=== PATIENT | male | born 1945 | race Caucasian/White ===

== ENCOUNTER 2017-02-08 15:37 | Inpatient (IN) | payer MEDICARE ==
[2017-02-08] VITALS (7 sets, daily range): BP systolic 118–168; BP diastolic 56–95
[~2017-02-08] VITALS: Ht 191.8 cm; Wt 89.9 kg
[~2017-02-08 15:37] MED LIST: ASP81CT; BPR75T PO; CHOL200025 PO; LEVO500T80 PO; MELO7.5T; MULT-963 PO; PRD20T PO; PRV20T; SULF1TAB38 PO; VIT D
[2017-02-08] MEDS ORDERED: NS IV 1000 ML 1,000 ML IV ONE ×2 (15:50→17:04)
[2017-02-08] MEDS ORDERED: ACETAMINOPHEN 500 MG TAB (TYLENOL) PO PRN (16:00)
[2017-02-08 16:02] LABS: BASOPHILS % (AUTO) 0 % (0-10); EOSINOPHILS % (AUTO) 0 % (0-10); LYMPHOCYTES # (AUTO) 0.8 X 10^3 (1.0-4.0); LYMPHOCYTES % (AUTO) 10 % (12-44); MEAN CORPUSCULAR HEMOGLOBIN 28 PG (25-34); MEAN CORPUSCULAR HGB CONC 34 G/DL (32-36); MEAN CORPUSCULAR VOLUME 84 FL (80-99); MEAN PLATELET VOLUME 9.5 FL (7.4-10.4); MONOCYTES # (AUTO) 0.6 X 10^3 (0.0-1.0); MONOCYTES % (AUTO) 8 % (0-12); NEUTROPHILS # (AUTO) 6.2 X 10^3 (1.8-7.8); NEUTROPHILS % (AUTO) 81 % (42-75); PLATELET COUNT 114 10^3/uL (130-400); RED BLOOD COUNT 5.35 10^6/uL (4.35-5.85); RED CELL DISTRIBUTION WIDTH 14.9 % (10.0-14.5); WHITE BLOOD COUNT 7.6 10^3/uL (4.3-11.0)
[2017-02-08 16:15] LABS: PROTHROMBIN TIME PATIENT 13.2 SEC (12.2-14.7)
[2017-02-08 16:22] LABS: BILIRUBIN,URINE NEGATIVE (NEGATIVE); KETONES,URINE 1+ (NEGATIVE); LEUKOCYTE ESTERASE ,URINE 2+ (NEGATIVE); NITRITE,URINE NEGATIVE (NEGATIVE); PH,URINE 7 (5-9); PROTEIN,URINE 2+ (NEGATIVE); UROBILINOGEN,URINE NORMAL (NORMAL)
[2017-02-08 16:26] LABS: ALBUMIN 4.1 GM/DL (3.2-4.5); BILIRUBIN,TOTAL 1.2 MG/DL (0.1-1.0); CALCIUM 9.7 MG/DL (8.5-10.1); CREATININE SERUM 1.28 MG/DL (0.60-1.30); POTASSIUM 4.3 MMOL/L (3.6-5.0); TOTAL PROTEIN 8.3 GM/DL (6.4-8.2)
--- NOTE | 2017-02-08 16:35 | Diagnostic Imaging Report ---
INDICATION: Shortness of breath. TECHNIQUE: A PA chest was obtained at 4:18 PM. COMPARISON: 01/24/2016. FINDINGS: The heart and mediastinal silhouette are normal in appearance. There is COPD change. There is some parenchymal scarring in the right base which is less extensive than on 01/24/2016. There is no pleural fluid. The previous right pleural effusion has resolved. There is no consolidation or pneumothorax. IMPRESSION: COPD changes. There is some scarring in the right lung base which is improved compared with 02/03/2016 but not resolved. There is resolution of the previous right pleural effusion. There is no acute consolidation. Dictated by: Dictated on workstation # [id number]
[2017-02-08 16:41] LABS: WBC,URINE TNTC /HPF
--- NOTE | 2017-02-08 16:41 | ED General ---
General Chief Complaint: -Male Stated Complaint: SOA Nursing Triage Note: TO ED PER EMS REPORTS HE HAS HAD URINARY BURNING SINCE THIS AM. Nursing Sepsis Screen: Possible Sepsis Risk Source of Information: Patient Exam Limitations: No Limitations History of Present Illness Time Seen by Provider: 15:42 Initial Comments Here with report of fever this morning. Noted that he woke up at about 2 a.m. and had difficulty with urination. This repeated at 4 a.m. and 6 a.m. At about 2 p.m. today. He was shaking in week and feverish. He vomited when he tried to drink water. Overall feeling terrible. He did try to get a hold of his doctor and has appointment tomorrow morning. Denies diarrhea or breathing problems. Denies cough. Timing/Duration: 12-24 Hours Severity: Moderate Associated Systoms: No Chest Pain, No Cough, Fever/Chills, Nausea/Vomiting, Shortness of Air, Weakness Allergies and Home Medications Allergies Coded Allergies: ibuprofen (Unverified Adverse Reaction, Mild, BECOMES UNPLEASANT, 01/17/11) Home Medications Bupropion Hcl 75 Mg Tablet, 1 TAB PO DAILY, (Reported) Cholecalciferol (Vitamin D3) 2,000 Unit Tablet, 2,000 UNIT PO DAILY, (Reported) Levofloxacin 500 Mg Tablet, 500 MG PO DAILY, #7 Prescribed by: ABIGAIL MATHIAS on 01/24/161839 Multivitamin 1 Each Tablet, 1 EACH PO DAILY, (Reported) Prednisone 20 Mg Tab, 40 MG PO DAILY, #8 Prescribed by: ABIGAIL MATHIAS on 01/24/161839 Constitutional: see HPI, chills, fever, weakness EENTM: no symptoms reported Respiratory: no symptoms reported Cardiovascular: no symptoms reported Gastrointestinal: see HPI, No abdominal pain, nausea, vomiting Genitourinary: decreased output, dysuria, frequency Musculoskeletal: no symptoms reported Skin: no symptoms reported Psychiatric/Neurological: See HPI All Other Systems Reviewed Negative Unless Noted: Yes Past Qmcwkki-Sphdxw-Wvqyos Hx Patient Social History Alcohol Use: Denies Use Recreational Drug Use: No Smoking Status: Former Smoker Type Used: Cigarettes Former Smoker, Quit: Jan 14, 2015 Recent Foreign Travel: No Contact w/Someone Who Travel: No Recent Infectious Disease Expo: No Recent Hopitalizations: No Immunizations Up To Date Date of Pneumonia Vaccine: Feb 27, 2010 Date of Influenza Vaccine: Apr 05, 2011 Surgeries History of Surgeries: Yes (LBKA) Surgeries: Appendectomy Respiratory History of Respiratory Disorde: No Cardiovascular History of Cardiac Disorders: No Neurological History of Neurological Disord: No Reproductive System Hx Reproductive Disorders: No Gastrointestinal History of Gastrointestinal Di: No Musculoskeletal History of Musculoskeletal Dis: Yes (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) Endocrine History of Endocrine Disorders: No HEENT HEENT Disorders: Cataract Cancer History of Cancer: No Psychosocial History of Psychiatric Problem: No Integumentary History of Skin or Integumenta: No Blood Transfusions History of Blood Disorders: No Reviewed Nursing Assessment Reviewed/Agree w Nursing PMH: Yes Family Medical History Significant Family History: Cancer, Stroke Physical Exam-Suspected Sepsis Physical Exam Vital Signs Vital Sign - Last 12Hours 02/08/17 15:37 Temp 102.4 Pulse 117 Resp 18 B/P (MAP) 150/90 Pulse Ox 96 O2 Delivery Room Air O2 Flow Rate 2.00 Capillary Refill : Less Than 3 Seconds Blood Pressure Mean: 110 General Appearance: No Apparent Distress, WD/WN HEENT: PERRL/EOMI, Pharynx Normal Neck: Non Tender, Supple Respiratory: Lungs Clear, Normal Breath Sounds Cardiovascular: No Murmur, Tachycardia Gastrointestinal: Non Tender, Soft Back: Normal Inspection, No CVA Tenderness, No Vertebral Tenderness Extremity: Normal Range of Motion, Non Tender Neurologic/Psychiatric: Alert, Oriented x3 Skin: normal color, warm/dry Focused Exam Evaluation Lactate Level Laboratory Tests 02/08/17 15:56: Lactic Acid Level 2.19*H Lactic Acid Level Laboratory Tests Test 02/08/17 15:56 Lactic Acid Level 2.19 MMOL/L (0.50-2.00) *H Progress/Results/Core Measures Suspected Sepsis Recent Fever Within 48 Hours: Yes Infection Criteria Present: Suspected New Infection New/Unexplained Altered Menta: No Sepsis Screen: Possible Sepsis Risk Sepsis Diagnosis: SIRS Temperature:102.4 Pulse: 117 Respiratory Rate: 18 Laboratory Tests 02/08/17 15:56: White Blood Count 7.6 Blood Pressure 150 /90 Mean: 110 Laboratory Tests 02/08/17 15:56: Lactic Acid Level 2.19*H Laboratory Tests 02/08/17 15:56: Creatinine 1.28, INR Comment 1.0, Platelet Count 114L, Total Bilirubin 1.2H Results/Orders Lab Results Laboratory Tests Test 02/08/17 15:56 02/08/17 16:15 Range/Units White Blood Count 7.6 4.3-11.0 10^3/uL Red Blood Count 5.35 4.35-5.85 10^6/uL Hemoglobin 15.2 13.3-17.7 G/DL Hematocrit 45 40-54 % Mean Corpuscular Volume 84 80-99 FL Mean Corpuscular Hemoglobin 28 25-34 PG Mean Corpuscular Hemoglobin Concent 34 32-36 G/DL Red Cell Distribution Width 14.9 H 10.0-14.5 % Platelet Count 114 L 130-400 10^3/uL Mean Platelet Volume 9.5 7.4-10.4 FL Neutrophils (%) (Auto) 81 H 42-75 % Lymphocytes (%) (Auto) 10 L 12-44 % Monocytes (%) (Auto) 8 0-12 % Eosinophils (%) (Auto) 0 0-10 % Basophils (%) (Auto) 0 0-10 % Neutrophils # (Auto) 6.2 1.8-7.8 X 10^3 Lymphocytes # (Auto) 0.8 L 1.0-4.0 X 10^3 Monocytes # (Auto) 0.6 0.0-1.0 X 10^3 Eosinophils # (Auto) 0.0 0.0-0.3 10^3/uL Basophils # (Auto) 0.0 0.0-0.1 10^3/uL Prothrombin Time 13.2 12.2-14.7 SEC INR Comment 1.0 0.8-1.4 Activated Partial Thromboplast Time 30 24-35 SEC Sodium Level 134 L 135-145 MMOL/L Potassium Level 4.3 3.6-5.0 MMOL/L Chloride Level 103 98-107 MMOL/L Carbon Dioxide Level 21 21-32 MMOL/L Anion Gap 10 5-14 MMOL/L Blood Urea Nitrogen 16 7-18 MG/DL Creatinine 1.28 0.60-1.30 MG/DL Estimat Glomerular Filtration Rate 55 BUN/Creatinine Ratio 13 Glucose Level 103 70-105 MG/DL Lactic Acid Level 2.19 *H 0.50-2.00 MMOL/L Calcium Level 9.7 8.5-10.1 MG/DL Total Bilirubin 1.2 H 0.1-1.0 MG/DL Aspartate Amino Transf (AST/SGOT) 21 5-34 U/L Alanine Aminotransferase (ALT/SGPT) 24 0-55 U/L Alkaline Phosphatase 176 H 40-136 U/L Total Protein 8.3 H 6.4-8.2 GM/DL Albumin 4.1 3.2-4.5 GM/DL Urine Color YELLOW Urine Clarity VERY CLOUDY H Urine pH 7 5-9 Urine Specific [place] 1.010 L 1.016-1.022 Urine Protein 2+ H NEGATIVE Urine Glucose (UA) NEGATIVE NEGATIVE Urine Ketones 1+ H NEGATIVE Urine Nitrite NEGATIVE NEGATIVE Urine Bilirubin NEGATIVE NEGATIVE Urine Urobilinogen NORMAL NORMAL MG/DL Urine Leukocyte Esterase 2+ H NEGATIVE Urine RBC (Auto) 3+ H NEGATIVE Urine RBC 2-5 H /HPF Urine WBC TNTC H /HPF Urine Crystals NONE /LPF Urine Bacteria LARGE H /HPF Urine Casts NONE /LPF Urine Mucus NEGATIVE /LPF Urine Culture Indicated YES My Orders Orders - ABIGAIL MATHIAS MD Cbc With Automated Diff (02/08/17 15:50) Comprehensive Metabolic Panel (02/08/17 15:50) Lactic Acid Analyzer (02/08/17 15:50) Blood Culture (02/08/17 15:50) Sputum Culture (02/08/17 15:50) Ua Culture If Indicated (02/08/17 15:50) Protime With Inr (02/08/17 15:50) Partial Thromboplastin Time (02/08/17 15:50) Chest 1 View, Ap/Pa Only (02/08/17 15:50) O2 (02/08/17 15:50) Acetaminophen Tablet (Tylenol Tablet) (02/08/17 16:00) Vital Signs Adult Sepsis Patie Q1HR (02/08/17 15:50) Remove Rings In Anticipation O (02/08/17 15:50) Ns Iv 1000 Ml (Sodium Chloride 0.9%) (02/08/17 15:50) Urine Culture (02/08/17 16:15) Ceftriaxone Injection (Rocephin Injectio (02/08/17 17:00) Ns Iv 1000 Ml (Sodium Chloride 0.9%) (02/08/17 17:04) Ns Iv 1000 Ml (Sodium Chloride 0.9%) (02/08/17 17:04) Medications Given in ED Current Medications Medications Dose Ordered Sig/Kanid Route Start Time Stop Time Status Last Admin Dose Admin Acetaminophen 1,000 mg ONCE PRN PO 02/08/17 16:00 02/08/17 16:06 DC 02/08/17 16:06 1,000 MG Sodium Chloride 1,000 ml @ 0 mls/hr Q0M ONCE IV 02/08/17 15:50 02/08/17 15:52 DC 02/08/17 16:06 1,000 MLS/HR Vital Signs/I&O Vital Sign - Last 12Hours 02/08/17 02/08/17 15:37 15:37 Temp 102.4 Pulse 117 Resp 18 B/P (MAP) 150/90 Pulse Ox 96 O2 Delivery Room Air Room Air O2 Flow Rate 2.00 Intake and Output 02/09/17 00:00 Intake Total 1000 ml Balance 1000 ml Capillary Refill : Less Than 3 Seconds Blood Pressure Mean: 110 Progress Note : Progress Note Seen and evaluated. IV by EMS. Labs, UA, chest x-ray and normal saline 1 L bolus ordered. Lactic acid and blood cultures ordered. Tylenol 1 g by mouth ordered. Monitor patient. 1655: Rocephin 1 g IV ordered. UTI noted. Findings of sepsis without septic shock noted. No indication of high volume fluid resuscitation at this time. 1703: Blood pressure now 89 systolic and appears to be floating around that level. Due to this, he now meets saline fluid resuscitation. 2 more liters of normal saline have been ordered IV to make a total of 3 L which would exceed the 30 mL/kg IV. 1707: I attest to focus exam. Admit to ICU. Dr. SILVA updated and agrees. Admit, inpatient status. Patient and family agree with plan. Departure Communication (Admissions) Time/Spoke to Admitting Phy: 16:55 Impression Impression: Primary Impression: Severe sepsis Additional Impression: Urinary tract infection Qualified Codes: N30.00 - Acute cystitis without hematuria Disposition: ADMITTED INPATIENT Condition: Stable Admissions Decision to Admit Reason: Admit from ER (General) Decision to Admit/Date: Feb 08, 2017 Time/Decision to Admit Time: 16:55 Departure-Patient Inst. Referrals: TISHA HO MD (PCP/Family) Primary Care Physician Copy Copies To 1: TISHA HO MD, TIMOTHY D MD Feb 08, 2017 16:41
[2017-02-08] MEDS ORDERED: cefTRIAXone INJECTION 1,000 MG in NS (IVPB) 50 ML IV ONE (17:00)
[2017-02-08] MEDS ORDERED: NS IV 1000 ML 1,000 ML IV STA (17:04)
--- OUTSIDE RECORDS SUMMARY | 2017-02-08 17:26 | XMS REPORT | Clinical Summary ---
Author Author [facility] Organization [facility] Address Unknown Phone Unavailable Care Team Providers Care Bus [employer] In[employer] Name Role Phone PCP Unavailable Source Comments Some departments are not documenting in the electronic medical record. If you do not see the information that you expected, contact Release of Information in the Health Information Management department at [phone] for further assistance in locating additional records.[facility] Allergies Not on File Current Medications Not on file Active Problems Not on file Social History Tobacco Use Types Packs/Day Years Used Date Never Assessed Sex Assigned at Date Recorded Not on file Last Filed Vital Signs Not on file Plan of Treatment Health Maintenance Due Date Last Done Comments PHYSICAL (COMPREHENSIVE) 1950 EXAM PERTUSSIS VACCINE 1954 TETANUS VACCINE 01/14/1960 COLORECTAL CANCER 1993 SCREENING SHINGLES VACCINE 2003 PREVNAR/PNEUMOVAX (#1) 01/14/2008 INFLUENZA VACCINE 02/13/2017 Results Not on filefrom Last 3 Months
[2017-02-08] MEDS ORDERED: ACETAMINOPHEN 325 MG TABLET/CAPLET (TYLENOL) PO PRN (19:00)
[2017-02-08] MEDS ORDERED: HYDROcodone/APAP 7.5 MG/325 MG (LORTAB, LORCET PLUS) TABLET PO PRN (19:00)
[2017-02-08] MEDS ORDERED: LIDOCAINE UROJET 2% GEL 10 ML PKG ONE (22:09)
[2017-02-09] VITALS (15 sets, daily range): BP systolic 77–121; BP diastolic 33–79
[2017-02-09] MEDS: NS IV 1000 ML 1,000 ML IV SCH ×4 (02:23→17:49)
[2017-02-09 05:03] LABS: BASOPHILS % (AUTO) 0 % (0-10); EOSINOPHILS % (AUTO) 0 % (0-10); LYMPHOCYTES # (AUTO) 0.9 X 10^3 (1.0-4.0); LYMPHOCYTES % (AUTO) 21 % (12-44); MEAN CORPUSCULAR HEMOGLOBIN 29 PG (25-34); MEAN CORPUSCULAR HGB CONC 34 G/DL (32-36); MEAN CORPUSCULAR VOLUME 85 FL (80-99); MEAN PLATELET VOLUME 9.5 FL (7.4-10.4); MONOCYTES # (AUTO) 0.7 X 10^3 (0.0-1.0); MONOCYTES % (AUTO) 15 % (0-12); NEUTROPHILS # (AUTO) 2.7 X 10^3 (1.8-7.8); NEUTROPHILS % (AUTO) 64 % (42-75); PLATELET COUNT 88 10^3/uL (130-400); RED BLOOD COUNT 4.43 10^6/uL (4.35-5.85); RED CELL DISTRIBUTION WIDTH 14.9 % (10.0-14.5); WHITE BLOOD COUNT 4.3 10^3/uL (4.3-11.0)
[2017-02-09 05:14] LABS: INR 1.2 (0.8-1.4); PROTHROMBIN TIME PATIENT 14.9 SEC (12.2-14.7)
[2017-02-09 05:26] LABS: ALBUMIN 3.2 GM/DL (3.2-4.5); BILIRUBIN,TOTAL 1.3 MG/DL (0.1-1.0); CALCIUM 8.5 MG/DL (8.5-10.1); CREATININE SERUM 1.24 MG/DL (0.60-1.30); MAGNESIUM 1.8 MG/DL (1.8-2.4); PHOSPHORUS 2.6 MG/DL (2.3-4.7); POTASSIUM 4.2 MMOL/L (3.6-5.0); TOTAL PROTEIN 6.2 GM/DL (6.4-8.2)
--- NOTE | 2017-02-09 06:16 | Pulmonary Consultation ---
History of Present Illness History of Present Illness Date of Consultation 02/09/17 06:10 Time Seen by Provider: 06:30 Date of Admission History of Present Illness 72yo pt with hx of chronic UTIS, and left BKA. Pt has been seeing Dr. Noel for elevated PSA. admitted to ICU last night after waking up with fever, chills, and dysuria. Pt was dx with severe urosepsis in the ED and admitted to ICU. Fever of 101.6. Pt has received 30cc/kg of IVF. Weiss was placed last night secondary to urinary retention. I am consulted for ICU management. Allergies and Home Medications Allergies Coded Allergies: ibuprofen (Unverified Adverse Reaction, Mild, BECOMES UNPLEASANT, 01/17/11) Home Medications Bupropion Hcl 75 Mg Tablet, 1 TAB PO DAILY, (Reported) Cholecalciferol (Vitamin D3) 2,000 Unit Tablet, 2,000 UNIT PO DAILY, (Reported) Levofloxacin 500 Mg Tablet, 500 MG PO DAILY, #7 Prescribed by: ABIGAIL MATHIAS on 01/24/161839 Multivitamin 1 Each Tablet, 1 EACH PO DAILY, (Reported) Prednisone 20 Mg Tab, 40 MG PO DAILY, #8 Prescribed by: ABIGAIL MATHIAS on 01/24/161839 Past Qqdjkjh-Qcwump-Extfrc Hx Patient Social History Alcohol Use: Denies Use Recreational Drug Use: No Smoking Status: Former Smoker Type Used: Cigarettes Former Smoker, Quit: Dec 28, 2011 Recent Foreign Travel: No Contact w/Someone Who Travel: No Recent Infectious Disease Expo: No Recent Hopitalizations: No Immunizations Up To Date Date of Pneumonia Vaccine: Feb 27, 2010 Date of Influenza Vaccine: Apr 05, 2011 Seasonal Allergies Seasonal Allergies: No Surgeries History of Surgeries: Yes (LBKA, appy) Surgeries: Appendectomy Respiratory History of Respiratory Disorde: Yes Respiratory Disorders: COPD Currently Using CPAP: No Currently Using BIPAP: No Cardiovascular History of Cardiac Disorders: No Neurological History of Neurological Disord: No Reproductive System Hx Reproductive Disorders: No Genitourinary Genitourinary Disorders: UTI-Chronic Gastrointestinal History of Gastrointestinal Di: No Musculoskeletal History of Musculoskeletal Dis: Yes (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) Musculoskeletal Disorders: Arthritis, Chronic Back Pain Endocrine History of Endocrine Disorders: No HEENT HEENT Disorders: Cataract Cancer History of Cancer: No Psychosocial History of Psychiatric Problem: No Integumentary History of Skin or Integumenta: No Blood Transfusions History of Blood Disorders: No Reviewed Nursing Assessment Reviewed/Agree w Nursing PMH: Yes Family Medical History Significant Family History: Cancer, Stroke Family Medial History: Cardiovascular disease 19 MOTHER (cva) Neoplasm 19 FATHER (lung ca) G8 SISTER (lung ca ) Review of Systems Time Seen by Provider: 06:29 Constitutional: Fever, Chills, Sweats, Weakness, Malaise Eyes: No: Pain, Vision change, Conjunctivae inflammation, Eyelid inflammation, Other, Redness ENT: No: Ear pain, Ear discharge, Nose pain, Nose discharge, Nose congestion, Mouth pain, Mouth swelling, Throat pain, Throat swelling, Other Respiratory: No: Cough, Dry, Shortness of breath, SOB with excertion, Wheezing , Hemoptysis, Pleuritic Pain, Sputum, Wheezing, Other Cardiovascular: No: Chest Pain, Palpitations, Orthopnea, Paroxysmal Noc. Dyspnea, Edema, Lt Headedness, Other Gastrointestinal: No: Nausea, Vomiting, Abdominal Pain, Diarrhea, Constipation , Melena, Hematochezia, Other Genitourinary: Dysuria, No Incontinence, No Hematuria, Retention Musculoskeletal: No: other, neck pain, shoulder pain, arm pain, back pain, hand pain, leg pain, foot pain Skin: No: Rash, Lesions, Jaundice, Bruising, Other Neurological: Weakness, Incoordination, Confusion Exam Exam Vital Signs Date Time Temp Pulse Resp B/P (MAP) Pulse Ox O2 Delivery O2 Flow Rate FiO2 02/09/17 05:00 90 99/74 95 Room Air 02/09/17 04:30 99.1 84 97/59 95 Room Air 02/09/17 04:00 82 85/33 95 Room Air 02/09/17 04:00 95 Room Air 02/09/17 03:00 89 89/56 93 Room Air 02/09/17 02:30 90 98/57 94 Room Air 02/09/17 02:00 92 77/39 95 Room Air 02/09/17 01:22 96 02/09/17 01:00 96 107/37 93 Room Air 02/09/17 00:00 100.3 102 106/59 93 Room Air 02/09/17 00:00 95 Room Air 02/08/17 23:20 100.3 02/08/17 23:09 110 118/56 95 Room Air 02/08/17 22:37 101.6 02/08/17 22:06 125 168/95 96 Room Air 02/08/17 21:16 109 27 150/73 94 Room Air 02/08/17 20:00 97.8 104 132/86 95 Room Air 02/08/17 20:00 95 Room Air 02/08/17 19:50 97 Room Air 02/08/17 19:30 93 21 132/69 96 Room Air 02/08/17 19:01 91 02/08/17 19:00 91 21 124/72 94 Room Air 02/08/17 18:35 99.7 90 18 94 Room Air 02/08/17 18:35 100.2 98 11 135/75 93 Room Air 02/08/17 15:37 Room Air 2.00 02/08/17 15:37 102.4 117 18 150/90 96 Room Air General Appearance: No Apparent Distress, WD/WN HEENT: PERRL/EOMI, Pharynx Normal Neck: Non Tender, Supple Respiratory: Lungs Clear, Normal Breath Sounds, No Accessory Muscle Use, No Respiratory Distress Cardiovascular: No Murmur, Tachycardia Capillary Refill: Less Than 3 Seconds Gastrointestinal: non tender, soft, no organomegaly Extremity: Normal Range of Motion, Non Tender Neurologic/Psychiatric: Alert, Oriented x3 Skin: Normal Color, Warm/Dry Results Lab Laboratory Tests 02/08/17 15:56 02/09/17 04:41 Assessment/Plan Assessment/Plan UTI with severe sepsis -IVF -repeat 1 liter bolus -Continue Rocephin Urinary retention probably secondary to BPH -Start flomax Metabolic lactic acidosis - improving -Continue IVF mild Hypotension - improving -repeat bolus -monitor DVT/GI ppx -Lovenox -diet PT is doing better and responding to IVF. Will transfer to ICU stepdown status but keep pt in ICU for another 24hrs. 255 Clinical Quality Measures DVT/VTE Risk/Contraindication: Risk Factor Score Per Nursin RFS Level Per Nursing on Admit: 2=Moderate ARMANDO HEALY DO Feb 09, 2017 06:16
[2017-02-09] MEDS ORDERED: NS IV 500 ML 500 ML IV SCH ×2 (06:20→06:34)
[2017-02-09] MEDS ORDERED: CATHETER FLUSH 10 ML SYR IV PRN (06:30)
[2017-02-09] MEDS ORDERED: ENOXAPARIN 40 MG/0.4 ML (LOVENOX) SYR ONE (06:38)
[2017-02-09] MEDS ORDERED: ENOXAPARIN 40 MG/0.4 ML (LOVENOX) SYR SC SCH (07:00)
--- NOTE | 2017-02-09 08:40 | Diagnostic Imaging Report ---
INDICATION: Dyspnea. Compared with 02/08/2017. FINDINGS: No focal consolidation, effusion or pneumothorax. Air trapping and COPD, chronic. The heart size within normal limits and stable. IMPRESSION: Clear hyperexpanded lungs. Dictated by: Dictated on workstation # [id number]
--- NOTE | 2017-02-09 08:47 | History & Physical-Hospitalist ---
HPI History of Present Illness: HPI/Chief Complaint Mr. Tyson is a 72-year-old white male who is feeling well until he woke up around 2 a.m. the day before his admission noting the onset of burning with dribbling. He got up about every 2 hours feeling weak. He then developed chills the afternoon around noon and presented to the emergency room around 2 p.m. feeling quite weak. He has a history of prostatism and had one other urinary tract infection treated as an outpatient as I recall little over a year ago. Weiss catheter was placed with about 500 mL of residual postvoid. Up until yesterday he reports he had been feeling well with no symptoms and stable nocturia 2 but he did not feel was significant enough to want to take medication for. Date Seen 02/09/17 Time Seen by Provider: 07:40 Attending Physician Tisha Ho MD PCP Tisha Ho MD Referring Physician Date of Admission Feb 08, 2017 at 17:22 Home Medications & Allergies Home Medications Reviewed patient Home Medication Reconciliation Form Allergies Allergies Coded Allergies ibuprofen (Unverified Adverse Reaction, Mild, BECOMES UNPLEASANT, 01/17/11) Past Fcewcvd-Zckwfy-Gptrgh Hx Patient Social History Alcohol Use: Denies Use Recreational Drug Use: No Smoking Status: Former Smoker Former Smoker, Quit: Dec 28, 2011 Type Used: Cigarettes Physical Abuse Screen: No Sexual Abuse: No Recent Foreign Travel: No Contact w/other who traveled: No Recent Hopitalizations: No Recent Infectious Disease Expo: No Immunizations Up To Date Date of Pneumonia Vaccine: Feb 27, 2010 Date of Influenza Vaccine: Apr 05, 2011 Seasonal Allergies Seasonal Allergies: No Surgeries Yes (LBKA, appy) Appendectomy Respiratory Yes Currently Using CPAP: No Currently Using BIPAP: No Cardiovascular No Neurological No Reproductive System Hx Reproductive Disorders: No Genitourinary UTI-Chronic Gastrointestinal No Musculoskeletal Yes (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) Arthritis, Chronic Back Pain Endocrine History of Endocrine Disorders: No HEENT HEENT Disorders: Cataract Cancer No Psychosocial History of Psychiatric Problem: No Integumentary History of Skin or Integumenta: No Blood Transfusions History of Blood Disorders: No Reviewed Nursing Assessment Reviewed/Agree w Nursing PMH: Yes Family Medical History Significant Family History: Cancer, Stroke Family Hx: Cardiovascular disease 19 MOTHER (cva) Neoplasm 19 FATHER (lung ca) G8 SISTER (lung ca ) Review of Systems Constitutional: see HPI, chills, No diaphoresis, No dizziness, fever, No malaise, weakness, No weight gain, No weight loss, No other Respiratory: No cough, No dyspnea on exertion, No hemoptysis, No orthopnea, No phlegm, No short of breath, No wheezing Genitourinary: discharge, dysuria, frequency, hesitancy Physical Exam Physical Exam Vital Signs Vital Sign - Last 12Hours 02/08/17 15:37 Temp 102.4 Pulse 117 Resp 18 B/P (MAP) 150/90 Pulse Ox 96 O2 Delivery Room Air O2 Flow Rate 2.00 Capillary Refill : Less Than 3 Seconds General Appearance: No Apparent Distress Respiratory: Chest Non Tender, Lungs Clear, Normal Breath Sounds, No Accessory Muscle Use, No Respiratory Distress Cardiovascular: Regular Rate, Rhythm, No Edema, No Gallop, No JVD, No Murmur, Normal Peripheral Pulses Gastrointestinal: Normal Bowel Sounds, No Organomegaly, No Pulsatile Mass, Non Tender, Soft Extremity: Normal Capillary Refill, Normal Inspection, Normal Range of Motion, Non Tender, No Calf Tenderness, No Pedal Edema, Other (Right BKA amputation) Neurologic/Psychiatric: Alert, Oriented x3 Skin: Warm/Dry, Other (I'll flushing) Results Results/Procedures Lab Laboratory Tests 02/08/17 15:56 02/09/17 04:41 Assessment/Plan Admission Diagnosis 1. Urinary tract infection with sepsis responding to IV antibiotics. The patient's blood pressure is up this morning and his heart rate is no longer tachycardic. Continue Rocephin and IV fluids. 2. Prostatism with likely incomplete evacuation contributing to number 1. Uroxatral has been initiated will leave his catheter in today and possibly tomorrow. 3. Thrombocytopenia secondary to sepsis this will preclude the use of Lovenox with SCDs sufficing for DVT prophylaxis. Clinical Quality Measures DVT/VTE Risk/Contraindication: Risk Factor Score Per Nursin RFS Level Per Nursing on Admit: 2=Moderate TISHA HO MD Feb 09, 2017 08:47
[2017-02-09] MEDS ORDERED: HYDR-3812 PO (09:01)
[2017-02-09] MEDS ORDERED: NAPR500T3 PO (09:01)
[2017-02-09] MEDS: cefTRIAXone 1 GM/NS 50 ML IVPB IV SCH ×2 (17:49)
[2017-02-09] MEDS: ALFUZOSIN HCL 10 MG TAB (UROXATRAL) PO SCH (17:49)
[2017-02-10] VITALS: BP 118/63
[2017-02-10] MEDS: NS IV 1000 ML 1,000 ML IV SCH ×2 (02:03→06:23)
[2017-02-10 04:00] VITALS: BP 106/56
--- NOTE | 2017-02-10 07:02 | Pulmonary Progress Note ---
Subjective Time Seen by Provider: 07:11 Subjective/Events-last exam pt doing well. No complications noted. Exam Exam Vital Signs Date Time Temp Pulse Resp B/P (MAP) Pulse Ox O2 Delivery O2 Flow Rate FiO2 02/10/17 04:00 99.1 78 16 106/56 92 Room Air 02/10/17 00:00 98.2 67 20 118/63 95 Room Air 02/09/17 19:45 99.3 67 18 121/63 95 Room Air 02/09/17 15:45 98.9 90 18 102/59 93 Room Air 02/09/17 12:00 98.9 60 20 101/57 95 Room Air 02/09/17 09:44 98.6 02/09/17 08:45 Room Air 02/09/17 08:00 89 121/79 93 Room Air 02/09/17 07:33 88 02/09/17 07:30 99.3 90 20 120/70 93 Room Air General Appearance: No Apparent Distress HEENT: PERRL/EOMI, Pharynx Normal Neck: Non Tender, Supple Respiratory: Chest Non Tender, Lungs Clear, Normal Breath Sounds, No Accessory Muscle Use, No Respiratory Distress Cardiovascular: Regular Rate, Rhythm, No Edema, No Gallop, No JVD, No Murmur, Normal Peripheral Pulses Capillary Refill: Less Than 3 Seconds Gastrointestinal: non tender, soft, no organomegaly Extremity: Normal Capillary Refill, Normal Inspection, Normal Range of Motion, Non Tender, No Calf Tenderness, No Pedal Edema, Other (Right BKA amputation) Neurologic/Psychiatric: Alert, Oriented x3 Skin: Warm/Dry, Other (I'll flushing) Results Lab Laboratory Tests 02/08/17 15:56 02/09/17 04:41 Assessment/Plan Assessment/Plan UTI with severe sepsis -IVF -Continue Rocephin -PT is eating and drinking water well. No complications noted. I am going to hep lock IVF currently still running at 150cc/hr Urinary retention probably secondary to BPH -flomax Metabolic lactic acidosis - improving mild Hypotension - improving -repeat bolus -monitor DVT/GI ppx -Lovenox -diet 232 Pt is doing well from pulmonary standpoint. I am going to sign off please call with any questions. Thank you. Clinical Quality Measures DVT/VTE Risk/Contraindication: Risk Factor Score Per Nursin RFS Level Per Nursing on Admit: 2=Moderate MONET,ARMANDO M DO Feb 10, 2017 07:01
[2017-02-10 08:00] VITALS: BP 138/65
--- NOTE | 2017-02-10 08:47 | Progress Note-Hospitalist ---
Subjective HPI/CC On Admission Date Seen by Provider: Feb 10, 2017 Time Seen by Provider: 07:40 Mr. Tyson is a 72-year-old white male who is feeling well until he woke up around 2 a.m. the day before his admission noting the onset of burning with dribbling. He got up about every 2 hours feeling weak. He then developed chills the afternoon around noon and presented to the emergency room around 2 p.m. feeling quite weak. He has a history of prostatism and had one other urinary tract infection treated as an outpatient as I recall little over a year ago. Weiss catheter was placed with about 500 mL of residual postvoid. Up until yesterday he reports he had been feeling well with no symptoms and stable nocturia 2 but he did not feel was significant enough to want to take medication for. Subjective/Events-last exam Romain reports feeling better this morning did report night sweats but no chills last night. He was sitting up and he just finished breakfast. He denied nausea abdominal pain or shortness of breath. He denies any problems with catheter irritation with Weiss to dependent drainage. Objective Exam Vital Signs Vital Sign - Last 12Hours 02/08/17 15:37 Temp 102.4 Pulse 117 Resp 18 B/P (MAP) 150/90 Pulse Ox 96 O2 Delivery Room Air O2 Flow Rate 2.00 Capillary Refill : Less Than 3 Seconds General Appearance: No Apparent Distress, WD/WN Respiratory: Chest Non Tender, Lungs Clear, Normal Breath Sounds, No Accessory Muscle Use, No Respiratory Distress Cardiovascular: Regular Rate, Rhythm, No Edema, No Gallop, No JVD, No Murmur, Normal Peripheral Pulses Gastrointestinal: Normal Bowel Sounds, No Organomegaly, No Pulsatile Mass, Non Tender, Soft Results/Procedures Lab Laboratory Tests 02/11/17 05:26 Assessment/Plan Assessment and Plan Assess & Plan/Chief Complaint 1. Urinary tract infection with sepsis growing Escherichia coli sensitive to all tested antibiotics. Patient responding well continue IV antibiotics. 2. Thrombocytopenia secondary to 1 and will repeat CBC in the morning. 3. Prostatism on alpha silviano therapy in the form of Uroxatral will DC Weiss today. Possible discharge tomorrow considering patient's rapid improvement. TISHA HO MD Feb 10, 2017 08:47
[2017-02-10 16:00] VITALS: BP 118/64
[2017-02-10] MEDS: ALFUZOSIN HCL 10 MG TAB (UROXATRAL) PO SCH (18:37)
[2017-02-10] MEDS: cefTRIAXone 1 GM/NS 50 ML IVPB IV SCH ×2 (18:37)
[2017-02-10 23:47] VITALS: BP 122/88
[2017-02-11 06:25] LABS: BASOPHILS % (AUTO) 0 % (0-10); EOSINOPHILS # (AUTO) 0.1 10^3/uL (0.0-0.3); EOSINOPHILS % (AUTO) 3 % (0-10); LYMPHOCYTES # (AUTO) 0.9 X 10^3 (1.0-4.0); LYMPHOCYTES % (AUTO) 39 % (12-44); MEAN CORPUSCULAR HEMOGLOBIN 28 PG (25-34); MEAN CORPUSCULAR HGB CONC 34 G/DL (32-36); MEAN CORPUSCULAR VOLUME 84 FL (80-99); MEAN PLATELET VOLUME 9.8 FL (7.4-10.4); MONOCYTES # (AUTO) 0.4 X 10^3 (0.0-1.0); MONOCYTES % (AUTO) 17 % (0-12); NEUTROPHILS % (AUTO) 42 % (42-75); PLATELET COUNT 91 10^3/uL (130-400); RED BLOOD COUNT 4.41 10^6/uL (4.35-5.85); RED CELL DISTRIBUTION WIDTH 15.1 % (10.0-14.5); WHITE BLOOD COUNT 2.3 10^3/uL (4.3-11.0)
[2017-02-11 08:00] VITALS: BP 133/71
[2017-02-11] MEDS ORDERED: CEPH500C PO (11:47)
[2017-02-11] MEDS ORDERED: ALFU10TA11 PO (11:47)
--- NOTE | 2017-02-11 16:17 | Discharge Summary-Hospitalist ---
Diagnosis/Chief Complaint Date of Admission Feb 08, 2017 at 17:22 Date of Discharge Feb 11, 2017 at 13:20 Discharge Date: Feb 11, 2017 Admission Diagnosis 1. Urinary tract infection with sepsis responding to IV antibiotics. The patient's blood pressure is up this morning and his heart rate is no longer tachycardic. Continue Rocephin and IV fluids. 2. Prostatism with likely incomplete evacuation contributing to number 1. Uroxatral has been initiated will leave his catheter in today and possibly tomorrow. 3. Thrombocytopenia secondary to sepsis this will preclude the use of Lovenox with SCDs sufficing for DVT prophylaxis. Discharge Diagnosis 1. Urinary tract infection with sepsis growing Escherichia coli sensitive to all tested antibiotics. Patient responding well continue IV antibiotics. 2. Thrombocytopenia secondary to 1 and will repeat CBC in the morning. 3. Prostatism on alpha silviano therapy in the form of Uroxatral will DC Weiss today. Possible discharge tomorrow considering patient's rapid improvement. Discharge Summary Discharge Physical Examination Allergies: Coded Allergies: ibuprofen (Unverified Adverse Reaction, Mild, BECOMES UNPLEASANT, 01/17/11) Vitals & I&Os Vital Signs Date Time Temp Pulse Resp B/P (MAP) Pulse Ox O2 Delivery O2 Flow Rate FiO2 02/11/17 13:20 02/11/17 08:00 98.9 86 24 94 Room Air 02/08/17 15:37 2.00 Hospital Course Mr. Tyson presented to the emergency room with chills fever or weakness and dysuria. His temperature was 102.5 his lactate level was slightly greater than 2 with sinus tachycardia maintaining normal blood pressure. He was noted to be thrombocytopenic with urine results revealing large bacteria and numerous white cells. He was admitted to the intensive care unit with presumed urinary tract infection with secondary sepsis. IV fluid resuscitation was given greater than 30 mL/kg and Rocephin was initiated. Urine culture grew Escherichia coli pansensitive to all tested antibiotics including amoxicillin. The patient responded more quickly than I expected with no further Reiger's. On the day of his discharge his white count had dropped to 2.3 thousand but platelet count had come up from 85 to 90,000 and hemoglobin was 12.4. The day of this discharge he was ambulating without difficulty with normal appetite. He does have symptoms compatible with prostatism with diminished stream and nocturia 2. This is a second urinary tract infection he has had this year last one treated as an outpatient. We discussed prostatism and incomplete emptying is being is likely a major risk factor and Uroxatral was started. His Weiss catheter was removed the day before discharge and he had no difficulty voiding. He was discharged on cephalexin 500 mg 4 times a day and Uroxatral 10 mg daily. Discussed the importance of hydration predominantly water and I will see him back for follow-up in 1-2 weeks. Labs (last 24 hrs) Laboratory Tests 02/11/17 05:26: White Blood Count 2.3L, Red Blood Count 4.41, Hemoglobin 12.4L, Hematocrit 37L, Mean Corpuscular Volume 84, Mean Corpuscular Hemoglobin 28, Mean Corpuscular Hemoglobin Concent 34, Red Cell Distribution Width 15.1H, Platelet Count 91L, Mean Platelet Volume 9.8, Neutrophils (%) (Auto) 42, Lymphocytes (%) (Auto) 39, Monocytes (%) (Auto) 17H, Eosinophils (%) (Auto) 3, Basophils (%) (Auto) 0, Neutrophils # (Auto) 1.0L, Lymphocytes # (Auto) 0.9L, Monocytes # (Auto) 0.4, Eosinophils # (Auto) 0.1, Basophils # (Auto) 0.0 Microbiology 02/08/17 Blood Culture - Preliminary, Resulted No growth 02/08/17 Urine Culture - Final, Complete Escherichia Coli Discharge Home Medications: Active Scripts Active Cephalexin 500 Mg Capsule 500 Mg PO QIDACHS 5 Days Alfuzosin HCl ER (Alfuzosin HCl) 10 Mg Tab.er.24h 10 Mg PO DAILY@1800 30 Days Reported Hydrocodon -Acetaminophen 5-325 (Hydrocodone/Acetaminophen) 1 Each Tablet 1 Tab PO DAILY PRN Naproxen 500 Mg Tablet 500 Mg PO DAILY PRN Instructions to patient/family Please see electronic discharge instructions given to patient. Clinical Quality Measures DVT/VTE Risk/Contraindication: Risk Factor Score Per Nursin RFS Level Per Nursing on Admit: 2=Moderate TISHA HO MD Feb 11, 2017 16:17
[2017-02-13] MEDS ORDERED: INFLUENZA TRIvalent 2017-2018 0.5 ML/45 MCG SYR IM ONE (07:45)
== END 2017-02-11 13:20 | disposition home or self-care (01) | DRG 872 ==
LOC: EDUNIT# 15:37 → ER 15:38 → ICU 17:22 → 4TH 02-09 08:25 → UNDODISIN 02-09 16:00
PROVIDERS: ADMIT Internal Medicine; ATTEND Internal Medicine
DX: A41.9 Sepsis, unspecified organism (principal); N39.0 Urinary tract infection, site not specified; N40.1 Benign prostatic hyperplasia with lower urinary tract symptoms; R33.8 Other retention of urine; D69.59 Other secondary thrombocytopenia; J44.9 Chronic obstructive pulmonary disease, unspecified; M19.91 Primary osteoarthritis, unspecified site; M54.9 Dorsalgia, unspecified; Z87.891 Personal history of nicotine dependence
CPT/HCPCS: 36415; 71010; 80053; 81000; 83605; 83735; 84100; 85025; 85610; 85730; 87040; 87077; 87088; 87186; 96361; 96365

== ENCOUNTER 2020-11-11 08:04 | Observation (INO) | payer MEDICARE ==
[~2020-11-11] VITALS: Ht 193 cm; Wt 94.2 kg
[2020-11-11] VITALS (7 sets, daily range): BP systolic 121–159; BP diastolic 55–81
[~2020-11-11 08:04] MED LIST changes: +ACHD5005 PO; +ALFU10TA12 PO; +CEPH500C PO; +NAPR-915 PO
[2020-11-11] MEDS ORDERED: ASPIRIN 81 MG CHEW (CHILDREN'S ASA) PO ONE (08:15)
--- NOTE | 2020-11-11 08:16 | ED Cardiac General ---
History of Present Illness General Stated Complaint: SYNCOPE Source: patient Exam Limitations: no limitations History of Present Illness Date Seen by Provider: Nov 11, 2020 Time Seen by Provider: 08:00 Initial Comments Patient to ER by EMS from home with chief complaint that he called his daughter because he did not feel well this morning was feeling hot/sweaty and by the time she got to his house she found him passed out for about 5 minutes. He has no history of coronary disease nor does he know a senior mechanical project engineer. He does follow with Dr. Noel and Dr. Evangelista. He is not having any nausea. He is not diabetic. He is not having any chest pain at any time. EMS reports he had an initial blood pressure around 90/60 so they started some fluids and he has received about 400 cc of them. Allergies and Home Medications Allergies Coded Allergies: ibuprofen (Unverified Adverse Reaction, Mild, BECOMES UNPLEASANT, 01/17/11) Home Medications Alfuzosin HCl 10 Mg Tab.er.24h, 10 MG PO DAILY@1800 Prescribed by: TISHA EVANGELISTA on 02/11/17 1147 Cephalexin 500 Mg Capsule, 500 MG PO QIDACHS Prescribed by: TISHA EVANGELISTA on 02/11/17 1147 Hydrocodone Bit/Acetaminophen 1 Each Tablet, 1 TAB PO DAILY PRN for PAIN- MODERATE, (Reported) Naproxen 500 Mg Tablet, 500 MG PO DAILY PRN for PAIN-MILD, (Reported) Patient Home Medication List Home Medication List Reviewed: Yes Review of Systems Review of Systems Constitutional: chills; No fever, No malaise EENTM: No Blurred Vision, No Eye Tearing Respiratory: Denies Cough, Denies Shortness of Air Cardiovascular: See HPI; Denies Chest Pain, Denies Edema, Denies Palpitations; Syncope Gastrointestinal: Denies Abdominal Pain, Denies Constipated, Denies Diarrhea, Denies Nausea Genitourinary: Denies Burning, Denies Discharge All Other Systems Reviewed Negative Unless Noted: Yes Past Irqayce-Hnxmva-Jgpfqb Hx Patient Social History Alcohol Use: Denies Use Drug of Choice: Denies Smoking Status: Former Smoker Type Used: Cigarettes Former Smoker, Quit: Dec 28, 2011 Recent Hopitalizations: No Immunizations Up To Date Date of Pneumonia Vaccine: Feb 27, 2010 Date of Influenza Vaccine: Apr 05, 2011 Seasonal Allergies Seasonal Allergies: No Past Medical History Surgeries: Yes (LBKA, appy) Appendectomy Respiratory: Yes COPD Currently Using CPAP: No Currently Using BIPAP: No Cardiac: No Neurological: No Reproductive Disorders: No UTI-Chronic Gastrointestinal: No Musculoskeletal: Yes (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 2.0oz. 89.817029mu; 25.3 BMI Method:Stated General Appearance: No Apparent Distress, WD/WN HEENT: PERRL/EOMI, Pharynx Normal, Moist Mucous Membranes Neck: Full Range of Motion, Normal Inspection Respiratory: Lungs Clear, Normal Breath Sounds, No Accessory Muscle Use, No Respiratory Distress Cardiovascular: Regular Rate, Rhythm, No Edema, Normal Peripheral Pulses, Other (Paroxysmal bradycardia in the low 60s with a blood pressure of 100/60) Gastrointestinal: Normal Bowel Sounds, Non Tender, Soft Extremity: Normal Capillary Refill, Normal Inspection, No Pedal Edema Neurologic/Psychiatric: Alert, Oriented x3 Skin: Normal Color, Warm/Dry Progress/Results/Core Measures Results/Orders Lab Results Laboratory Tests Test 11/11/20 08:07 Range/Units White Blood Count 4.0 L 4.3-11.0 10^3/uL Red Blood Count 4.20 L 4.30-5.52 10^6/uL Hemoglobin 13.4 13.3-17.7 g/dL Hematocrit 41 40-54 % Mean Corpuscular Volume 97 80-99 fL Mean Corpuscular Hemoglobin 32 25-34 pg Mean Corpuscular Hemoglobin Concent 33 32-36 g/dL Red Cell Distribution Width 16.6 H 10.0-14.5 % Platelet Count 123 L 130-400 10^3/uL Mean Platelet Volume 10.8 9.0-12.2 fL Immature Granulocyte % (Auto) 0 % Neutrophils (%) (Auto) 53 42-75 % Lymphocytes (%) (Auto) 38 12-44 % Monocytes (%) (Auto) 7 0-12 % Eosinophils (%) (Auto) 2 0-10 % Basophils (%) (Auto) 1 0-10 % Neutrophils # (Auto) 2.1 1.8-7.8 10^3/uL Lymphocytes # (Auto) 1.5 1.0-4.0 10^3/uL Monocytes # (Auto) 0.3 0.0-1.0 10^3/uL Eosinophils # (Auto) 0.1 0.0-0.3 10^3/uL Basophils # (Auto) 0.0 0.0-0.1 10^3/uL Immature Granulocyte # (Auto) 0.0 0.0-0.1 10^3/uL Percent Immature Platelet Fraction 2.4 0.0-7.6 % Prothrombin Time 15.1 H 12.2-14.7 SEC INR Comment 1.1 0.8-1.4 Activated Partial Thromboplast Time 29 24-35 SEC Sodium Level 140 135-145 MMOL/L Potassium Level 3.8 3.6-5.0 MMOL/L Chloride Level 108 H 98-107 MMOL/L Carbon Dioxide Level 22 21-32 MMOL/L Anion Gap 10 5-14 MMOL/L Blood Urea Nitrogen 22 H 7-18 MG/DL Creatinine 1.17 0.60-1.30 MG/DL Estimat Glomerular Filtration Rate 60 BUN/Creatinine Ratio 19 Glucose Level 114 H 70-105 MG/DL Calcium Level 8.9 8.5-10.1 MG/DL Corrected Calcium 9.3 8.5-10.1 MG/DL Magnesium Level 1.8 1.6-2.4 MG/DL Total Bilirubin 1.1 H 0.1-1.0 MG/DL Aspartate Amino Transf (AST/SGOT) 27 5-34 U/L Alanine Aminotransferase (ALT/SGPT) 39 0-55 U/L Alkaline Phosphatase 112 40-136 U/L Myoglobin 56.8 10.0-92.0 NG/ML Troponin I < 0.028 <0.028 NG/ML B-Type Natriuretic Peptide 42.4 <100.0 PG/ML Total Protein 6.1 L 6.4-8.2 GM/DL Albumin 3.5 3.2-4.5 GM/DL My Orders Orders - TIFFANIE,ANRA J Aspirin Chewable Tablet (Baby Aspirin Ch (11/11/20 08:15) Cbc With Automated Diff (11/11/20 08:10) Magnesium (11/11/20 08:10) Chest 1 View, Ap/Pa Only (11/11/20 08:10) Ekg Tracing (11/11/20 08:10) Comprehensive Metabolic Panel (11/11/20 08:10) Myoglobin Serum (11/11/20 08:10) Protime With Inr (11/11/20 08:10) Partial Thromboplastin Time (11/11/20 08:10) O2 (11/11/20 08:10) Monitor-Rhythm Ecg Trace Only (11/11/20 08:10) Lipid Panel (11/12/20 06:00) Ed Iv/Invasive Line Start (11/11/20 08:10) BNP (11/11/20 08:10) Troponin I (11/11/20 08:10) Lactated Ringers (Lr 1000 Ml Iv Solution (11/11/20 09:50) Medications Given in ED Current Medications Medications Dose Ordered Sig/Kandi Route Start Time Stop Time Status Last Admin Dose Admin Aspirin 324 mg ONCE ONCE PO 11/11/20 08:15 11/11/20 08:16 DC 11/11/20 08:46 324 MG Lactated Ringer's 1,000 ml @ ud STK-MED ONCE IV 11/11/20 09:50 11/11/20 09:54 DC 11/11/20 09:55 1,000 MLS/HR Vital Signs/I&O 11/11/20 08:05 Temp 34.9 Pulse 53 Resp 18 B/P (MAP) 100/63 (75) Pulse Ox 97 O2 Delivery Room Air Progress Progress Note : Time: 08:14 Progress Note Syncopal episode with bradycardia/hypotension. Concern for cardiogenic. Initial ECG Impression Date: Nov 11, 2020 Initial ECG Impression Time: 08:08 Initial ECG Rate: 53 Initial ECG Rhythm: S.David Initial ECG Intervals: OH (224) Initial ECG Impression: Normal, Nonspecific Changes Initial ECG Comparisson: Unchanged Comment Normal sinus bradycardia with prolonged OH interval and no clinically relevant ST changes. There is conserved changes from 2016 on the EKG. Diagnostic Imaging Diagonstic Imaging: Xray Plain Films/CT/US/NM/MRI: chest Comments [facility]. [place], [place] NAME: TAMIKO EVANS [facility] REC#: [id number] PT STATUS: REG ER : 1945 PHYSICIAN: NARA MORENO MD ADMIT DATE: 11/11/20/ER Signed Date of Exam:11/11/20 CHEST 1 VIEW, AP/PA ONLY CHEST 1 VIEW, AP/PA ONLY Indication: Chest pain. Comparison: 02/09/2017 Findings: No focal airspace disease in the visualized lungs. Please note that the posterior lower lobes are poorly evaluated by portable radiography. No pleural effusion or pneumothorax. Normal cardiomediastinal silhouette. Impression: 1. No acute cardiopulmonary process by portable radiography. Dictated by: Dictated on workstation # [id number] Dict: 11/11/20899 Trans: 11/11/20899 [facility] [id number] Interpreted by: DIANA RYAN MD Electronically signed by: DIANA RYAN MD 11/11/20899 Reviewed: Reviewed by Me Departure Communication (Admissions) Time/Spoke to Admitting Phy: 11:28 Discussed the case with Dr. Mcclelland and she agrees to observe the patient with cardiac consultation. Time/Spoke to Consulting Phy: 11:15 Discussed the case with Dr. Marcelino who would like to observe the patient on telemetry. Impression Primary Impression: Syncope Qualified Codes: R55 - Syncope and collapse Disposition: ADMITTED INPATIENT Condition: Stable Admissions Decision to Admit Reason: Admit from ER (General) Decision to Admit/Date: Nov 11, 2020 Time/Decision to Admit Time: 10:30 Departure-Patient Inst. Referrals: TISHA EVANGELISTA MD (PCP/Family) Primary Care Physician NARA MORENO Nov 11, 2020 08:16
[2020-11-11 08:26] LABS: ALBUMIN 3.5 GM/DL (3.2-4.5); POTASSIUM 3.8 MMOL/L (3.6-5.0)
[2020-11-11 08:28] LABS: CALCIUM 8.9 MG/DL (8.5-10.1)
[2020-11-11 08:29] LABS: TOTAL PROTEIN 6.1 GM/DL (6.4-8.2)
[2020-11-11 08:31] LABS: BILIRUBIN,TOTAL 1.1 MG/DL (0.1-1.0)
[2020-11-11 08:32] LABS: CREATININE SERUM 1.17 MG/DL (0.60-1.30)
[2020-11-11 08:36] LABS: BASOPHILS % (AUTO) 1 % (0-10); EOSINOPHILS # (AUTO) 0.1 10^3/uL (0.0-0.3); EOSINOPHILS % (AUTO) 2 % (0-10); HEMATOCRIT 41 % (40-54); HEMOGLOBIN 13.4 g/dL (13.3-17.7); LYMPHOCYTES # (AUTO) 1.5 10^3/uL (1.0-4.0); LYMPHOCYTES % (AUTO) 38 % (12-44); MAGNESIUM 1.8 MG/DL (1.6-2.4); MEAN CORPUSCULAR HEMOGLOBIN 32 pg (25-34); MEAN CORPUSCULAR HGB CONC 33 g/dL (32-36); MEAN CORPUSCULAR VOLUME 97 fL (80-99); MEAN PLATELET VOLUME 10.8 fL (9.0-12.2); MONOCYTES # (AUTO) 0.3 10^3/uL (0.0-1.0); MONOCYTES % (AUTO) 7 % (0-12); NEUTROPHILS # (AUTO) 2.1 10^3/uL (1.8-7.8); NEUTROPHILS % (AUTO) 53 % (42-75); PLATELET COUNT 123 10^3/uL (130-400)
[2020-11-11 08:40] LABS: INR 1.1 (0.8-1.4); PROTHROMBIN TIME PATIENT 15.1 SEC (12.2-14.7)
--- NOTE | 2020-11-11 09:02 | Diagnostic Imaging Report ---
CHEST 1 VIEW, AP/PA ONLY Indication: Chest pain. Comparison: 02/09/2017 Findings: No focal airspace disease in the visualized lungs. Please note that the posterior lower lobes are poorly evaluated by portable radiography. No pleural effusion or pneumothorax. Normal cardiomediastinal silhouette. Impression: 1. No acute cardiopulmonary process by portable radiography. Dictated by: Dictated on workstation # [id number]
[2020-11-11] MEDS ORDERED: LACTATED RINGERS 1,000 ML IV ONE (09:50)
[2020-11-11] MEDS ORDERED: ONDANSETRON 4 MG/2 ML (SDV) Z0FRAN IV PRN (12:15)
[2020-11-11] MEDS ORDERED: MELATONIN 3 MG TABLET PO PRN (12:15)
[2020-11-11] MEDS ORDERED: ACETAMINOPHEN 325 MG TABLET PO PRN (12:15)
[2020-11-11] MEDS ORDERED: polyethylene glycoL POWDER 17 GM (MIRALAX) PACK PO PRN (12:15)
--- NOTE | 2020-11-11 13:40 | History & Physical-Hospitalist ---
History of Present Illness HPI/Chief Complaint Pt is a 75yoCM with a PMH of BPH and RA who presented to the ER due to a syncopal episode. He reports he had a normal day for him yesterday and was out working in the yard as is usual and then went grocery shopping and ate dinner well. This morning he woke up and just didn't feel right. He did not develop any chest pain and then was not associated with any exertion. He thought maybe his blood sugar was low and went to make some toast but was nauseated and couldn't eat. He then started to feel light headed and was very diaphoretic and thought he was going to pass out. He called his daughter and laid himself on the floor. When his daughter arrived he was unresponsive and she called EMS. On EMS arrival his BP was quite soft (90/60s) and and IV was started in route. He was also bradycardiac as well. He was given another liter of fluid in the ER but remained soft on BP with bradycardia. He was admitted for observation and cardiology consultation. He now reports feeling much better though not yet normal. Source: patient Date Seen 11/11/20 Time Seen by a Provider: 13:35 Attending Physician Ada Vail MD PCP Gilles Evangelista MD Referring Physician Date of Admission Nov 11, 2020 at 11:57 Home Medications & Allergies Home Medications Reviewed patient Home Medication Reconciliation performed by pharmacy medication reconciliations alarm field technician and/or nursing. Patients Allergies have been reviewed. Allergies Allergies Coded Allergies ibuprofen (Unverified Adverse Reaction, Mild, BECOMES UNPLEASANT, 01/17/11) Past Keccffo-Qtaguw-Igrvhp Hx Patient Social History Employed/Student: retired Smoking Status: Former Smoker Immunizations Up To Date Date of Influenza Vaccine: Apr 05, 2011 First/Initial COVID19 Vaccinat: Had both in September 2020 Date of Pneumonia Vaccine: Feb 27, 2010 Seasonal Allergies Seasonal Allergies: No Current Status Primary Language: Portuguese Past Medical History Surgeries: Amputation COPD Currently Using CPAP: No Currently Using BIPAP: No Hypertension Kidney Stones, UTI-Chronic Amputee, Rheumatoid Arthritis (on chronic steroids) Cataract Blood Disorders: No Family Medical History Reviewed Nursing Family Hx Cardiovascular disease 19 MOTHER (cva) Neoplasm 19 FATHER (lung ca) G8 SISTER (lung ca ) Cancer, Stroke Review of Systems Constitutional: No chills; diaphoresis; No fever EENTM: no symptoms reported Respiratory: No cough, No dyspnea on exertion, No short of breath Cardiovascular: see HPI; No chest pain, No edema, No palpitations; syncope Gastrointestinal: No abdominal pain, No constipation, No diarrhea; loss of appetite, nausea; No vomiting Genitourinary: No decreased output, No dysuria, No hematuria Musculoskeletal: no symptoms reported Skin: no symptoms reported Psychiatric/Neurological: Denies Headache, Denies Numbness, Denies Paresthesia, Denies Seizure Physical Exam Physical Exam Vital Signs Vital Signs - First Documented 11/11/20 08:05 Temp 34.9 Pulse 53 Resp 18 B/P (MAP) 100/63 (75) Pulse Ox 97 O2 Delivery Room Air Capillary Refill : Less Than 3 Seconds Height, Weight, BMI Height: 6'3.50" Weight: 198lbs. 2.0oz. 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 Imaging: Reviewed Imaging Report [facility] [place] [place] NAME: TAMIKO EVANS [facility] REC#: [id number] PT STATUS: REG ER : 1945 PHYSICIAN: NARA MORENO MD ADMIT DATE: 11/11/20/ER Signed Date of Exam:11/11/20 CHEST 1 VIEW, AP/PA ONLY CHEST 1 VIEW, AP/PA ONLY Indication: Chest pain. Comparison: 02/09/2017 Findings: No focal airspace disease in the visualized lungs. Please note that the posterior lower lobes are poorly evaluated by portable radiography. No pleural effusion or pneumothorax. Normal cardiomediastinal silhouette. Impression: 1. No acute cardiopulmonary process by portable radiography. Dictated by: Dictated on workstation # [id number] Dict: 11/11/20899 Trans: 11/11/20899 [facility] [id number] Interpreted by: DIANA RYAN MD Electronically signed by: DIANA RYAN MD 11/11/20899 Assessment/Plan Admission Diagnosis Syncope Admission Status: Observation Assessment and Plan Syncope Bradycardia Concerning for cardiac in nature given history Cardiology consulted, appreciate recs Echo ordered Monitor on telemetry hold alfuzosin BPH Continue finasteride RA Continue home meds as able DVT ppx: low risk, SCDs Diagnosis/Problems Diagnosis/Problems (1) Syncope Status: Acute Qualifiers: Syncope type: unspecified Qualified Codes: R55 - Syncope and collapse (2) Bradycardia Status: Acute (3) Rheumatoid arthritis Qualifiers: Rheumatoid arthritis location: unspecified site Rheumatoid factor presence: unspecified presence Qualified Codes: M06.9 - Rheumatoid arthritis, unspecified (4) BPH (benign prostatic hyperplasia) Qualifiers: Lower urinary tract symptom presence: symptoms absent Qualified Codes: N40.0 - Benign prostatic hyperplasia without lower urinary tract symptoms ADA VAIL MD Nov 11, 2020 13:40
--- NOTE | 2020-11-11 14:30 | Consultation-Cardiology ---
HPI-Cardiology Cardiology Consultation: Date of Consultation 11/11/20 Time Seen by a Provider: 13:45 Date of Admission 11-11-20 Attending Physician Jenelle Cardenas MD Admitting Physician Gilles Evangelista MD Consulting Physician Mallory Marcelino MD HPI: Chief Complaint: Syncope Mr. Evans is a 75 yr old male admitted to [facility] from the ED with a syncopal episode. He reports he had gotten up this morning and completed his morning chores. He states he got a cup of coffee and was going to have some toast when he started to feel weak and nauseated. He reports he felt diaphoretic at the time. He reports he sat down in a chair and passed out. His daughters are at the beside. They report their mother found him sitting slumped in a chair and the then he fell over. They report he was unconscious for approx 5 minutes and then he gradually came to. No loss of bowel or bladder control. He denies any c/o LE swelling. He does not report any diarrhea. He states he is feeling better at this time. He reports he has chronically low blood pressure (110's systolic at home). He reports he has a chronically low HR, but is unsure of what it typically runs. He states he has RA and has been transitioning from prednisone to methotrexate. Review of Systems-Cardiology Review of Systems Constitutional: No chills, No fever, No weight loss, No weight gain Eyes: No vision change Ears/Nose/Throat: No epistaxis, No recent hearing loss Respiratory: As described under HPI Cardiovascular: As described under HPI Gastrointestinal: No constipation, No diarrhea; nausea; No vomiting Genitourinary: No dysuria, No hematuria Musculoskeletal: As describe under HPI, joint pain Skin: No rash on exposed areas, No ulcerations on exposed areas Psychiatric/Neurological: As described under HPI, syncope; No focal weakness Hematologic: No bleeding abnormalities All Other Systems Reviewed Negative Unless Noted: Yes ARU-Gidvmi-Ralfch Hx Patient Social History Employed/Student: retired Smoking Status: Former Smoker Immunizations Up To Date Date of Pneumonia Vaccine: Feb 27, 2010 Date of Influenza Vaccine: Apr 05, 2011 Past Medical History PMH As described under Assessment. Family Medical History Family Medical History: He reports his mother had several strokes. No reported family h/o CAD. Family History: Cardiovascular disease 19 MOTHER (cva) Neoplasm 19 FATHER (lung ca) G8 SISTER (lung ca ) Allergies and Home Medications Allergies Coded Allergies: ibuprofen (Unverified Adverse Reaction, Mild, BECOMES UNPLEASANT, 01/17/11) Home Medications Finasteride 5 Mg Tablet, 5 MG PO DAILY, (Reported) Last Action: Reviewed Hydrocodone/Acetaminophen 1 Each Tablet, 1 EA PO Q4H PRN for PAIN-MODERATE (5- 7), (Reported) Last Action: Reviewed Methotrexate Sodium 2.5 Mg Tablet, 10 MG PO 0800,1200 ON TUESDAY, (Reported) TAKES 4 (2.5MG) TABS TWICE DAILY ON TUESDAY Last Action: Reviewed Naproxen Sodium 220 Mg Tablet, 220 MG PO Q12H PRN for PAIN-MILD (1-4), (Reported) Last Action: Reviewed Omeprazole 20 Mg Capsule.dr, 20 MG PO DAILY PRN for HEARTBURN, (Reported) Last Action: Reviewed Prednisone 5 Mg Tablet, 5 MG PO Q48H, (Reported) ALTERNATES 2.5MG AND 5MG Last Action: Reviewed Prednisone 5 Mg Tablet, 2.5 MG PO Q48H, (Reported) TAKES OF A 5MG TAB- ALTERNATES 2.5MG AND 5MG Last Action: Reviewed Physical Exam-Cardiology Physical Exam Vital Signs/I&O 11/12/20 11/12/20 11/12/20 11/12/20 03:30 04:01 06:52 07:00 Temp 37.0 Pulse 75 66 Resp 17 B/P (MAP) 134/56 (82) Pulse Ox 92 92 91 O2 Delivery Room Air Room Air Room Air 11/12/20 11/12/20 11/12/20 08:00 10:40 11:06 Temp 35.6 Pulse 60 Resp 20 B/P (MAP) 135/56 (82) Pulse Ox 91 91 O2 Delivery Room Air Room Air 11/12/20 00:00 Intake Total 2040 ml Output Total 0 ml Balance 2040 ml Capillary Refill : Less Than 3 Seconds Constitutional: AAO x 3, well-developed, well-nourished HEENT: PERRL, hearing is well preserved, oral hygience is good Neck: No carotid bruit; carotid pulses are 2 + bilaterally Respiratory: No accessory muscle use, No respiratory distress; chest expansion is symmetric, chest is bilaterally symmetric, lungs clear to auscultation Cardiovascular: No JVD; bradycardia Gastrointestinal: No tender; soft, round, audible bowel sounds Extremities: other (no LE swelling RLE; L BKA) Neurologic/Psychiatric: grossly intact (moves all extremities) Skin: No rash on exposed areas, No ulcerations on exposed areas Data Review Labs Laboratory Tests 11/12/20 03:40: White Blood Count 3.3L, Red Blood Count 3.80L, Hemoglobin 12.0L, Hematocrit 36L, Mean Corpuscular Volume 96, Mean Corpuscular Hemoglobin 32, Mean Corpuscular Hemoglobin Concent 33, Red Cell Distribution Width 16.6H, Platelet Count 99L, Mean Platelet Volume 9.9, Percent Immature Platelet Fraction 2.3, Sodium Level 138, Potassium Level 4.0, Chloride Level 110H, Carbon Dioxide Level 20L, Anion Gap 8, Blood Urea Nitrogen 22H, Creatinine 1.27, Estimat Glomerular Filtration Rate 55, BUN/Creatinine Ratio 17, Glucose Level 85, Calcium Level 9.1, Triglycerides Level 95, Cholesterol Level 169, LDL Cholesterol Direct 130H, VLDL Cholesterol 19, HDL Cholesterol 33L Radiology NAME: TAMIKO EVANS [facility] REC#: [id number] PT STATUS: REG ER : 1945 PHYSICIAN: NARA MORENO MD ADMIT DATE: 11/11/20/ER Signed Date of Exam:11/11/20 CHEST 1 VIEW, AP/PA ONLY CHEST 1 VIEW, AP/PA ONLY Indication: Chest pain. Comparison: 02/09/2017 Findings: No focal airspace disease in the visualized lungs. Please note that the posterior lower lobes are poorly evaluated by portable radiography. No pleural effusion or pneumothorax. Normal cardiomediastinal silhouette. Impression: 1. No acute cardiopulmonary process by portable radiography. 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
--- NOTE | 2020-11-11 15:22 | Physical Therapy Evaluation ---
PT Evaluation-General Medical Diagnosis Admission Date Nov 11, 2020 at 11:57 Medical Diagnosis: syncope, bradycardia Onset Date: Nov 11, 2020 Therapy Diagnosis Therapy Diagnosis: independent mobility Height/Weight Height (Feet): 6 Height (Inches): 3.50 Weight (Pounds): 198 Weight (Ounces): 2.0 Referral Physician: Ronald Reason for Referral: Evaluation/Treatment Medical History Additional Medical History Past Medical History Surgeries: Amputation COPD Currently Using CPAP: No Currently Using BIPAP: No Hypertension Kidney Stones, UTI-Chronic Amputee, Rheumatoid Arthritis (on chronic steroids) Cataract Reviewed History: Yes Social History Home: Single Level Current Living Status: Alone Entry Into Home: Stairs With Railing PT Steps Into Home: 4 Prior Prior Level of Function SCALE: Activities may be completed with or without assistive devices. 7-Muerupufci-kfmugpc completes the activity by him/herself with no assistance from a helper. 5-Set-up or Clean-up Assistance-helper sets up or cleans up; patient completes activity. [place] assists only prior to or following the activity. 4-Supervision or Touching Assistance-helper provides verbal cues and/or touching/steadying and/or contact guard assistance as patient completes activity. Assistance may be provided throughout the activity or intermittently. 3-Partial/Moderate Assistance-helper does LESS THAN HALF the effort. [place] lifts, holds or supports trunk or limbs, but provides less than half the effort. 2-Substantial/Maximal Assistance-helper does MORE THAN HALF the effort. [place] lifts or holds trunk or limbs and provides more than half the effort. 8-Zxedstdgn-enjwav does ALL the effort. Patient does none of the effort to complete the activity. Or, the assistance of 2 or more helpers is required for the patient to complete the activity. If activity was not attempted, code reason: 7-Patient Refused. 9-Not Applicable-not attempted and the patient did not perform the activity before the current illness, exacerbation or injury. 10-Not Attempted due to Environmental Limitations-(lack of equipment, weather restraints, etc.). 88-Not Attempted due to Medical Conditions or Safety Concerns. Bed Mobility: 6 Transfers (B,C,W/C): 6 Gait: 6 Stairs: 6 Indoor Mobility (Ambulation): Independent Stairs: Independent Patient has had a BKA on the left side, has a prosthesis. PT Evaluation-Current Subjective Patient in bed pre tx, agrees to PT, has no complaints of pain. Pt/Family Goals to be independent at home Objective Patient Orientation: Person, Place, Situation ROM/Strength Strength Lower Extremities 5/5 gross BLE Sensory Hearing: Functional Sensation Right Lower Extremit: Intact Sensation Left Lower Extremity: Intact Transfers Roll Left to Right (QC): 6 Sit to Lying (QC): 6 Lying to Sitting/Side of Bed(Q: 6 Sit to Stand (QC): 6 Chair/Ukt-ic-Dmpdz Xfer(QC): 6 Patient puts on his own prosthesis independently. Gait Does the Patient Walk?: Yes Mode of Locomotion: Walk Anticipated Mode of Locomotion: Walk Walk 10 feet (QC): 6 Walk 50 ft with 2 Turns(QC): 6 Walk 150 ft (QC): 6 Distance: 200 Gait Assistive Device: None Comments/Gait Description Patient ambulated 200' without an assistive device, independently, no unsteadiness or LOB, no lightheadness or dizziness. Balance Sitting Static: Normal Sitting Dynamic: Normal Standing Static: Normal Standing Dynamic: Normal Assessment/Needs Patient in bed post tx with nurse call, phone, tray, all needs met. Patient is independent with mobility. Will not berry picker for therapy at this time. Rehab Potential: Good PT Plan Treatment/Plan Treatment Plan: Discontinue PT Treatment Duration: Nov 11, 2020 Frequency: Patient and/or Family Agrees t: Yes Safety Risks/Education Patient Education: Gait Training, Transfer Techniques, Correct Positioning, Safety Issues Teaching Recipient: Patient Teaching Methods: Demonstration, Discussion Response to Teaching: Verbalize Understanding, Return Demonstration Discharge Recommendations Plan discharge Therapy Discharge Recommendati: Home & Family Time/GCodes Time In: 1410 Time Out: 1420 Total Billed Treatment Time: 10 Total Billed Treatment 1 visit EVErnst 10' KATHLEEN SPEARS PT Nov 11, 2020 15:22
[2020-11-11] MEDS ORDERED: PRED5TAB PO (15:41)
[2020-11-11] MEDS ORDERED: OMEP20CA18 PO (15:41)
[2020-11-11] MEDS ORDERED: NAPR-1033 PO (15:41)
[2020-11-11] MEDS ORDERED: METH2.5T PO (15:41)
[2020-11-11] MEDS ORDERED: ACHD5005 PO (15:41)
[2020-11-11] MEDS ORDERED: FINA5TAB6 PO (15:41)
[2020-11-11] MEDS ORDERED: ALFU10TA12 PO (15:41)
--- NOTE | 2020-11-11 19:22 | Consultation-Cardiology ---
HPI-Cardiology Cardiology Consultation: Date of Consultation 11/11/20 Time Seen by a Provider: 18:45 Date of Admission Attending Physician Jenelle Cardenas MD Admitting Physician Gilles Evangelista MD Consulting Physician HITESH LANDA MD, MA, FACP, FACC, FSCAI, CCDS HPI: Chief Complaint: Syncope Mr. Tyson is a 75 yr old male admitted to [facility] from the ED with a syncopal episode. He reports he had gotten up this morning and completed his morning chores. He states he got a cup of coffee and was going to have some toast when he started to feel weak and nauseated. He reports he felt diaphoretic at the time. He reports he sat down in a chair and passed out. His daughters are at the beside. They report their mother found him sitting slumped in a chair and the then he fell over. They report he was unconscious for approx 5 minutes and then he gradually came to. No loss of bowel or bladder control. He denies any c/o LE swelling. He does not report any diarrhea. He states he is feeling better at this time. He reports he has chronically low blood pressure (110's systolic at home). He reports he has a chronically low HR, but is unsure of what it typically runs. He states he has RA and has been transitioning from prednisone to methotrexate. Review of Systems-Cardiology Review of Systems Constitutional: No chills, No fever, No weight loss, No weight gain Eyes: No vision change Ears/Nose/Throat: No epistaxis, No recent hearing loss Respiratory: As described under HPI Cardiovascular: As described under HPI Gastrointestinal: No constipation, No diarrhea; nausea; No vomiting Genitourinary: No dysuria, No hematuria Musculoskeletal: As describe under HPI, joint pain Skin: No rash on exposed areas, No ulcerations on exposed areas Psychiatric/Neurological: As described under HPI, syncope; No focal weakness Hematologic: No bleeding abnormalities All Other Systems Reviewed Negative Unless Noted: Yes XVT-Dgqilf-Zwhlgc Hx Patient Social History Employed/Student: retired Smoking Status: Former Smoker Have you traveled recently?: No Alcohol Use?: No Pt feels they are or have been: No Immunizations Up To Date Date of Pneumonia Vaccine: Feb 27, 2010 Date of Influenza Vaccine: Apr 05, 2011 Past Medical History PMH As described under Assessment. Family Medical History Family Medical History: He reports his mother had several strokes. No reported family h/o CAD. Family History: Cardiovascular disease 19 MOTHER (cva) Neoplasm 19 FATHER (lung ca) G8 SISTER (lung ca ) Allergies and Home Medications Allergies Coded Allergies: ibuprofen (Unverified Adverse Reaction, Mild, BECOMES UNPLEASANT, 01/17/11) Home Medications Alfuzosin HCl 10 Mg Tab.er.24h, 10 MG PO 1800, (Reported) Last Action: Reviewed Finasteride 5 Mg Tablet, 5 MG PO DAILY, (Reported) Last Action: Reviewed Hydrocodone/Acetaminophen 1 Each Tablet, 1 EA PO Q4H PRN for PAIN-MODERATE (5- 7), (Reported) Last Action: Reviewed Methotrexate Sodium 2.5 Mg Tablet, 10 MG PO 0800,1200 ON TUESDAY, (Reported) TAKES 4 (2.5MG) TABS TWICE DAILY ON TUESDAY Last Action: Reviewed Naproxen Sodium 220 Mg Tablet, 220 MG PO Q12H PRN for PAIN-MILD (1-4), (Reported) Last Action: Reviewed Omeprazole 20 Mg Capsule.dr, 20 MG PO DAILY PRN for HEARTBURN, (Reported) Last Action: Reviewed Prednisone 5 Mg Tablet, 5 MG PO Q48H, (Reported) ALTERNATES 2.5MG AND 5MG Last Action: Reviewed Prednisone 5 Mg Tablet, 2.5 MG PO Q48H, (Reported) TAKES OF A 5MG TAB- ALTERNATES 2.5MG AND 5MG Last Action: Reviewed Patient Home Medication List Home Medication List Reviewed: Yes Physical Exam-Cardiology Physical Exam Vital Signs/I&O 11/11/20 11/11/20 11/11/20 11/11/20 08:05 12:44 13:44 13:57 Temp 34.9 36.2 Pulse 53 50 215 50 Resp 18 18 20 B/P (MAP) 100/63 (75) 99/62 (75) 121/81 (94) Pulse Ox 97 97 91 O2 Delivery Room Air Room Air 11/11/20 11/11/20 11/11/20 16:00 16:21 17:40 Temp 36.6 36.6 Pulse 61 61 Resp 16 16 B/P (MAP) 135/62 (86) 135/62 (86) Pulse Ox 95 95 95 O2 Delivery Room Air Room Air Room Air Capillary Refill : Less Than 3 Seconds Constitutional: AAO x 3, well-developed, well-nourished HEENT: PERRL, hearing is well preserved, oral hygience is good Neck: No carotid bruit; carotid pulses are 2 + bilaterally Respiratory: No accessory muscle use, No respiratory distress; chest expansion is symmetric, chest is bilaterally symmetric, lungs clear to auscultation Cardiovascular: No JVD; bradycardia Gastrointestinal: No tender; soft, round, audible bowel sounds Extremities: other (no LE swelling RLE; L BKA) Neurologic/Psychiatric: grossly intact (moves all extremities) Skin: No rash on exposed areas, No ulcerations on exposed areas Data Review Labs Laboratory Tests 11/11/20 08:07: White Blood Count 4.0L, Red Blood Count 4.20L, Hemoglobin 13.4, Hematocrit 41, Mean Corpuscular Volume 97, Mean Corpuscular Hemoglobin 32, Mean Corpuscular Hemoglobin Concent 33, Red Cell Distribution Width 16.6H, Platelet Count 123L, Mean Platelet Volume 10.8, Immature Granulocyte % (Auto) 0, Neutrophils (%) (Auto) 53, Lymphocytes (%) (Auto) 38, Monocytes (%) (Auto) 7, Eosinophils (%) (Auto) 2, Basophils (%) (Auto) 1, Neutrophils # (Auto) 2.1, Lymphocytes # (Auto) 1.5, Monocytes # (Auto) 0.3, Eosinophils # (Auto) 0.1, Basophils # (Auto) 0.0, Immature Granulocyte # (Auto) 0.0, Percent Immature Platelet Fraction 2.4, Prothrombin Time 15.1H, INR Comment 1.1, Activated Partial Thromboplast Time 29, Sodium Level 140, Potassium Level 3.8, Chloride Level 108H, Carbon Dioxide Level 22, Anion Gap 10, Blood Urea Nitrogen 22H, Creatinine 1.17, Estimat Glomerular Filtration Rate 60, BUN/Creatinine Ratio 19, Glucose Level 114H, Calcium Level 8.9, Corrected Calcium 9.3, Magnesium Level 1.8, Total Bilirubin 1.1H, Aspartate Amino Transf (AST/SGOT) 27, Alanine Aminotransferase (ALT/SGPT) 39, Alkaline Phosphatase 112, Myoglobin 56.8, Troponin I < 0.028, B-Type Natriuretic Peptide 42.4, Total Protein 6.1L, Albumin 3.5 A/P-Cardiology Assessment/Admission Diagnosis Syncope of undetermined etiology Reports chronic sinus bradycardia Reports h/o chronic hypotension COPD Former smoker - quit approx 5 yrs ago 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 If no significant arrhythmia detected, then consider Event Monitor or ILR Check orthostatic bp Monitor lab Replace electrolytes as indicated I discussed all of the above in detail with him. He says he will discuss with his pcp Dr. Evangelista and then decide if wishes to have an Event Monitor / ILR in case no significant arrhythmia detected during the hospitalization HITESH LANDA MD FACP FAC CCDS Nov 11, 2020 19:22
[2020-11-11] MEDS ORDERED: PATIENT MAY USE OWN MEDS, ALL MC SCH (19:45)
[2020-11-11] MEDS ORDERED: ALFUZOSIN HCL 10 MG TAB (UROXATRAL) PO SCH (20:00)
[2020-11-12 03:56] LABS: MEAN PLATELET VOLUME 9.9 fL (9.0-12.2); WHITE BLOOD COUNT 3.3 10^3/uL (4.3-11.0)
[2020-11-12 04:01] VITALS: BP 134/56
[2020-11-12 04:25] LABS: CALCIUM 9.1 MG/DL (8.5-10.1)
[2020-11-12 04:29] LABS: CREATININE SERUM 1.27 MG/DL (0.60-1.30)
[2020-11-12 08:00] VITALS: BP 135/56
--- NOTE | 2020-11-12 08:36 | Discharge Summary ---
Diagnosis/Chief Complaint Date of Admission Nov 11, 2020 at 11:57 Date of Discharge Admission Diagnosis Syncope Primary Care Gilles Evangelista MD Discharge Diagnosis (1) Syncope Status: Acute (2) Bradycardia Status: Acute (3) Rheumatoid arthritis (4) BPH (benign prostatic hyperplasia) Discharge Summary Discharge Physical Exam Allergies: Coded Allergies: ibuprofen (Unverified Adverse Reaction, Mild, BECOMES UNPLEASANT, 01/17/11) Vitals & I&Os Vital Signs Date Time Temp Pulse Resp B/P (MAP) Pulse Ox O2 Delivery O2 Flow Rate FiO2 11/12/20 11:06 11/12/20 10:40 91 Room Air 11/12/20 08:00 35.6 60 20 General Appearance: No Apparent Distress, WD/WN Cardiovascular: Regular Rate, Rhythm, No Murmur Gastrointestinal: Normal Bowel Sounds, Soft Neurologic/Psychiatric: Alert, Oriented x3 Hospital Course Pt was admitted due to syncopal episode. He was monitored overnight and was only bradycardiac on arrival which resolved with holding his alfuzosin. He was seen by cardiology and they recommended outpatient event monitor which they will arrange. He was discharged home in stable and improved condition. Labs (last 24 hrs) Laboratory Tests 11/12/20 03:40: White Blood Count 3.3L, Red Blood Count 3.80L, Hemoglobin 12.0L, Hematocrit 36L, Mean Corpuscular Volume 96, Mean Corpuscular Hemoglobin 32, Mean Corpuscular Hemoglobin Concent 33, Red Cell Distribution Width 16.6H, Platelet Count 99L, Mean Platelet Volume 9.9, Percent Immature Platelet Fraction 2.3, Sodium Level 138, Potassium Level 4.0, Chloride Level 110H, Carbon Dioxide Level 20L, Anion Gap 8, Blood Urea Nitrogen 22H, Creatinine 1.27, Estimat Glomerular Filtration Rate 55, BUN/Creatinine Ratio 17, Glucose Level 85, Calcium Level 9.1, Triglyce rides Level 95, Cholesterol Level 169, LDL Cholesterol Direct 130H, VLDL Cholesterol 19, HDL Cholesterol 33L Patient resulted labs reviewed. Pending Labs Imaging: Reviewed Imaging Report Discussion & Recommendations Discharge Planning: >30 minutes discharge planning Discharge Home Medications: Active Scripts Active Reported Finasteride 5 Mg Tablet 5 Mg PO DAILY Omeprazole 20 Mg Capsule.dr 20 Mg PO DAILY PRN Prednisone 5 Mg Tablet 2.5 Mg PO Q48H TAKES OF A 5MG TAB- ALTERNATES 2.5MG AND 5MG Prednisone 5 Mg Tablet 5 Mg PO Q48H ALTERNATES 2.5MG AND 5MG Hydrocodone-Acetamin 5-325 mg (Hydrocodone/Acetaminophen) 1 Each Tablet 1 Ea PO Q4H PRN Methotrexate (Methotrexate Sodium) 2.5 Mg Tablet 10 Mg PO 0800,1200 ON TUESDAY TAKES 4 (2.5MG) TABS TWICE DAILY ON TUESDAY Naproxen Sodium 220 Mg Tablet 220 Mg PO Q12H PRN Instructions to patient/family Please see electronic discharge instructions given to patient. Problem Qualifiers (1) Syncope: Syncope type: unspecified Qualified Codes: R55 - Syncope and collapse (2) Rheumatoid arthritis: Rheumatoid arthritis location: unspecified site Rheumatoid factor presence: unspecified presence Qualified Codes: M06.9 - Rheumatoid arthritis, unspecified (3) BPH (benign prostatic hyperplasia): Lower urinary tract symptom presence: symptoms absent Qualified Codes: N40.0 - Benign prostatic hyperplasia without lower urinary tract symptoms ADA VAIL MD Nov 12, 2020 08:36
--- NOTE | 2020-11-12 08:45 | Discharge Inst-Simple/Standard ---
Discharge Inst-Standard Patient Instructions/Follow Up Plan of Care/Instructions/FU: Please continue to take your medications as written. Please follow up with your primary care doctor to follow up this hospital stay. Activity as Tolerated: Yes Discharge Diet: No Restrictions Return to The Hospital For: Chest pain, weakness, passing out, heart palpitations, confusion, if you feel you are getting worse. ADA VAIL MD Nov 12, 2020 08:45
--- NOTE | 2020-11-12 08:53 | Cardiology Progress Note ---
Progress Note-Cardiology Events since last exam Date Seen by Provider: Nov 12, 2020 Time Seen by Provider: 08:51 Events since last exam We are seeing him due to syncope. He denies any further syncope. He denies chest discomfort, dyspnea, palpitations, or ankle edema. He wants to go home today. Vitals Last set of Vitals Signs Vital Signs 11/12/20 11/12/20 08:00 10:40 Temp 35.6 Pulse 60 Resp 20 B/P (MAP) 135/56 (82) Pulse Ox 91 O2 Delivery Room Air Labs Labs Laboratory Tests 11/12/20 03:40 Exam Vital Signs Vital Signs Date Time Temp Pulse Resp B/P (MAP) Pulse Ox O2 Delivery O2 Flow Rate FiO2 11/12/20 11:06 11/12/20 10:40 91 Room Air 11/12/20 08:00 35.6 60 20 Physical Exam General: Alert. No acute distress. Eye: No xanthelasma. HENT: Normocephalic. Neck: Jugular venous pressure does not appear elevated. Respiratory: Lungs are clear to auscultation. Respirations are non-labored. Breath sounds are equal. Symmetrical chest wall expansion. Cardiovascular: Normal rate. Regular rhythm. No murmur. No gallop. No edema. Gastrointestinal: Soft. Normal bowel sounds. Skin: Warm. Dry. Neurologic: Alert and oriented to person, place, time. Cranial nerves 3-11 grossly intact. Psychiatric: Cooperative. Appropriate mood & affect. Diagnosis/Problems Diagnosis/Problems (1) Syncope Status: Acute Assessment & Plan: Etiology unclear. He has not had any significant arrhythmias in the hospital to explain syncope. He has not had any further syncope. From a cardiac standpoint, he can be discharged home. Our office will arrange for a 30-day outpatient event recorder. He will then follow-up with Dr. Marcelino in 6 weeks after the event recorder is completed. If the event recorder is unrevealing, we may need to consider an implantable loop recorder. (2) Bradycardia Status: Acute Assessment & Plan: He has had some intermittent sinus bradycardia on telemetry but nothing long enough to explain syncope. He will be scheduled for an outpatient event recorder. If this is unrevealing, he may need an implantable loop recorder as outlined above. I would recommend avoiding any medications that could cause worsening bradycardia. Problem Qualifiers (1) Syncope: Syncope type: unspecified Qualified Codes: R55 - Syncope and collapse KELLI GAITAN JR, MD Nov 12, 2020 08:53
[2020-11-12] MEDS ORDERED: predniSONE 5 MG TAB PO SCH (09:00)
[2020-11-12] MEDS ORDERED: FINASTERIDE (PROSCAR) 5 MG TAB PO SCH (09:00)
--- NOTE | 2020-11-12 10:05 | Occ Therapy Progress Note ---
Therapy Progress Note OT orders received and chart reviewed. OT visited with pt who indicates he is planning on discharging home today. He has no concerns with ADLs and feels like he is at his PLOF. Pt is independent with footwear, toileting and eating. No skilled OT services indicated at this time as pt is IND with ADLs and at his PLOF. D/C from OT. 1, visit [id number] AILYN CELAYA OT Nov 12, 2020 10:05
[2020-11-13] MEDS ORDERED: predniSONE 5 MG TAB PO SCH (09:00)
[2020-11-13] MEDS ORDERED: predniSONE 1 MG TAB PO SCH (09:00)
== END 2020-11-12 11:16 | disposition home or self-care (01) ==
LOC: EDUNIT# 08:04 → ER 08:05 → CSD 11:57
PROVIDERS: ADMIT Family Medicine; ATTEND Family Medicine
DX: R55 Syncope and collapse (principal); N40.1 Benign prostatic hyperplasia with lower urinary tract symptoms; I49.1 Atrial premature depolarization; J44.9 Chronic obstructive pulmonary disease, unspecified; M19.90 Unspecified osteoarthritis, unspecified site; N40.0 Benign prostatic hyperplasia without lower urinary tract symptoms; I10 Essential (primary) hypertension; M06.9 Rheumatoid arthritis, unspecified; I34.0 Nonrheumatic mitral (valve) insufficiency; Z87.39 Personal history of other diseases of the musculoskeletal system and connective tissue; Z79.899 Other long term (current) drug therapy; Z79.891 Long term (current) use of opiate analgesic; Z87.891 Personal history of nicotine dependence; Z87.442 Personal history of urinary calculi
CPT/HCPCS: 36415; 71045; 80048; 80053; 80061; 83735; 83874; 83880; 84484; 85025; 85027; 85610; 85730; 93005; 93041; 93306; 96360

== ENCOUNTER 2020-11-21 10:00 | Outpatient (RCR) | payer MEDICARE ==
[~2020-11-21 10:00] MED LIST changes: +FINA5TAB6 PO; +METH2.5T PO; +NAPR-1033 PO; +OMEP20CA18 PO; +PRED5TAB PO
== END 2021-02-19 | disposition home or self-care (01) ==
LOC: CARD 10:00
PROVIDERS: ATTEND Nurse Practitioner Family
DX: R55 Syncope and collapse (principal)

== ENCOUNTER → 2021-05-25 | Outpatient (CLI) | payer MEDICARE ==
[~2021-05-25] MED LIST changes: -LEVO500T80 PO; +LEVO500T81 PO
--- NOTE | 2021-05-25 11:46 | Diagnostic Imaging Report ---
INDICATION: Left hip pain. TIME OF EXAM: 11:32 AM 2 views of the left hip were obtained. There is a fracture of the left femoral neck. This is in a subcapital location. There is very slight lateral displacement of the distal fracture fragment. The femoral head maintains normal alignment with the acetabulum. Hip joint space is well maintained. No other fractures are seen. IMPRESSION: Acute subcapital left hip fracture. Results were discussed with Dr. Evangelista at the time of this dictation. Dictated by: Dictated on workstation # [id number]
== END ==
LOC: RAD 11:09
PROVIDERS: ATTEND Internal Medicine
DX: S72.002A Fracture of unspecified part of neck of left femur, initial encounter for closed fracture (principal); X58.XXXA Exposure to other specified factors, initial encounter
CPT/HCPCS: 73502

== ENCOUNTER → 2021-06-02 | Outpatient (CLI) | payer MEDICARE | LOC: ORTHO 13:31 | PROVIDERS: ATTEND Orthopaedic Surgery | DX: S72.001A Fracture of unspecified part of neck of right femur, initial encounter for closed fracture (principal); J44.9 Chronic obstructive pulmonary disease, unspecified; X58.XXXA Exposure to other specified factors, initial encounter | CPT/HCPCS: 99202 ==

== ENCOUNTER → 2021-06-15 | Outpatient (CLI) | payer MEDICARE ==
--- NOTE | 2021-06-15 15:14 | Diagnostic Imaging Report ---
EXAM: CT left hip without contrast. DATE: June 15, 2021. INDICATION: 76-year-old male, history of left hip fracture on May 25, 2021. Evaluation of healing. COMPARISON: Left hip radiographs May 25, 2021. TECHNIQUE: Axial CT images of the left hip were obtained without contrast. Coronal and sagittal reformats were obtained and provided. All CT scans use one or more of the following dose optimizing techniques: automated exposure control, MA and/or KvP adjustment based on patient size and exam type or iterative reconstruction. FINDINGS: There is a displaced fracture of the femoral neck. The distal fracture fragment is medially displaced by approximately 9 mm. There is no periosteal reaction or bony callus bridging. The femoral head is not dislocated. There is no pronounced arthritis of the left hip joint. There are atherosclerotic calcifications. IMPRESSION: Redemonstrated displaced fracture of the left femoral neck without interval healing response. Dictated by: Dictated on workstation # [id number]
== END ==
LOC: RAD 13:15
PROVIDERS: ATTEND Orthopaedic Surgery
DX: S72.002D Fracture of unspecified part of neck of left femur, subsequent encounter for closed fracture with routine healing (principal); X58.XXXD Exposure to other specified factors, subsequent encounter
CPT/HCPCS: 73700

== ENCOUNTER 2021-06-25 05:40 | Outpatient (CLI) | payer MEDICARE ==
[~2021-06-25] VITALS: Ht 190.5 cm; Wt 83.5 kg
[2021-06-29] MEDS ORDERED: MV-M1TAB20 PO (09:26)
[2021-06-29] MEDS ORDERED: TMSL.4C PO (09:27)
== END 2021-06-29 09:42 | disposition home or self-care (01) ==
LOC: PREOP 05:40
PROVIDERS: ATTEND Orthopaedic Surgery
DX: Z01.818 Encounter for other preprocedural examination (principal)

== ENCOUNTER 2021-07-01 05:53 | Day surgery (SDC) | payer MEDICARE ==
[~2021-07-01] VITALS: Ht 190 cm; Wt 83.5 kg
[2021-07-01] VITALS (10 sets, daily range): BP systolic 113–146; BP diastolic 58–90
[~2021-07-01 05:53] MED LIST changes: +MV-M1TAB20 PO; +TMSL.4C PO
[2021-07-01] MEDS ORDERED: LACTATED RINGERS 1,000 ML IV PRN (06:15)
[2021-07-01] MEDS ORDERED: ceFAZolin 2 GM IV Premixed 50 ML ONE (06:28)
[2021-07-01] MEDS ORDERED: ceFAZolin 2 GM IV Premixed 50 ML IV NR (06:45)
[2021-07-01] MEDS ORDERED: proPOfol 200 MG/20 ML (DIPRIVAN) VIAL IV ONE (07:03)
[2021-07-01] MEDS ORDERED: MIDAZOLAM 2 MG/2 ML (VERSED) VIAL ONE (07:03)
[2021-07-01] MEDS ORDERED: ONDANSETRON 4 MG/2 ML (SDV) Z0FRAN ONE (07:03)
[2021-07-01] MEDS ORDERED: fentaNYL INJ 100 MCG/2 ML AMP ONE (07:03)
[2021-07-01] MEDS ORDERED: LIDOCAINE PF 2% 5 ML (XYLOCAINE) VIAL ONE (07:03)
--- NOTE | 2021-07-01 07:12 | Progress Note-Pre Operative ---
Pre-Operative Progress Note H&P Reviewed The H&P was reviewed, patient examined and no changes noted. Date Seen by Provider: Jul 01, 2021 Time Seen by Provider: 07:00 Date H&P Reviewed: Jul 01, 2021 Time H&P Reviewed: 07:00 Pre-Operative Diagnosis: Left Femoral Neck Fracture EILEEN ALBERTO MD Jul 01, 2021 07:12
--- NOTE | 2021-07-01 08:12 | Operative Report - Ortho ---
Operative Report Surgeon (s)/Knowledge Analyst (s) Surgeon EILEEN ALBERTO MD Knowledge Analyst n/a Pre-Operative Diagnosis Left Femoral Neck Fracture Post-Operative Diagnosis same Operative Report Date of Procedure: Jul 01, 2021 Name of Procedure Performed: Closed Reduction and Percutaneous Pinning of Left Femoral Neck Fracture Description & Findings After obtaining informed consent and marking the patient in the preoperative holding area, IV antibiotics were administered. Patient was taken to the operating room and general anesthesia was induced. Left leg was placed in the traction spar. Right leg was placed in the well leg kumar. Surgical timeout was taken. Reduction was performed using traction and abduction. The left lower extremity was prepped and draped in the usual sterile fashion. Initially a guidewire was placed in the calcar position and slightly anteriorly in the femoral neck. C-arm was used to evaluate position of the wire. 2nd wire was pl aced more superiorly and more central in the femoral neck. A 3rd wire was placed between the first two wires but more posteriorly. Position of the wires were confirmed on C-arm. Measurements were taken. A 105 mm calcar screw was placed, first by power and then seated by hand, the more superior screw was placed and it measured 100 mm, the last screw which was the more posterior one measured 105 mm. Wires were removed. Final AP and lateral images were obtained using C-arm and transferred to PACS. Images demonstrated adequate reduction of the femoral neck fracture and appropriate position of the screws. Wound was lavaged with normal saline. Subcutaneous layer was closed with 2-0 vicryl and skin was closed with jodie. Wound was dressed with xeroform, 4x4s, and tape. Patient tolerated the procedure well and was stable to the recovery room. Anesthesia Type General Estimated Blood Loss minimal Specimen(s) collected/removed None EILEEN ALBERTO MD Jul 01, 2021 08:12
[2021-07-01] MEDS ORDERED: SEVOFLURANE (ULTANE) 15 ML INHAL SOLN ONE (08:13)
[2021-07-01] MEDS ORDERED: morphine INJ 4 MG/ML 1 ML (VIAL/SYRINGE) IVP PRN (08:15)
[2021-07-01] MEDS ORDERED: NS IV 1000 ML 1,000 ML IV SCH (08:15)
--- NOTE | 2021-07-01 09:34 | Diagnostic Imaging Report ---
INDICATION: Left hip fracture Intraoperative views are obtained with a portable intensifier in surgery during screw placement for left femoral neck fracture. 2 views are obtained. 45.0 seconds of fluoroscopy time was used. Intraoperative views demonstrate [address] across the femoral neck and head with anatomic alignment of the femoral neck fracture. IMPRESSION: Anatomic alignment of left femoral neck fracture with [address] Dictated by: Dictated on workstation # [id number]
--- NOTE | 2021-07-01 13:41 | Physical Therapy Evaluation ---
PT Evaluation-General Medical Diagnosis Admission Date 07-01-21 Medical Diagnosis: Left femur fracture Onset Date: Jun 30, 2021 Therapy Diagnosis Therapy Diagnosis: Gait deficit, strength deficit, Height/Weight Height (Feet): 6 Height (Inches): 3.50 Weight (Pounds): 198 Weight (Ounces): 2.0 Precautions Precautions/Isolations: Fall Prevention, Standard Precautions Weight Bear Status Right Lower Extremity: Right Full Weight Bearing Left Lower Extremity: Left Touch Toe Bearing Referral Reason for Referral: Evaluation/Treatment Social History Home: Single Level Current Living Status: Alone Entry Into Home: Stairs Without Railing PT Steps Into Home: 2 Prior Prior Level of Function SCALE: Activities may be completed with or without assistive devices. 0-Xlhmkxkzfi-hjtpnfj completes the activity by him/herself with no assistance from a helper. 5-Set-up or Clean-up Assistance-helper sets up or cleans up; patient completes activity. [place] assists only prior to or following the activity. 4-Supervision or Touching Assistance-helper provides verbal cues and/or touching/steadying and/or contact guard assistance as patient completes activity. Assistance may be provided throughout the activity or intermittently. 3-Partial/Moderate Assistance-helper does LESS THAN HALF the effort. [place] lifts, holds or supports trunk or limbs, but provides less than half the effort. 2-Substantial/Maximal Assistance-helper does MORE THAN HALF the effort. [place] lifts or holds trunk or limbs and provides more than half the effort. 6-Ymbnjfhai-gkxope does ALL the effort. Patient does none of the effort to complete the activity. Or, the assistance of 2 or more helpers is required for the patient to complete the activity. If activity was not attempted, code reason: 7-Patient Refused. 9-Not Applicable-not attempted and the patient did not perform the activity before the current illness, exacerbation or injury. 10-Not Attempted due to Environmental Limitations-(lack of equipment, weather restraints, etc.). 88-Not Attempted due to Medical Conditions or Safety Concerns. Bed Mobility: 6 Transfers (B,C,W/C): 6 Gait: 6 Stairs: 6 Indoor Mobility (Ambulation): Independent Stairs: Independent Prior Devices Use: Walker PT Evaluation-Current Subjective Patient lying supine in bed upon PT arrival, agreeable to treatment. Patient reports 0/10 pain currently. 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 Objective Patient Orientation: Person, Place, Time, Situation ROM/Strength ROM Lower Extremities Left LE N/A, Right LE WFLs Strength Lower Extremities Right 5/5 all planes; left knee flexion and extension 4-/5 Sensory Vision: Wears Glasses Hearing: Functional Sensation Right Lower Extremit: Intact Sensation Left Lower Extremity: Intact Transfers Roll Left to Right (QC): 4 Sit to Lying (QC): 4 Lying to Sitting/Side of Bed(Q: 4 Sit to Stand (QC): 4 Chair/Znp-qp-Noywa Xfer(QC): 4 Gait Does the Patient Walk?: Yes Mode of Locomotion: Walk Anticipated Mode of Locomotion: Walk Walk 10 feet (QC): 4 Distance: 12 Gait Assistive Device: FWW Comments/Gait Description Patient ambulates sans prosthetic this visit. Balance Sitting Static: Normal Sitting Dynamic: Normal Standing Static: Good Standing Dynamic: Fair Assessment/Needs Patient tolerated treatment well. Demonstrates good overall bed mobility with SBA and Good performance of transfers with SBA for all. Patient ambulates 12 feet with FWW, with SBA and verbal cues for safety, progression. Patient ambulates sans prosthetic and demonstrate hop to gait pattern on the right LE. Reports no pain in left hip with landing on right LE each step. Patient in chair post treatment with all needs met, nursing notified, call light in reach. Patient will need to practice stairs in the am to ensure safe return to home. Rehab Potential: Good PT Gore Inserter Goals Correction Goals PT Correction Goals Time Frame: Jul 13, 2021 Roll Left & Right (QC): 6 Sit to Lying (QC): 6 Lying-Sitting on Side/Bed(QC): 6 Sit to Stand (QC): 6 Chair/Teu-tc-Nryyy Xfer(QC): 6 Toilet Transfer (QC): 6 Does the Patient Walk: Yes Walk 10 feet (QC): 5 Walk 50ft with 2 Turns (QC): 5 Walk 150 ft (QC): 5 1 Step (curb) (QC): 4 4 Steps (QC): 4 12 Steps (QC): 4 PT Plan Problem List Problem List: Activity Tolerance, Functional Strength, Safety, Balance, Gait, Transfer, Bed Mobility, ROM Treatment/Plan Treatment Plan: Continue Plan of Care Treatment Plan: Bed Mobility, Education, Functional Activity Guillermo, Functional Strength, Group Therapy, Gait, Safety, Therapeutic Exercise, Transfers Treatment Duration: Jul 11, 2021 Frequency: 11 times per week Estimated Hrs Per Day: .25 hour per day Patient and/or Family Agrees t: Yes Safety Risks/Education Patient Education: Gait Training, Transfer Techniques Teaching Recipient: Patient Teaching Methods: Demonstration, Discussion Response to Teaching: Verbalize Understanding, Return Demonstration Time/GCodes Time In: 1315 Time Out: 1335 Total Billed Treatment Time: 20 Total Billed Treatment visit, CHARLIE CRUZ PT Jul 01, 2021 13:41
[2021-07-01] MEDS ORDERED: ASPIRIN E.C. 81 MG (ECOTRIN) TAB PO SCH (18:00)
--- NOTE | 2021-07-02 08:48 | Anesthesia-General Post-Op ---
General Post Op Complications Complications None Follow Up Care/Instructions Patient Instructions None needed. Anesthesia/Patient Condition Patient Condition Patient discharged. Chart reviewed. No complaints noted, stable vital signs, no apparent adverse anesthesia problems. ALICIA,EILEEN Rodrigues CRNA Jul 02, 2021 08:48
== END 2021-07-01 18:15 ==
LOC: SDC 05:53 → 4TH 09:10 → SDC 18:15
PROVIDERS: ATTEND Orthopaedic Surgery
DX: S72.002A Fracture of unspecified part of neck of left femur, initial encounter for closed fracture (principal); I10 Essential (primary) hypertension; J44.9 Chronic obstructive pulmonary disease, unspecified; K21.9 Gastro-esophageal reflux disease without esophagitis; R06.9 Unspecified abnormalities of breathing; Z79.891 Long term (current) use of opiate analgesic; Z79.899 Other long term (current) drug therapy; Z90.89 Acquired absence of other organs; Z87.891 Personal history of nicotine dependence; Z82.3 Family history of stroke; Z80.1 Family history of malignant neoplasm of trachea, bronchus and lung
CPT/HCPCS: 27236; 76000; 87081; 94664; 97162; C1713

== ENCOUNTER → 2021-07-16 | Outpatient (CLI) | payer MEDICARE | LOC: ORTHO 10:46 | PROVIDERS: ATTEND Orthopaedic Surgery | DX: S72.002D Fracture of unspecified part of neck of left femur, subsequent encounter for closed fracture with routine healing (principal); X58.XXXD Exposure to other specified factors, subsequent encounter ==

== ENCOUNTER → 2021-08-13 | Outpatient (CLI) | payer MEDICARE ==
--- NOTE | 2021-08-13 10:37 | Diagnostic Imaging Report ---
Indication: Followup left hip fracture. Time of Exam: 9:59 AM Correlation is made with prior radiograph from 05/25/2021. 3 partially-threaded screws extend through the left femoral neck. Femoral acetabular alignment is normal. There is a healing fracture of the left femoral neck. Rami are intact. IMPRESSION: Satisfactory postop appearance to left hip. Dictated by: Dictated on workstation # [id number]
== END ==
LOC: ORTHO 09:51
PROVIDERS: ATTEND Orthopaedic Surgery
DX: S72.002D Fracture of unspecified part of neck of left femur, subsequent encounter for closed fracture with routine healing (principal); X58.XXXD Exposure to other specified factors, subsequent encounter
CPT/HCPCS: 73502

== ENCOUNTER → 2021-09-24 | Outpatient (CLI) | payer MEDICARE ==
--- NOTE | 2021-09-24 10:53 | Diagnostic Imaging Report ---
INDICATION: History of hip fracture. Postop follow-up. COMPARISON: 08/13/2021 FINDINGS: Two radiographic views of the left hip were obtained. Multiple partially threaded screws are identified traversing the left femoral head and neck. Chronic deformity of the proximal left femur is noted and is stable. No unexpected radiopaque foreign bodies are seen. No new acute fracture or dislocation is identified. Femoral acetabular joint space appears appropriate. IMPRESSION: 1. Stable expected postoperative changes to the proximal left femur, as above. Dictated by: Dictated on workstation # [id number]
== END ==
LOC: ORTHO 10:02
PROVIDERS: ATTEND Orthopaedic Surgery
DX: S72.002D Fracture of unspecified part of neck of left femur, subsequent encounter for closed fracture with routine healing (principal); X58.XXXD Exposure to other specified factors, subsequent encounter
CPT/HCPCS: 73502

== ENCOUNTER → 2021-09-29 | Outpatient (CLI) | payer MEDICARE ==
--- NOTE | 2021-09-29 15:54 | Diagnostic Imaging Report ---
INDICATION: Nontraumatic left hip fracture. COMPARISON: None FINDINGS: AP Spine L1-L4: [BMD (g/cm2): 1.044] [T-Score: -1.6] [Z-Score: -1.3] [BMD Previous: n/a] [BMD % Change: n/a] LT Hip Neck: [BMD (g/cm2): n/a] [T-Score: n/a] [Z-Score: n/a] LT Hip Total: [BMD (g/cm2):n/a] [T-Score:n/a] [Z-Score: n/a] [BMD Previous: n/a] [BMD % Change: n/a] RT Hip Neck: [BMD (g/cm2):0.725] [T-Score:-2.7] [Z-Score:-1.4] RT Hip Total: [BMD (g/cm2):0.618] [T-score:-3.4] [Z-Score:-2.5] [BMD Previous:n/a] [BMD % Change:n/a] *Indicates significant change from prior examination based on 95% confidence level. World Health Organization criteria for BMD interpretation classify patients as Normal (T-score at or above -1.0), Osteopenic (T-score between -1.0 and -2.5) or Osteoporotic (T-score at or below -2.5). LIMITATIONS AND MODIFICATION: None. FRACTURE RISK (FRAX SCORE): The ten year probability of (%): Major Osteoporotic Fracture: [n/a] Hip Fracture: [n/a] IMPRESSION: 1. Osteoporosis. 2. Baseline examination. 3. See below National Osteoporosis Foundation guidelines on when to potentially initiate pharmacologic therapy. Based on the National Osteoporosis Foundation Guidelines, pharmacologic treatment should be initiated in any of the following, unless clinical conditions suggest otherwise: * Any patient with prior fragility fracture of the hip or vertebrae. A spine fracture indicates 5X risk for subsequent spine fracture and 2X risk for subsequent hip fracture. * Osteoporosis (T-score <-2.5). * Postmenopausal women and men age 50 and older with low bone mass/osteopenia (T-score between -1.0 and -2.5) by DXA and 10-year major osteoporotic fracture greater than 20% or a 10-year probability of hip fracture greater than 3%. These fracture risks are supplied above in the FRAX score, if applicable. * Clinician judgement and/or patient preferences may indicate treatment for people with 10-year fracture probabilities above or below these levels. Dictated by: Dictated on workstation # [id number]
== END ==
LOC: RAD 14:20
PROVIDERS: ATTEND Internal Medicine
DX: M80.052A Age-related osteoporosis with current pathological fracture, left femur, initial encounter for fracture (principal)
CPT/HCPCS: 77080

== ENCOUNTER 2021-12-09 05:48 | Outpatient (CLI) | payer MEDICARE ==
[~2021-12-09] VITALS: Ht 190.5 cm; Wt 88.5 kg
== END 2021-12-09 13:15 ==
LOC: PREOP 05:48
PROVIDERS: ATTEND Internal Medicine
DX: Z01.818 Encounter for other preprocedural examination (principal)

== ENCOUNTER 2021-12-22 06:46 | Day surgery (SDC) | payer MEDICARE ==
--- NOTE | 2021-12-09 08:22 | HISTORY AND PHYSICAL ---
DATE OF SERVICE: COLONOSCOPY HISTORY AND PHYSICAL DATE OF ADMISSION: ____. HISTORY OF PRESENT ILLNESS: The patient is a 76-year-old white male seen for followup of rheumatoid arthritis. It has been 10 years since his last colonoscopy and he is being set up for screening colonoscopy. He has noted some intermittent bright red blood per rectum, painless. Reporting no other GI symptoms. Denying bowel habit change, abdominal pain or change in weight. Rheumatoid arthritis has been under good control with baseline stiffness lasting in the morning, typically less than 10 minutes with no red, hot, tender or swollen joints and baseline energy level. He did note pain on the bottom of his foot with an area of erythema without known trauma. Reports normal sensation. He started putting triple antibiotic on it and it went away after several days. This was about three weeks ago. PHYSICAL EXAMINATION: GENERAL: Reveals a white male, appeared to be in no acute distress. VITAL SIGNS: Weight 195.4 pounds and stable blood pressure 120/74. CHEST: Clear. CARDIOVASCULAR: Reveals regular rate and rhythm without significant murmur, S3 or S4. EXTREMITIES: He has a left BKA amputation with prosthesis on right foot reveals moccasin type dermatitis compatible with tinea pedis. There was no erythema or pain at the previous site, where he had noticed more swelling. ASSESSMENT AND PLAN: 1. Rheumatoid arthritis, under good control. No evidence for active synovitis. Blood tests were reviewed with the patient. He has stable mild neutropenia and thrombocytopenia that predate methotrexate use. Alkaline phosphatase was slightly higher at 149. Remainder of liver function tests were normal and sed rate was normal at 4. 2. Screening colonoscopy as being set up, prep instructions were given and questions were answered. 3. Tinea pedis suspect he may have had small area of cellulitis secondary to this, that is now resolved. He was given Sporanox 200 mg daily to take for the next week as it is going to be too problematic for him to get a cream on twice a day. We will have him follow up in three months with a CBC, CMP, and sed rate. Job ID: [id number] DocumentID: [id number] Dictated Date: 11/18/2021 17:08:12 Commercial Instructor Supervisor Date: 11/18/2021 17:50:39 Dictated By: TISHA HO MD [facility]
[~2021-12-22] VITALS: Ht 190.5 cm; Wt 88.5 kg
[2021-12-22] MEDS ORDERED: PROPOFOL INJECTION 50 ML IV ONE (07:15)
[2021-12-22 07:24] VITALS: BP 123/76
[2021-12-22] MEDS ORDERED: LACTATED RINGERS 1,000 ML IV STA (07:34)
--- NOTE | 2021-12-22 07:39 | Pre-Op Note & Conscious Sedat ---
Pre-Operative Progress Note Date H&P Reviewed: Dec 22, 2021 Time H&P Reviewed: 07:25 History & Physical: H&P Reviewed, Patient Examed, No changes noted Pre-Op Diagnosis: screening Conscious Sedation Pre-Proced ASA Score 2 For ASA 3 and 4: Consider anesthesia and medical clearance. Also, for patients with a history of failed moderate sedation consider anesthesia. Airway Lungs Heart ASA score ASA 1: a normal healthy patient ASA 2: a patient with a mild systemic disease (mid diabetes, controlled hypertension, obesity ASA 3: a patient with a severe systemic disease that limits activity (angina, COPD, prior Myocardial infarction) ASA 4: a patient with an incapacitating disease that is a constant threat to life (CHF, renal failure) ASA 5: a moribund patient not expected to survive 24 hrs. (ruptured aneurysm) ASA 6: a declared brain- patient whose organs are being harvested. For emergent operations, add the letter E after the classification Mallampati Classification Grade 2 Sedation Plan Analgesia, Amnesia, Plan communicated to team members, Discussed options with patient/fam, Discussed risks with patient/fam The patient is an appropriate candidate to undergo the planned procedure, sedation, and anesthesia. The patient immediately re-assessed prior to indication. TISHA HO MD Dec 22, 2021 07:39
[2021-12-22 08:15] VITALS: BP 89/54
[2021-12-22 08:19] VITALS: BP 141/53
[2021-12-22 08:40] VITALS: BP 92/43
[2021-12-22 08:45] VITALS: BP 92/43
--- NOTE | 2021-12-22 13:12 | OPERATIVE REPORT ---
DATE OF SERVICE: COLONOSCOPY SUMMARY INDICATION FOR THE PROCEDURE: Screening. DESCRIPTION OF PROCEDURE: The patient was placed in the left lateral decubitus position. Prior to undergoing colonoscopy, digital rectal evaluation was performed. Anal sphincter tone was normal and the perianal reflexes intact. Prostate is moderately enlarged and anodular on digital inspection. No other abnormalities were noted on digital inspection of anal canal or distal rectal vault. There was one very small nonthrombosed external hemorrhoid noted. The colonoscope was then inserted into the rectum and under direct visualization advanced to cecum. The cecum was identified by identification of the ileocecal valve and cecal strap. Photographic documentation was obtained. Careful inspection was made as the colonoscope was withdrawn. The quality of the prep was good. One small nonthrombosed external hemorrhoid was noted. Several grade I internal hemorrhoids were noted nonthrombosed. The rectum, sigmoid and descending colon were unremarkable. A 3 mm sessile splenic flexure polyp was noted. It was biopsied and ablated with no subsequent blood loss. A 6 mm adenomatous appearing distal transverse colon polyp was present. It was also biopsied and ablated with no blood loss. The remainder of the transverse colon, hepatic flexure, ascending colon, and cecum were unremarkable. ASSESSMENT: Two small polyps as noted above were removed via hot forceps, one from the splenic flexure, the other from the distal transverse colon with several small grade I internal hemorrhoid complexes noted on digital evaluation compatible with moderate BPH and one small nonthrombosed external hemorrhoids were noted. Considering the patient's age and comorbidities as long as there are no surprises on histopathology report, we will not likely be recommending future surveillance colonoscopy. Job ID: [id number] DocumentID: [id number] Dictated Date: 12/22/2021 08:27:43 Weatherization Director Date: 12/22/2021 13:11:22 Dictated By: TISHA HO MD
--- NOTE | 2021-12-22 13:55 | Anesthesia-General Post-Op ---
MAC Patient Condition Mental Status/LOC: Same as Preop Cardiovascular: Satisfactory Nausea/Vomiting: Absent Respiratory: Satisfactory Pain: Controlled Complications: Absent Post Op Complications Complications None Follow Up Care/Instructions Patient Instructions None needed. Anesthesiology Discharge Order Discharge Order Patient is doing well, no complaints, stable vital signs, no apparent adverse anesthesia problems. No complications reported per nursing. MARIA ANTONIA JAEGER CRNA Dec 22, 2021 13:55
== END 2021-12-22 08:50 | disposition home or self-care (01) ==
LOC: ENDO 06:46
PROVIDERS: ATTEND Internal Medicine
DX: Z12.11 Encounter for screening for malignant neoplasm of colon (principal); D12.3 Benign neoplasm of transverse colon; K64.0 First degree hemorrhoids; M06.9 Rheumatoid arthritis, unspecified
CPT/HCPCS: 88305

== ENCOUNTER 2022-03-04 08:40 | Outpatient (RCR) | payer MEDICARE ==
[~2022-03-04 08:40] MED LIST changes: +LEVO-55 PO; -LEVO500T81 PO
== END 2022-03-15 | disposition home or self-care (01) ==
PROVIDERS: ATTEND Nurse Practitioner Family
DX: M25.571 Pain in right ankle and joints of right foot (principal); R26.89 Other abnormalities of gait and mobility; Z89.512 Acquired absence of left leg below knee

== ENCOUNTER → 2022-05-26 | Outpatient (CLI) | payer MEDICARE ==
--- NOTE | 2022-05-26 18:02 | Diagnostic Imaging Report ---
PROCEDURE: CT urinary tract, rule out kidney stone. TECHNIQUE: Multiple contiguous axial images were obtained through the abdomen and pelvis without the use of intravenous contrast. Auto Exposure Controls were utilized during the CT exam to meet ALARA standards for radiation dose reduction. INDICATION: Gross hematuria. No prior studies are available for comparison. The lung bases are clear. The liver and gallbladder are unremarkable. There is no biliary ductal dilatation. Pancreas and spleen are unremarkable. No adrenal mass is identified. There is a small approximately 3 mm nonobstructing calculus in the upper pole right kidney. 3 mm nonobstructing calculus in the left kidney is noted as well. No ureteral or bladder calculi are detected. There is no hydronephrosis. The infrarenal abdominal aorta is aneurysmal measuring 3.5 cm AP diameter. There is some mild aneurysmal dilatation of the common iliac arteries as well. Right common iliac measures approximately 2.2 cm in diameter and left common iliac measures 2.0 cm. Bowel loops are normal caliber. There is no obstruction. Prostate is enlarged. There is no ascites. No inflammatory changes are seen. Bony structures demonstrate postoperative changes to the left hip. IMPRESSION: 1. Bilateral nonobstructing nephrolithiasis. No ureteral calculi or hydronephrosis is detected. 2. Prostatomegaly. 3. Infrarenal abdominal aortic aneurysm with mild aneurysmal dilatation of the common iliac arteries bilaterally. Dictated by: Dictated on workstation # [id number]
== END ==
LOC: RAD 15:15
PROVIDERS: ATTEND Internal Medicine
DX: N20.0 Calculus of kidney (principal); N40.0 Benign prostatic hyperplasia without lower urinary tract symptoms; I71.43 Infrarenal abdominal aortic aneurysm, without rupture
CPT/HCPCS: 74176

== ENCOUNTER 2022-09-01 01:58 | Inpatient (IN) | payer MEDICARE ==
[~2022-09-01] VITALS: Ht 190.5 cm; Wt 90.4 kg
[2022-09-01] MEDS ORDERED: NS IV 1000 ML 1,000 ML IV SCH ×3 (02:15→06:15)
[2022-09-01] MEDS ORDERED: dilTIAZem DRIP PRE-MIX 125 ML IV SCH (02:15)
[2022-09-01] MEDS ORDERED: ASPIRIN 81 MG CHEW (CHILDREN'S ASA) PO ONE (02:15)
[2022-09-01] MEDS ORDERED: NITROGLYCERIN 0.4 MG SL TABS BTL 25'S SL PRN (02:15)
[2022-09-01] MEDS ORDERED: ENOXAPARIN 100 MG/1 ML (LOVENOX) SYR SC ONE (02:15)
[2022-09-01 02:27] LABS: BASOPHILS % (AUTO) 1 % (0-10); EOSINOPHILS # (AUTO) 0.1 10^3/uL (0.0-0.3); EOSINOPHILS % (AUTO) 2 % (0-10); HEMATOCRIT 42 % (40-54); HEMOGLOBIN 14.6 g/dL (13.3-17.7); LYMPHOCYTES # (AUTO) 1.4 10^3/uL (1.0-4.0); LYMPHOCYTES % (AUTO) 37 % (12-44); MEAN CORPUSCULAR HEMOGLOBIN 33 pg (25-34); MEAN CORPUSCULAR HGB CONC 35 g/dL (32-36); MEAN CORPUSCULAR VOLUME 95 fL (80-99); MEAN PLATELET VOLUME 11.7 fL (9.0-12.2); MONOCYTES # (AUTO) 0.3 10^3/uL (0.0-1.0); MONOCYTES % (AUTO) 8 % (0-12); NEUTROPHILS # (AUTO) 1.9 10^3/uL (1.8-7.8); NEUTROPHILS % (AUTO) 53 % (42-75); PLATELET COUNT 146 10^3/uL (130-400); WHITE BLOOD COUNT 3.7 10^3/uL (4.3-11.0)
[2022-09-01] MEDS ORDERED: NS IV 1000 ML 1,000 ML ONE (02:37)
[2022-09-01 02:38] LABS: ALBUMIN 3.8 GM/DL (3.2-4.5)
[2022-09-01 02:39] LABS: CHLORIDE 108 MMOL/L (98-107); POTASSIUM 3.6 MMOL/L (3.6-5.0); SODIUM 140 MMOL/L (135-145)
[2022-09-01 02:40] LABS: AMYLASE 69 U/L (25-125); CALCIUM 9.4 MG/DL (8.5-10.1)
[2022-09-01 02:41] LABS: GLUCOSE 111 MG/DL (70-105); TOTAL PROTEIN 6.9 GM/DL (6.4-8.2)
[2022-09-01 02:42] LABS: CARBON DIOXIDE 20 MMOL/L (21-32)
[2022-09-01 02:43] LABS: BILIRUBIN,TOTAL 1.1 MG/DL (0.1-1.0)
[2022-09-01 02:44] LABS: ALKALINE PHOSPHATASE 141 U/L (40-136)
[2022-09-01 02:45] LABS: CREATININE SERUM 1.07 MG/DL (0.60-1.30); FIBRIN DEGRADATION PRODUCTS 1.26 UG/ML (0.00-0.49); GFR ESTIMATED 71; PROTHROMBIN TIME PATIENT 13.9 SEC (12.2-14.7)
[2022-09-01 02:46] LABS: BUN/CREATININE RATIO 21
[2022-09-01 02:47] LABS: ALANINE AMINOTRANSFERASE 42 U/L (0-55); MAGNESIUM 2.1 MG/DL (1.6-2.4)
[2022-09-01 02:49] LABS: CREATINE KINASE 53 U/L (30-200); LIPASE 50 U/L (8-78)
[2022-09-01 02:57] LABS: CREATINE KINASE MB 1.4 NG/ML (<6.6)
[2022-09-01 03:09] LABS: TSH (THYROID ANALYZER) 2.24 UIU/ML (0.35-4.94)
--- NOTE | 2022-09-01 03:57 | ED Cardiac General ---
History of Present Illness General Chief Complaint: Cardiac/General Problems Stated Complaint: CHEST DISCOMFORT Nursing Triage Note: PT AMB TO RM 1 W C/O CHEST DISCOMFORT, REPORTS HE WOKE UP AT 0130 SWEATING, SOA, AND LIGHTHEADED W THIS DISCOMFORT. PT STATES "IT FEELS LIKE MY HEART IS BEATING TWICE FAST." A&OX4, DENIES PAIN. Source: patient History of Present Illness Date Seen by Provider: Sep 01, 2022 Time Seen by Provider: 02:05 Initial Comments PT ARRIVES VIA POV FROM HOME--DROVE HIMSELF HERE, WALKS IN WITH A CANE--PT LIVES ALONE, DAUGHTER LIVES NEXT DOOR. PT STATES THAT HE WOKE UP AT 0130 WITH PROFUSE SWEATING, SHORTNESS OF BREATH AND FEELING LIGHTHEADED, AND FEELING LIKE HIS HEART WAS BEATING TWICE HARD AND TWICE FAST IT SHOULD HE STATES HE DOES NOT REALLY HAVE PAIN IN HIS CHEST, BUT HAS AN UNCOMFORTABLE FEELING IN HIS CHEST HE HAD A BRIEF EPISODE THIS AFTERNOON, THAT WAS SIMILAR, THEN IT WENT AWAY. HE WAS INSIDE AT THE TIME AND NOT DOING ANYTHING STRENUOUS. HE HAS NOT WORKED IN THE YARD FOR A COUPLE OF DAYS NO SYNCOPE, BUT WAS CONCERNED THAT HE MIGHT PASS OUT. 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 ALONSO HE HAS HAD SOME HTN IN THE PAST, BUT IS NOT ON ANY MEDICATION FOR BLOOD PRESSURE HIS DAUGHTER HAS HAD ATRIAL FIBRILLATION AND REQUIRED CARDIOVERSION HAS R.A. AND IS ON METHOTREXATE AND PREDNISONE, HE IS ALSO ON TAMSULOSIN AND FINASTERIDE FOR BPH AND KIDNEY STONES. HE IS NOT ON ASPIRIN OR BLOOD THINNERS ASA po PHYSICIAN SCIENTIST: No PCP: DR. HO SCOUT PROFESSIONAL SPORTS: DR. ALONSO Allergies and Home Medications Allergies Coded Allergies: sulfamethoxazole (Unverified Allergy, Unknown, 12/09/21) trimethoprim (Unverified Allergy, Unknown, 12/09/21) ibuprofen (Unverified Adverse Reaction, Mild, BECOMES UNPLEASANT, 06/29/21) Patient Home Medication List Home Medication List Reviewed: Yes Finasteride (Finasteride) 5 Mg Tablet, 5 MG PO DAILY, (Reported) Entered as Reported by: RILEY MAGDALENO on 11/11/201540 Hydrocodone/Acetaminophen (Hydrocodone-Acetamin 5-325 mg) 1 Each Tablet, 1 EA PO Q4H PRN for PAIN-MODERATE (5-7), (Reported) Entered as Reported by: RILEY MGADALENO on 11/11/201540 Methotrexate Sodium (Methotrexate) 2.5 Mg Tablet, 10 MG PO 0800,1200 ON TUESDAY, (Reported) Entered as Reported by: RILEY MAGDALENO on 11/11/201540 Mv-Mn/Iron/FA/Herbal Cmplx#190 (Vitamin D3 Complete Caplet) 1 Each Tablet, 1 EACH PO UD, (Reported) Entered as Reported by: ANGELA PARKS on 06/29/21925 Naproxen Sodium (Naproxen Sodium) 220 Mg Tablet, 220 MG PO Q12H PRN for PAIN- MILD (1-4), (Reported) Entered as Reported by: RILEY MAGDALENO on 11/11/201540 Omeprazole (Omeprazole) 20 Mg Capsule.dr, 20 MG PO DAILY PRN for HEARTBURN, (Reported) Entered as Reported by: RILEY MAGDALENO on 11/11/201540 Prednisone (Prednisone) 5 Mg Tablet, 2.5 MG PO Q48H, (Reported) Entered as Reported by: RILEY MAGDALENO on 11/11/201540 Tamsulosin HCl (Flomax) 0.4 Mg Cap, 0.4 MG PO DAILY, (Reported) Entered as Reported by: ANGELA PARKS on 06/29/21926 Review of Systems Review of Systems Constitutional: see HPI, diaphoresis, dizziness Respiratory: See HPI, Shortness of Air Cardiovascular: See HPI; Denies Edema; Irregular Heart Rate, Lightheadedness, Palpitations Gastrointestinal: No Symptoms Reported Genitourinary: No Symptoms Reported Musculoskeletal: no symptoms reported Skin: no symptoms reported Psychiatric/Neurological: No Symptoms Reported Endocrine: No Symptoms Reported Hematologic/Lymphatic: No Symptoms Reported Past Sbepgoy-Khefyw-Grbrrm Hx Patient Social History Tobacco Use?: Yes Tobacco type used: Cigarettes Smoking Status: Former Smoker Use of E-Cig and/or Vaping dev: No Substance use?: No Alcohol Use?: Yes Immunizations Up To Date Influenza Vaccine Up-to-Date: Yes; Up-to-Date First/Initial COVID19 Vaccinat: August 2020 Second COVID19 Vaccination Ian: September 2020 Third COVID19 Vaccination Date: MAR 31, 2021 COVID19 Vaccine Dispatcher Bus And Trolley: MODERNA X4 Seasonal Allergies Seasonal Allergies: No Past Medical History Surgery/Hospitalization HX: LEFT BKA Surgeries: Yes (LEFT 6-8" BELOW KNEE) Amputation, Appendectomy, Orthopedic Respiratory: Yes COPD Currently Using CPAP: No Currently Using BIPAP: No Cardiac: Yes Hypertension Neurological: No Reproductive Disorders: No Genitourinary: Yes Benign Prostatic Hyperpl, Prostate Problems, Kidney Stones, UTI-Chronic Gastrointestinal: Yes Gastroesophageal Reflux Musculoskeletal: Yes (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; L HIP FX/PINNING) Amputee, Rheumatoid Arthritis, Fractures Endocrine: No HEENT: No Cataract Cancer: No Psychosocial: No Integumentary: No Blood Disorders: No Family Medical History Cardiovascular disease 19 MOTHER (cva) Neoplasm 19 FATHER (lung ca) G8 SISTER (lung ca ) Cancer, Stroke SOCIAL HISTORY: -SMOKED 2 PPD, QUIT 7 YEARS AGO -USED TO DRINK WHEN HE WAS YOUNG, NONE SINCE ABOUT AGE 26 -DENIES DRUG USE PAST SURGICAL HISTORY: -LEFT BKA 02/2013--ORIGINAL FRACTURE WITH ORIF TO LEFT LOWER LEG WAS IN 2002, WITH NON-UNION, CHRONIC OSTEOMYELITIS, RESULTING IN AMPUTATION -APPENDECTOMY -07/01/2021--LEFT HIP FRACTURE WITH PINNING -12/22/2021--COLONOSCOPY WITH POLYPECTOMY ADMITTED FOR SEPSIS AND UTI 01/2017 ADMITTED 10/2020 FOR SYNCOPE--HAD EPISODE OF BRADYCARDIA FELT TO BE MEDICATION RELATED. Physical Exam Vital Signs Vital Signs - First Documented 09/01/22 02:05 Temp 36.4 Pulse 160 Resp 20 B/P (MAP) 112/94 (100) Pulse Ox 96 O2 Delivery Room Air Capillary Refill : Less Than 3 Seconds Height, Weight, BMI Height: 6'3.50" Weight: 198lbs. 2.0oz. 89.036690os; 24.00 BMI Method:Stated General Appearance: No Apparent Distress, WD/WN, Thin HEENT: Other (MULTIPLE MISSING TEETH) Neck: Normal Inspection; No Carotid Bruit, No JVD Respiratory: Chest Non Tender, Normal Breath Sounds, No Accessory Muscle Use, No Respiratory Distress Cardiovascular: No JVD, No Murmur, Irregularly Irregular, Tachycardia Gastrointestinal: No Pulsatile Mass, Non Tender, Soft Extremity: Normal Capillary Refill, Normal Range of Motion, Other (LEFT BKA; RIGHT LEG DOES NOT HAVE EDEMA OR TENDERNESS) Neurologic/Psychiatric: Alert, Oriented x3, No Motor/Sensory Deficits, Normal Mood/Affect, fire coordinator II-XII Norm as Tested Skin: Normal Color, Warm/Dry Progress/Results/Core Measures Results/Orders Lab Results Laboratory Tests Test 09/01/22 02:13 Range/Units White Blood Count 3.7 L 4.3-11.0 10^3/uL Red Blood Count 4.43 4.30-5.52 10^6/uL Hemoglobin 14.6 13.3-17.7 g/dL Hematocrit 42 40-54 % Mean Corpuscular Volume 95 80-99 fL Mean Corpuscular Hemoglobin 33 25-34 pg Mean Corpuscular Hemoglobin Concent 35 32-36 g/dL Red Cell Distribution Width 17.4 H 10.0-14.5 % Platelet Count 146 130-400 10^3/uL Mean Platelet Volume 11.7 9.0-12.2 fL Immature Granulocyte % (Auto) 0 % Neutrophils (%) (Auto) 53 42-75 % Lymphocytes (%) (Auto) 37 12-44 % Monocytes (%) (Auto) 8 0-12 % Eosinophils (%) (Auto) 2 0-10 % Basophils (%) (Auto) 1 0-10 % Neutrophils # (Auto) 1.9 1.8-7.8 10^3/uL Lymphocytes # (Auto) 1.4 1.0-4.0 10^3/uL Monocytes # (Auto) 0.3 0.0-1.0 10^3/uL Eosinophils # (Auto) 0.1 0.0-0.3 10^3/uL Basophils # (Auto) 0.0 0.0-0.1 10^3/uL Immature Granulocyte # (Auto) 0.0 0.0-0.1 10^3/uL Prothrombin Time 13.9 12.2-14.7 SEC INR Comment 1.0 0.8-1.4 Activated Partial Thromboplast Time 34 24-35 SEC D-Dimer 1.26 H 0.00-0.49 UG/ML Sodium Level 140 135-145 MMOL/L Potassium Level 3.6 3.6-5.0 MMOL/L Chloride Level 108 H 98-107 MMOL/L Carbon Dioxide Level 20 L 21-32 MMOL/L Anion Gap 12 5-14 MMOL/L Blood Urea Nitrogen 22 H 7-18 MG/DL Creatinine 1.07 0.60-1.30 MG/DL Estimat Glomerular Filtration Rate 71 BUN/Creatinine Ratio 21 Glucose Level 111 H 70-105 MG/DL Calcium Level 9.4 8.5-10.1 MG/DL Corrected Calcium 9.6 8.5-10.1 MG/DL Magnesium Level 2.1 1.6-2.4 MG/DL Total Bilirubin 1.1 H 0.1-1.0 MG/DL Aspartate Amino Transf (AST/SGOT) 40 H 5-34 U/L Alanine Aminotransferase (ALT/SGPT) 42 0-55 U/L Alkaline Phosphatase 141 H 40-136 U/L Total Creatine Kinase 53 30-200 U/L Creatine Kinase MB 1.4 <6.6 NG/ML Myoglobin 47.8 10.0-92.0 NG/ML Troponin I < 0.028 <0.028 NG/ML B-Type Natriuretic Peptide 30.5 <100.0 PG/ML Total Protein 6.9 6.4-8.2 GM/DL Albumin 3.8 3.2-4.5 GM/DL Amylase Level 69 25-125 U/L Lipase 50 8-78 U/L TSH [place] Testing 2.24 0.35-4.94 UIU/ML My Orders Orders - PETER MC DO Cbc With Automated Diff (09/01/22 02:06) Magnesium (09/01/22 02:06) Chest 1 View, Ap/Pa Only (09/01/22 02:06) Ekg Tracing (09/01/22 02:06) Comprehensive Metabolic Panel (09/01/22 02:06) Myoglobin Serum (09/01/22 02:06) Protime With Inr (09/01/22 02:06) Partial Thromboplastin Time (09/01/22 02:06) O2 (09/01/22 02:06) Monitor-Rhythm Ecg Trace Only (09/01/22 02:06) Ed Iv/Invasive Line Start (09/01/22 02:06) Creatine Kinase (09/01/22 02:06) Creatine Kinase Mb (09/01/22 02:06) Lipase (09/01/22 02:06) Amylase (09/01/22 02:06) Bnp [place] (09/01/22 02:06) Nitroglycerin 0.4 Mg Btl 25's (Nitrostat (09/01/22 02:15) Aspirin Chewable Tablet (Baby Aspirin Ch (09/01/22 02:15) Enoxaparin Injection (Lovenox Injection) (09/01/22 02:15) Diltiazem Drip Pre-Mix (Cardizem Drip Pr (09/01/22 02:15) Diltiazem Injection (Cardizem Injection) (09/01/22 02:15) Ed Iv/Invasive Line Start (09/01/22 02:12) Ns Iv 1000 Ml (Sodium Chloride 0.9%) (09/01/22 02:15) Manual Differential (09/01/22 02:13) Fibrin Degradation Products (09/01/22 02:13) Thyroid Analyzer (09/01/22 02:13) Troponin I [place] (09/01/22 02:13) Ekg Tracing (09/01/22 02:36) Ed Iv/Invasive Line Start (09/01/22 02:36) Ns Iv 1000 Ml (Sodium Chloride 0.9%) (09/01/22 02:45) Ekg Tracing (09/01/22 02:36) Ns Iv 1000 Ml (Sodium Chloride 0.9%) (09/01/22 02:37) Medications Given in ED Current Medications Medications Dose Ordered Sig/Kandi Route Start Time Stop Time Status Last Admin Dose Admin Aspirin 324 mg ONCE ONCE PO 09/01/22 02:15 09/01/22 02:16 DC 09/01/22 02:25 324 MG Diltiazem HCl 20 mg ONCE ONCE IVP 09/01/22 02:15 09/01/22 02:16 DC 09/01/22 02:27 20 MG Enoxaparin Sodium 100 mg ONCE ONCE SC 09/01/22 02:15 09/01/22 02:16 DC 09/01/22 02:25 100 MG Vital Signs/I&O 09/01/22 09/01/22 09/01/22 09/01/22 02:05 02:27 02:36 04:53 Temp 36.4 Pulse 160 131 84 93 Resp 20 18 B/P (MAP) 112/94 (100) 104/71 94/61 102/69 Pulse Ox 96 94 O2 Delivery Room Air Room Air 09/01/22 09/01/22 05:00 05:00 Temp 36.4 Pulse 107 Resp 25 B/P (MAP) 112/68 (83) Pulse Ox 91 O2 Delivery Room Air Blood Pressure Mean: 72 Progress Progress Note : Progress Note PLACED ON MONITOR, AND PT NOTED TO BE IN ATRIAL FIBRILLATION WITH RVR, WITH RATE IN THE 150'S INITIAL BP 112/94, O2 SAT 96% ON ROOM AIR GIVEN: -ASPIRIN -LOVENOX -CARDIZEM BOLUS AND DRIP -IV FLUIDS NO DETERIORATION IN PT'S CONDITION DURING ER STAY PT STATES HE FEELS MUCH BETTER NOW. HR DOWN TO LESS THAN 100 ON CARDIZEM, BUT STILL IN ATRIAL FIBRILLATION SYSTOLIC BP > 100 AT TIME OF ADMIT REVIEWED TEST RESULTS, ANTICIPATED COURSE, NEED FOR ADMIT AND PT AGREES TO PLAN DISCUSSED CODE STATUS AND PT STATES HE WISHES TO BE DNR/DNI. REVIEWED PRIOR RECORDS, INCLUDING ER VISITS, ADMITS/H&P'S/CONSULTS/DISCHARGE SUMMARIES, TESTS/PROCEDURES Initial ECG Impression Date: Sep 01, 2022 Initial ECG Impression Time: 02:09 Initial ECG Rate: 142 Initial ECG Intervals AK--N/A QRS 100 QT/QTC 297/457 Initial ECG Impression: Atrial Fibrillation w/RVR Initial ECG Comparisson: Changed (CHANGED FROM NSR IN 10/2020) EKG : EKG Time: 02:28 Rate: 88 Rhythm: A Fib/Flutter Intervals AK--N/A QRS 106 QT/QTC 350/424 ECG Impression: Atrial Fibrillation Comment EKG #3 AT 0232 RATE 109, ATRIAL FIBRILLATION AK--N/A QRS 104 QT/QTC 352/475 Diagnostic Imaging Comments CXR--NO ACUTE PROCESS, PENDING RADIOLOGIST REVIEW Critical Care Note Critical Care Start Time: 02:05 Stop Time: 04:30 Total Time (minutes) 145 Departure Communication (Admissions) 8368--SPOKE WITH DR. HO, ACCEPTS PT FOR ADMIT. WILL CONSULT CARDIOLOGY IN AM. Impression Primary Impression: ATRIAL FIBRILLATION WITH RVR--NEW DIAGNOSIS Additional Impressions: Rheumatoid arthritis HTN (hypertension) Disposition: ADMITTED INPATIENT Condition: Improved Admissions Decision to Admit Reason: Admit from ER (General) Decision to Admit/Date: Sep 01, 2022 Time/Decision to Admit Time: 03:20 Departure-Patient Inst. Referrals: TISHA HO MD (PCP/Family) Primary Care Physician PETER MC DO Sep 01, 2022 03:57
[2022-09-01] MEDS ORDERED: NS IV 500 ML 500 ML IV PRN (05:30)
[2022-09-01 05:50] LABS: LYMPHOCYTES % (AUTO) 33 % (12-44); MONOCYTES # (AUTO) 0.2 10^3/uL (0.0-1.0); MONOCYTES % (AUTO) 8 % (0-12)
[2022-09-01 05:52] LABS: BASOPHILS % (AUTO) 1 % (0-10); EOSINOPHILS # (AUTO) 0.1 10^3/uL (0.0-0.3); EOSINOPHILS % (AUTO) 2 % (0-10); HEMATOCRIT 39 % (40-54); HEMOGLOBIN 13.4 g/dL (13.3-17.7); MEAN CORPUSCULAR HEMOGLOBIN 33 pg (25-34); MEAN CORPUSCULAR HGB CONC 35 g/dL (32-36); MEAN CORPUSCULAR VOLUME 95 fL (80-99); MEAN PLATELET VOLUME 11.4 fL (9.0-12.2); NEUTROPHILS # (AUTO) 1.7 10^3/uL (1.8-7.8); NEUTROPHILS % (AUTO) 57 % (42-75); PLATELET COUNT 106 10^3/uL (130-400)
[2022-09-01 06:00] LABS: ALBUMIN 3.3 GM/DL (3.2-4.5); CHLORIDE 116 MMOL/L (98-107); POTASSIUM 3.8 MMOL/L (3.6-5.0); SODIUM 142 MMOL/L (135-145)
[2022-09-01] MEDS ORDERED: KCL 20 MEQ TAB (K-DUR) PO SCH (06:00)
[2022-09-01] MEDS ORDERED: MAGNESIUM 1 GM/100 ML IVPB 100 ML IV SCH (06:00)
[2022-09-01] MEDS ORDERED: POTASSIUM CL 10MEQ/50ML IVPB 50 ML IV SCH (06:00)
[2022-09-01 06:02] LABS: CALCIUM 8.7 MG/DL (8.5-10.1)
[2022-09-01 06:03] LABS: GLUCOSE 139 MG/DL (70-105)
[2022-09-01 06:04] LABS: BILIRUBIN,TOTAL 0.7 MG/DL (0.1-1.0); CARBON DIOXIDE 17 MMOL/L (21-32)
[2022-09-01 06:06] LABS: ALKALINE PHOSPHATASE 130 U/L (40-136); CREATININE SERUM 0.92 MG/DL (0.60-1.30); GFR ESTIMATED 85
[2022-09-01 06:07] LABS: BUN/CREATININE RATIO 22
[2022-09-01 06:09] LABS: ALANINE AMINOTRANSFERASE 36 U/L (0-55)
[2022-09-01 06:11] VITALS: BP 102/69
[2022-09-01] MEDS ORDERED: dilTIAZem DRIP 125 MG/125 ML DRIP IV SCH (06:15)
[2022-09-01] MEDS ORDERED: fentaNYL INJ 100 MCG/2 ML AMP IV PRN (06:15)
[2022-09-01] MEDS ORDERED: ONDANSETRON 4 MG/2 ML (SDV) Z0FRAN IV PRN (06:15)
--- NOTE | 2022-09-01 06:52 | Diagnostic Imaging Report ---
EXAMINATION: Chest 1 view HISTORY: Chest pain. COMPARISON: 11/11/2020. FINDINGS: The lung volumes are normal. Prominent interstitial markings are seen throughout the lungs. No focal consolidation is seen. No large pleural effusion or pneumothorax is seen. The cardiomediastinal silhouette is normal in size and contour. There is calcified aortic atherosclerotic plaque. No acute osseous abnormality is seen. IMPRESSION: 1. Prominent interstitial markings throughout the lungs, increased since the prior exam. Findings can be seen with infection and/or edema. Chronic fibrotic changes can also have this appearance. Dictated by: Dictated on workstation # [id number]
--- NOTE | 2022-09-01 08:51 | History & Physical-Hospitalist ---
History of Present Illness HPI/Chief Complaint She is 77-year-old male with past medical history of hypertension, RA, left BKA, BPH who presented to the emergency department due to his heart racing. He reports he awoke in the middle of the night with shortness of breath and feeling like his heart was racing. He was diaphoretic. He states at some points it felt like it was pounding and at some point it felt like he hardly had a pulse. He decided to seek evaluation in the emergency department. He had an episode of syncope years ago and he wore a Holter monitor but nothing was found and so they thought that he was dehydrated at the time. He has had no further episodes since then. In the emergency room he was found to be in atrial fibrillation with rapid ventricular rate. His heart rate was 160. He was started on a Cardizem drip and admitted to the ICU. His heart rate is now in the 80s but he remains in A-fib. He reports feeling much better with his rate controlled. He denies any histories of GI bleeding or intracranial hemorrhage. Source: patient Date Seen 09/01/22 Time Seen by a Provider: 08:48 Attending Physician Tisha Evangelista MD PCP Admitting Physician: Tisha Evangelista MD Attending Physician: Tisha Evangelista MD Referring Physician Date of Admission Sep 01, 2022 at 05:07 Home Medications & Allergies Home Medications Reviewed patient Home Medication Reconciliation performed by pharmacy medication reconciliations landscape technician and/or nursing. Patients Allergies have been reviewed. Allergies Allergies Coded Allergies sulfamethoxazole (Unverified Allergy, Unknown, 12/09/21) trimethoprim (Unverified Allergy, Unknown, 12/09/21) ibuprofen (Unverified Adverse Reaction, Mild, BECOMES UNPLEASANT, 06/29/21) Past Drhlpyi-Dwfczn-Mbigrp Hx Patient Social History Tobacco Use?: No Tobacco type used: Cigarettes Smoking Status: Former Smoker Smokeless Tobacco Frequency: Never a User Use of E-Cig and/or Vaping dev: No Substance use?: No Alcohol Use?: No Pt feels they are or have been: No Immunizations Up To Date Date of Influenza Vaccine: Feb 28, 2021 First/Initial COVID19 Vaccinat: August 2020 Second COVID19 Vaccination Ian: September 2020 Tetanus Booster (TDap): Less Than 5 Years Date of Pneumonia Vaccine: Feb 27, 2010 Seasonal Allergies Seasonal Allergies: No Current Status Advance Directives: No Communicates: Verbally Primary Language: Slovak Preferred Spoken Language: Slovak Is interpretation needed?: No Sensory deficits: Vision impairment Additional sensory deficits: GLASSES, DENTURES Implanted or Applied Medical D: None Past Medical History Surgeries: Amputation, Appendectomy, Orthopedic COPD Currently Using CPAP: No Currently Using BIPAP: No Hypertension Benign Prostatic Hyperpl, Prostate Problems, Kidney Stones, UTI-Chronic Gastroesophageal Reflux Amputee, Rheumatoid Arthritis, Fractures Cataract Blood Disorders: No Family Medical History Reviewed Nursing Family Hx Cardiovascular disease 19 MOTHER (cva) Neoplasm 19 FATHER (lung ca) G8 SISTER (lung ca ) Cancer, Stroke SOCIAL HISTORY: -SMOKED 2 PPD, QUIT 7 YEARS AGO -USED TO DRINK WHEN HE WAS YOUNG, NONE SINCE ABOUT AGE 26 -DENIES DRUG USE PAST SURGICAL HISTORY: -LEFT BKA 02/2013--ORIGINAL FRACTURE WITH ORIF TO LEFT LOWER LEG WAS IN 2002, WITH NON-UNION, CHRONIC OSTEOMYELITIS, RESULTING IN AMPUTATION -APPENDECTOMY -07/01/2021--LEFT HIP FRACTURE WITH PINNING -12/22/2021--COLONOSCOPY WITH POLYPECTOMY ADMITTED FOR SEPSIS AND UTI 01/2017 ADMITTED 10/2020 FOR SYNCOPE--HAD EPISODE OF BRADYCARDIA FELT TO BE MEDICATION RELATED. Review of Systems Constitutional: see HPI Physical Exam Physical Exam Vital Signs Vital Signs - First Documented 09/01/22 02:05 Temp 36.4 Pulse 160 Resp 20 B/P (MAP) 112/94 (100) Pulse Ox 96 O2 Delivery Room Air Capillary Refill : Less Than 3 Seconds Height, Weight, BMI Height: 6'3.50" Weight: 198lbs. 2.0oz. 89.831280gs; 24.91 BMI Method:Stated General Appearance: No Apparent Distress Cardiovascular: No Murmur, Irregularly Irregular Gastrointestinal: Normal Bowel Sounds, Soft Neurologic/Psychiatric: Alert, Oriented x3 Results Results/Procedures Labs Patient resulted labs reviewed. Imaging: Reviewed Imaging Report Imaging [facility] [place] NAME: TAMIKO EVANS JR [facility] REC#: [id number] PT STATUS: ADM IN : 1945 PHYSICIAN: PETER MC DO ADMIT DATE: 09/01/22/ICU Signed Date of Exam:09/01/22 CHEST 1 VIEW, AP/PA ONLY EXAMINATION: Chest 1 view HISTORY: Chest pain. COMPARISON: 11/11/2020. FINDINGS: The lung volumes are normal. Prominent interstitial markings are seen throughout the lungs. No focal consolidation is seen. No large pleural effusion or pneumothorax is seen. The cardiomediastinal silhouette is normal in size and contour. There is calcified aortic atherosclerotic plaque. No acute osseous abnormality is seen. IMPRESSION: 1. Prominent interstitial markings throughout the lungs, increased since the prior exam. Findings can be seen with infection and/or edema. Chronic fibrotic changes can also have this appearance. Dictated by: Dictated on workstation # [id number] Dict: 09/01/2241 Trans: 09/01/2253 [facility] [phone] Interpreted by: JUAN M MORALES DO Electronically signed by: JUAN M MORALES DO 09/01/22 0653 Assessment/Plan Admission Diagnosis A fib with RVR Admission Status: Observation Assessment and Plan A fib with RVR new onset On cardizem gtt Cardiology consulted Echo pending Telemetry Lovenox for stroke ppx Update- underwent successful cardioversion and loop recorder placed- was able to DC home RA Continue prednisone and methotrexate when able to take PO BPH Continue Flomax and Proscar when able to take PO HTN Not on any meds per med rec BP well controlled DVT ppx: Lovenox Diagnosis/Problems Diagnosis/Problems (1) HTN (hypertension) Status: Acute Qualifiers: Hypertension type: unspecified Qualified Codes: I10 - Essential (primary) hypertension (2) Rheumatoid arthritis Qualifiers: Rheumatoid arthritis location: unspecified site Rheumatoid factor presence: unspecified presence Qualified Codes: M06.9 - Rheumatoid arthritis, unspecified (3) Afib Qualifiers: Atrial fibrillation type: unspecified Qualified Codes: I48.91 - Unspecified atrial fibrillation (4) BPH (benign prostatic hyperplasia) Qualifiers: Lower urinary tract symptom presence: symptoms present Lower urinary tract symptom detail: unspecified Qualified Codes: N40.1 - Benign prostatic hyperplasia with lower urinary tract symptoms Clinical Quality Measures AMI/AHF: ASA po Prior to arrival: No Copy Copies To 1: TISHA EVANGELISTA MD, KATELYN M MD Sep 01, 2022 08:51
--- NOTE | 2022-09-01 08:56 | Tele-ICU Progress Note ---
Subjective Date Seen by a Provider: Sep 01, 2022 Subjective/Events-last exam This virtual visit was conducted using real time audio/video. Thank you for asking us to see this patient for critical care services due to afib/RVR. PE: VSS. Irreg 60-70. O2 sat 96% on RA HEENT: No obvious masses, adenopathy or JVD. Chest: clear to auscultation. CVIrreg. S1 S2 No murmur or added sounds. Abd: Non-tender. Bowel sounds Y. : Unremarkable. Weiss N. FREEZER UNLOADER/psychiatric: Grossly intact. No obvious focal findings. Extremities: No edema. L BKA. Capillary refill < 3 seconds. Skin: unremarkable. Results: Elevated .BUN 20, BG 139 Decreased .WCC 3.0 CXR: hyperinflated. Available chart/ vitals / labs / images reviewed. Video assessment done using teleICU camera, rest of exam as per RN. A/P: Critical Care: critically ill patient. Cont. Dilt., ASA, ulises. Discussed with HILLARY Burden. Asked RN to reach out to eICU if any questions or concerns later. Time spent with patient/coordination of care with other health professionals (mins): 20 Sepsis Event Evaluation Height, Weight, BMI Height: 6'3.50" Weight: 198lbs. 2.0oz. 89.510994xw; 24.91 BMI Method:Stated Exam Exam Patient acknowledged, consented, and participated in this virtual visit which was conducted using real time audio/video Vital Signs Date Time Temp Pulse Resp B/P (MAP) Pulse Ox O2 Delivery O2 Flow Rate FiO2 09/01/22 08:00 36.2 09/01/22 06:11 78 102/69 09/01/22 06:00 120 25 105/69 (81) 93 09/01/22 05:32 78 09/01/22 05:15 97 Room Air 09/01/22 05:00 36.4 Room Air 09/01/22 05:00 107 25 112/68 (83) 91 09/01/22 04:53 93 18 102/69 94 Room Air 09/01/22 02:36 84 94/61 09/01/22 02:27 131 104/71 09/01/22 02:05 36.4 160 20 112/94 (100) 96 Room Air I & O 09/01/22 07:00 Intake Total 2000 ml Balance 2000 ml Height & Weight Height: 6'3.50" Weight: 198lbs. 2.0oz. 89.871002rv; 24.91 BMI Method:Stated General Appearance: No Apparent Distress, WD/WN, Thin HEENT: Other (MULTIPLE MISSING TEETH) Neck: Normal Inspection; No Carotid Bruit, No JVD Respiratory: Chest Non Tender, Normal Breath Sounds, No Accessory Muscle Use, No Respiratory Distress Cardiovascular: No JVD, No Murmur, Irregularly Irregular, Tachycardia Capillary Refill: Less Than 3 Seconds Extremity: Normal Capillary Refill, Normal Range of Motion, Other (LEFT BKA; RIGHT LEG DOES NOT HAVE EDEMA OR TENDERNESS) Neurologic/Psychiatric: Alert, Oriented x3, No Motor/Sensory Deficits, Normal Mood/Affect, customer service advocate II-XII Norm as Tested Skin: Normal Color, Warm/Dry Results Lab Laboratory Tests 09/01/22 02:13 09/01/22 05:39 Assessment/Plan Assessment/Plan See free text. Critical Care: Critically Ill Patient MIKE ROBERTSON MD Sep 01, 2022 08:56
[2022-09-01] MEDS ORDERED: ASPIRIN E.C. 81 MG (ECOTRIN) TAB PO SCH (09:00)
--- NOTE | 2022-09-01 09:44 | Consultation-Cardiology ---
HPI-Cardiology Cardiology Consultation Date of Consultation 09/01/22 Date of Admission Time Seen by Provider: 09:40 Indication: Atrial fibrillation HPI 77-year-old gentleman with no previous cardiac history, woke up feeling not right, felt lightheaded, had some chest discomfort, came into the emergency room and noted to be in atrial fibrillation with rapid ventricular response. He was started on Cardizem drip and Lovenox. Patient was seen at bedside, laying down comfortably. Did not report any similar episode in the past. Denied any chest pain. Had 1 syncopal episode in the past. Home Medications & Allergies Allergies: Coded Allergies: sulfamethoxazole (Unverified Allergy, Unknown, 12/09/21) trimethoprim (Unverified Allergy, Unknown, 12/09/21) ibuprofen (Unverified Adverse Reaction, Mild, BECOMES UNPLEASANT, 06/29/21) Home Medication List Reviewed: Yes [id number] Hx Patient Social History Marital Status: Employed/Student: employed Drug of Choice: Denies Smoking Status: Former Smoker Type Used: Cigarettes Recent Hopitalizations: No Have you traveled recently?: No Alcohol Use?: No Immunizations Up To Date Date of Pneumonia Vaccine: Feb 27, 2010 Date of Influenza Vaccine: Feb 28, 2021 Past Medical History Discussed below Family Medical History Significant Family History: Cancer, Stroke Family History: Cardiovascular disease 19 MOTHER (cva) Neoplasm 19 FATHER (lung ca) G8 SISTER (lung ca ) Review of Systems-General Review of Systems Constitutional: see HPI, malaise EENTM: see HPI, no symptoms reported Respiratory: no symptoms reported, see HPI, short of breath Cardiovascular: see HPI; No chest pain, No edema, No Hx of Intervention; palpitations; No syncope, No vascular heart diseas, No other Gastrointestinal: no symptoms reported, see HPI Genitourinary: no symptoms reported, see HPI Musculoskeletal: no symptoms reported, other (BKA) Skin: no symptoms reported Psychiatric/Neurological: No Symptoms Reported Reviewed Test Results Reviewed Test Results Lab Laboratory Tests Test 09/01/22 02:13 09/01/22 05:39 09/01/22 09:20 Range/Units White Blood Count 3.7 L 3.0 L 4.3-11.0 10^3/uL Red Blood Count 4.43 4.08 L 4.30-5.52 10^6/uL Hemoglobin 14.6 13.4 13.3-17.7 g/dL Hematocrit 42 39 L 40-54 % Mean Corpuscular Volume 95 95 80-99 fL Mean Corpuscular Hemoglobin 33 33 25-34 pg Mean Corpuscular Hemoglobin Concent 35 35 32-36 g/dL Red Cell Distribution Width 17.4 H 17.3 H 10.0-14.5 % Platelet Count 146 106 L 130-400 10^3/uL Mean Platelet Volume 11.7 11.4 9.0-12.2 fL Immature Granulocyte % (Auto) 0 0 % Neutrophils (%) (Auto) 53 57 42-75 % Lymphocytes (%) (Auto) 37 33 12-44 % Monocytes (%) (Auto) 8 8 0-12 % Eosinophils (%) (Auto) 2 2 0-10 % Basophils (%) (Auto) 1 1 0-10 % Neutrophils # (Auto) 1.9 1.7 L 1.8-7.8 10^3/uL Lymphocytes # (Auto) 1.4 1.0 1.0-4.0 10^3/uL Monocytes # (Auto) 0.3 0.2 0.0-1.0 10^3/uL Eosinophils # (Auto) 0.1 0.1 0.0-0.3 10^3/uL Basophils # (Auto) 0.0 0.0 0.0-0.1 10^3/uL Immature Granulocyte # (Auto) 0.0 0.0 0.0-0.1 10^3/uL Prothrombin Time 13.9 12.2-14.7 SEC INR Comment 1.0 0.8-1.4 Activated Partial Thromboplast Time 34 24-35 SEC D-Dimer 1.26 H 0.00-0.49 UG/ML Sodium Level 140 142 135-145 MMOL/L Potassium Level 3.6 3.8 3.6-5.0 MMOL/L Chloride Level 108 H 116 H 98-107 MMOL/L Carbon Dioxide Level 20 L 17 L 21-32 MMOL/L Anion Gap 12 9 5-14 MMOL/L Blood Urea Nitrogen 22 H 20 H 7-18 MG/DL Creatinine 1.07 0.92 0.60-1.30 MG/DL Estimat Glomerular Filtration Rate 71 85 BUN/Creatinine Ratio 21 22 Glucose Level 111 H 139 H 70-105 MG/DL Calcium Level 9.4 8.7 8.5-10.1 MG/DL Corrected Calcium 9.6 9.3 8.5-10.1 MG/DL Magnesium Level 2.1 1.6-2.4 MG/DL Total Bilirubin 1.1 H 0.7 0.1-1.0 MG/DL Aspartate Amino Transf (AST/SGOT) 40 H 32 5-34 U/L Alanine Aminotransferase (ALT/SGPT) 42 36 0-55 U/L Alkaline Phosphatase 141 H 130 40-136 U/L Total Creatine Kinase 53 30-200 U/L Creatine Kinase MB 1.4 <6.6 NG/ML Myoglobin 47.8 10.0-92.0 NG/ML Troponin I < 0.028 < 0.028 <0.028 NG/ML B-Type Natriuretic Peptide 30.5 <100.0 PG/ML Total Protein 6.9 6.0 L 6.4-8.2 GM/DL Albumin 3.8 3.3 3.2-4.5 GM/DL Amylase Level 69 25-125 U/L Lipase 50 8-78 U/L TSH [place] Testing 2.24 0.35-4.94 UIU/ML Percent Immature Platelet Fraction 2.9 0.0-7.6 % Physical Exam Physical Exam Vital Signs Vital Signs - First Documented 09/01/22 02:05 Temp 36.4 Pulse 160 Resp 20 B/P (MAP) 112/94 (100) Pulse Ox 96 O2 Delivery Room Air Capillary Refill : Less Than 3 Seconds Height, Weight, BMI Height: 6'3.50" Weight: 198lbs. 2.0oz. 89.643298bf; 24.91 BMI Method:Stated General Appearance: No Apparent Distress HEENT: Other (MULTIPLE MISSING TEETH) Neck: Normal Inspection; No Carotid Bruit, No JVD Respiratory: Chest Non Tender, Normal Breath Sounds, No Accessory Muscle Use, No Respiratory Distress Cardiovascular: No Murmur, Irregularly Irregular Gastrointestinal: Normal Bowel Sounds, Soft Extremity: Normal Capillary Refill, Normal Range of Motion, Other (LEFT BKA; RIGHT LEG DOES NOT HAVE EDEMA OR TENDERNESS) Neurologic/Psychiatric: Alert, Oriented x3 Skin: Normal Color, Warm/Dry A/P-Cardiology Admission Diagnosis Paroxysmal atrial fibrillation Palpitation Syncope Bradycardia Assessment/Plan Atrial fibrillation with rapid ventricular response Started on Cardizem drip and Lovenox Unknown duration, most probably started last night Discussed with the patient the risk of stroke and the rate control and rhythm controlled Planning for EDGAR with electrical cardioversion today Lightheadedness and palpitations secondary to atrial fibrillation History of syncope, had 1 syncopal episode in the past. 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
--- NOTE | 2022-09-01 09:45 | Cardiac Procedure Note-CS/ASA ---
Pre-Procedure Note Pre-Op Procedure Note Date of Available H&P: Sep 01, 2022 Date H&P Reviewed: Sep 01, 2022 Time H&P Reviewed: 09:44 History & Physical: H&P Reviewed, Patient Examed, No changes noted Pre-Operative Diagnosis: Atrial fibrillation Moderate Sedation PreProcedure Time 09:45 ASA Score 3 Airway Lungs Heart ASA score ASA 1: a normal healthy patient ASA 2: a patient with a mild systemic disease (mid diabetes, controlled hypertension, obesity ASA 3: a patient with a severe systemic disease that limits activity (angina, COPD, prior Myocardial infarction) ASA 4: a patient with an incapacitating disease that is a constant threat to life (CHF, renal failure) ASA 5: a moribund patient not expected to survive 24 hrs. (ruptured aneurysm) ASA 6: a declared brain- patient whose organs are being harvested. For emergent operations, add the letter E after the classification Mallampati Classification Grade 3 Sedation Plan Analgesia, Amnesia, Plan communicated to team members, Discussed options with patient/fam, Discussed risks with patient/fam The patient is an appropriate candidate to undergo the planned procedure, sedation, and anesthesia. The patient immediately re-assessed prior to indication. TATIANA ALONSO MD Sep 01, 2022 09:45
[2022-09-01] MEDS ORDERED: LIDOCAINE 2% VISCOUS 15 ML UDC ONE (09:54)
--- NOTE | 2022-09-01 10:10 | Cardioversion ---
Cardioversion PROCEDURE PHYSICIAN: Tatiana Garcia DATE OF PROCEDURE: 09/01/22 DIRECT EXTERNAL ELECTRICAL CARDIOVERSION: Indications: Atrial Fibrillation with rapid ventricular rate Preoperative diagnoses: Atrial Fibrillation with rapid ventricular rate Postoperative diagnosis: Sinus rhythm, Successful Electrical Cardioversion History: 77-year-old gentleman admitted with atrial fibrillation with rapid ventricular response, has been n.p.o., had a EDGAR and planning for cardioversion Anesthesia: By Anesthesia services Complications: None Specimen: None Contrast: 0 Flouroscopy: none Procedure Details: The patient was brought the culture media laboratory assistant after informed consent was taken, all the risks and complications were explained including the risk of stroke. Electrical cardioversion was carried out with anesthesia support with propofol. 200 joules of synchronized shock was delivered through external patches which promptly restored sinus rhythm. The patient tolerated the procedure well. Conclusions: Successful electrical cardioversion terminating atrial fibrillation TATIANA GARCIA MD Sep 01, 2022 10:10
[2022-09-01] MEDS ORDERED: proPOfol 200 MG/20 ML (DIPRIVAN) VIAL IV ONE (10:12)
--- NOTE | 2022-09-01 10:39 | Anesthesia-General Post-Op ---
MAC Patient Condition Mental Status/LOC: Same as Preop Cardiovascular: Satisfactory Nausea/Vomiting: Absent Respiratory: Satisfactory Pain: Controlled Complications: Absent Post Op Complications Complications None Follow Up Care/Instructions Patient Instructions None needed. Anesthesiology Discharge Order Discharge Order Patient is doing well, no complaints, stable vital signs, no apparent adverse anesthesia problems. No complications reported per nursing. EILEEN VARGAS CRNA Sep 01, 2022 10:39
[2022-09-01] MEDS ORDERED: VIT1CAPS5 PO (10:54)
[2022-09-01] MEDS ORDERED: CHOL200059 PO (10:54)
[2022-09-01] MEDS ORDERED: APIXABAN 5 MG (ELIQUIS) TABLET PO SCH (11:00)
[2022-09-01] MEDS ORDERED: LIDOCAINE 1% INJ 20 ML VIAL ONE (11:49)
--- NOTE | 2022-09-01 13:02 | Discharge Inst-Simple/Standard ---
Discharge Inst-Standard Discharge Medications New, Converted or Re-Newed RX: Transmitted to Pharmacy Patient Instructions/Follow Up Plan of Care/Instructions/FU: Please continue to take your medications as written. Please follow up with your primary care doctor to follow up this hospital stay. Activity as Tolerated: Yes Discharge Diet: Cardiac Diet Return to The Hospital For: Chest pain, palpitations, shortness of breath, fever, weakness, if you feel you are getting worse. ADA VAIL MD Sep 01, 2022 13:02
[2022-09-01] MEDS ORDERED: APIX5TAB PO (13:22)
--- NOTE | 2022-09-01 13:57 | Implantation of Loop Monitor ---
Implant of Loop Monitior IMPLANTATION OF LOOP MONITOR REPORT DATE OF PROCEDURE: 09/01/22 PREOP DIAGNOSIS: Paroxysmal atrial fibrillation POSTOP DIAGNOSIS: Paroxysmal atrial fibrillation PROCEDURE DETAILS: The patient is a 77 male with history of paroxysmal atrial fibrillation, history of bradycardia, history of syncope requiring long-term surveillance. Therefore implantable loop recorder was discussed and agreed with the patient. Informed consent was taken. All risks and complications were discussed at length. The patient was draped and prepped in the usual sterile fashion. Local anesthesia was lidocaine, which was given in the substernal area close to the 4th intercostal space. Loop monitor [employer] with serial number [id number] was implanted according to the protocol. Steri-Strips were placed at the end of the procedure. There were no complications and the patient tolerated the procedure well. The device was interrogated with a voltage of. ANESTHESIA: Local anesthesia with lidocaine. COMPLICATIONS: None CONTRAST/FLUOROSCOPY: None CONCLUSION: Successful implantation of loop monitor with no complication TATIANA ALONSO MD Sep 01, 2022 13:57
[2022-09-01] MEDS ORDERED: ENOXAPARIN 100 MG/1 ML (LOVENOX) SYR SC SCH (18:00)
== END 2022-09-01 15:12 | disposition home or self-care (01) | DRG 262 ==
LOC: EDUNIT# 01:58 → ER 02:00 → ICU 05:07
PROVIDERS: ADMIT Internal Medicine; ATTEND Internal Medicine
PROC: 5A2204Z Restoration of Cardiac Rhythm, Single (ICD-10-PCS; principal; 2022-09-01)
PROC: 0JH632Z Insertion of Monitoring Device into Chest Subcutaneous Tissue and Fascia, Percutaneous Approach (ICD-10-PCS; 2022-09-01)
DX: I48.0 Paroxysmal atrial fibrillation (principal); J44.9 Chronic obstructive pulmonary disease, unspecified; N40.1 Benign prostatic hyperplasia with lower urinary tract symptoms; M19.90 Unspecified osteoarthritis, unspecified site; I10 Essential (primary) hypertension; R00.1 Bradycardia, unspecified; K21.9 Gastro-esophageal reflux disease without esophagitis; Z79.899 Other long term (current) drug therapy; Z87.891 Personal history of nicotine dependence; Z89.512 Acquired absence of left leg below knee; Z87.442 Personal history of urinary calculi; Z90.49 Acquired absence of other specified parts of digestive tract; Z98.890 Other specified postprocedural states
CPT/HCPCS: 33285; 36415; 71045; 80053; 82150; 82550; 82553; 83690; 83735; 83874; 83880; 84443; 84484; 85025; 85027; 85379; 85610; 85730; 87081; 93005; 93041; 93306; G0378

== ENCOUNTER 2022-09-28 23:30 | Emergency (ER) | payer MEDICARE ==
[~2022-09-28] VITALS: Ht 190.5 cm; Wt 86.2 kg
[~2022-09-28 23:30] MED LIST changes: +APIX5TAB PO; +CHOL200059 PO; +VIT1CAPS5 PO
[2022-09-29 00:09] VITALS: BP 125/80
[2022-09-29 00:43] LABS: BASOPHILS % (AUTO) 0 % (0-10); EOSINOPHILS % (AUTO) 0 % (0-10); HEMATOCRIT 42 % (40-54); HEMOGLOBIN 14.4 g/dL (13.3-17.7); LYMPHOCYTES # (AUTO) 0.8 10^3/uL (1.0-4.0); LYMPHOCYTES % (AUTO) 11 % (12-44); MEAN CORPUSCULAR HEMOGLOBIN 33 pg (25-34); MEAN CORPUSCULAR HGB CONC 34 g/dL (32-36); MEAN CORPUSCULAR VOLUME 97 fL (80-99); MEAN PLATELET VOLUME 11.4 fL (9.0-12.2); MONOCYTES # (AUTO) 0.4 10^3/uL (0.0-1.0); MONOCYTES % (AUTO) 5 % (0-12); NEUTROPHILS % (AUTO) 83 % (42-75); PLATELET COUNT 155 10^3/uL (130-400); WHITE BLOOD COUNT 7.3 10^3/uL (4.3-11.0)
[2022-09-29 00:46] LABS: ALBUMIN 3.9 GM/DL (3.2-4.5); POTASSIUM 3.9 MMOL/L (3.6-5.0)
[2022-09-29 00:48] LABS: CALCIUM 9.9 MG/DL (8.5-10.1)
[2022-09-29 00:51] LABS: BILIRUBIN,TOTAL 1.1 MG/DL (0.1-1.0)
[2022-09-29 00:53] LABS: CREATININE SERUM 1.31 MG/DL (0.60-1.30)
[2022-09-29 01:09] LABS: CLARITY,URINE CLOUDY; COLOR,URINE DARK YELLOW; GLUCOSE, URINE (UA) NEGATIVE (NEGATIVE); KETONES,URINE NEGATIVE (NEGATIVE); LEUKOCYTE ESTERASE ,URINE TRACE (NEGATIVE); NITRITE,URINE NEGATIVE (NEGATIVE); PROTEIN,URINE 1+ (NEGATIVE)
--- NOTE | 2022-09-29 01:09 | ED General ---
General Chief Complaint: - Reproductive Stated Complaint: BACK/ABD/RIGHT HIP/LEG PAIN Nursing Triage Note: PT AMB TO RM 6 W PERSONAL WALKER W C/O GENERALIZED PAIN R/T KIDNEY STONES. PT DAUGHTER REPORTS HE SEES DR. العراقي AND WAS TOLD HE HAS 3 KIDNEY STONES THAT IS UNSURE IF HE CAN PASS. PT REPORTS DARK URINE AND RETENTION. PT FURTHER REPORTS THAT HE'S BEEN EXPERIENCING GROIN PAIN THAT RADIATES TO HIS BACK AND DOWN RIGHT LEG SX HE WAS DISCHARGED FROM THIS HOSPITAL ON PREVIOUS INPT VISIT. PT A&OX4. Source of Information: Patient Exam Limitations: No Limitations History of Present Illness Date Seen by Provider: September 29, 2022 Time Seen by Provider: 00:35 Initial Comments This 77-year-old gentleman presents to the emergency room with complaints of bilateral lower back pain that has been intermittent for months and pain radiating down into his right leg. He has history of kidney and bladder stones as well as significant BPH. His urologist is Dr. العراقي in [place]. He reports difficulty urinating and urinating only small amounts. He reports an episode of significant hematuria with obstruction earlier this year. He had cystoscopy with Dr. العراقي and a bladder stone was noted at that time. He takes Eliquis for stroke prophylaxis and A-fib. He also has rheumatoid arthritis and takes prednisone and methotrexate. Allergies and Home Medications Allergies Coded Allergies: sulfamethoxazole (Unverified Allergy, Unknown, 12/09/21) trimethoprim (Unverified Allergy, Unknown, 12/09/21) ibuprofen (Unverified Adverse Reaction, Mild, BECOMES UNPLEASANT, 06/29/21) Patient Home Medication List Home Medication List Reviewed: Yes Apixaban (Eliquis) 5 Mg Tablet, 5 MG PO BID Prescribed by: TATIANA ALONSO on 09/01/22 1322 Cephalexin (Cephalexin) 500 Mg Tablet, 500 MG PO TID Prescribed by: LILIANA ROBERTS on 09/29/22 0621 Cholecalciferol (Vitamin D3) (Vitamin D3) 50 Mcg (2000 Unit) Tablet, 50 MCG PO DAILY, (Reported) Entered as Reported by: RILEY MAGDALENO on 09/01/22 1054 Finasteride (Finasteride) 5 Mg Tablet, 5 MG PO DAILY, (Reported) Entered as Reported by: RILEY MAGDALENO on 11/11/20 1541 Hydrocodone/Acetaminophen (Hydrocodone-Acetamin 5-325 mg) 1 Each Tablet, 1 EA PO Q4H PRN for PAIN-MODERATE (5-7), (Reported) Entered as Reported by: RILEY MAGDALENO on 11/11/20 154 Methotrexate Sodium (Methotrexate) 2.5 Mg Tablet, 20 MG PO SAT, (Reported) Entered as Reported by: RILEY MAGDALENO on 11/11/20 154 Omeprazole (Omeprazole) 20 Mg Capsule.dr, 20 MG PO DAILY PRN for HEARTBURN, (Reported) Entered as Reported by: RILEY MAGDALENO on 11/11/20 154 Ondansetron (Ondansetron Odt) 4 Mg Tab.rapdis, 4 MG SL Q4H PRN for NAUS EA/VOMITING Prescribed by: LILIANA ROBERTS on 09/29/22 0621 Prednisone (Prednisone) 5 Mg Tablet, 2.5 MG PO DAILY, (Reported) Entered as Reported by: RILEY MAGDALENO on 11/11/20 154 Tamsulosin HCl (Flomax) 0.4 Mg Cap, 0.4 MG PO BID, (Reported) Entered as Reported by: ANGELA PARKS on 06/29/21 0927 Vit A/C/E/Zinc/Co (Preservision Areds Softgel) 4,296-226 Capsule, 1 EACH PO Q48H, (Reported) Entered as Reported by: RILEY MAGDALENO on 09/01/22 1054 Review of Systems Review of Systems Constitutional: no symptoms reported EENTM: no symptoms reported Respiratory: no symptoms reported Cardiovascular: no symptoms reported Gastrointestinal: see HPI Genitourinary: see HPI Musculoskeletal: see HPI Skin: no symptoms reported Psychiatric/Neurological: See HPI Hematologic/Lymphatic: See HPI Immunological/Allergic: no symptoms reported Past Sfqnfhj-Hsawmf-Wajmjo Hx Patient Social History Tobacco Use?: No Use of E-Cig and/or Vaping dev: No Substance use?: No Alcohol Use?: No Immunizations Up To Date First/Initial COVID19 Vaccinat: August 2020 Second COVID19 Vaccination Ian: September 2020 Third COVID19 Vaccination Date: MAR 31, 2021 COVID19 Vaccine Traveling Secretary: MODERNA X4 Seasonal Allergies Seasonal Allergies: No Past Medical History Surgery/Hospitalization HX: LEFT BKA, AFIB Surgeries: Yes (LEFT 6-8" BELOW KNEE) Amputation (Left BKA), Appendectomy, Bladder Surgery (Cystoscopy), Orthopedic (Left hip, 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) Respiratory: Yes COPD Currently Using CPAP: No Currently Using BIPAP: No Cardiac: Yes Atrial Fibrillation, Hypertension Neurological: No Reproductive Disorders: No Genitourinary: Yes (Bladder stone) Benign Prostatic Hyperpl, Prostate Problems, Kidney Stones, UTI-Chronic Gastrointestinal: Yes Gastroesophageal Reflux Musculoskeletal: Yes (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; L HIP FX/PINNING) Amputee, Rheumatoid Arthritis, Fractures Endocrine: No HEENT: No Cataract Cancer: No Psychosocial: No Integumentary: No Blood Disorders: No Family Medical History Cardiovascular disease 19 MOTHER (cva) Neoplasm 19 FATHER (lung ca) G8 SISTER (lung ca ) Cancer, Stroke SOCIAL HISTORY: -SMOKED 2 PPD, QUIT 7 YEARS AGO -USED TO DRINK WHEN HE WAS YOUNG, NONE SINCE ABOUT AGE 26 -DENIES DRUG USE PAST SURGICAL HISTORY: -LEFT BKA 02/2013--ORIGINAL FRACTURE WITH ORIF TO LEFT LOWER LEG WAS IN 2002, WITH NON-UNION, CHRONIC OSTEOMYELITIS, RESULTING IN AMPUTATION -APPENDECTOMY -07/01/2021--LEFT HIP FRACTURE WITH PINNING -12/22/2021--COLONOSCOPY WITH POLYPECTOMY ADMITTED FOR SEPSIS AND UTI 01/2017 ADMITTED 10/2020 FOR SYNCOPE--HAD EPISODE OF BRADYCARDIA FELT TO BE MEDICATION RELATED. Physical Exam Vital Signs Vital Signs - First Documented 09/29/22 00:09 Temp 36.9 Pulse 77 Resp 20 B/P (MAP) 125/80 (95) Pulse Ox 95 O2 Delivery Room Air Capillary Refill : Less Than 3 Seconds Height, Weight, BMI Height: 6'3.50" Weight: 198lbs. 2.0oz. [id number]; 23.00 BMI Method:Stated General Appearance: No Apparent Distress, WD/WN HEENT: PERRL/EOMI, Normal ENT Inspection Neck: Normal Inspection Respiratory: Lungs Clear, Normal Breath Sounds, No Accessory Muscle Use Cardiovascular: Regular Rate, Rhythm, No Edema, No Murmur Gastrointestinal: Normal Bowel Sounds, Soft, Tenderness (Mild in the left mid abdomen) Back: Normal Inspection, Other (Mild tenderness across the lower back bilaterally) Extremity: Normal Inspection, Other (Left lower extremity prosthetic. Right leg is nontender. There is no pain with palpation of the right hip laterally or over the joint. No pain with rotation of the right hip there is mild tenderness in the right buttock region near the piriformis.) Neurologic/Psychiatric: Alert, Oriented x3, No Motor/Sensory Deficits, Normal Mood/Affect Skin: Normal Color, Warm/Dry Progress/Results/Core Measures Suspected Sepsis SIRS Temperature: Pulse: 77 Respiratory Rate: 20 Laboratory Tests 09/29/22 00:15: White Blood Count 7.3 Blood Pressure 125 /80 Mean: 95 Laboratory Tests 09/29/22 00:15: Creatinine 1.31H, Platelet Count 155, Total Bilirubin 1.1H Results/Orders Lab Results Laboratory Tests Test 09/29/22 00:15 09/29/22 01:02 Range/Units White Blood Count 7.3 4.3-11.0 10^3/uL Red Blood Count 4.34 4.30-5.52 10^6/uL Hemoglobin 14.4 13.3-17.7 g/dL Hematocrit 42 40-54 % Mean Corpuscular Volume 97 80-99 fL Mean Corpuscular Hemoglobin 33 25-34 pg Mean Corpuscular Hemoglobin Concent 34 32-36 g/dL Red Cell Distribution Width 16.5 H 10.0-14.5 % Platelet Count 155 130-400 10^3/uL Mean Platelet Volume 11.4 9.0-12.2 fL Immature Granulocyte % (Auto) 0 % Neutrophils (%) (Auto) 83 H 42-75 % Lymphocytes (%) (Auto) 11 L 12-44 % Monocytes (%) (Auto) 5 0-12 % Eosinophils (%) (Auto) 0 0-10 % Basophils (%) (Auto) 0 0-10 % Neutrophils # (Auto) 6.0 1.8-7.8 10^3/uL Lymphocytes # (Auto) 0.8 L 1.0-4.0 10^3/uL Monocytes # (Auto) 0.4 0.0-1.0 10^3/uL Eosinophils # (Auto) 0.0 0.0-0.3 10^3/uL Basophils # (Auto) 0.0 0.0-0.1 10^3/uL Immature Granulocyte # (Auto) 0.0 0.0-0.1 10^3/uL Sodium Level 139 135-145 MMOL/L Potassium Level 3.9 3.6-5.0 MMOL/L Chloride Level 106 98-107 MMOL/L Carbon Dioxide Level 22 21-32 MMOL/L Anion Gap 11 5-14 MMOL/L Blood Urea Nitrogen 23 H 7-18 MG/DL Creatinine 1.31 H 0.60-1.30 MG/DL Estimat Glomerular Filtration Rate 55 BUN/Creatinine Ratio 18 Glucose Level 111 H 70-105 MG/DL Calcium Level 9.9 8.5-10.1 MG/DL Corrected Calcium 10.0 8.5-10.1 MG/DL Total Bilirubin 1.1 H 0.1-1.0 MG/DL Aspartate Amino Transf (AST/SGOT) 29 5-34 U/L Alanine Aminotransferase (ALT/SGPT) 30 0-55 U/L Alkaline Phosphatase 117 40-136 U/L C-Reactive Protein High Sensitivity 0.21 0.00-0.50 MG/DL Total Protein 7.0 6.4-8.2 GM/DL Albumin 3.9 3.2-4.5 GM/DL Urine Color DARK YELLOW Urine Clarity CLOUDY Urine pH 6.0 5-9 Urine Specific [place] >=1.030 1.016-1.022 Urine Protein 1+ H NEGATIVE Urine Glucose (UA) NEGATIVE NEGATIVE Urine Ketones NEGATIVE NEGATIVE Urine Nitrite NEGATIVE NEGATIVE Urine Bilirubin 1+ H NEGATIVE Urine Urobilinogen 1.0 < = 1.0 MG/DL Urine Leukocyte Esterase TRACE H NEGATIVE Urine RBC (Auto) 3+ H NEGATIVE Urine RBC TNTC H /HPF Urine WBC 2-5 /HPF Urine Crystals NONE /LPF Urine Bacteria MODERATE H /HPF Urine Casts NONE /LPF Urine Mucus SMALL H /LPF Urine Yeast FEW H /HPF Urine Culture Indicated YES My Orders Orders - LILIANA FELDER MD Cbc With Automated Diff (09/29/22 00:35) Comprehensive Metabolic Panel (09/29/22 00:35) Hs C Reactive Protein (09/29/22 00:35) Ua Culture If Indicated (09/29/22 00:35) Ed Iv/Invasive Line Start (09/29/22 00:35) Lactated Ringers (Lr 1000 Ml Iv Solution (09/29/22 01:15) Bladder Scan (09/29/22 01:21) Urine Culture (09/29/22 01:02) Ct Abd/Pelvis Wo(Kidney Stone) (09/29/22 03:25) Ct Lumbar Spine Wo (09/29/22 03:25) Ceftriaxone Iv/Im (Rocephin Iv/Im) (09/29/22 06:00) Fluconazole Tablet (Ed Only) (Diflucan T (09/29/22 06:15) Medications Given in ED Current Medications Medications Dose Ordered Sig/Kandi Route Start Time Stop Time Status Last Admin Dose Admin Fluconazole 150 mg ONCE ONCE PO 09/29/22 06:15 09/29/22 06:16 DC 09/29/22 06:22 150 MG Lactated Ringer's 1,000 ml @ 0 mls/hr Q0M ONCE IV 09/29/22 01:15 09/29/22 01:16 DC 09/29/22 01:24 0 MLS/HR Vital Signs/I&O 09/29/22 00:09 Temp 36.9 Pulse 77 Resp 20 B/P (MAP) 125/80 (95) Pulse Ox 95 O2 Delivery Room Air Capillary Refill : Less Than 3 Seconds Blood Pressure Mean: 95 Progress Note : Progress Note Patient declined any pain medication. Labs were reviewed including CBC, CMP, a nd urinalysis. There was a bump in his creatinine which prompted hydration with IV fluids. Urinalysis demonstrated hematuria with moderate bacteria and few yeast. I discussed options for further work-up with the patient. He wished to pursue CT scan for definitive answers. CT was obtained and reviewed by me. There is obstructing distal left ureteral stone in the left UVJ by my interpretation. This was confirmed with CT report from [facility]. Patient was then treated with Rocephin by IV route and an oral dose of Diflucan. Bladder scan revealed only about 170 mL of urine which was not enough to justify Weiss catheter. Patient had incidental findings on the CT scan including gallstones and infrarenal abdominal aortic aneurysm. These findings were discussed with the patient. CT of the lumbar spine was also included. There was no significant stenosis to explain his pain in the leg which was suspected to be radicular in nature. See discharge instructions for further discussion. Diagnostic Imaging Diagonstic Imaging: CT Plain Films/CT/US/NM/MRI: abdomen, c-spine Comments NAME: TAMIKO EVANS [facility] REC#: [id number] PT STATUS: REG ER : 1945 PHYSICIAN: LILIANA FELDER MD ADMIT DATE: 09/28/22/ER Signed Date of Exam:09/29/22 CT ABD/PELVIS WO(KIDNEY STONE) PROCEDURE: CT urinary tract, rule out kidney stone. TECHNIQUE: Multiple contiguous axial images were obtained through the abdomen and pelvis without the use of intravenous contrast. Auto Exposure Controls were utilized during the CT exam to meet ALARA standards for radiation dose reduction. INDICATION: Left flank pain Lung bases are clear. Liver appears normal. There is a stone in the gallbladder. Common duct is not dilated. There is a 3 mm calculus in lower pole calyx of the right kidney. There is hydronephrosis of left kidney secondary to a 6 mm obstructing calculus at the left ureterovesical junction. Spleen is upper limits of normal measuring 12.6 cm length. Pancreas appears normal. There is an abdominal aortic aneurysm measuring up to 3.7 cm in diameter. Small bowel is not dilated. There is no appendicitis. Colon is unremarkable. Urinary bladder is distended. The prostate is enlarged. Patient's had prior internal fixation of left hip. IMPRESSION: Cholecystolithiasis. Right nephrolithiasis. Hydronephrosis of left kidney due to a 6 mm stone at the left ureterovesical junction. Splenomegaly. Enlarged prostate. Aortic atherosclerosis with small infrarenal abdominal aortic aneurysm. Dictated by: Dictated on workstation # [id number] Dict: 09/29/22511 Trans: 09/29/22516 RUST [id number] Interpreted by: ABIGAIL BOWMAN MD Electronically signed by: ABIGAIL BOWMAN MD 09/29/22516 Diagonstic Imaging: CT Plain Films/CT/US/NM/MRI: other (Lumbar spine) Comments NAME: TAMIKO EVANS [facility] REC#: [id number] PT STATUS: REG ER : 1945 PHYSICIAN: LILIANA FELDER MD ADMIT DATE: 09/28/22/ER Signed Date of Exam:09/29/22 CT LUMBAR SPINE WO PROCEDURE: CT lumbar spine without contrast. TECHNIQUE: Multiple contiguous axial images were obtained through the lumbar spine without the use of intravenous contrast. Sagittal and coronal reformations were then performed. Auto Exposure Controls were utilized during the CT exam to meet ALARA standards for radiation dose reduction. INDICATION: Back pain Vertebral body height and alignment appear normal. There is disc space narrowing at L2-L3 with vacuum disc phenomena. There is disc space narrowing at L3-L4 with disc vacuum disc phenomena and there is disc space narrowing at L4-L5 with vacuum disc phenomena. There are no compression fractures. There are no pars defects. There is minimal degenerative changes of the facet joints in the lower lumbar spine. IMPRESSION: Advanced degenerative disc changes L2-L3, L3-L4 and L4-L5. There are no acute abnormality seen. Dictated by: Dictated on workstation # [id number] Dict: 09/29/22519 Trans: 09/29/22521 TCB [id number] Interpreted by: ABIGAIL BOWMAN MD Electronically signed by: ABIGAIL BOWMAN MD 09/29/22521 Departure Impression Primary Impression: Calculus of distal left ureter Additional Impressions: Hydronephrosis Qualified Codes: N13.2 - Hydronephrosis with renal and ureteral calculous obstruction Abdominal aortic aneurysm Qualified Codes: I71.43 - Infrarenal abdominal aortic aneurysm, without rupture Cholelithiasis Qualified Codes: K80.20 - Calculus of gallbladder without cholecystitis without obstruction Right leg pain Disposition: 01 HOME, SELF-CARE Condition: Improved Departure-Patient Inst. Decision time for Depature: 06:15 Referrals: TISHA HO MD (PCP/Family) Primary Care Physician Patient Instructions: Hydronephrosis, Adult (DC), Kidney Stone Diet, Kidney Stone, Adult ED Add. Discharge Instructions: Contact Dr. العراقي today to discuss your kidney stone. You have a 6 mm kidney stone stuck in the distal left ureter at the UVJ. This is causing obstruction and hydronephrosis (backup of urine to the kidney). Drink plenty of clear liquids to stay well-hydrated. Use your hydrocodone as previously prescribed for pain. If you are having extreme pain, you may take as much as 2 hydrocodone every 4 hours as needed as long as you are not becoming too drowsy or confused. Use Zofran (ondansetron) as prescribed for nausea or vomiting. Complete your antibiotics as prescribed to prevent bladder infection associated with this stone. Please follow-up with your primary care provider. Discuss what should be done for monitoring of your abdominal aortic aneurysm and gallstones. Anytime you have abdominal pain and are seen by a medical provider, please inform that provider you have both gallstones and an abdominal aortic aneurysm. Return to the emergency room if you have worsening symptoms despite following these instructions. Strain urine and bring any stones collected to your follow-up appointment. All discharge instructions reviewed with patient and/or family. Voiced understanding. Scripts Cephalexin (Cephalexin) 500 Mg Tablet 500 MG PO TID, #20 TAB Prov: LILIANA FELDER MD 09/29/22 Ondansetron (Ondansetron Odt) 4 Mg Tab.rapdis 4 MG SL Q4H PRN for NAUSEA/VOMITING, #10 TAB Prov: LILIANA FELDER MD 09/29/22 Copy Copies To 1: TISHA HO MD, JOSHUA T MD September 29, 2022 01:09
[2022-09-29] MEDS ORDERED: LACTATED RINGERS 1,000 ML IV ONE (01:15)
[2022-09-29 01:31] LABS: BACTERIA,URINE MODERATE /HPF; BILIRUBIN,URINE 1+ (NEGATIVE); RBC,URINE TNTC /HPF; YEAST,URINE FEW /HPF
--- NOTE | 2022-09-29 05:19 | Diagnostic Imaging Report ---
PROCEDURE: CT urinary tract, rule out kidney stone. TECHNIQUE: Multiple contiguous axial images were obtained through the abdomen and pelvis without the use of intravenous contrast. Auto Exposure Controls were utilized during the CT exam to meet ALARA standards for radiation dose reduction. INDICATION: Left flank pain Lung bases are clear. Liver appears normal. There is a stone in the gallbladder. Common duct is not dilated. There is a 3 mm calculus in lower pole calyx of the right kidney. There is hydronephrosis of left kidney secondary to a 6 mm obstructing calculus at the left ureterovesical junction. Spleen is upper limits of normal measuring 12.6 cm length. Pancreas appears normal. There is an abdominal aortic aneurysm measuring up to 3.7 cm in diameter. Small bowel is not dilated. There is no appendicitis. Colon is unremarkable. Urinary bladder is distended. The prostate is enlarged. Patient's had prior internal fixation of left hip. IMPRESSION: Cholecystolithiasis. Right nephrolithiasis. Hydronephrosis of left kidney due to a 6 mm stone at the left ureterovesical junction. Splenomegaly. Enlarged prostate. Aortic atherosclerosis with small infrarenal abdominal aortic aneurysm. Dictated by: Dictated on workstation # [id number]
--- NOTE | 2022-09-29 05:23 | Diagnostic Imaging Report ---
PROCEDURE: CT lumbar spine without contrast. TECHNIQUE: Multiple contiguous axial images were obtained through the lumbar spine without the use of intravenous contrast. Sagittal and coronal reformations were then performed. Auto Exposure Controls were utilized during the CT exam to meet ALARA standards for radiation dose reduction. INDICATION: Back pain Vertebral body height and alignment appear normal. There is disc space narrowing at L2-L3 with vacuum disc phenomena. There is disc space narrowing at L3-L4 with disc vacuum disc phenomena and there is disc space narrowing at L4-L5 with vacuum disc phenomena. There are no compression fractures. There are no pars defects. There is minimal degenerative changes of the facet joints in the lower lumbar spine. IMPRESSION: Advanced degenerative disc changes L2-L3, L3-L4 and L4-L5. There are no acute abnormality seen. Dictated by: Dictated on workstation # [id number]
[2022-09-29] MEDS ORDERED: cefTRIAXone IV/IM 1,000 MG in NS (IVPB) 50 ML IV STA (06:00)
[2022-09-29] MEDS ORDERED: FLUCONAZOLE 150 MG TABLET (ED ONLY) PO ONE (06:15)
[2022-09-29] MEDS ORDERED: ONDA4TAB11 SL (06:21)
[2022-09-29] MEDS ORDERED: CEPH500T PO (06:21)
== END 2022-09-29 06:43 | disposition home or self-care (01) ==
LOC: EDUNIT# 23:30 → ER 23:33
DX: N13.2 Hydronephrosis with renal and ureteral calculous obstruction (principal); I71.43 Infrarenal abdominal aortic aneurysm, without rupture; K80.20 Calculus of gallbladder without cholecystitis without obstruction; M79.604 Pain in right leg; I48.91 Unspecified atrial fibrillation; M06.9 Rheumatoid arthritis, unspecified; R79.89 Other specified abnormal findings of blood chemistry; Z79.02 Long term (current) use of antithrombotics/antiplatelets; Z79.52 Long term (current) use of systemic steroids; Z79.620 Long term (current) use of immunosuppressive biologic; Z87.448 Personal history of other diseases of urinary system; Z87.891 Personal history of nicotine dependence; Z88.2 Allergy status to sulfonamides
CPT/HCPCS: 36415; 72131; 74176; 80053; 81000; 85025; 86141; 87088

== ENCOUNTER → 2022-10-12 | Outpatient (CLI) | payer MEDICARE ==
[~2022-10-12] VITALS: Ht 190 cm; Wt 86.0 kg
[~2022-10-12] MED LIST changes: +CATHETER FLUSH 10 ML SYR IVP PRN; +CEPH500T PO; +ONDA4TAB11 SL; +REGADENOSON 0.4 MG/5 ML SYR (LEXISCAN) IV ONE
[2022-10-12 13:14] VITALS: BP 129/63
--- NOTE | 2022-10-12 21:50 | STRESS TEST ---
DATE OF SERVICE: 10/12/2022 RESTING AND POST REGADENOSON TECHNETIUM-99M TETROFOSMIN SPECT CT IMAGING ORDERING PHYSICIAN: Dr. Marcelino. PRIMARY PHYSICIAN: Dr. Evangelista. CLINICAL DIAGNOSIS: Paroxysmal atrial fibrillation. Baseline images were carried out after injection of 11 mCi of technetium-99m tetrofosmin. This was followed by 0.4 mg regadenoson and 31.1 mCi technetium-99m tetrofosmin for stress imaging. The electrocardiogram showed sinus rhythm at baseline. It did not change significantly with regadenoson infusion. The patient tolerated the procedure well. Review of images at rest and following stress does not indicate any distinct perfusion defects consistent with significant myocardial ischemia or infarction. Some degree of diaphragmatic attenuation seen both at rest and following regadenoson infusion. Gated images show normal regional wall motion and normal global left ventricular systolic function with a calculated ejection fraction of 57%. CONCLUSIONS: 1. No evidence of any significant myocardial ischemia or infarction on this study. 2. Normal regional wall motion. 3. Normal global left ventricular systolic function with a calculated ejection fraction of 57%. Job ID: [id number] DocumentID: [id number] Dictated Date: 10/12/2022 20:04:18 Cellar Supervisor Date: 10/12/2022 21:48:00 Dictated By: HITESH MARCELINO MD; WINTER; FACP; FACC;
== END ==
LOC: CARD 11:33
PROVIDERS: ATTEND Internal Medicine Cardiovascular Disease
DX: I48.0 Paroxysmal atrial fibrillation (principal)
CPT/HCPCS: 78452; 93017; A9502

== ENCOUNTER 2023-01-25 09:28 | Outpatient (CLI) | payer MEDICARE ==
[~2023-01-25 09:28] MED LIST changes: -CATHETER FLUSH 10 ML SYR IVP PRN; -REGADENOSON 0.4 MG/5 ML SYR (LEXISCAN) IV ONE
== END 2023-01-25 10:00 ==
LOC: SLEEP 09:28
PROVIDERS: ATTEND Otolaryngology Otolaryngology/Facial Plastic Surgery
DX: G47.33 Obstructive sleep apnea (adult) (pediatric) (principal); I10 Essential (primary) hypertension
CPT/HCPCS: G0399

== ENCOUNTER 2023-02-12 12:25 | Inpatient (IN) | payer MEDICARE ==
[~2023-02-12] VITALS: Ht 190.5 cm; Wt 82.1 kg
--- NOTE | 2023-02-12 11:28 | History & Physical ---
History of Present Illness HPI/Chief Complaint CC: Recovery from right periprostatic fracture complicated with hemorrhagic shock HPI: This is an 78-year-old male clinic patient of Dr. Evangelista and Dr. Garcia who I originally saw in consultation at [facility] following right chronic fracture of hip repair on 01/31/2023 of which the femur was fractured for an undetermined amount of time and he had been walking on it until the pain was so severe it required intervention. He had an uneventful repair but began having more more pain x-ray was obtained showing periprostatic fracture of the right femur requiring repair on 02/02/2023 but began having signs of hemorrhagic shock and electrolyte abnormalities so the decision was made to move to [facility] on 02/02/2023 where he had remained until insurance approved swing bed to [place] in [place]. His pain is controlled at this current time. 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 He is a previous smoker quit 4 years ago. HPI-[facility] 5Bd Romain Ortez 5b is a Holdrege 5b 78 y.o.Holdrege 5b Holdrege 5b maleArial 5b history of A-fib, on anticoagulation with Eliquis, rheumatoid arthritis, hip fracture, s/prevision right hip for periprostatic fracture.Patient is transfer from [facility] to ICU for higher care. Patient with closed displaced fracture of right femoral neck,s/pright total hip arthroplasty for right femoral neck fracture on02/02 postoperatively patient became hypotensive, electrolyte imbalance, hyperkalemia. Due to hemodynamic instability and elec trolyte abnormality, patient transferred to our ICU for higher care With fluids, hypotension is resolved. Hyperkalemia improved. Per ICU team, patient is stable for transfer to medicine. 02/09: I assumed care of the patient from Dr. Rice. No acute events overnight. Patient afebrile and hemodynamically stable, T max past 24 h is 99.5. BC no growth at 24H. CXR shows no acute cardiopulmonary process. Patient seen and examined, he is on 4L oxygen. He denies use of oxygen at home. Will Wien off as tolerated. Treatment plan discussed with patient, he is in agreement. 02/10: No acute events overnight. Hb stable at 8.2. CXR obtained this morning reports no acute cardiopulmonary disease. Influenza A/B and RSV are negative. Covid-19 test pending. Patient seen and examined at bedside, his daughter present. He reports feeling tired totay and says "maybe I over did it yesterday". He reports poor appetite and that he cannot eat hospital food. I encouraged him to eat more and that he can eat food from outside. He is on 2L oxygen via nasal cannula SPO2 90-92%. He had no other acute complains. 02/11: No acute events overnight. Patient's oxygen requirement decreased to 1 L nasal cannula today. Hemoglobin stable. Patient seen and examined, laying in bed in no acute distress. Reports that he is feeling well and had no acute complaints. Patient is medically ready for discharge, he is being [facility] tomorrow morning. Case management on board. Source: patient Exam Limitations: no limitations Date Seen 02/12/23 Time Seen by a Provider: 12:30 Attending Physician Gilles Evangelista MD PCP Admitting Physician: Karlee Driver DO Attending Physician: Karlee Driver DO Referring Physician Date of Admission Home Medications & Allergies Home Medications Reviewed patient Home Medication Reconciliation performed by pharmacy medication reconciliations carpet cleaning technician and/or nursing. Patients Allergies have been reviewed. Allergies Allergies Coded Allergies sulfamethoxazole (Unverified Allergy, Unknown, 12/09/21) trimethoprim (Unverified Allergy, Unknown, 12/09/21) ibuprofen (Unverified Adverse Reaction, Mild, BECOMES UNPLEASANT, 06/29/21) Past Jciaihs-Meivtk-Gkmxfk Hx Past Med/Social Hx: Reviewed Nursing Past Med/Soc Hx, Reviewed and Corrections made Patient Social History Marrital Status: Employed/Student: retired Alcohol Use: Denies Use Drug of Choice: Denies Smoking Status: Former Smoker Former Smoker, Quit: Dec 28, 2011 Type Used: Cigarettes Recent Hopitalizations: No Immunizations Up To Date Date of Pneumonia Vaccine: Feb 27, 2010 Date of Influenza Vaccine: Feb 28, 2021 Seasonal Allergies Seasonal Allergies: No Past Medical History Surgeries: Amputation, Appendectomy, Bladder Surgery, Orthopedic Currently Using CPAP: No Currently Using BIPAP: No Cardiac: Atrial Fibrillation, Hypertension Reproductive: No Genitourinary: Benign Prostatic Hyperpl, Prostate Problems, Kidney Stones, UTI- Chronic Gastrointestinal: Gastroesophageal Reflux Musculoskeletal: Amputee, Rheumatoid Arthritis, Fractures HEENT: Cataract History of Blood Disorders: No Family History Cardiovascular disease 19 MOTHER (cva) Neoplasm 19 FATHER (lung ca) G8 SISTER (lung ca ) Cancer, Stroke SOCIAL HISTORY: -SMOKED 2 PPD, QUIT 7 YEARS AGO -USED TO DRINK WHEN HE WAS YOUNG, NONE SINCE ABOUT AGE 26 -DENIES DRUG USE PAST SURGICAL HISTORY: -LEFT BKA 02/2013--ORIGINAL FRACTURE WITH ORIF TO LEFT LOWER LEG WAS IN 2002, WITH NON-UNION, CHRONIC OSTEOMYELITIS, RESULTING IN AMPUTATION -APPENDECTOMY -07/01/2021--LEFT HIP FRACTURE WITH PINNING -12/22/2021--COLONOSCOPY WITH POLYPECTOMY ADMITTED FOR SEPSIS AND UTI 01/2017 ADMITTED 10/2020 FOR SYNCOPE--HAD EPISODE OF BRADYCARDIA FELT TO BE MEDICATION RELATED. Review of Systems Constitutional: see HPI Musculoskeletal: back pain, joint pain, muscle pain, muscle stiffness, muscle cramps, muscle weakness Physical Exam Physical Exam Vital Signs Vital Signs - First Documented 02/12/23 12:40 Temp 36.3 Pulse 94 Resp 18 B/P (MAP) 131/66 (87) Pulse Ox 96 O2 Delivery Nasal Cannula O2 Flow Rate 1.50 Capillary Refill : Height, Weight, BMI Height: 6'3.50" Weight: 198lbs. 2.0oz. 89.191106gi; 23.82 BMI Method:Stated General Appearance: No Apparent Distress, WD/WN, Chronically ill Eyes: Bilateral Eye Normal Inspection, Bilateral Eye PERRL HEENT: PERRL/EOMI, Normal ENT Inspection, Pharynx Normal Neck: Full Range of Motion, Normal Inspection, Non Tender, Supple, Carotid Bruit Respiratory: Chest Non Tender, Lungs Clear, Normal Breath Sounds, No Accessory Muscle Use, No Respiratory Distress Cardiovascular: Regular Rate, Rhythm, No Edema, No Gallop, No JVD, No Murmur, Normal Peripheral Pulses Gastrointestinal: Normal Bowel Sounds, No Organomegaly, No Pulsatile Mass, Non Tender, Soft Back: Normal Inspection, No CVA Tenderness, No Vertebral Tenderness Extremity: Normal Capillary Refill, Normal Inspection, Normal Range of Motion (Except right leg due to pain and left leg is BKA), Non Tender, No Calf Tenderness, No Pedal Edema Neurologic/Psychiatric: Alert, Oriented x3, No Motor/Sensory Deficits, Normal Mood/Affect Skin: Normal Color, Warm/Dry Lymphatic: No Adenopathy Results Results/Procedures Labs Patient resulted labs reviewed. Assessment/Plan Admission Diagnosis Assessment: Debility following right chronic hip fracture status post repair on 01/31/2023 then periprosthetic fracture requiring repair on 02/02/2023 with complication of hemorrhagic shock and electrolyte abnormality requiring higher level of care to [facility] Gordillo Prior history of left BKA Atrial fibrillation Former smoker Chronic UTI Plan: Check labs in morning Home meds Pain control Oral anticoagulation Admission Status: Inpatient Order (span 2 midnights) Reason for Inpatient Admission: KARLEE DURHAM DO Feb 12, 2023 11:28
[~2023-02-12 12:25] MED LIST changes: +ACET-93 PO; +ACETAMINOPHEN 325 MG TABLET PO PRN; +ANTACID SUSPENSION 30 ML UDC PO PRN; +ASPI-999 PO; +BISACODYL 10 MG SUPPOSITORY PR PRN; +CA C1TAB66 PO; +CALCIUM CARBONATE 500 MG CHEW TABLET PO PRN; +DOXY-227 PO; +FERR324T4 PO; +LACTULOSE SYRUP 10GM/15ML 30ML UDC PO PRN; +MELATONIN 3 MG TABLET PO PRN; +MILK OF MAGNESIA 400 MG/5 ML 30 ML UDC PO PRN; +MULT-1157 PO; +NALO4SPR3 NS; +ONDANSETRON 4 MG ORAL DISSOLVE TABLET PO PRN; +ONDANSETRON INJECTION 4 MG/2 ML (SDV) IV PRN; +OXYC10TA7 PO; +PANT40SU PO; +POTA10CA84 PO; +SENN-145 PO; +diphenhydrAMINE 25 MG TABLET PO PRN; +diphenhydrAMINE INJ 50 MG/ML VIAL IVP PRN; +oxyCODONE IMMEDIATE RELEASE 5 MG TABLET PO PRN
[2023-02-12] MEDS ORDERED: PRESERVISION AREDS SOFTGEL (BAUSH & LOMB) PO SCH (12:30)
[2023-02-12] MEDS ORDERED: ACETAMINOPHEN 500 MG TABLET PO PRN (12:30)
[2023-02-12] MEDS ORDERED: NON-FORMULARY MEDICATION 1 EA EA (Oxycodone HCl 10 MG) PO PRN (12:30)
[2023-02-12] MEDS ORDERED: NALOXONE HCL 4 MG NS SCH (12:30)
[2023-02-12 12:40] VITALS: BP 131/66
--- OUTSIDE RECORDS SUMMARY | 2023-02-12 12:40 | XMS REPORT ---
Author Author Romain العراقي Organization [facility] Address [address] [place], [place] [id number] Care Team Providers Care Nail Sticker Name Role Phone Ray العراقي PCP Allergies and Adverse Reactions Name Reaction Notes Motrin Plan of Treatment Planned Activity Comments Planned Date Planned Time Plan /Goal URINALYSIS W/MICRO C&S IF IND 07/05/2022 12:00 AM ABDOMEN ONE VIEW 12/23/2022 12:00 AM Medications Active Name Start Date Estimated Comple tion Date SIG Comments prednisone 2.5 mg tablet letty e 1 tablet (2.5 mg) by oral route once daily finasteride 5 mg tablet take 1 tablet (5 mg) by oral route once daily omeprazole 20 mg tablet,delayed release take 1 tablet by oral route daily hydrocodone 5 mg-acetaminophen 325 mg tablet take 1 tablet by oral route every 6 hours as needed for pain naproxen 250 mg tablet take 1 tablet (250 mg) by oral route 2 times per day with food methotrexate sodium 2.5 mg tablet take 1 tablet (2.5 mg) by oral route once weekly Vitamin D3 50 mcg (2,000 unit) capsule take 1 capsule by oral route daily tamsulosin 0.4 mg capsule 07/22/2022 take 2 capsules by oral route per day, one in the morning and one in the evening. Eliquis 5 mg tablet take 1 t ablet (5 mg) by oral route 2 times per day Problem List Not available. Vital Signs Date Time BP-Sys(mm[Hg] BP-Rosemarie(mm[Hg]) HR(bpm) RR(rpm) Temp WT HT HC BMI BSA BMI Percentile O2 Sat(%) 023 9:05: 00 AM 144 mm[Hg] 78 mm[Hg] 60 {beats}/ min 18 rpm 98.4 F 192 lbs 75 in 23.9 981 kg/m 2 2.14 67 m2 95 % 2/20/ 2023 9:28: 00 AM 62 {beats}/ min 18 rpm 99 F 201 lbs 75 in 25.1 2 kg/m 2 2.20 m2 98 % History of Procedures Date Ordered Description Order Status 07/22/2022 12:00 AM CYSTOSCOPY Reviewed 07/22/2022 12:00 AM US TRANSRECTAL Reviewed 07/22/2022 12:00 AM X-RAY EXAM OF ABDOMEN Returned 09/21/2022 9:32 AM US URINE CAPACITY MEASURE Revie wed History of Past Illness Name Date of Onset Comments Hip fracture left- screws lorelei buck Amputation of leg; left; below the knee Kidney Stones Jul 05 2022 9:28AM Gross hematuria Jul 05 2022 9:28AM Benign prostatic hyperplasia with lower urinary tract symptoms Jul 05 2022 9:28AM Other obstructive and reflux uropathy Jul 05 9:28AM Benign prostatic hyperplasia with lower urinary tract symptoms Jul 22 2022 9:07AM Other obstructive and reflux uropathy Jul 22 9:07AM Bladder stone Jul 22 2022 9:07AM Kidney stone Jul 22 2022 10:09AM Benign prostatic hyperplasia with lower urinary tract symptoms Jul 22 2022 10:09AM Other obstructive and reflux uropathy Jul 22 10:09AM Kidney stone Sep 22 2022 10:47AM Payers Insurance Name Company Name Plan Name Plan Number Policy Num flor Policy Group Number Start Date Aetna Aetna [id number] N/A History of Encounters Visit Date Visit Type Provider 09/21/2022 Office visit Ray Strickland 07/22/2022 Procedures Ray Strickland 07/05/2022 Voided Ray Strickland 07/05/2022 Office visit DARYL PARKS APR N
--- OUTSIDE RECORDS SUMMARY | 2023-02-12 12:40 | XMS REPORT ---
Author Author Romain PARKS Organization [facility] Address [address] [place], [place] [id number] Care Team Providers Care Acid Tank Cleaner Name Role Phone DARYL PARKS PCP Allergies and Adverse Reactions Name Reaction Notes Motrin Plan of Treatment Planned Activity Comments Planned Date Planned Time Plan /Goal URINALYSIS W/MICRO C&S IF IND 07/05/2022 12:[address] ABD AND PELVIS W/O CONTRAST 02/01/2023 12:00 AM Medications Active Name Start Date [...] by oral route 2 times per day potassium citrate ER 10 mEq (1,080 mg) tablet,extended release 10/05/2022 take 1 tablet by oral route 2 times a day Problem List Not available. Vital Signs Date Time BP-Sys(mm[Hg] BP-Rosemarie(mm[Hg]) HR(bpm) RR(rpm) Temp WT HT HC BMI BSA BMI Percentile O2 Sat(%) 2022 8:47: 00 AM 130 mm[Hg] 68 mm[Hg] 66 {beats}/ min 18 rpm 97.6 F 192 lbs 75 in 23.9 981 kg/m 2 2.14 67 m2 95 % 023 9:05: 00 AM 144 mm[Hg] 78 mm[Hg] 60 {beats}/ min 18 rpm 98.4 F 192 lbs 75 in 24.0 0 kg/m 2 2.15 m2 95 % 2022 9:28: 00 AM 62 {beats}/ min 18 rpm 99 F 201 lbs 75 in 25.1 23 kg/m 2 2.19 65 m2 98 % History of Procedures Date Ordered Description Order Status 07/22/2022 12:00 AM CYSTOSCOPY Reviewed 07/22/2022 12:00 AM US TRANSRECTAL Reviewed 07/22/2022 12:00 AM X-RAY EXAM OF ABDOMEN Reviewed 09/21/2022 9:32 AM US URINE CAPACITY MEASURE Revie tue10/05/2022 12:00 AM X-RAY EXAM OF ABDOMEN Reviewe d 09/22/2022 12:00 AM Abdomen 1 View - Clinic Revie tue Results Summary Date and Description Results 09/21/2022 9:32 AM Residual Urine 90.0 mL History of Past Illness Name Date of [...] 10:09AM Kidney stone Sep 22 2022 10:47AM Kidney Stones Sep 21 2022 9:07AM BPH (benign prostatic hyperplasia) Sep 21 2022 9:07AM Bladder stone Sep 21 2022 9:07AM Kidney Stones Oct 05 2022 1:55PM Benign prostatic hyperplasia with lower urinary tract symptoms Oct 05 2022 1:55PM Other obstructive and reflux uropathy October 05 1:55PM Kidney Stones Nov 01 2022 8:51AM Benign prostatic hyperplasia with lower urinary tract symptoms Nov 01 2022 8:51AM Other obstructive and reflux uropathy Nov 01 8:51AM Payers Insurance Name Company Name Plan Name Plan Number Policy Num flor Policy Group Number Start Date Aetna Aetna [id number] N/A History of Encounters Visit Date Visit Type Provider 11/01/2022 Office visit DARYL PARKS APR N 11/01/2022 Radiology Vidya rodriguez KNIFE CUTTER 10/05/2022 Office visit DARYL PARKS APR N 09/21/2022 Office visit Ray Mcdonnell D 07/22/2022 Procedures Ray Mcdonnell D 07/05/2022 Voided Ray Mcdonnell D 07/05/2022 Office visit DARYL PARKS APR N
--- OUTSIDE RECORDS SUMMARY | 2023-02-12 12:40 | XMS REPORT ---
Author Author Romain العراقي Organization [facility] Address [address] [place], [place] [address] Care Team Providers Care Balancer Name Role Phone Ray العراقي PCP Allergies [...] Policy Group Number Start Date Aetna Aetna [id number] N/A History of Encounters Visit Date Visit Type Provider 09/21/2022 Office visit Ray Strickland 07/22/2022 Procedures Ray Strickland 07/05/2022 Voided Ray Strickland 07/05/2022 Office visit DARYL PARKS APR N
--- OUTSIDE RECORDS SUMMARY | 2023-02-12 12:40 | XMS REPORT ---
Author Author Romain العراقي Organization [facility] Address [address] [place], [place] [address] Care Team Providers Care Communications Marketing Intern Name Role Phone Ray العراقي PCP Allergies and Adverse Reactions Name Reaction Notes Motrin Plan of Treatment Planned Activity Comments Planned Date Planned Time Plan /Goal URINALYSIS W/MICRO C&S IF IND 07/05/2022 12:00 AM Abdomen 1 View - Clinic 09/22/2022 12:00 AM Medications Active Name Start Date [...] kg/m 2 2.14 67 m2 95 % 2022 9:28: 00 AM 62 {beats}/ min 18 rpm 99 F 201 lbs 75 in 25.1 2 kg/m 2 2.20 m2 98 % History of Procedures Date Ordered Description Order Status 07/22/2022 12:00 AM CYSTOSCOPY Reviewed 07/22/2022 12:00 AM US TRANSRECTAL Reviewed 07/22/2022 12:00 AM X-RAY EXAM OF ABDOMEN Reviewed 09/21/2022 9:32 AM US URINE CAPACITY MEASURE Revie wed 10/05/2022 12:00 AM X-RAY EXAM OF ABDOMEN Reviewe d Results Summary Date and Description Results 09/21/2022 [...] obstructive and reflux uropathy October 05 1:55PM Payers Insurance Name Company Name Plan Name Plan Number Policy Num flor Policy Group Number Start Date Aetna Aetna [id number] N/A History of Encounters Visit Date Visit Type Provider 11/01/2022 Office visit Ray Strickland 11/01/2022 Radiology Vidya rodriguez FRUIT OR NUT GROWER 10/05/2022 Office visit DARYL PARKS APR N 09/21/2022 Office visit Ray Mcdonnell D 07/22/2022 Procedures Ray Mcdonnell D 07/05/2022 Voided Ray Mcdonnell D 07/05/2022 Office visit DARYL PARKS APR N
--- OUTSIDE RECORDS SUMMARY | 2023-02-12 12:40 | XMS REPORT | Summary of Care ---
Author Author [employer] Address Unknown Phone Unavailable Care Team Providers Care Entry Operator Name Role Phone Gilles Evangelista MD PCP [phone] Reason for Visit * Auth/Cert (Routine) Specialty Diagnoses / Procedures Referred By Contac t Referred To Contact Perioperative Diagnoses Closed fracture of right hip requiring operative repair, initial encounter Pain in right hip Procedures NV ARTHRP ACETBLR/PROX FEM PROSTC AGRFT/ALGRFT HIP ARTHROPLASTY TOTAL ANTERIOR APPROACH Bryan Galindo III, MD [address] [place] [address] [facility] Main Operating Room [address] [phone] Referral ID Status Reason Start Date Expiration Date Visits Re quested Visits Authorized [id number] 1 1 Encounter Details Date Type Department Care Team Description 01/31/2023 6:45 AM CDT - 01/31/2023 11:59 PM CDT Hospital Encounter [facility] Radiology [address] [phone] Bryan Galindo III, MD [address] [place] [address] Arrived Discharge Disposition: Home or Self Care Allergies No known active allergiesdocumented as of this encounter (statuses as of 02/01/2023) Medications Medication Sig Dispensed Refills Start Date End Date Status methotrexate (RHEUMATREX) 2.5 mg Tablet Take 2.5 mg by mouth every 7 days. 0 Suspended predniSONE (DELTASONE) 2.5 mg tablet Take 2.5 mg by mouth daily. 0 Suspended finasteride (PROSCAR) 5 mg tablet Take 5 mg by mouth daily. 0 Suspended omeprazole (PriLOSEC) 20 mg Capsule, Delayed Release(E.C.) Take 20 mg by mouth daily. 0 Suspended HYDROcodone-acetamino phen (NORCO) 5-325 mg tablet Take 1 Tablet by mouth every 4 hours as needed for Pain, Moderate. 0 Suspended calcium carb/vitamin D3/vit K1 (CALCIUM-VITAMIN D3-VITAMIN K ORAL) Take by mouth. 0 Hickman spended tamsulosin HCl (TAMSULOSIN ORAL) Take by mouth. 0 Samia pended apixaban (Eliquis) 5 mg tablet Take by mouth 2 times daily. 0 Suspended potassium citrate (UROCIT-K) 10 mEq (1,080 mg) Extended Release tablet Take 10 mEq by mouth 3 times daily. 0 Suspended vit A/vit C/vit E/zinc/copper (PRESERVISION AREDS ORAL) Take by mouth. 0 Suspended documented as of this encounter (statuses as of 02/01/2023) Active Problems No known active problems documented as of this encounter (statuses as of 02/01/2023) Social History Tobacco Use Types Packs/Day Years Used Date Smoking Tobacco: Former Cigarettes Smokeless Tobacco: Never Alcohol Use Standard Drinks/Week Comments Never 0 (1 standard drink = 0.6 oz pur e alcohol) Sex and Gender Information Value Date Recorded Sex Assigned at Not on file Gender Identity Not on file Sexual Orientation Not on file documented as of this encounter Plan of Treatment Upcoming Encounters Date Type Department Care Team Description 02/23/2023 2:15 PM CDT Office Visit [facility] Orthopedics Juan [address] [place] [phone] Lloyd Perez PA [address] [place] [phone] Health Maintenance Due Date Last Done Comments PNEUMOCOCCAL VACCINE 65+ YEARS (1 - PCV) 1949 DTAP/TDAP/TD VACCINES (1 - Tdap) 1962 COLORECTAL SCREENING 01/14/1988 Colorectal Cancer Screening 01/14/1988 FIT-DNA Q 3 years 01/14/1988 FIT/FOBT Q 1 year 01/14/1988 Flex Sig/CT Colonography Q 5 years 01/14/1988 ZOSTER VACCINE (1 of 2) 1993 Medicare Advantage (CT) Prev entative Visit/Annual Wellness Visit 05/16/2022 INFLUENZA VACCINE (#1) 2022 documented as of this encounter Medical Devices Implanted Type Area Molder Punch Device Identifier Shelf Expiration Date Model / Serial / Lot Cable Sleeve Set Keiry 2.0mm 6704-0-520 - [id number] Implanted:Qty : 1 on 01/31/2023 by Bryan Galindo III, MD at [facility] Cable Right: Hip [employer] [id number] 05/04/2027 6704-0-520 / / [id number] Insignia Hip Stem - High Offset Implanted:Qty : 1 on 01/31/2023 by Bryan Galindo III, MD at [facility] Hip Right: Hip [employer] [id number] 02/25/2027 [id number] / / [id number] Screw Trident 2 6.5x25mm Lprfl Hex 1600-1836 - [id number] Implanted:Qty : 1 on 01/31/2023 by Bryan Galindo III, MD at [facility] Screw Right: Hip [employer] [id number] 09/21/2027 [id number] / / [id number] documented as of this encounter Procedures Procedure Name Priority Date/Time Associated Diagnosis Comments XR HIP 2 OR 3 VIEWS RT Routine 01/31/2023 2:04 PM CDT Generalized pain documented in this encounter Results * XR HIP 2 OR 3 VIEWS RT (01/31/2023 2:04 PM CDT) Anatomical Region Laterality Modality Lower Extremity Computed Radiogr aphy 01/31/2023 2:1 2 PM CDT Impressions 01/31/2023 2:13 PM CDT IMPRESSION: 1. Postsurgical changes of right total hip arthroplasty which is in near-anatomic alignment. No acute complications are seen. Electronically Signed By: Grace Forman MD, Signed On: 01/31/2023 2:13 PM, MARIAN Narrative 01/31/2023 2:13 PM CDT EXAMINATION: Right hip 2 or 3 views. HISTORY: Post op right total hip arthroplasty. COMPARISON: None. FINDINGS: There are no prior studies currently available for comparison. Single frontal view of the pelvis and a crosstable lateral view of the right hip show changes of right total hip arthroplasty which is in near anatomic alignment. No acute fracture or dislocation is seen. 3 obliquely oriented screws traverse the left femoral neck and there is an old healed fracture deformity of the left femoral neck. There is gas in the soft tissues of the right hip which is iatrogenic. There is diffuse osteopenia. Procedure Note Grace Forman MD - 01/31/2023 EXAMINATION: Right hip 2 or 3 views. HISTORY: Post op right total hip arthroplasty. COMPARISON: None. FINDINGS: There are no prior studies currently available forcomparison. Single frontal view of the pelvis and a crosstable lateral view of theright hip show changes of right total hip arthroplasty which is in near anatomic alignment. No acute fracture or dislocation is seen. 3 obliquely orientedscrews traverse the left femoral neck and there is an old healed fracturedeformity of the left femoral neck. There is gas in the soft tissues of the right hipwhich is iatrogenic. There is diffuse osteopenia. IMPRESSION: 1. Postsurgical changes of right total hip arthroplasty which is in near-anatomic alignment. No acute complications are seen. Electronically Signed By: Grace Forman MD, Signed On: 01/31/2023 2:13PM, MARIAN Bryan Galindo III, MD DIAGNOSTIC IM AGING ORDERABLES documented in this encounter Visit Diagnoses Diagnosis Generalized pain documented in this encounter Advance Directives For more information, please contact: [phone] Latest Code Status on File Code Status Date Activated Date Inactivated Comments Full Code 01/31/2023 12:00 PM Code Status History Code Status Date Activated Date Inactivated Comments Full Code 01/31/2023 7:07 AM 01/31/2023 12:00 PM Care Teams Entry Operator Relationship Specialty Start Date End Date Gilles Evangelista MD [address] [id number] PCP - General Internal Medicine 01/03/23 documented as of this encounter
--- OUTSIDE RECORDS SUMMARY | 2023-02-12 12:40 | XMS REPORT | Summary of Care ---
Author Author inDegree Address Unknown Phone Unavailable Care Team Providers Care Air Traffic Controller Name Role Phone Gilles Evangelista MD PCP [phone] Encounter Details Date Type Department Care Team Description 01/31/2023 6:40 AM CDT - 01/31/2023 11:59 PM CDT Hospital Encounter [facility] [address] [place] [phone] Bryan Galindo III, MD [address] [place] [phone] Arrived Discharge Disposition: Home or Self Care [...] Description 02/23/2023 2:15 PM CDT Office Visit [facility] [place] [address] [place] [phone] Lloyd Perez PA [address] [place] [phone] Health Maintenance Due Date Last Done Comments PNEUMOCOCCAL VACCINE 65+ YEARS (1 - PCV) 1949 DTAP/TDAP/TD VACCINES (1 - Tdap) 1962 COLORECTAL SCREENING 01/14/1988 Colorectal Cancer Screening 01/14/1988 FIT-DNA Q 3 years 01/14/1988 FIT/FOBT Q 1 year 01/14/1988 Flex Sig/CT Colonography Q 5 years 01/14/1988 ZOSTER VACCINE (1 of 2) 1993 [place] Prev entative Visit/Annual Wellness Visit 05/16/2022 INFLUENZA VACCINE (#1) 2022 documented as of this encounter Medical Devices Implanted Type Area Coal Gasification Technician Device Identifier Shelf Expiration Date Model / Serial / Lot Cable Sleeve Set D[employer]iles 2.0mm 6704-0-520 - [id number] Implanted:Qty : 1 on 01/31/2023 by Bryan Galindo III, MD at [facility] Cable Right: Hip [employer] [id number] 05/04/2027 6704-0-520 / / [id number] Insignia Hip Stem - High Offset Implanted:Qty : 1 on 01/31/2023 by Bryan Galindo III, MD at [facility] Hip Right: Hip [employer] [id number] 02/25/2027 [id number] / / [id number] Screw Trident 2 6.5x25mm Lprfl Hex [id number] - [id number] Implanted:Qty : 1 on 01/31/2023 by Bryan Galindo III, MD at [facility] Screw Right: Hip [employer] [id number] 09/21/2027 [id number] / / [id number] documented as of this encounter Procedures Procedure Name Priority Date/Time Associated Diagnosis Comments XR PELVIS 1 OR 2 VW Routine 01/31/2023 2:07 PM CDT Generalized pain documented in this encounter Results * XR PELVIS 1 OR 2 VW (01/31/2023 2:07 PM CDT) Anatomical Region Laterality Modality Pelvis Computed Radiogr aphy 01/31/2023 2:1 2 PM CDT Impressions 01/31/2023 2:13 PM CDT IMPRESSION: 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 Electronically Signed By: Kamaljit Beltrán MD, Signed On: 01/31/2023 2:13 PM, [email or web address] Narrative 01/31/2023 2:13 PM CDT EXAM: Single view pelvis INDICATIONS: Intraoperative imaging during total hip arthroplasty COMPARISON: No priors. Findings: Sequential AP views of the pelvis during right total hip arthroplasty with 5 images submitted. Hardware is appropriately positioned. No fracture or dislocation. Postsurgical soft tissue gas within the soft tissues. Chronic postoperative changes from percutaneous pin fixation of previous left femoral neck fracture. The fracture has healed with sclerosis in the area. Procedure Note Darrick Beltrán MD - 01/31/2023 EXAM: Single view pelvis INDICATIONS: Intraoperative imaging during total hip arthroplasty COMPARISON: No priors. Findings: Sequential AP views of the pelvis during right total hip arthroplasty with5 images submitted. Hardware is appropriately positioned. No fracture or dislocation. Postsurgical soft tissue gas within the soft tissues.Chronic postoperative changes from percutaneous pin fixation of previous leftfemoral neck fracture. The fracture has healed with sclerosis in the area. IMPRESSION: Postoperative changes from right total hip arthroplasty without fractureor complication. Electronically Signed By: Kamaljit Beltrán MD, Signed On: 01/31/2023 2:13PM, [email or web address] Bryan Galindo III, MD DIAGNOSTIC IM AGING ORDERABLES documented in this encounter Visit Diagnoses Diagnosis Generalized pain documented in this encounter Advance Directives For more information, please contact: [phone] Latest Code Status on File Code Status Date Activated Date Inactivated Comments Full Code 01/31/2023 12:00 PM Code Status History Code Status Date Activated Date Inactivated Comments Full Code 01/31/2023 7:07 AM 01/31/2023 12:00 PM Care Teams Air Traffic Controller Relationship Specialty Start Date End Date Gilles Evangelista MD [address] [address] PCP - General Internal Medicine 01/03/23 documented as of this encounter
--- OUTSIDE RECORDS SUMMARY | 2023-02-12 12:40 | XMS REPORT ---
Author Author Romain PARKS Organization [facility] Address [address] [place], [place] [phone] Care Team Providers Care Manager Sports Name Role Phone DARYL PARKS PCP Allergies [...] Policy Group Number Start Date Aetna Aetna [id number] N/A History of Encounters Visit Date Visit Type Provider 11/01/2022 Office visit DARYL PARKS APR N 11/01/2022 Radiology Vidya rodriguez CABLE TENDER 10/05/2022 Office visit DARYL PARKS APR N 09/21/2022 Office visit Ray Mcdonnell D 07/22/2022 Procedures Ray Mcdonnell D 07/05/2022 Voided Ray Mcdonnell D 07/05/2022 Office visit DARYL PARKS APR N
--- OUTSIDE RECORDS SUMMARY | 2023-02-12 12:40 | XMS REPORT ---
Author Romain Ross Organization [facility] Address [address] [place], [place] [phone] Care Team Providers Care Car Oiler Name Role Phone DARYL PARKS PCP Allergies and Adverse Reactions Name Reaction Notes Motrin Plan of Treatment Planned Activity Comments Planned Date Planned Time Plan /Goal URINALYSIS W/MICRO C&S IF IND 07/05/2022 12:00 AM ABDOMEN ONE VIEW 12/23/2022 12:00 AM ABDOMEN ONE VIEW 10/05/2022 12:00 AM Medications Active Name Start Date [...] HC BMI BSA BMI Percentile O2 Sat(%) 5/9/2 023 9:05: 00 AM 144 mm[Hg] 78 [...] AM US URINE CAPACITY MEASURE Revie wed Results Summary Date and Description Results 09/21/2022 [...] Policy Group Number Start Date Aetna Aetna [id number] N/A History of Encounters Visit Date Visit Type Provider 10/05/2022 Office visit DARYL PARKS APR N 09/21/2022 Office visit Ray Strickland 07/22/2022 Procedures Ray Strickland 07/05/2022 Voided Ray Strickland 07/05/2022 Office visit DARYL PARKS APR N
--- OUTSIDE RECORDS SUMMARY | 2023-02-12 12:40 | XMS REPORT | Clinical Summary ---
Author Author [facility] Organization [facility] Address Unknown Phone Unavailable Care Team Providers Care Patch Sander Name Role Phone Unverified, Unverified PCP Berry ruelas Source Comments Some departments are not documenting in the electronic medical record. If you do not see the information that you expected, contact Release of Information in the Health Information Management department at [phone] for further assistance in locating additional records.[facility] Social History Tobacco Use Types Packs/Day Years Used Date Smoking Tobacco: Never Assessed Sex and Gender Information Value Date Recorded Sex Assigned at Not on file Gender Identity Not on file Sexual Orientation Not on file Plan of Treatment Health Maintenance Due Date Last Done Comments COVID-19 VACCINE (#1) 1943 DTAP/TDAP VACCINES (1 - Tdap) 1961 PHYSICAL (COMPREHENSIVE) EXAM 1961 SHINGLES RECOMBINANT VACCINE (1 of 2) 1993 PNEUMOCOCCAL VACCINE 65+ YRS (1 - PCV) 01/14/2008 DEPRESSION SCREENING 05/16/2022 INFLUENZA VACCINE (#1) 2022 Care Teams Patch Sander Relationship Specialty Start Date End Date Unverified, Unverified, PCP - General 08/05/11
--- OUTSIDE RECORDS SUMMARY | 2023-02-12 12:40 | XMS REPORT ---
Author Romain Ross Organization [facility] Address [address] [place], [place] [phone] Care Team Providers Care Concrete Saw Operator Name Role Phone DARYL PARKS PCP Allergies [...] Policy Group Number Start Date Aetna Aetna [id number] N/A History of Encounters Visit Date Visit Type Provider 10/05/2022 Office visit DARYL PARKS APR N 09/21/2022 Office visit Ray Strickland 07/22/2022 Procedures Ray Strickland 07/05/2022 Voided Ray Strickland 07/05/2022 Office visit DARYL PARKS APR N
--- OUTSIDE RECORDS SUMMARY | 2023-02-12 12:40 | XMS REPORT ---
Author Author Romain PARKS Organization [facility] Address [address] [place], [place] [phone] Care Team Providers Care Animal Technician Name Role Phone DARYL PARKS PCP Allergies [...] 12:00 AM Abdomen 1 View - Clinic Retur denise Results Summary Date and Description Results 09/21/2022 [...] Policy Group Number Start Date Aetna Aetna [id number] N/A History of Encounters Visit Date Visit Type Provider 11/01/2022 Office visit DARYL PARKS APR N 11/01/2022 Radiology Vidya rodriguez PUBLIC RELATIONS ACCOUNT EXECUTIVE 10/05/2022 Office visit DARYL PARKS APR N 09/21/2022 Office visit Ray Mcdonnell D 07/22/2022 Procedures Ray Mcdonnell D 07/05/2022 Voided Ray Mcdonnell D 07/05/2022 Office visit DARYL PARKS APR N
--- OUTSIDE RECORDS SUMMARY | 2023-02-12 12:40 | XMS REPORT ---
Author Author Romain العراقي Organization [facility] Address [address] [place], [place] [phone] Care Team Providers Care Fuel System Maintenance Worker Name Role Phone Ray العراقي PCP Allergies [...] 9:07AM Bladder stone Sep 21 2022 9:07AM Payers Insurance Name Company Name Plan Name Plan Number Policy Num flor Policy Group Number Start Date Aetna Aetna [id number] N/A History of Encounters Visit Date Visit Type Provider 10/05/2022 Office visit Ray Strickland 09/21/2022 Office visit Ray Strickland 07/22/2022 Procedures Ray Mcdonnell D 07/05/2022 Voided Ray Mcdonnell D 07/05/2022 Office visit DARYL PARKS APR N
--- OUTSIDE RECORDS SUMMARY | 2023-02-12 12:40 | XMS REPORT | Summary of Care ---
Author Author [employer] Address Unknown Phone Unavailable Care Team Providers Care Office Services Representative Name Role Phone Gilles Evangelista MD PCP [phone] Reason for Visit * Auth/Cert (Routine) Specialty Diagnoses / Procedures Referred By Contac t Referred To Contact Perioperative Diagnoses Closed fracture of right hip requiring operative repair, initial encounter Pain in right hip Procedures DE ARTHRP ACETBLR/PROX FEM PROSTC AGRFT/ALGRFT HIP ARTHROPLASTY TOTAL ANTERIOR APPROACH Bryan Galindo III, MD [address] [place] [address] [facility] Main Operating Room [address] [address] Referral ID Status Reason Start Date Expiration Date Visits Re quested Visits Authorized [id number] 1 1 Encounter Details Date Type Department Care Team Description 01/31/2023 6:39 AM CDT - 02/02/2023 1:40 PM T Hospital Encounter [facility] Pre/Post [address] [address] Bryan Galindo III, MD [address] [place] [address] Closed fracture of right hip requiring operative repair, initial encounter Discharge Disposition: Acute Care Hospital Allergies No known active allergiesdocumented as of this encounter (statuses as of 02/02/2023) Medications Medication Sig Dispensed Refills Start Date End Date Status methotrexate (RHEUMATREX) 2.5 mg Tablet Take 2.5 mg by mouth every 7 days. 0 Active predniSONE (DELTASONE) 2.5 mg tablet Take 2.5 mg by mouth daily. 0 Active finasteride (PROSCAR) 5 mg tablet Take 5 mg by mouth daily. 0 Active omeprazole (PriLOSEC) 20 mg Capsule, Delayed Release(E.C.) Take 20 mg by mouth daily. 0 Active calcium carb/vitamin D3/vit K1 (CALCIUM-VITAMIN D3-VITAMIN K ORAL) Take by mouth. 0 Active tamsulosin HCl (TAMSULOSIN ORAL) Take by mouth. 0 Active potassium citrate (UROCIT-K) 10 mEq (1,080 mg) Extended Release tablet Take 10 mEq by mouth 3 times daily. 0 Active vit A/vit C/vit E/zinc/copper (PRESERVISION AREDS ORAL) Take by mouth. 0 Active acetaminophen (TYLENOL) 500 mg tablet Take 2 Tablets (1,000 mg) by mouth every 8 hours as needed for Pain. 60 Tablet 0 02/01/2023 Active doxycycline hyclate (VIBRAMYCIN) 100 mg capsule Take 1 Capsule (100 mg) by mouth 2 times daily. 42 Capsule 0 02/01/2023 Active sennosides-docusa te sodium (SENNA-S) 8.6-50 mg tablet Take 1 Tablet by mouth daily. 30 Tablet 0 02/01/2023 Active oxyCODONE (ROXICODONE) 5 mg tabletIndications :Closed fracture of right hip requiring operative repair, initial encounter,Postope rative pain Take 1 Tablet (5 mg) by mouth every 4 hours as needed for Pain. Max Daily Amount: 30 mg 30 Tablet 0 02/01/2023 Active HYDROcodone-aceta minophen (NORCO) 5-325 mg tablet Take 1 Tablet by mouth every 4 hours as needed for Pain, Moderate. 0 02/02/2023 Discontinued apixaban (Eliquis) 5 mg tablet Take by mouth 2 times daily. 0 02/02/2023 Discontinued documented as of this encounter (statuses as of 02/02/2023) Active Problems No known active problems documented as of this encounter (statuses as of 02/02/2023) Social History Tobacco Use Types Packs/Day Years Used Date Smoking Tobacco: Former Cigarettes Smokeless Tobacco: Never Tobacco Cessation:Counseling Given: Not Answered Alcohol Use Standard Drinks/Week Comments Never 0 (1 standard drink = 0.6 oz pur e alcohol) Sex and Gender Information Value Date Recorded Sex Assigned at Not on file Gender Identity Not on file Sexual Orientation Not on file documented as of this encounter Last Filed Vital Signs Vital Sign Reading Time Taken Comments Blood Pressure 109/49 02/02/2023 1:00 PM CDT Pulse 88 02/02/2023 1:00 PM CDT Temperature 36.7 C (98.1 F) 02/02/2023 1:00 PM C DT Respiratory Rate 17 02/02/2023 12:15 PM CDT Oxygen Saturation 95% 02/02/2023 12:15 PM CDT Inhaled Oxygen Concentration - - Weight 83.9 kg (185 lb) 01/31/2023 7:37 AM CDT Height 190.5 cm (6' 3") 01/31/2023 7:37 AM CDT Body Mass Index 23.12 01/31/2023 7:37 AM CDT documented in this encounter Discharge Instructions * Discharge Instructions* Lloyd Perez PA - 02/01/2023 5:47 AM CDT documented in this encounter Progress Notes * Bryan Galindo III, MD - 02/02/2023 7:00 AM CDT ORTHOPAEDIC SURGERY PROGRESS NOTE Patient Name: Romain Tyson Surgery Date: 01/31/2023 - 02/02/2023 Surgeon: Bryan Galindo III, MD Procedure(s): Procedure(s) (LRB): ORIF TROCHANTER (Right) Subjective: Patient sustained periprosthetic fracture at some point during his stay. He was made nonweightbearing from surgical intervention, however he was gotten up with physical therapy. He does not have significant protective sensation as noted in previous notes. Currently he has protrusio of his acetabular cup, he also has a trochanteric femur fracture. Our plan for today is reduction of his trochant deniz femur fracture with revision total hip arthroplasty. We long discussion regarding risks and benefits yesterday as well as this morning. Patient did take his Eliquis yesterday so there is high potential for bleeding. With revision there is always a chance of infection, continued pain, fractures, transfusion, etc. We reviewed these risks in detail. He is feeling well this morning said he did get some sleep last night. We will have to extend his incision to perform all the tasks necessary. He has significantly poor bone quality as noted previously. I discussed the case with the patient extensively including the clinical and radiographic findings,which were reviewed in detail. We discussed the natural history of the problem, and surgical versus nonsurgical treatments. We discussed the treatment algorithm and decision-making process. Informed consent was completed discussing the risks, benefits, alternatives and complications to the proposed surgical procedure but not limited to bleeding, infection, blood clots in the legs or in her lungs, neurovascular injury, amputation, stiffness, mechanical failure with need for revision including breakage with the ceramics (when used), dislocation, leg length discrepancy, fracture, malunion, non-union, continued pain, need for further surgery, failure of hardware or loosening of hardware, as well as medical and anesthesia risks including but not limited to heart attack, stroke, and . No guarantees were offered or implied. No SOB/CP/N/V Vitals: Vitals: 02/01/23 1624 02/01/23 1837 02/02/23 0403 02/02/23 0638 BP: 123/57 115/61 105/57 114/54 BP Location: Right arm Right arm Right arm Right arm Patient Position (BP): Sitting Supine Supine Sitting Pulse: 88 94 100 (!) 105 Resp: 16 16 15 17 Temp: 97.3 F (36.3 C) 97.6 F (36.4 C) 99 F (37.2 C) 98.8 F (37.1 C) TempSrc: Temporal Temporal Temporal Temporal SpO2: 93% 95% 90% 90% Weight: Height: I/O: Intake/Output Summary (Last 24 hours) at 02/02/2023 0701 Last data filed at 02/02/2023 0611 Gross per 24 hour Intake 2252.67 ml Output 1450 ml Net 802.67 ml Problem List: Physical Exam: R Lower extremity: BCR EHL/FHL/TA/GSC motor intact SILT space L4-S1 Dressing clean, dry and intact Thigh with mild swelling Labs: CBC, Coags, BMP, Mg, Phos Recent Labs 01/31/23 0742 01/31/23 0745 02/01/23 0533 02/02/23 0524 INR -- 1.1 -- -- CREAT 1.20 -- 1.00 0.90 Impression/Plan: Periprosthetic femur and acetabular fractures. 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 Planning for hardware removal with a jumbo cup placement, cemented stem. Trochanteric ORIF. Guerline block Ancef/Vanco Nonweightbearing at all times IV TXA Continue prolonged doxycycline. Antibiotic cement. Electronically signed by: Bryan Galindo III, MD Orthopaedic Surgery * Divine Reyna RN - 02/02/2023 6:14 AM CDT Npo at midnight. Don RN from pre-op here and took patient by bed for surgery with prosthesis. Voided per urinal proir to leaving. 2 family members taken to waiting room. * Karlee Driver DO - 02/01/2023 9:08 PM CDT Hospitalist Progress Note Note date: 02/01/2023 ADMIT DATE 01/31/2023 Hospital LOS: 0 days Primary Diagnosis- <principal problem not specified> CONSULTANTS: Post-Op pain seen in follow-up Subjective: HOSPITAL COURSE SUMMARY: Pt had a lot of pain and low bp issues We will monitor closely Vitals are being closely monitored Voiding well Physical exam stable, lungs CTAB Pt confirms IS use Ambulating around okay Pt has no acute concerns for me today ROS: All systems reviewed and negative except mentioned above. Objective: Physical Exam: Temp (24hrs), Av.3 F (36.3 C), Min:97 F (36.1 C), Max:97.6 F (36.4 C) BP 115/61 (BP Location: Right arm, Patient Position (BP): Supine) | Pulse 94 | Temp 97.6 F (36.4 C) (Temporal) | Resp 16 | Ht 6' 3" (1.905 m) | Wt 83.9 kg (185 lb) | SpO2 95% | BMI 23.12 kg/m The range of BP in the last 24 hours is: BP: (99-123)/(52-61) Intake/Output Summary (Last 24 hours) at 02/01/20238 Last data filed at 02/01/2023 1901 Gross per 24 hour Intake 1940.67 ml Output 1335 ml Net 605.67 ml Last documented weight: Weight: 83.9 kg (185 lb) (01/31/23 0737) General: alert, in no distress Neurologic: Grossly normal HEENT: atraumatic, Normocephalic, without obvious abnormality Lungs: clear to auscultation bilaterally, normal respiratory effort Heart: normal rate, regular rhythm, normal S1, S2, no murmurs, rubs, clicks or gallops Abdomen: Soft, non-tender. Bowel sounds normal. No masses, no organomegaly. Ancillary Testing Hospital Encounter on 01/31/23 (from the past 24 hour(s)) POC ELECTROLYTES/BMP Collection Time: 02/01/23 5:33 AM Result Value Ref Range SODIUM POC 137 136 - 145 mmol/L POTASSIUM POC 4.0 3.5 - 5.1 mmol/L CHLORIDE POC 104 98 - 109 mmol/L TOTAL CO2 POC 20 (L) 22 - 31 mmol/L BLOOD UREA NITROGEN POC 22 8 - 26 mg/dL CREATININE POC 1.00 0.60 - 1.20 mg/dL GLUCOSE POC 159 (H) 74 - 99 mg/dL HEMOGLOBIN POC 11.2 No Ref Range Estab g/dL HEMATOCRIT POC 33 (L) 37 - 47 % CALCIUM IONIZED POC 5.0 4.5 - 5.2 mg/dL COMMENT, BMP POC Christopher's Test not applicable GFR POC >60 mL/min/1.73 sq meter XR HIP 2 OR 3 VIEWS RT Collection Time: 02/01/23 1:44 PM Narrative EXAM: 2 views of the right hip. INDICATIONS: Traumatic right hip pain. FINDINGS: Comparison is with prior study dated 01/31/2023 Since the prior study there has been medial and possibly anterior dislocation of the acetabular component. The acetabular component is overlapping the medial wall and protrudes into the pelvis. There is an associated displaced avulsion fracture of the greater trochanter. The fracture is displaced approximately 2.8 cm. Impression IMPRESSION: 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 Acute avulsion fracture of the greater trochanter with 2.8 cm of distal displacement. CT follow-up may be necessary for preoperative planning. Electronically Signed By: Jacob Bob MD, Signed On: 02/01/2023 2:14 PM, [id number] PREPARE RED BLOOD CELLS Collection Time: 02/01/23 2:43 PM Result Value Ref Range COMPONENT TYPE W9576V84 COMPONENT IDENTIFICATION [id number] UNIT ABO O UNIT RH POS CROSSMATCH Compatible COMPONENT STATUS Selected COMPONENT EXPIRATION DATE/TIME 762227205403 COMPONENT CODING SYSTEM 5[address]OLUME, BLOOD PRODUCT 350 PREPARE RED BLOOD CELLS Collection Time: 02/01/23 2:43 PM Result Value Ref Range COMPONENT TYPE X1638K15 COMPONENT IDENTIFICATION [id number] UNIT ABO O UNIT RH POS CROSSMATCH Compatible COMPONENT STATUS Selected COMPONENT EXPIRATION DATE/TIME [id number] COMPONENT CODING SYSTEM 5[address]UME, BLOOD PRODUCT 350 Assessment: There are no hospital problems to display for this patient. Plan: See orders. Aggressive IS use Conferred with RN Monitor vitals closely Maintain bowel regimen Participate in PT Pain management Reviewed meds and labs Signed: Karlee Driver DO 02/01/2023, 9:08 PM * Lashanda Toure RN - 02/01/2023 4:36 PM CDT Oxycodone 5mg one tab given orally for right hip pain, rated 4/10. No other needs voiced. Call light and water in reach.HILLARY Nicholas * Lashanda Toure RN - 02/01/2023 2:[address] Galindo and Christiano Perez PA-C, has been at bedside, et talked with patient and family. Updates weregiven on x-rays, et future plans.HILLARY Nicholas * Lashanda Toure RN - 02/01/2023 11:19 AM CDT Sent Epic message to Dr Alberto Perez PA-C, notifying of patient's tolerance to physical therapy, and that patient's surgical extremity is rotated outward. Received new orders for hip x-rays.HILLARY Nicholas * Lashanda Toure RN - 02/01/2023 11:12 AM CDT Inpatient RN and Inpatient telephone instrument supervisor assisted patient with being repositioned and pulled up in bed. Inpatient RN reported to this nurse, she was assigned this patient yesterday. Inpatient RN observed patient's surgical extremity is rotated more outward than yesterday. This nurse reassessed extremity is rotated outward, and patient is unable to move surgical extremity inward, and is rating pain in right hip 10/10.HILLARY Nicholas * Lashanda Toure RN - 02/01/2023 10:55 AM CDT Physical therapy reported to this nurse, patient became dizzy, when sitting up to the edge of bed, et BP dropped. Physical therapy assisted patient back to supine position, then reassessed BP, which raised, but pt was reporting pain at 10/10.HILLARY Nicholas documented in this encounter H&P Notes * Bryan Galindo III, MD - 01/31/2023 8:23 AM CDT Orthopedic History and Physical exam Patient has an H&P last 30 days. Patient seen and examined this morning, diagnosis and physical exam are essentially the same. Changes are noted below. Heart: Reg Rhythm Lungs: No increased work of breathing Preop Ancef/Vanc IV TXA ASA post op for DVT ppx Hgb - Awaiting POC CBC Cr - Awaiting POC BMP We will proceed with surgical intervention pending labs. Patient has son and daughter with him. Please see H&P noted below. Original H&P noted below: Clinic Note Patient Name: Romain Tyson : 1945 Age/Sex: 78 y.o., male CSN: [id number] Visit Date: 01/28/2023 Attending Physician: Bryan Galindo III, MD Chief Complaint: Chief Complaint Patient presents with Follow Up NWPT R HIP FX-BANWART PT PT PRESENTS TO GO OVER TEST RESULTS FOR RIGHT HIP IMAGING. PT ARRIVES IN PAIN RATED 6/10 DESCRIBED A BAD ACHE. Subjective Subjective: History of Present Illness: Mr. Romain Tyson is a 78 y.o. male presenting to the clinic today for evaluation of their hip pain. Patient tried [id number] medications and activity modification for greater than 3 months. Now present to clinic for further evaluation and further options. Their hip pain is currently moderate and located at the right groin, aching with intermittent sharppains, It is better at rest and worse with activity, has been present for greater than 6 months andgetting worse over the past several months, does not radiate, and is not associated with numbness and tingling around the hip. He denies having any trauma or falls previously. He had something similar happen to his left hip for which she had a CRPP. He was unaware that he broke his left hip at that time either. He denies a history of malignancy. He did have a " compound fracture" of his lefttib-fib years back which ended up infection with amputation, BKA. Afib started 4 mos ago. He has been seeing Dr. Gonzalez and has been put on Eliquis. He does have a cardiac clearance for surgical intervention. He quit nicotine approximate 4 years ago. Past Medical History Past Medical History: Diagnosis Date Arthritis Past Surgical History Past Surgical History: Procedure Laterality Date HX APPENDECTOMY HX BELOW KNEE AMPUTATION Left foot HX HIP SURGERY Left Hip repair Family History No family history on file. Social History Socioeconomic History Marital status: Tobacco Use Smoking status: Former Types: Cigarettes Smokeless tobacco: Never Vaping Use Vaping Use: Never used Current Outpatient Medications on File Prior to Visit Medication Sig Dispense Refill methotrexate (RHEUMATREX) 2.5 mg Tablet Take 2.5 mg by mouth every 7 days. predniSONE (DELTASONE) 2.5 mg tablet Take 2.5 mg by mouth daily. finasteride (PROSCAR) 5 mg tablet Take 5 mg by mouth daily. omeprazole (PriLOSEC) 20 mg Capsule, Delayed Release(E.C.) Take 20 mg by mouth daily. HYDROcodone-acetaminophen (NORCO) 5-325 mg tablet Take 1 Tablet by mouth every 4 hours as needed for Pain, Moderate. calcium carb/vitamin D3/vit K1 (CALCIUM-VITAMIN D3-VITAMIN K ORAL) Take by mouth. tamsulosin HCl (TAMSULOSIN ORAL) Take by mouth. apixaban (Eliquis) 5 mg tablet Take by mouth 2 times daily. potassium citrate (UROCIT-K) 10 mEq (1,080 mg) Extended Release tablet Take 10 mEq by mouth 3 timesdaily. vit A/vit C/vit E/zinc/copper (PRESERVISION AREDS ORAL) Take by mouth. No current facility-administered medications on file prior to visit. No Known Allergies Review of Systems Pertinent positives and negatives in HPI.Ten point ROS otherwise negative. Objective Objective: BP 122/70 (BP Location: Right arm, Patient Position (BP): Sitting, BP Cuff Size: Adult) | Pulse 90 | Resp 16 | Ht 6' 3" (1.905 m) | Wt 86.2 kg (190 lb) | BMI 23.75 kg/m Physical Exam Ortho Exam RLE No acute distress No scars or bruises No gross deformity Hip: Range of motion not tested secondary to fracture Severe pain with flexion, adduction and internal rotation Positive Stiunc [facility] Severe groin pain with logroll Moderate TTP over greater trochanter Knee: Stable to varus/valgus stress Stable anterior/posterior plane Range of motion smooth and painless Mild crepitus noted BKA, left Motor intact to EHL/FHL/TA/GSC SILT to sural/saphenous/tib/SP/DP distribution without deficit BCR Procedures X-Rays: No new films today, previous films show completely displaced right femoral neck fracture with impaction into femoral head. Assessment Assessment and Plan: Encounter Diagnoses Name Primary? Closed displaced fracture of right femoral neck Yes History of below knee amputation, left No orders of the defined types were placed in this encounter. Plan: The pt would like to continue with surgical management this time. He has had a displaced right femoral neck fracture for an undisclosed amount of time. He has been ambulating on this but his pain is increased severely over the last couple months. He did see Dr. Gutierrez previously who referred him to me for timing of surgical intervention. He does have a clearance from Dr. Gonzalez with moderate cardiac risk. He will hold his Eliquis prior to surgery. Treatment Plan: Patient advised to call immediately if any questions or problems arise. Right total hip arthroplasty for right femoral neck fracture- We will use Direct anterior hip approach; insignia We will need the Cameron table & C-arm. The morning of surgery, the patient is to have the following: Ancef 2 grams IV, Vancomyacin (15 mg/kg) IV. IV TXA ASA postop for DVT ppx Doxycycline postoperatively for increases infection risk secondary to history of infection Pre-admission testing with teaching and labs. Spinal anesthesia is anticipated. GUERLINE Block for intraoperative and postoperative pain control. I discussed the case with the patient extensively including the clinical and radiographic findings,which were reviewed in detail. We discussed the natural history of the problem, and surgical versus nonsurgical treatments. We discussed the treatment algorithm and decision-making process. Informed consent was completed discussing the risks, benefits, alternatives and complications to the proposed surgical procedure but not limited to bleeding, infection, blood clots in the legs or in her lungs, neurovascular injury, amputation, stiffness, mechanical failure with need for revision including breakage with the ceramics (when used), dislocation, leg length discrepancy, fracture, malunion, non-union, continued pain, need for further surgery, failure of hardware or loosening of hardware, as well as medical and anesthesia risks including but not limited to heart attack, stroke, and . No guarantees were offered or implied. All of the patient's questions were answered prior to leaving the clinic today. Bryan Galindo III, MD 01/28/2023 This note is created with the assistance of a speech-recognition program. It may contain inaccuracies such as misspellings, inaccurate syntax or word sense that escaped review. documented in this encounter Consult Notes * Karlee Driver DO - 01/31/2023 4:34 PM CDT Images from the original note were not included. Hospitalist Consult PATIENT: Romain Tyson AGE: 78 y.o. CSN: [id number] : 1945 Date of Consult: 01/31/2023 Requesting Physician: Bryan Galindo III,* PCP: Gilles Evangelista MD Reason for Consult: Medical Management Post-Op HPI: Romain Tyson is a 78 y.o. male admitted for <principal problem not specified>. I was asked to consult for A-Fib and OA. Dr. Evangelista is PCP Dr. Marcelino is Cardiology Pt doesn't smoke or drink Pt doesn't use O2 or CPAP Vitals are stable Physical exam stable, lungs CTAB Pt was counseled on IS use Allergies: No Known Allergies PMHx: Past Medical History: Diagnosis Date A-fib 08/2022 Arthritis PSHx: Past Surgical History: Procedure Laterality Date HX APPENDECTOMY HX BELOW KNEE AMPUTATION Left foot HX HIP SURGERY Left Hip repair Home Medications: Medications Prior to Admission Medication Sig Dispense Refill Last Dose predniSONE (DELTASONE) 2.5 mg tablet Take 2.5 mg by mouth daily. 01/30/2023 finasteride (PROSCAR) 5 mg tablet Take 5 mg by mouth daily. 01/30/2023 omeprazole (PriLOSEC) 20 mg Capsule, Delayed Release(E.C.) Take 20 mg by mouth daily. 01/30/2023 HYDROcodone-acetaminophen (NORCO) 5-325 mg tablet Take 1 Tablet by mouth every 4 hours as needed for Pain, Moderate. 01/30/2023 calcium carb/vitamin D3/vit K1 (CALCIUM-VITAMIN D3-VITAMIN K ORAL) Take by mouth. 01/30/2023 tamsulosin HCl (TAMSULOSIN ORAL) Take by mouth. 01/30/2023 potassium citrate (UROCIT-K) 10 mEq (1,080 mg) Extended Release tablet Take 10 mEq by mouth 3 timesdaily. 01/30/2023 vit A/vit C/vit E/zinc/copper (PRESERVISION AREDS ORAL) Take by mouth. 01/30/2023 methotrexate (RHEUMATREX) 2.5 mg Tablet Take 2.5 mg by mouth every 7 days. 01/29/2023 apixaban (Eliquis) 5 mg tablet Take by mouth 2 times daily. 01/27/2023 Social Hx: Social History Tobacco Use Smoking status: Former Types: Cigarettes Smokeless tobacco: Never Substance Use Topics Alcohol use: Never Family Hx: No family history on file. Review of Systems Constitutional- no fever, sweats, night sweats, change in fatigue level EYE- no blurred vision, double vision ENT-, no difficulty swallowing, no symptoms of oral candidiasis Lungs- no complaint of respiratory distress, no wheezing CV- no chest pain, palpitation GI- no nausea, vomiting, diarrhea, no abdominal pain - no difficulty voiding, no flank pain MS- no significant edema 10 system review is otherwise negative except as discussed above. Physical: Patient Vitals for the past 8 hrs: BP Temp Temp src Pulse Resp SpO2 01/31/23 1326 105/68 97.4 F (36.3 C) Temporal 90 15 94 % 01/31/23 1230 125/68 (!) 96.6 F (35.9 C) Temporal 87 15 92 % 01/31/23 1200 (!) 94/44 96.8 F (36 C) Temporal 94 14 91 % 01/31/23 1130 (!) 90/54 97.2 F (36.2 C) Temporal 95 15 94 % 01/31/23 1115 129/69 -- -- 84 14 96 % 01/31/23 1100 112/60 -- -- 91 14 95 % 01/31/23 1045 103/60 -- -- 93 11 95 % 01/31/23 1040 95/59 -- -- 96 12 97 % 01/31/23 1035 (!) 88/55 -- -- (!) 102 10 97 % 01/31/23 1028 (!) 80/45 97 F (36.1 C) -- (!) 112 14 96 % General appearance: Alert, appropriate, no apparent distress Eyes: conjuctiva pink, sclera white, EOMI without nystagmus Head: normocephalic Throat: mucus membranes moist, no lesions or exudates. Neck: no carotid bruit, no palpable adenopathy or thyromegaly. Lungs: Good air movement, clear without wheezing or rhonchi Heart:- regular rate and rhythm, no murmur Abdomen: bowel sounds active, soft, nontender, nondistended. No appreciable masses or organomegaly. Extremities: No cyanosis or clubbing. No pitting edema. Pulses intact. Skin: Warm, dry. No rash or icterus on exposed areas. Neurologic: Mental status intact. Cranial nerves intact. No focal motor or sensory deficit. Data Review: CBC: Lab Results Component Value Date HGBPOC 17.7 01/31/2023 HCTPOC 52 (H) 01/31/2023 BMP: Lab Results Component Value Date CREAT 1.20 01/31/2023 Assessment: Active Problems: * No active hospital problems. * A-Fib OA Plan: Aggressive IS use Conferred with RN Monitor vitals closely Maintain bowel regimen Participate in PT Pain management Reviewed meds and labs Karlee Driver DO 01/31/2023, 4:34 PM documented in this encounter OR Notes * Operative Report - Divine Reyna RN - 02/01/2023 5:50 AM CDT Tolerating po well. On room air. Instructed on use of I.S. with return demo. Instructed on plan of care and pain management patient verbalized understanding. Voiding as normal for him stated the patient. Dressing D/I bruising to groin this a.m. reported from day shift that patient was up with assist with gait belt, prosthesis and walker tolerated fair c/o some dizziness. Did not get patient OOB on on sales and merchandising associate at all. Progressing well. Anticipate discharge today. VSS. NAD * Operative Report - Bryan Galindo III, MD - 01/31/2023 1:11 PM CDT NAME:Romain Tyson : 1945 CSN: [id number] ADMISSION DATE: 01/31/2023 OPERATIVE REPORT DATE: 01/31/2023 SURGEON: Surgeon(s) and Role: * Bryan Galinod III, MD - Primary Health And Social Care Teacher: [employer] David PRE-OP DIAGNOSIS: Pre-Op Diagnosis Codes: * Closed fracture of right hip requiring operative repair, initial encounter [S72.001A] - right POST-OP DIAGNOSIS: SAME Procedure(s) and Anesthesia Type: * HIP ARTHROPLASTY TOTAL ANTERIOR APPROACH - Spinal - right COMPLICATIONS: None. Anesthesia Type: Spinal FINDINGS: Femoral neck fracture was encountered as described. Procedure Start: 923 Procedure End: 1022 ESTIMATED BLOOD LOSS: 800 mL SPECIMENS: ID Type Source Tests Collected by Time A : RIGHT FEMORAL HEAD - FOR GROSS ONLY. Tissue Femoral head, right PATHOLOGY Mateo IIIBryan MD 01/31/2023 0956 IMPLANTS: Implant Name Type Inv. Item Serial No. Summer Internship Lot No. LRB No. Used Action CABLE SLEEVE SET DALL-MILES 2.0MM 6704-0-520 - [id number] Cable CABLE SLEEVE SET DALL-MILES 2.0MM 6704-0-520 [facility] [id number] Right 1 Implanted BAPTIST INSERT FOR ADM/MDM Hip [employer] [id number] Right 1 Implanted SHELL TRIDENT II TRITANIUM CLUSTER 5HL 702-04-60G - [id number] Hip SHELL TRIDENT II TRITANIUM CLUSTER 5HL 702-04-60G [employer] [id number] Right 1 Implanted SCREW TRIDENT 2 6.5X25MM LPRFL HEX [id number] - [id number] Screw SCREW TRIDENT 2 6.5X25MM LPRFL HEX 8240-6873 [employer] [id number] Right 2 Implanted SCREW TRIDENT 2 6.5X25MM LPRFL HEX [id number] - [id number] Screw SCREW TRIDENT 2 6.5X25MM LPRFL HEX 0761-1591 [employer] [id number] Right 1 Implanted LINER MDM CMNTLS 48MM 626-00-48G - [id number] Hip LINER MDM CMNTLS 48MM 626-00-48G [employer] [id number] Right 1 Implanted HEAD FEM V40 BIOLOX DELTA 6570-0-128 - [id number] Hip HEAD FEM V40 BIOLOX DELTA 6570-0-128 [employer] [id number] Right 1 Implanted INSIGNIA HIP STEM - HIGH OFFSET Hip [employer] [id number] Right 1 Implanted Cup: 60 mm Trident II, Tritanium, Clusterhole Acetabular Shell Screws: Nikia Low Profile 6.5 mm x 25 mm (3) Stem: Insignia Hip Stem - High Offset; Size 10 Liner: MDM; 48 mm, G Head: Biolox Delta, +0, 28mm Ceramic with Taoist MDM X3 Insert; 28/54 mm ProfitPoint-Miles 2.0 mm cable set x1 FLUIDS: See anesthesia record DRAINS: None INDICATIONS FOR OPERATION: Romain Tyson is a 78 y.o. male who presented to Dr. eMeks in clinic after increasing right hip pain. He was found to have a displaced right femoral neck fracture that is likely subacute. Patient previously had a fracture of the left tibia, open, this eventually became infected and required BKA. He was ambulating on this hip for some time before he realizedthat he was having significant pain. This was a similar situation in his left hip which was treated with CRPP and healed in a malunion. He does have significant cardiac history as noted in his clinical notes. He did receive cardiac clearance prior to surgical intervention. He is at moderate risk for cardiac complication. Given his bone stock which is exceptionally poor, he is also at significant risk of periprosthetic fracture and or failure of components. I discussed the case with the patient extensively including the clinical and radiographic findings,which were reviewed in detail. We discussed the natural history of the problem, and surgical versus nonsurgical treatments. We discussed the treatment algorithm and decision-making process. Informed consent was completed discussing the risks, benefits, alternatives and complications to the proposed surgical procedure but not limited to bleeding, infection, blood clots in the legs or in her lungs, neurovascular injury, amputation, stiffness, mechanical failure with need for revision including breakage with the ceramics (when used), dislocation, leg length discrepancy, fracture, malunion, non-union, continued pain, need for further surgery, failure of hardware or loosening of hardware, as well as medical and anesthesia risks including but not limited to heart attack, stroke, and . No guarantees were offered or implied. PROCEDURE IN DETAIL: The patient was seen in the preoperative holding area. The patient was identified using 2 unique patient identifiers and side, site, and procedure were confirmed. The patient was marked with indelible marker. The patient was brought to the operating room. Anesthesia was administered by the anesthe siology team. The patient was then transferred to a the operative table. The patient was then positioned supine and all pressure points were checked and well padded. The operative extremity was then examined. The patient was positioned on the Cameron table and the hip was sterilely prepped and draped in the normal fashion. Preoperative antibiotics were confirmed as well as preoperative TXA. A timeout was performed per hospital protocol, side site and procedure were again confirmed; x-rays were reviewed and availability of the appropriate surgical equipment was established. The entire teamwas in agreement. The hip was approached through a longitudinal skin incision starting 3 cm lateral to the anterior superior iliac spine and just distal to the hip flexion crease and extending distally about 4-5 inches. This was carried down to the tensor fascia which was opened in line with the skin incision. Thetensor muscle was retracted laterally developing the interval between the tensor and the rectus. Retractors were placed extracapsularly above and beneath the femoral neck. The pericapsular adipose tissue was resected and the ascending branches of the lateral femoral circumflex artery and veins were coagulated. A third retractor was placed beneath the rectus, anterior to the acetabulum. The ant erior capsule was opened in line with the femoral neck and an anterior capsulectomy was performed.The retractors were placed intracapsularly and the femoral neck osteotomy was performed at the pre-templated level. The femoral head was removed. Intra-articular findings: There were moderate to severe degenerative changes with cartilage thinning and large osteophyte formation. In addition therewas a fracture at the femoral neck that was completely displaced with early signs of healing.. The acetabular labrum and residual ligamentum teres were excised. Acetabular reaming was then performed ending with a 59 millimeter reamer which took us down to good cancellus bleeding bone and the definitive 60 mm acetabular component was press-fit into position at approximately 10 degrees anteversion 40 degrees of inclination. It had an excellent press-fit. Bone screws were then placed x3 secondary to poor bone stock. The definitive acetabular insert was then snapped into the locking mechanism, was checked and was stable within the locking mechanism. Attention was turned to the femur. The femur was extended, adducted, and externally rotated and then mobilized anteriorly utilizing the lift mechanism of the Cameron table releasing the capsule from the saddle of the trochanter from anterior to posterior until adequate anterior mobilization could be achieved. A cable passer was used from anterior to posterior to pass a cable just above the lesser trochanter at the level of the calcar. This was tensioned but not crimped or cut at this time. The femur was opened with a rongier followed by a rat tail rasp followed by a starter broach and then broached to a Size 10 broach which had excellent metaphyseal fill and rotational stability. Head and neck trials were utilized until we were satisfied that leg length, offset, soft tissue balance and stability were optimized. An x-ray was taken evaluating the leg length and offset, which were excellent. The foot was taken out of traction, stability was checked and was excellent. The cable was again tensioned. The definitive femoral femoral component was press-fit into the femur seating with excellent metaphyseal fill and rotational stability. Cable was again tensioned; crimped and cut. The definitive +0 femoral head was chosen to optimize leg lengths - it was placed on the clean dried trunion, tapped 3 times to engage, and was checked for stability on the trunnion and was very stable. The acetabulum was then thoroughlylavaged, dried, checked for debris and the hip reduced into the acetabulum and final x-ray taken onthe table confirming optimization of leg length and offset. The wound was irrigated with a balance of 3 L normal saline using pulsatile lavage. The tensor fascia was closed with interrupted 1-0 Vicryl and oversewn with a a running number 1 V-lock suture. The deep subcu was closed with #1 interrupted undyed Vicryl, 2-0 interrupted undyed Vicryl superficially; and a running 3-0 Monocryl subcuticular stitch in the skin. Skin glue was then applied and the incision was dressed with a watertight dressing. The patient was carefully transferred from the Cameron table to the hospital bed and returned to the recovery room in stable condition no complications. Notes: Patient has a history of significant fractures, left tibial fracture, open which led to infection and BKA. He also had a left hip fracture which was treated with CRPP and healed with malunion. He was walking on his current fracture without knowledge that he had fractured it. I will protect his weightbearing postoperatively to allow time for the stem to heal and prior to allowing him to ambulate secondary to inability to self regulate with pain. Bryan Galindo III, MD 01/31/2023, 1:11 PM documented in this encounter Miscellaneous Notes * Care Plan - Divine Reyna RN - 02/02/2023 5:00 AM CDT Problem: Mobility Goal: Absence of/Reduce Fall Risk r/t Mobility Deficits Description: Patient is a fall risk because of mobility deficits. A patient with mobility deficits is automatically at high risk for falls. Potential Interventions: 1. Schedule patient toileting to avoid emergency trips to the bathroom 2. If available, use floor mats next to bed or in front of chair when up 3. If applicable, remove floor mats when getting patient up and replace when leaving patient 4. Assistive devices as required, educate patient on correct use of device (walkers, shower chairs,lift equipment, etc.) 5. Exit bed on patient's strongest side 6. Gait belt easily accessible 7. Activate bed or chair alarm while in bed or up in chair 8. Get order for PT consult if appropriate 9. Patient requires 2 assist - bedpan and bed bath if 2 staff not available, bedside commode if 2 staff are available entire time 10. Slow progressive position changes if patient experiencing dizziness Outcome: Variance * Care Plan - Ramo Paredes, Lehr Stripper - 02/01/2023 1:02 PM CDT PT hold per nursing for bed rest. Ramo Paredes Lehr Stripper * Therapy Treatment - Ramo Paredes Lehr Stripper - 02/01/2023 10:54 AM CDT Images from the original note were not included. [facility] Acute Therapy Services Main: Acute: For questions regarding this patient's status or care, please call [phone]. PHYSICAL THERAPY Daily Note: Patient Class: Surgical OP/Extended Care DATE: 02/01/2023 Name:Romain Tyson Age: 78 y.o. : 1945 CSN: [id number] PT Treatment Start Time: 1030. PT Treatment Stop Time: 1047. Total Time: 17 minutes. PT Procedures: Therapeutic Activity 72702: 17 minutes. Patient's location: 109/109 Onset of illness/injury or date of surgery: 01/31/2023 DIAGNOSIS: Procedure: HIP ARTHROPLASTY TOTAL ANTERIOR APPROACH CPT(R) Code: 56714 - DE ARTHRP ACETBLR/PROX FEM PROSTC AGRFT/ALGRFT CLINICAL DIAGNOSIS: pain, weakness, decreased range of motion, impaired functional mobility, impaired ambulation, impaired balance/proprioception CHART REVIEW: Onset of illness/injury or date of surgery: 01/31/2023 Past medical history: has a past medical history of A-fib (08/2022) and Arthritis. ORDERS: Physical Therapy Evaluation and Treatment Patient was identified by name and date of . Consent to treatment given by patient and Nursing SUBJECTIVE: Pain: Patient reports pain in hip as a 2/10 on a 0-10 pain scale at rest, 10/10 after movement. Prior Level of Function: Independent. Living Environment: Lives with spouse/family Patient's Goal for therapy: return to a maximal level of independence with the least restrictive AD. OBJECTIVE: Note: Gait belt donned during all patient transfers and ambulation activity. Orientation: A&O x4 Patient Precautions: RAGINI (Anterior) Other Pertinent Findings: IV Patient Weightbearing: no restriction [facility] PT Acute Care Functional Outcomes Tool 7 = Ind, 6 = Mod Ind, 5 = Sup, 4 = Min assist, 3 = Mod assist, 2 = Max assist, 1 = Total assist, 0 = N/A 7 = 201+ ft, 6 = 151-200 ft, 5 = 101-150 ft, 4 = 51-100 ft, 3 = 31-50 ft, 2 = 11-30 ft, 1= 1-10 ft 1. Bed Mobility: Lying down to sitting on EOB Deficits affecting function: weakness, balance, pain 4 2. Transfers: Bed to Chair (Including sit to/from stand) Deficits affecting function: weakness, balance, pain 4 3. Gait: Walking on Level Surfaces; FWW 0 4. Walking Distance: 0 feet 0 KU Functional Tool Comment: TREATMENT: Gait training and transfer training provided as indicated above. ASSESSMENT: Pt transferred EOB with Min A for LE advancement. Upon sitting EOB, pt reports dizziness. BP taken and is 83/48. Did not have pt stand due to being symptomatic and LBP. Transferred back to supine with mod A. Upon laying supine, pt states "I don't feel good, I may pass out". Lowered HOB,pt alert throughout session. Pt reports relief with laying flat. BP back to 119/57. Nursing notified Patient was seen for physical therapy services. Deficits include: pain, weakness, decreased range of motion, impaired functional mobility, impaired ambulation, impaired balance/proprioception . Patient will benefit from skilled physical therapy intervention to address the above listed deficits and improve overall functional status. Patient/family education: Transfer training, Stair Training, Gait training, Home safety, Proper use of brace/assistive device, Fall prevention, and Appropriate RAGINI precautions Patient/family response: Verbalizes and demonstrates understanding and Needs continued education to maximize level of safety/function Rehab Potential: Fair PLAN/DISCHARGE PLANNING: PT Discharge Recommendation: DC to Rehab/Skilled Care Unit pending progress in PT PT Recommended DME: FWW Patient will be seen for physical therapy BID Tuesday-Tuesday, Daily Tuesday & Tuesday. Treatment will consist of: functional transfer training, gait training, patient/family education, and stair navigation. OR [] Discontinue with plan of care as patient no longer requires skilled physical therapy intervention, nursing informed. Upon completion of this evaluation/treatment session the patient was within reach of telephone and call light. All appropriate lines reattached: Back to bed with call light Ramo Paredes Lehr Stripper * Care Plan - Divine Reyna RN - 02/01/2023 5:40 AM CDT Problem: Pain, Potential/Actual Goal: Verbalizes/displays acceptable comfort level or baseline comfort level Description: Outcome: Progressing Problem: Discharge Planning Goal: Identify discharge needs upon admission and through discharge Description: Outcome: Progressing Problem: Mobility Goal: Absence of/Reduce Fall Risk r/t Mobility Deficits Description: Patient is a fall risk because of mobility deficits. A patient with mobility deficits is automatically at high risk for falls. Potential Interventions: 1. Schedule patient toileting to avoid emergency trips to the bathroom 2. If available, use floor mats next to bed or in front of chair when up 3. If applicable, remove floor mats when getting patient up and replace when leaving patient 4. Assistive devices as required, educate patient on correct use of device (walkers, shower chairs,lift equipment, etc.) 5. Exit bed on patient's strongest side 6. Gait belt easily accessible 7. Activate bed or chair alarm while in bed or up in chair 8. Get order for PT consult if appropriate 9. Patient requires 2 assist - bedpan and bed bath if 2 staff not available, bedside commode if 2 staff are available entire time 10. Slow progressive position changes if patient experiencing dizziness Outcome: Progressing Problem: Toileting Needs Goal: Absence of/Reduce Fall Risk r/t Toileting Needs Description: Patient is a fall risk because of toileting needs (i.e. - IV fluids, UTI, diuretics, frequency, diarrhea). Potential Interventions: 1. Schedule toileting at frequent intervals based on patient's needs (i.e. - hourly, every 2 hours) 2. Frequent rounding between toileting 3. Bedside Commode 4. Activate bed or chair alarm while in bed or up in chair 5. Encourage male patients to use urinal 6. Educate patient on fall risk, use of grab bars, and to call for assistance 7. Assess length of IV and/or O2 tubing if applicable 8. Use bedpan or lift equipment if patient also has other fall risk factors (i.e. - mobility) Outcome: Progressing Problem: Volume/Electrolyte Status Goal: Absence of/Reduce Fall Risk r/t Volume/Electrolyte Status Description: Patient is a fall risk due to volume/electrolyte status (i.e. - electrolyte imbalances, nausea/vomiting, NPO, IV fluids). Potential Interventions: 1. Ensure blood sugar is checked at appropriate intervals and insulin dosing is given as ordered 2. Provide patient with an emesis basin or vomit bag (may need more than one at bedside) 3. Assess length of IV and/or O2 tubing if applicable 4. Ensure IV fluids are given as ordered for NPO patients to maintain hydration 5. Administer medications for nausea and vomiting as needed Outcome: Progressing Problem: Musculoskeletal Goal: Achieve optimal musculoskeletal function by discharge or maintain baseline function Outcome: Progressing Problem: Respiratory Goal: Achieve optimal respiratory function by discharge and/or maintain baseline function Outcome: Progressing * Therapy Evaluation - Maria Ines Monterroso Physical Therapist - 01/31/2023 3:23 PM CDT Images from the original note were not included. [facility] Acute Therapy Services Main: Acute: For questions regarding this patient's status or care, please call [phone]. PHYSICAL THERAPY INITIAL EVALUATION / PLAN OF CARE: Patient Class: Surgical OP/Extended Care DATE: 01/31/2023 Name:Romain Tyson Age: 78 y.o. : 1945 CSN: [id number] PT Evaluation Start Time: 1500. PT Evaluation Stop Time: 1518. Total time: 18 minutes. PT Procedures: PT Evaluation Low Complexity 38137: 18 minutes Patient's location: [address] [place] [address] Onset of illness/injury or date of surgery: 01/31/2023 DIAGNOSIS: Procedure: HIP ARTHROPLASTY TOTAL ANTERIOR APPROACH CPT(R) Code: 43139 - DE ARTHRP ACETBLR/PROX FEM PROSTC AGRFT/ALGRFT CLINICAL DIAGNOSIS: pain, weakness, decreased range of motion, impaired functional mobility, impaired ambulation, impaired balance/proprioception CHART REVIEW: Onset of illness/injury or date of surgery: 01/31/2023 Past medical history: has a past medical history of A-fib (08/2022) and Arthritis. ORDERS: Physical Therapy Evaluation and Treatment Patient was identified by name and date of . Consent to treatment given by patient and Nursing SUBJECTIVE: Pain: Patient reports pain in right hip as a 4/10 on a 0-10 pain scale. Prior Level of Function: Independent. Living Environment: Lives alone in a 2 story house with 4 steps to enter, has daughter who will stay with him at first Patient's Goal for therapy: return to a maximal level of independence with the least restrictive AD. OBJECTIVE: Note: Gait belt donned during all patient transfers and ambulation activity. Orientation: A&O x4 Patient Precautions: RAGINI (Anterior) Other Pertinent Findings: IV Patient Weightbearing: WBAT R LE Range of Motion: ROM WFL except R LE Strength: Strength is WFL except R LE Balance: Sitting (static): Good Sitting (dynamic): Good Standing (static): Fair Standing (dynamic): Fair [facility] PT Acute Care Functional Outcomes Tool 7 = Ind, 6 = Mod Ind, 5 = Sup, 4 = Min assist, 3 = Mod assist, 2 = Max assist, 1 = Total assist, 0 = N/A 7 = 201+ ft, 6 = 151-200 ft, 5 = 101-150 ft, 4 = 51-100 ft, 3 = 31-50 ft, 2 = 11-30 ft, 1= 1-10 ft 1. Bed Mobility: Lying down to sitting on EOB Deficits affecting function: weakness, balance, pain 4 2. Transfers: Bed to Chair (Including sit to/from stand) Deficits affecting function: weakness, balance, pain 3 3. Gait: Walking on Level Surfaces; FWW 3 4. Walking Distance: 3 feet Comments: MOD assist 3 KU Functional Tool Comment: TREATMENT: Gait training and transfer training provided as indicated above: ASSESSMENT: Pt sitting at EOB had BP of 110/69 mmHg with light headedness and then in standing had dropped to 82/55 mm Hg. Pt ambulated 3 feet with FWW has prosthesis on left LE but does well despitehaving low blood pressure. Pt sat in chair but continued to have low blood pressure and was placed back in bed. Nurse notified of pressures. Patient was evaluated for physical therapy services. Deficits include: pain, weakness, decreased range of motion, impaired functional mobility, impaired ambulation, impaired balance/proprioception . Patient will benefit from skilled physical therapy intervention to address the above listed deficits and improve overall functional status. Patient/family education: Transfer training, Stair Training, Gait training, Home safety, Proper use of brace/assistive device, Fall prevention, and Appropriate RAGINI precautions Patient/family response: Verbalizes and demonstrates understanding Rehab Potential: Good PLAN/DISCHARGE PLANNING: PT Discharge Recommendation: DC Home with Assistance PT Recommended DME: None Patient will be seen for physical therapy BID Tuesday-Tuesday, Daily Tuesday & Tuesday. Treatment will consist of: balance training, functional transfer training, gait training, neuromuscular re-education, patient/family education, stair navigation, strengthening exercises, and ROM. OR [] Discontinue with plan of care as patient no longer requires skilled physical therapy intervention, nursing informed. Upon completion of this evaluation/treatment session the patient was within reach of telephone and call light. All appropriate lines reattached: Back to bed with call light GOALS to be achieved by discharge: 1. Patient will ascend/descend stairs step over step with 1 rail for safety, modified independent. 2. Patient will ambulate 130 feet with the least restrictive AD x level surfaces x SBA. 3. Patient will be SBA with all functional bed, toilet and chair transfers. Maria Ines Monterroso, Physical Therapist * Discharge Planning Communication - Memo Rg RN - 01/31/2023 12:25 PM CDT Patient plans on discharge to ...DischargeDisp: home with family or friend to assist:daughterMoraima who lives next door. DME needs...DME: NONE, patient has own walker, patient has been using walker since having pins placed. Pt also has left BTK amputation Ensured FU appt scheduled with provider office Additional FU scheduled ...FU Scheduled: No additional appointments required at this time No additional discharge needs at this time. * Care Plan - Emilia Newman RN - 01/31/2023 11:46 AM CDT Plan of cares discussed, pt is alert and able to make needs known, leg amputee and prosthesis in place of Left side, call light within reach documented in this encounter Plan of Treatment Upcoming Encounters Date Type Department Care Team Description 02/23/2023 2:15 PM CDT Office Visit [facility] [address] [place] [phone] Lloyd Perez PA [address] [place] [phone] Pending Results Name Type Priority Associated Diagnoses Date /Time PATHOLOGY Pathology Pathology Closed fracture of right hip requiring operative repair, initial encounter 01/31/2023 9:56 AM CDT XR HIP 2 OR 3 VIEWS RT Imaging Pending Discharge 02/02/2023 11: 08 AM CDT XR PELVIS 1 OR 2 VW Imaging Pending Discharge 02/02/2023 10:24 AM CDT Scheduled Orders Name Type Priority Associated Diagnoses Order Schedule POC ELECTROLYTES/BMP Point of Care Testing Routine EVERY DAY until discontinued starting 01/31/2023 POC PROTIME/INR Point of Care Testing Routine ONE TIME for 1 Occurrences starting 01/31/2023 until 01/31/2023 PATHOLOGY Pathology Pathology Closed fracture of right hip requiring operative repair, initial encounter Release Upon Ordering for 1 Occurrences starting 01/31/2023, 1 completed PT EVAL AND TREAT PT Routine ONE SHIRA E for 1 Occurrences starting 01/31/2023 until 01/31/2023 POC ELECTROLYTES/BMP Point of Care Testing Routine EVERY DAY until discontinued starting 02/01/2023 XR HIP 2 OR 3 VIEWS RT Imaging Pending Discharge Rad Once for 1 Occurrences starting 02/02/2023 until 02/02/2023 XR PELVIS 1 OR 2 VW Imaging Pending Discharge Rad Once for 1 Occurrences starting 02/02/2023 until 02/02/2023 Scheduled Procedures Name Priority Associated Diagnoses Date/Ti me HIP ARTHROPLASTY TOTAL JOINT REVISION Closed fracture of right hip requiring operative repair, initial encounter 02/02/2023 7:30 AM CDT Health Maintenance Due Date Last Done Comments PNEUMOCOCCAL VACCINE 65+ YEARS (1 - PCV) 1949 DTAP/TDAP/TD VACCINES (1 - Tdap) 1962 COLORECTAL SCREENING 01/14/1988 Colorectal Cancer Screening 01/14/1988 FIT-DNA Q 3 years 01/14/1988 FIT/FOBT Q 1 year 01/14/1988 Flex Sig/CT Colonography Q 5 years 01/14/1988 ZOSTER VACCINE (1 of 2) 1993 Medicare Advantage (DC) Prev entative Visit/Annual Wellness Visit 05/16/2022 INFLUENZA VACCINE (#1) 2022 documented as of this encounter Medical Devices Implanted Type Area Summer Internship Device Identifier Shelf Expiration Date Model / Serial / Lot Cable Sleeve Set Dall-Miles 2.0mm 6704-0-520 - [id number] Implanted:Qty: 1 on 01/31/2023 by Bryan Galindo III, MD at [facility] Right: Hip [employer] [id number] 05/04/2027 6704-0-52 0 / / [id number] Cable Sleeve Set Keiry 2.0mm 6704-0-520 - [id number] Implanted:Qty: 1 on 02/02/2023 by Bryan Galindo III, MD at [facility] Cable Right: Hip [employer] 05/04/2027 6704-0-52 0 / / [id number] Description:WAS IMPLANTED ON 01/31/2023 ON INITIAL SURGERY. Simplex W/Tobra 6197-9-010 - [id number] Implanted:Qty: 1 on 02/02/2023 by Bryan Galindo III, MD at [facility] Cement Right: Hip [employer] [id number] 07/14/2023 6197-9-01 0 / / [id number] Taoist Insert For Adm/Mdm Implanted:Qty: 1 on 02/02/2023 by Bryan Galindo III, MD at [facility] Hip Right: Hip [employer] [id number] 03/17/2026 7236-2-85 8 / / [id number] Screw Trident 2 6.5x35mm Lprfl Hex 6681-1997 - [id number] Implanted:Qty: 1 on 02/02/2023 by Bryan Galindo III, MD at [facility] Screw Right: Hip [employer] [id number] 10/14/2026 6657-8845 / / WYLE Explanted Type Area Summer Internship Device Identifier Shelf Expiration Date Model / Serial / Lot Insignia Hip Stem - High Offset Implanted:Qty : 1 on 01/31/2023 by Bryan Galindo III, MD at [facility] Explanted:Qty : 1 on 02/02/2023 by Bryan Galindo III, MD at [facility] Hip Right: Hip [employer] [id number] 02/25/2027 6198-3061 / / [id number] Screw Trident 2 6.5x25mm Lprfl Hex 4603-9384 - [id number] Implanted:Qty : 1 on 01/31/2023 by Bryan Galindo III, MD at [facility] Explanted:Qty : 1 on 02/02/2023 by Bryan Galindo III, MD at [facility] Screw Right: Hip [employer] [id number] 09/21/2027 4035-0191 / / [id number] documented as of this encounter Procedures Procedure Name Priority Date/Time Associated Diagnosis Comments POC ELECTROLYTES/BMP Routine 02/02/2023 11:56 AM CDT POC ELECTROLYTES/BMP Routine 02/02/2023 11:16 AM CDT BASIC METABOLIC PANEL Stat 02/02/2023 11:04 AM CDT POC ELECTROLYTES/BMP Routine 02/02/2023 11:00 AM CDT CBC WITHOUT DIFFERENTIAL Routine 02/02/2023 10:34 AM CDT XR FLUORO LESS THAN 1 HOUR Pending Discharge 02/02/2023 10:24 AM CDT POC ELECTROLYTES/BMP Routine 02/02/2023 10:08 AM CDT TRANSFUSE PACKED RED BLOOD CELLS Routine 02/02/2023 9:19 AM CDT PREPARE RED BLOOD CELLS Routine 02/02/2023 9:01 AM CDT PREPARE RED BLOOD CELLS Routine 02/02/2023 9:01 AM CDT TRANSFUSE PACKED RED BLOOD CELLS Routine 02/02/2023 8:52 AM CDT POC ELECTROLYTES/BMP Routine 02/02/2023 5:24 AM CDT VERIFICATION BLOOD GROUP Stat 02/02/2023 5:24 AM CDT PREPARE RED BLOOD CELLS Routine 02/01/2023 2:43 PM CDT PREPARE RED BLOOD CELLS Routine 02/01/2023 2:43 PM CDT XR HIP 2 OR 3 VIEWS RT Stat 02/01/2023 1:44 PM CDT POC ELECTROLYTES/BMP Routine 02/01/2023 5:33 AM CDT XR FLUORO LESS THAN 1 HOUR Routine 01/31/2023 2:11 PM CDT HIP ARTHROPLASTY TOTAL ANTERIOR APPROACH 01/31/2023 9:05 AM CDT Closed fracture of right hip requiring operative repair, initial encounter POC PROTIME/INR Routine 01/31/2023 7:45 AM CDT POC ELECTROLYTES/BMP Routine 01/31/2023 7:42 AM CDT VERIFICATION BLOOD GROUP Stat 01/31/2023 7:30 AM CDT BLOOD BANK DRAW ONLY Routine 01/31/2023 7:24 AM CDT TYPE AND SCREEN Routine 01/31/2023 7:24 AM CDT documented in this encounter Results * TRANSFUSE RED BLOOD CELLS (02/02/2023 12:07 PM CDT) Bryan Galindo III, MD BLOOD TRANSFU PARISH ORDERABLES * TRANSFUSE RED BLOOD CELLS (02/02/2023 12:07 PM CDT) Bryan Galindo III, MD BLOOD TRANSFU PARISH ORDERABLES * (ABNORMAL) POC ELECTROLYTES/BMP (02/02/2023 11:56 AM CDT) SODIUM POC 136 136 - 145 mmol/L 02/02/2023 11:56 AM CDT [facility] POTASSIUM POC 4.9 3.5 - 5.1 mmol/L 02/02/2023 11:56 AM CDT [facility] CHLORIDE POC 108 98 - 109 mmol/L 02/02/2023 11:56 AM [facility] TOTAL CO2 POC 20(L) 22 - 31 mmol/L 02/02/2023 11:56 AM [facility] BLOOD UREA NITROGEN POC 18 8 - 26 mg/dL 02/02/2023 11:56 AM [facility] CREATININE POC 1.10 0.60 - 1.20 mg/dL 02/02/2023 11:56 AM [facility] Comment:The GFR result is no t clinically significant on patients <18 or >70 years of age. GLUCOSE POC 177(H) 74 - 99 mg/dL 02/02/2023 11:56 AM [facility] HEMOGLOBIN POC 10.5 No Ref Range Estab g/dL 02/02/2023 11:56 AM [facility] HEMATOCRIT POC 31(L) 37 - 47 % 02/02/2023 11:56 AM [facility] CALCIUM IONIZED POC 5.7(H) 4.5 - 5.2 mg/dL 02/02/2023 11:56 AM [facility] COMMENT, BMP POC Christopher's Test not applicable 02/02/2023 11:56 AM [facility] GFR POC >60 mL/min/1. 73 sq meter 02/02/2023 11:56 AM [facility] Comment:eGFR calculated with 2020 CKD-EPI equation. Vegetarian diet, extremely high or low muscle mass, and may affect results. Cystatin C with Glomerular Filtration Rate is a suitable alternative for these patients. Blood 02/02/2023 11:5 6 AM CDT 02/02/2023 12:35 PM CDT Bryan Galindo III, MD POINT OF CARE TESTING [facility] CLIA # [id number] [address] [address] * (ABNORMAL) POC ELECTROLYTES/BMP (02/02/2023 11:16 AM CDT) SODIUM POC 134(L) 136 - 145 mmol/L 02/02/2023 11:16 AM [facility] POTASSIUM POC 6.0(H) 3.5 - 5.1 mmol/L 02/02/2023 11:16 AM [facility] CHLORIDE POC 109 98 - 109 mmol/L 02/02/2023 11:16 AM [facility] TOTAL CO2 POC 19(L) 22 - 31 mmol/L 02/02/2023 11:16 AM [facility] BLOOD UREA NITROGEN POC 18 8 - 26 mg/dL 02/02/2023 11:16 AM [facility] CREATININE POC 1.10 0.60 - 1.20 mg/dL 02/02/2023 11:16 AM [facility] Comment:The GFR result is no t clinically significant on patients <18 or >70 years of age. GLUCOSE POC 143(H) 74 - 99 mg/dL 02/02/2023 11:16 AM [facility] HEMOGLOBIN POC 9.9 No Ref Range Estab g/dL 02/02/2023 11:16 AM [facility] HEMATOCRIT POC 29(L) 37 - 47 % 02/02/2023 11:16 AM [facility] CALCIUM IONIZED POC 6.1(H) 4.5 - 5.2 mg/dL 02/02/2023 11:16 AM [facility] COMMENT, BMP POC Christopher's Test not applicable 02/02/2023 11:16 AM [facility] GFR POC >60 mL/min/1. 73 sq meter 02/02/2023 11:16 AM [facility] Comment:eGFR calculated with 2020 CKD-EPI equation. Vegetarian diet, extremely high or low muscle mass, and may affect results. Cystatin C with Glomerular Filtration Rate is a suitable alternative for these patients. Blood 02/02/2023 11:1 6 AM CDT 02/02/2023 12:35 PM CDT Bryan Galindo III, MD [id number] [address] [address] * (ABNORMAL) BASIC METABOLIC PANEL (02/02/2023 11:04 AM CDT) SODIUM 133(L) 136 - 145 mmol/L 02/02/2023 12:25 PM CDT [facility] [place] POTASSIUM 6.4(HH) 3.5 - 5.1 mmol/L 02/02/2023 12:25 PM CDT [facility] [place] CHLORIDE 109(H) 98 - 107 mmol/L 02/02/2023 12:25 PM CDT [facility] [place] CO2 18(L) 22 - 29 mmol/L 02/02/2023 12:25 PM CDT [facility] [place] CALCIUM 7.9(L) 8.8 - 10.2 mg/dL 02/02/2023 12:25 PM CDT [facility] [place] BUN 21 8 - 23 mg/dL 02/02/2023 12:25 PM CDT [facility] [place] CREATININE 1.16 0.67 - 1.17 mg/dL 02/02/2023 12:25 PM CDT [facility] [place] Comment:The GFR result is no t clinically significant on patients <18 or >70 years of age. GLUCOSE 164(H) 74 - 99 mg/dL 02/02/2023 12:25 PM CDT [facility] [place] GFR >60 mL/min/1.7 3 sq meter 02/02/2023 12:25 PM T [facility] [place] Comment:eGFR calculated with 2020 CKD-EPI equation. Vegetarian diet, extremely high or low muscle mass, and may affect results. Cystatin C with Glomerular Filtration Rate is a suitable alternative for these patients. ANION GAP 6 4 - 13 mmol/L 02/02/2023 12:25 PM CDT [facility] [place] Blood Venipuncture / Unknown 02/02/2023 11:04 AM CDT 02/02/2023 11:04 AM CDT Bryan Galindo III, MD CHEMISTRY ORD ERABLES [facility] [place] YOST # [id number] [address] [address] * (ABNORMAL) POC ELECTROLYTES/BMP (02/02/2023 11:00 AM CDT) SODIUM POC 134(L) 136 - 145 mmol/L 02/02/2023 11:00 AM [facility] POTASSIUM POC 6.3(HH) 3.5 - 5.1 mmol/L 02/02/2023 11:00 AM [facility] CHLORIDE POC 109 98 - 109 mmol/L 02/02/2023 11:00 AM [facility] TOTAL CO2 POC 18(L) 22 - 31 mmol/L 02/02/2023 11:00 AM [facility] BLOOD UREA NITROGEN POC 19 8 - 26 mg/dL 02/02/2023 11:00 AM [facility] CREATININE POC 1.10 0.60 - 1.20 mg/dL 02/02/2023 11:00 AM [facility] Comment:The GFR result is no t clinically significant on patients <18 or >70 years of age. GLUCOSE POC 152(H) 74 - 99 mg/dL 02/02/2023 11:00 AM [facility] HEMOGLOBIN POC 9.9 No Ref Range Estab g/dL 02/02/2023 11:00 AM [facility] HEMATOCRIT POC 29(L) 37 - 47 % 02/02/2023 11:00 AM [facility] CALCIUM IONIZED POC 5.1 4.5 - 5.2 mg/dL 02/02/2023 11:00 AM [facility] COMMENT, BMP POC Christopher's Test not applicable 02/02/2023 11:00 AM [facility] GFR POC >60 mL/min/1. 73 sq meter 02/02/2023 11:00 AM CDT [facility] Comment:eGFR calculated with 2020 CKD-EPI equation. Vegetarian diet, extremely high or low muscle mass, and may affect results. Cystatin C with Glomerular Filtration Rate is a suitable alternative for these patients. Blood 02/02/2023 11:0 0 AM CDT 02/02/2023 12:35 PM CDT Bryan Galindo III, MD POINT OF CARE TESTING [facility] CLIA # [id number] [address] [address] * (ABNORMAL) CBC WITHOUT DIFFERENTIAL (02/02/2023 10:34 AM CDT) WBC 15.6(H) 4.0 - 11.0 K/uL 02/02/2023 12:04 PM CDT [facility] [place] RBC 3.28(L) 4.70 - 6.00 M/uL 02/02/2023 12:04 PM CDT [facility] [place] HEMOGLOBIN 10.5(L) 13.5 - 18.0 g/dL 02/02/2023 12:04 PM T [facility] [place] HEMATOCRIT 32.0(L) 42.0 - 52.0 % 02/02/2023 12:04 PM T [facility] [place] MCV 97.6 78.0 - 100.0 fL 02/02/2023 12:04 PM CDT [facility] [place] MCH 32.0 27.0 - 34.0 pg 02/02/2023 12:04 PM CDT [facility] [place] MCHC 32.8 31.0 - 37.0 g/dL 02/02/2023 12:04 PM CDT [facility] [place] PLATELETS 190 150 - 450 K/uL 02/02/2023 12:04 PM T [facility] [place] MPV 11.2 9.3 - 12.4 fL 02/02/2023 12:04 PM CDT [facility] [place] RDW 15.8(H) 12.0 - 15.0 % 02/02/2023 12:04 PM CDT [facility] [place] RDW-STDEV 56.0(H) 37.1 - 48.7 fL 02/02/2023 12:04 PM CDT [facility] [place] Blood Venipuncture / Unknown 02/02/2023 10:34 AM CDT 02/02/2023 10:34 AM CDT Brayn Galindo III, MD HEMATOLOGY OR DERABLES [facility] [place] CLIA # [id number] [address] [place] [address] * XR FLUORO LESS THAN 1 HOUR (02/02/2023 10:24 AM CDT) Narrative 02/02/2023 10:24 AM CDT Order information only. Exam was auto-finalized. Bryan Galindo III, MD DIAGNOSTIC IM AGING ORDERABLES * (ABNORMAL) POC ELECTROLYTES/BMP (02/02/2023 10:08 AM CDT) SODIUM POC 134(L) 136 - 145 mmol/L 02/02/2023 10:08 AM CDT [facility] POTASSIUM POC 6.0(H) 3.5 - 5.1 mmol/L 02/02/2023 10:08 AM CDT [facility] CHLORIDE POC 106 98 - 109 mmol/L 02/02/2023 10:08 AM CDT [facility] TOTAL CO2 POC 21(L) 22 - 31 mmol/L 02/02/2023 10:08 AM T [facility] BLOOD UREA NITROGEN POC 20 8 - 26 mg/dL 02/02/2023 10:08 AM T [facility] CREATININE POC 1.00 0.60 - 1.20 mg/dL 02/02/2023 10:08 AM T [facility] Comment:The GFR result is no t clinically significant on patients <18 or >70 years of age. GLUCOSE POC 144(H) 74 - 99 mg/dL 02/02/2023 10:08 AM CDT [facility] HEMOGLOBIN POC 10.5 No Ref Range Estab g/dL 02/02/2023 10:08 AM CDT [facility] HEMATOCRIT POC 31(L) 37 - 47 % 02/02/2023 10:08 AM CDT [facility] CALCIUM IONIZED POC 5.0 4.5 - 5.2 mg/dL 02/02/2023 10:08 AM CDT [facility] COMMENT, BMP POC Right Christopher's Test Passed 02/02/2023 10:08 AM CDT [facility] GFR POC >60 mL/min/1. 73 sq meter 02/02/2023 10:08 AM T [facility] Comment:eGFR calculated with 2020 CKD-EPI equation. Vegetarian diet, extremely high or low muscle mass, and may affect results. Cystatin C with Glomerular Filtration Rate is a suitable alternative for these patients. Blood 02/02/2023 10:0 8 AM CDT 02/02/2023 12:35 PM CDT Bryan Galindo III, MD POINT [facility] CARE [facility]ING [facility] [id number] [facility] [place] [address] * TRANSFUSE RED BLOOD CELLS (02/02/2023 9:53 AM CDT) Bryan Galindo III, MD BLOOD TRANSFU PARISH ORDERABLES * TRANSFUSE RED BLOOD CELLS (02/02/2023 9:53 AM CDT) Bryan Galindo III, MD BLOOD TRANSFU PARISH ORDERABLES * TRANSFUSE RED BLOOD CELLS (02/02/2023 9:19 AM CDT) Bryan Galindo III, MD BLOOD TRANSFU PARISH ORDERABLES * TRANSFUSE RED BLOOD CELLS (02/02/2023 9:19 AM CDT) Bryan Galindo III, MD BLOOD TRANSFU PARISH ORDERABLES * PREPARE RED BLOOD CELLS (02/02/2023 9:01 AM CDT) COMPONENT TYPE [id number] [facility] [place] COMPONENT IDENTIFICATION [id number] [facility] [place] UNIT ABO O [employer] [facility] [place] UNIT RH POS [facility] [place] CROSSMATCH Compatible [facility] [place] COMPONENT STATUS Selected [facility] [place] COMPONENT EXPIRATION DATE/TIME [facility] [place] COMPONENT CODING SYSTEM 5100 [facility] [place] VOLUME, BLOOD PRODUCT 350 [facility] [place] 02/02/2023 9:0 1 AM CDT Bryan Galindo III, MD LAB TRANSFUSI ON ORDERABLES [facility] [place] CLIA # [id number] [address] [place] [address] * PREPARE RED BLOOD CELLS (02/02/2023 9:01 AM CDT) COMPONENT TYPE [id number] [facility] [place] COMPONENT IDENTIFICATION [id number] [facility] [place] UNIT ABO O [employer] [facility] [place] UNIT RH POS [facility] [place] CROSSMATCH Compatible [facility] [place] COMPONENT STATUS Issued [facility] [place] COMPONENT EXPIRATION DATE/TIME [facility] [place] COMPONENT CODING SYSTEM 5100 [facility] [place] VOLUME, BLOOD PRODUCT 350 [facility] [place] Other, specify 02/02/2023 9 :01 AM CDT Bryan Galindo III, MD LAB TRANSFUSI ON ORDERABLES [facility] [place] CLIA # [id number] [address] [facility] [address] [address] * (ABNORMAL) POC ELECTROLYTES/BMP (02/02/2023 5:24 AM CDT) SODIUM POC 137 136 - 145 mmol/L 02/02/2023 5:24 AM T [facility] POTASSIUM POC 4.4 3.5 - 5.1 mmol/L 02/02/2023 5:24 AM [facility] CHLORIDE POC 106 98 - 109 mmol/L 02/02/2023 5:24 AM [facility] TOTAL CO2 POC 19(L) 22 - 31 mmol/L 02/02/2023 5:24 AM [facility] BLOOD UREA NITROGEN POC 16 8 - 26 mg/dL 02/02/2023 5:24 AM [facility] CREATININE POC 0.90 0.60 - 1.20 mg/dL 02/02/2023 5:24 AM [facility] Comment:The GFR result is no t clinically significant on patients <18 or >70 years of age. GLUCOSE POC 97 74 - 99 mg/dL 02/02/2023 5:24 AM [facility] HEMOGLOBIN POC 10.9 No Ref Range Estab g/dL 02/02/2023 5:24 AM [facility] HEMATOCRIT POC 32(L) 37 - 47 % 02/02/2023 5:24 AM [facility] CALCIUM IONIZED POC 5.1 4.5 - 5.2 mg/dL 02/02/2023 5:24 AM [facility] COMMENT, BMP POC Christopher's Test not applicable 02/02/2023 5:24 AM [facility] GFR POC >60 mL/min/1. 73 sq meter 02/02/2023 5:24 AM [facility] Comment:eGFR calculated with 2020 CKD-EPI equation. Vegetarian diet, extremely high or low muscle mass, and may affect results. Cystatin C with Glomerular Filtration Rate is a suitable alternative for these patients. Blood 02/02/2023 5:2 4 AM CDT 02/02/2023 6:12 AM CDT Bryan Galindo III, MD POINT OF CARE TESTING [facility] CLIA # [id number] [address] [address] * VERIFICATION BLOOD GROUP (02/02/2023 5:24 AM CDT) ABO GROUP O 02/02/2023 12:00 PM CDT [facility] [place] RH (D) TYPE Positive 02/02/2023 12:00 PM CDT [facility] [place] Blood Venipuncture / Unknown 02/02/2023 5:24 AM CDT 02/02/2023 6:12 AM CDT Bryan Galindo III, MD BLOOD BANK OR DERABLES [facility] [place] CLIA # [id number] [address] [place] [address] * PREPARE RED BLOOD CELLS (02/01/2023 2:43 PM CDT) COMPONENT TYPE [id number] [facility] [place] COMPONENT IDENTIFICATION [id number] [facility] [place] UNIT ABO O [facility] [place] UNIT RH POS [facility] [place] CROSSMATCH Compatible [facility] [place] COMPONENT STATUS Issued [facility] [place] COMPONENT EXPIRATION DATE/TIME [id number] [facility] [place] COMPONENT CODING SYSTEM 5100 [facility] [place] VOLUME, BLOOD PRODUCT 350 [facility] [place] 02/01/2023 2:4 3 PM CDT Bryan Galindo III, MD LAB TRANSFUSI ON ORDERABLES Performing Organization Address City/[facility]/ZIP Co de Phone Number [employer] [facility] [place] CLIA # [id number] [address] [facility] [place] [address] * PREPARE RED BLOOD CELLS (02/01/2023 2:43 PM CDT) COMPONENT TYPE [id number] [facility] [place] COMPONENT IDENTIFICATION [id number] [facility] [place] UNIT ABO O [facility] [place] UNIT RH POS [facility] [place] CROSSMATCH Compatible [facility] [place] COMPONENT STATUS Issued [facility] [place] COMPONENT EXPIRATION DATE/TIME [id number] [facility] [place] COMPONENT CODING SYSTEM 5100 [facility] [place] VOLUME, BLOOD PRODUCT 350 [facility] [place] Other, specify 02/01/2023 2 :43 PM CDT Bryan Galindo III, MD LAB TRANSFUSI ON ORDERABLES Performing Organization Address [facility] Co de Phone Number [employer] [facility] [place] CLIA # [id number] [address] [place] [place] [address] * XR HIP 2 OR 3 VIEWS RT (02/01/2023 1:44 PM CDT) Anatomical Region Laterality Modality Lower Extremity Computed Radiogr aphy 02/01/2023 2:1 2 PM CDT Impressions 02/01/2023 2:14 PM CDT IMPRESSION: 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 Acute avulsion fracture of the greater trochanter with 2.8 cm of distal displacement. CT follow-up may be necessary for preoperative planning. Electronically Signed By: Jacob Bob MD, Signed On: 02/01/2023 2:14 PM, [email or web address] Narrative 02/01/2023 2:14 PM CDT EXAM: 2 views of the right hip. INDICATIONS: Traumatic right hip pain. FINDINGS: Comparison is with prior study dated 01/31/2023 Since the prior study there has been medial and possibly anterior dislocation of the acetabular component. The acetabular component is overlapping the medial wall and protrudes into the pelvis. There is an associated displaced avulsion fracture of the greater trochanter. The fracture is displaced approximately 2.8 cm. Procedure Note Jacob Bob MD - 02/01/2023 EXAM: 2 views of the right hip. INDICATIONS: Traumatic right hip pain. FINDINGS: Comparison is with prior study dated 01/31/2023 Since the prior study there has been medial and possibly anteriordislocation of the acetabular component. The acetabular component is overlapping themedial wall and protrudes into the pelvis. There is an associated displacedavulsion fracture of the greater trochanter. The fracture is displacedapproximately 2.8 cm. IMPRESSION: 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 Acute avulsion fracture of the greater trochanter with 2.8 cm of distal displacement. CT follow-up may be necessary for preoperative planning. Electronically Signed By: Jacob Bob MD, Signed On: 02/01/2023 2:14 PM,[email or web address] [facility] * (ABNORMAL) POC ELECTROLYTES/BMP (02/01/2023 5:33 AM CDT) SODIUM POC 137 136 - 145 mmol/L 02/01/2023 5:33 AM CDT [facility] POTASSIUM POC 4.0 3.5 - 5.1 mmol/L 02/01/2023 5:33 AM CDT [facility] CHLORIDE POC 104 98 - 109 mmol/L 02/01/2023 5:33 AM CDT [facility] TOTAL CO2 POC 20(L) 22 - 31 mmol/L 02/01/2023 5:33 AM T [facility] BLOOD UREA NITROGEN POC 22 8 - 26 mg/dL 02/01/2023 5:33 AM CDT [facility] CREATININE POC 1.00 0.60 - 1.20 mg/dL 02/01/2023 5:33 AM T [facility] Comment:The GFR result is no t clinically significant on patients <18 or >70 years of age. GLUCOSE POC 159(H) 74 - 99 mg/dL 02/01/2023 5:33 AM CDT [facility] HEMOGLOBIN POC 11.2 No Ref Range Estab g/dL 02/01/2023 5:33 AM CDT [facility] HEMATOCRIT POC 33(L) 37 - 47 % 02/01/2023 5:33 AM CDT [facility] CALCIUM IONIZED POC 5.0 4.5 - 5.2 mg/dL 02/01/2023 5:33 AM CDT [facility] [facility] COMMENT, BMP POC Christopher's Test not applicable 02/01/2023 5:33 AM CDT [facility] GFR POC >60 mL/min/1. 73 sq meter 02/01/2023 5:33 AM T [facility] Comment:eGFR calculated with 2020 CKD-EPI equation. Vegetarian diet, extremely high or low muscle mass, and may affect results. Cystatin C with Glomerular Filtration Rate is a suitable alternative for these patients. Blood 02/01/2023 5:3 3 AM CDT 02/01/2023 5:46 AM CDT Bryan Galindo III, MD [id number] [address] [place] [address] * XR FLUORO LESS THAN 1 HOUR (01/31/2023 2:11 PM CDT) Narrative 01/31/2023 2:11 PM CDT Order information only. Exam was auto-finalized. Bryan Galindo III, MD DIAGNOSTIC IM AGING ORDERABLES * POC PROTIME/INR (01/31/2023 7:45 AM CDT) PROTIME POC 12.9 10.9 - 13.0 seconds 01/31/2023 7:45 AM CDT [facility] INR POC 1.1 0.9 - 1.1 01/31/2023 7:45 AM T [facility] COMMENT, PT/INR POC Christopher's Test not applicable 01/31/2023 7:45 AM [facility] Blood, whole 01/31/2023 7:4 5 AM CDT 01/31/2023 12:02 PM CDT Bryan Galindo III, MD POINT OF CARE TESTING [facility] CLIA # [id number] [facility] [address] * (ABNORMAL) POC ELECTROLYTES/BMP (01/31/2023 7:42 AM CDT) SODIUM POC 142 136 - 145 mmol/L 01/31/2023 7:42 AM [facility] POTASSIUM POC 4.0 3.5 - 5.1 mmol/L 01/31/2023 7:42 AM [facility] CHLORIDE POC 104 98 - 109 mmol/L 01/31/2023 7:42 AM [facility] TOTAL CO2 POC 24 22 - 31 mmol/L 01/31/2023 7:42 AM [facility] BLOOD UREA NITROGEN POC 25 8 - 26 mg/dL 01/31/2023 7:42 AM [facility] CREATININE POC 1.20 0.60 - 1.20 mg/dL 01/31/2023 7:42 AM [facility] Comment:The GFR result is no t clinically significant on patients <18 or >70 years of age. GLUCOSE POC 86 74 - 99 mg/dL 01/31/2023 7:42 AM [facility] HEMOGLOBIN POC 17.7 No Ref Range Estab g/dL 01/31/2023 7:42 AM [facility] HEMATOCRIT POC 52(H) 37 - 47 % 01/31/2023 7:42 AM T [facility] CALCIUM IONIZED POC 5.5(H) 4.5 - 5.2 mg/dL 01/31/2023 7:42 AM CDT [facility] COMMENT, BMP POC Right Christopher's Test Passed 01/31/2023 7:42 AM CDT [facility] GFR POC >60 mL/min/1. 73 sq meter 01/31/2023 7:42 AM CDT [facility] Comment:eGFR calculated with 2020 CKD-EPI equation. Vegetarian diet, extremely high or low muscle mass, and may affect results. Cystatin C with Glomerular Filtration Rate is a suitable alternative for these patients. Blood 01/31/2023 7:4 2 AM CDT 01/31/2023 12:02 PM CDT Bryan Galindo III, MD POINT OF CARE TESTING [facility] CLIA # [id number] [facility] [place] [address] * VERIFICATION BLOOD GROUP (01/31/2023 7:30 AM CDT) ABO GROUP O 01/31/2023 10:32 AM CDT [email or web address] [place] RH (D) TYPE Positive 01/31/2023 10:32 AM [facility]T [facility] [place] Blood Venipuncture / Unknown 01/31/2023 7:30 AM CDT 01/31/2023 9:21 AM CDT Bryan Galindo III, MD BLOOD BANK OR DERABLES [facility] [place] CLIA # [id number] [address] [place] [address] [place] [phone] * TYPE AND SCREEN (01/31/2023 7:24 AM CDT) ABO GROUP O 02/01/2023 3:18 PM CDT [facility] [place] RH (D) TYPE Positive 02/01/2023 3:18 PM CDT [facility] [place] ANTIBODY SCREEN Negative 02/01/2023 3:18 PM CDT [facility] [place] Blood Venipuncture / Unknown 01/31/2023 7:24 AM CDT 02/01/2023 2:47 PM CDT Bryan Galindo III, MD BLOOD BANK OR DERABLES Performing Organization Address [facility]/ZIP Co de Phone Number [facility] [place] CLIA # [id number] [address] [facility] [place] [phone] * BLOOD BANK DRAW ONLY (01/31/2023 7:24 AM CDT) SPECIMEN HOLD, BLOOD Order Complete 01/31/2023 10:35 AM CDT [facility] [place] Blood Venipuncture / Unknown 01/31/2023 7:24 AM CDT 01/31/2023 9:21 AM CDT Bryan Galindo III, MD BLOOD BANK OR DERABLES Performing Organization Address [facility] Co de Phone Number [facility] [place] CLIA # [id number] [address] [facility] [place] [phone] documented in this encounter Visit Diagnoses Diagnosis Postoperative pain- Primary Other acute postoperative pain Closed fracture of right hip requiring operative repair, initial encounter documented in this encounter Administered Medications Active Administered Medications - up to 3 most recent administrations Medication Order MAR Action Action Date Dose Rate Site acetaminophen (TYLENOL) tablet 1,000 mg 1,000 mg, Oral, EVERY 8 HOURS, First dose on Tue01/31/23 at 1300, Until Discontinued, Routine, Post-op - Floor Given 02/01/2023 9:13 PM CDT 1,000 mg Inactive Administered Medications - up to 3 most recent administrations Medication Order MAR Action Action Date Dose Rate Site acetaminophen (TYLENOL) tablet 1,000 mg 1,000 mg, Oral, PRE-PROCEDURE ONCE, 1 dose, Starting on Tue01/31/23 at 0707, Until Tue01/31/23 at 0741, Routine, Pre-op Given 01/31/2023 7:41 AM CDT 1,000 mg acetaminophen (TYLENOL) tablet 1,000 mg 1,000 mg, Oral, PRE-PROCEDURE ONCE, 1 dose, Starting on Tue02/02/23 at 0626, Until Tue02/02/23 at 0645, Routine, Pre-op Given 02/02/2023 6:45 AM CDT 1,000 mg ceFAZolin (ANCEF,KEFZOL) 2,000 mg in sodium chloride 0.9% 50 mL IVPB 2,000 mg, IV, POST-PROCEDURE Q 8 HOURS, 2 doses, First dose on Tue01/31/23 at 1700, Last dose on Tue02/01/23 at 0100, Routine, Post-op - Floor, Antibiotic Indication: Surgical prophylaxis New Bag 02/01/2023 1:20 AM CDT 2,000 mg 100 mL/hr documented in this encounter Active and Recently Administered Medications Times are shown in CDT. Scheduled Medication Order 01/31/2023 02/01/2023 02/02/2023 acetaminophen (TYLENOL) tablet 1,000 mg (COMPLETED) 1,000 mg, Oral, PRE-PROCEDURE ONCE, 1 dose, Starting on Tue01/31/23 at 0707, Until Discontinued, Routine, Pre-op 0741 (Given - Provider: Vivi Ortiz RN) acetaminophen (TYLENOL) tablet 1,000 mg 1,000 mg, Oral, EVERY 8 HOURS, First dose on Tue01/31/23 at 1300, Until Discontinued, Routine, Post-op - Floor 1231 (Given - Provider: Emilia Newman RN)2027 (Given - Provider: Divine Reyna RN) 0513 (Given - Provider: Divine Reyna RN)1310 (Given - Provider: Lashanda Toure RN)2113 (Given - Provider: Divine Reyna, HILLARY) 0500 (Not Given - Provider: Divine Reyna RN - Reason: Patient NPO)1300 (Due)2100 (Due) acetaminophen (TYLENOL) tablet 1,000 mg (COMPLETED) 1,000 mg, Oral, PRE-PROCEDURE ONCE, 1 dose, Starting on Tue02/02/23 at 0626, Until Tue02/02/23 at 0645, Routine, Pre-op 0645 (Given - Provider: Gennaro Vides RN) albuterol (PROVENTIL,VENTOLIN) 2.5 mg /3 mL (0.083 %) inhalation solution 2.5 mg 2.5 mg, Inhalation, EVERY 6 HOURS RESPIRATORY, First dose on Tue02/02/23 at 1300, Until Discontinued, Routine, PACU 1115 (Given - Provider: Deniz Hector RN)1300 (Due)1900 (Due) apixaban (ELIQUIS) tablet 5 mg 5 mg, Oral, TWO TIMES DAILY, First dose on Tue02/01/23 at 0900, Until Discontinued, Routine, Previous Med: apixaban (Eliquis) 5 mg tablet - Orig Sig - Take by mouth 2 times daily. , Indication: Non-valvular A Fib 0907 (Given - Provider: Lashanda Toure RN)162 (Held by Provider - Provider: Bryan Galindo III, MD - Reason: Procedure - Comment: Surgery in a.m.)2100 (Automatically Held - Provider: Bryan Galindo III, MD) 0900 (Automatically Held - Provider: Brayn Galindo III, MD)2100 (Automatically Held - Provider: Bryan Galindo III, MD) aspirin (ECOTRIN EC) tablet 81 mg 81 mg, Oral, TWO TIMES DAILY, First dose on Tue01/31/23 at 2100, Until Discontinued, Routine, Post-op - Floor 2027 (Given - Provider: Divine Reyna RN) 0908 (Given - Provider: Lashanda Toure RN)162 (Held by Provider - Provider: Bryan Galindo III, MD - Reason: Procedure - Comment: Surgery in a.m.)2100 (Automatically Held - Provider: Bryan Galindo III, MD) 0900 (Automatically Held - Provider: Bryan Galindo III, MD)2100 (Automatically Held - Provider: Bryan Galindo III, MD) ceFAZolin (ANCEF,KEFZOL) 2,000 mg in sodium chloride 0.9% 50 mL IVPB (COMPLETED) 2,000 mg, IV, POST-PROCEDURE Q 8 HOURS, 2 doses, First dose on Tue01/31/23 at 1700, Last dose on Tue02/01/23 at 0100, Routine, Post-op - Floor, Antibiotic Indication: Surgical prophylaxis 1712 (New Bag - Provider: Emilia Newman RN)1742 (Stopped - Provider: Emilia Newman RN) 0120 (New Bag - Provider: Divine Reyna, HILLARY)0150 (Stopped - Provider: Divine Reyna RN) ceFAZolin (ANCEF,KEFZOL) vial 2,000 mg (COMPLETED) 2,000 mg, IV, PRE-PROCEDURE ONCE, 1 dose, Starting on Tue01/31/23 at 0707, Until Discontinued, Routine, Pre-op, Antibiotic Indication: Surgical prophylaxis 0855 (Given - Provider: Kris Mcghee CRNA) ceFAZolin (ANCEF,KEFZOL) vial 2,000 mg (COMPLETED) 2,000 mg, IV, PRE-PROCEDURE ONCE, 1 dose, Starting on Tue02/02/23 at 0626, Until Discontinued, Routine, Pre-op, Antibiotic Indication: Surgical prophylaxis 0720 (Given - Provider: Nhung Wilson CRNA) celecoxib (CeleBREX) capsule 400 mg (COMPLETED) 400 mg, Oral, PRE-PROCEDURE ONCE, 1 dose, Starting on Tue01/31/23 at 0707, Until Discontinued, Routine, Pre-op 0741 (Given - Provider: Vivi Ortiz RN) celecoxib (CeleBREX) capsule 400 mg (COMPLETED) 400 mg, Oral, PRE-PROCEDURE ONCE, 1 dose, Starting on Tue02/02/23 at 0626, Until Tue02/02/23 at 0646, Routine, Pre-op 0646 (Given - Provider: Gennaro Vides RN) doxycycline hyclate (VIBRAMYCIN) tablet 100 mg 100 mg, Oral, EVERY 12 HOURS (BlD), First dose on Tue02/01/23 at 0900, Until Discontinued, Routine, Antibiotic Indication: Surgical prophylaxis 0908 (Given - Provider: Lashanda Toure RN)2113 (Given - Provider: Divine Reyna, HILLARY) 0900 (Due)2100 (Due) finasteride (PROSCAR) tablet 5 mg 5 mg, Oral, DAILY, First dose on Tue01/31/23 at 1215, Until Discontinued, Routine, Previous Med: finasteride (PROSCAR) 5 mg tablet - Orig Sig - Take 5 mg by mouth daily. 1232 (Given - Provider: Emilia Newman RN) 0907 (Given - Provider: Lashanda Toure RN) 0900 (Due) gabapentin (NEURONTIN) capsule 600 mg (COMPLETED) 600 mg, Oral, PRE-PROCEDURE ONCE, 1 dose, Starting on Tue01/31/23 at 0707, Until Discontinued, Routine, Pre-op 0741 (Given - Provider: Vivi Ortiz RN) gabapentin (NEURONTIN) capsule 600 mg (COMPLETED) 600 mg, Oral, PRE-PROCEDURE ONCE, 1 dose, Starting on Tue02/02/23 at 0626, Until Tue02/02/23 at 0645, Routine, Pre-op 0645 (Given - Provider: Gennaro Vides RN) naloxone (NARCAN) 0.4 mg/mL injection 0.1 mg 0.1 mg, IV, SEE ADMIN INSTRUCTIONS, Starting on Tue01/31/23 at 0752, Until Discontinued, Routine, PACU predniSONE (DELTASONE) tablet 2.5 mg 2.5 mg, Oral, DAILY, First dose on Tue01/31/23 at 1215, Until Discontinued, Routine, Previous Med: predniSONE (DELTASONE) 2.5 mg tablet - Orig Sig - Take 2.5 mg by mouth daily. 1231 (Given - Provider: Emilia Newman RN) 0908 (Given - Provider: Lashanda Toure RN) 0900 (Due) sennosides-docusate sodium (SENNA-S) 8.6-50 mg per tablet 1 Tablet 1 Tablet, Oral, TWO TIMES DAILY, First dose on Tue01/31/23 at 1215, Until Discontinued, Routine, Post-op - Floor 1231 (Given - Provider: Emilia Newman RN)2027 (Given - Provider: Divine Reyna RN) 0908 (Given - Provider: Lashanda Toure RN)2112 (Given - Provider: Divine Reyna RN) 0900 (Due)2100 (Due) tamsulosin (FLOMAX) SR 24 hour capsule 0.4 mg 0.4 mg, Oral, DAILY AFTER BREAKFAST, First dose on Tue01/31/23 at 1215, Until Discontinued, Previous Med: tamsulosin HCl (TAMSULOSIN ORAL) - Orig Sig - Take by mouth. 1231 (Given - Provider: Emilia Newman RN) 0907 (Given - Provider: Lashanda Toure RN) 0900 (Due) tranexamic acid (CYKLOKAPRON) 100 mg/mL injection 1,000 mg (COMPLETED) 1,000 mg, IV, PRE-PROCEDURE ONCE, 1 dose, Starting on Tue01/31/23 at 0707, Until Discontinued, Routine, Pre-op 0743 (Given - Provider: Vivi Ortiz RN) tranexamic acid (CYKLOKAPRON) 100 mg/mL injection 1,000 mg (COMPLETED) 1,000 mg, IV, PRE-PROCEDURE ONCE, 1 dose, Starting on Tue02/02/23 at 0650, Until Tue02/02/23 at 0651, Routine, Pre-op 0651 (Given - Provider: Gennaro Vides RN) vancomycin (VANCOCIN) 1,500 mg in water (PEG,NADA) 300 mL IVPB (COMPLETED) 1,500 mg, IV, PRE-PROCEDURE ONCE, 1 dose, Starting on Tue01/31/23 at 0707, Until Discontinued, Routine, Pre-op, Antibiotic Indication: Surgical prophylaxis 0739 (New Bag - Provider: Vivi Ortiz RN)0909 (Stopped - Provider: Emilia Newman RN) vancomycin (VANCOCIN) 1,500 mg in water (PEG,NADA) 300 mL IVPB (COMPLETED) 1,500 mg, IV, PRE-PROCEDURE ONCE, 1 dose, Starting on Tue02/02/23 at 0626, Until Discontinued, Routine, Pre-op, Antibiotic Indication: Surgical prophylaxis 0641 (New Bag - Provider: Gennaro Vides RN)0811 (Due: Stopped - Provider: Gennaro Vides RN) Continuous Medication Order 01/31/2023 02/01/2023 02/02/2023 lactated ringers infusion () IV, at 75 mL/hr, CONTINUOUS, Starting on Tue01/31/23 at 0715, Until Tue01/31/23 at 1914, Routine, Pre-op 0739 (New Bag - Provider: Vivi Ortiz RN)0849 (Paused - Provider: Kris Mcghee CRNA - Comment: Switch to gravity)0850 (Restarted - Provider: Kris Mcghee CRNA)0859 (Continue from Pre-Op - Provider: Kris Mcghee CRNA)0940 (Fluid Volume - Provider: Kris Mcghee CRNA)1023 (Fluid Volume - Provider: Kris Mcghee CRNA) lactated ringers infusion IV, at 75 mL/hr, CONTINUOUS, Starting on Tue02/02/23 at 0630, Until Tue02/02/23 at 1829, Routine, Pre-op 0700 (New Bag - Provider: Nhung Wilson CRNA)1024 (Fluid Volume - Provider: Nhung Wilson CRNA)1238 (Fluid Volume - Provider: Nhung Wilson CRNA) sodium chloride 0.9% infusion IV, at 80 mL/hr, CONTINUOUS, Starting on Tue01/31/23 at 1215, Until Discontinued, Routine, Post-op - Floor 1215 (Restarted - Provider: Emilia Newman, RN)2027 (New Bag - Provider: Divine Reyna, RN) 0150 (Stopped - Provider: Divine Reyna, RN)1624 (New Bag - Provider: Lashanda Toure RN) PRN Medication Order 01/31/2023 02/01/2023 02/02/2023 bisacodyL (DULCOLAX) rectal suppository 10 mg(Linked Group 1) 10 mg, Rectal, DAILY PRN, Starting on Tue01/31/23 at 1200, Until Discontinued, Constipation, Routine, Post-op - Floor diphenhydrAMINE (BENADRYL) tablet 25 mg 25 mg, Oral, EVERY 6 HOURS PRN, Starting on Tue01/31/23 at 1200, Until Discontinued, Itching, Routine, Post-op - Floor fentaNYL PF (SUBLIMAZE) 50 mcg/mL injection 25 mcg (COMPLETED) 25 mcg, IV, POST-PROCEDURE ONCE PRN, 1 dose, Starting on Tue02/02/23 at 1220, Until Tue02/02/23 at 1221, Pain (See admin instructions), Routine, PACU 1221 (Given - Provider: Deniz Hector RN) gentamicin (GARAMYCIN) 240 mg in sodium chloride 0.9% irrigation 3,000 mL IRRIGATION (CANCELED) INTRA-PROCEDURE PRN, Starting on Tue01/31/23 at 0953, Until Tue01/31/23 at 1031, Routine, Intra-op 0953 (Given - Provider: Bryan Galindo III, MD) gentamicin (GARAMYCIN) injection (CANCELED) INTRA-PROCEDURE PRN, Starting on Tue02/02/23 at 0820, Until Tue02/02/23 at 1045, Routine, Intra-op 0820 (Given - Provider: Bryan Galindo III, MD) HYDROmorphone (DILAUDID) 2 mg/mL injection 0.6 mg 0.6 mg, IV, EVERY 30 MINUTES PRN, Starting on Tue01/31/23 at 1200, Until Discontinued, Pain (See admin instructions), Routine, Post-op - Floor 2131 (Given - Provider: Divine Reyna RN) 0330 (Given - Provider: Divine Reyna RN) ondansetron (ZOFRAN ODT) tablet 4 mg 4 mg, Oral, EVERY 6 HOURS PRN, Starting on Tue01/31/23 at 1200, Until Discontinued, Nausea/Emesis, Routine, Post-op - Floor ondansetron (ZOFRAN) 4 mg/2 mL injection 4 mg 4 mg, IV, EVERY 6 HOURS PRN, Starting on Tue01/31/23 at 1200, Until Discontinued, Nausea/Emesis, Routine, Post-op - Floor oxyCODONE (ROXICODONE) tablet 10 mg 10 mg, Oral, EVERY 4 HOURS PRN, Starting on Tue01/31/23 at 1200, Until Discontinued, Pain (See admin instructions), Routine, Post-op - Floor 2043 (Given - Provider: Divine Reyna RN) oxyCODONE (ROXICODONE) tablet 5 mg 5 mg, Oral, EVERY 4 HOURS PRN, Starting on Tue01/31/23 at 1200, Until Discontinued, Pain (See admin instructions), Routine, Post-op - Floor 1720 (Given - Provider: Emilia Newman RN) 0515 (Given - Provider: Divine Reyna RN)0915 (Given - Provider: Lashanda Toure RN)1307 (Given - Provider: Lashanda Toure, RN)1636 (Given - Provider: Lashanda Toure, RN)2113 (Given - Provider: Divine Reyna, HILLARY) polyethylene glycol (MIRALAX) packet 17 Gram(Linked Group 1) 17 Gram, Oral, DAILY PRN, Starting on Tue01/31/23 at 1200, Until Discontinued, Constipation, Routine, Post-op - Floor Linked Groups Order Group 1: polyethylene glycol (MIRALAX) packet 17 GramJump to med 17 Gram, Oral, DAILY PRN, Starting on Tue01/31/23 at 1200, Until Discontinued, Constipation, Routine, Post-op - Floor Or bisacodyL (DULCOLAX) rectal suppository 10 mgJump to med 10 mg, Rectal, DAILY PRN, Starting on 01/31/23 at 1200, Until Discontinued, Constipation, Routine, Post-op - Floor documented in this encounter Advance Directives For more information, please contact: [phone] Latest Code Status on File Code Status Date Activated Date Inactivated Comments Full Code 02/02/2023 6:26 AM Code Status History Code Status Date Activated Date Inactivated Comments Full Code 01/31/2023 12:00 PM 02/02/2023 6:26 AM Full Code 01/31/2023 7:07 AM 01/31/2023 12:00 PM Care Teams Office Services Representative Relationship Specialty Start Date End Date Gilles Evangelista MD [address] [address] PCP - General Internal Medicine 01/03/23 documented as of this encounter
[2023-02-12] MEDS ORDERED: oxyCODONE IMMEDIATE RELEASE 5 MG TABLET PO PRN (12:45)
--- NOTE | 2023-02-12 13:00 | Physical Therapy Evaluation ---
PT Evaluation-General Medical Diagnosis Admission Date Feb 12, 2023 at 12:25 Medical Diagnosis: Right RAGINI/Right hip ORIF Onset Date: Jan 31, 2023 Therapy Diagnosis Therapy Diagnosis: Gait Deficit, Strength deficit Height/Weight Height (Feet): 6 Height (Inches): 3.50 Weight (Pounds): 198 Weight (Ounces): 2.0 Precautions Precautions/Isolations: Fall Prevention, Standard Precautions Right RAGINI posterior precautions Weight Bear Status Right Lower Extremity: Right Non Weight Bearing Left Lower Extremity: Left Weight Bearing/Tolerated Referral Physician: Dr. Driver Reason for Referral: Evaluation/Treatment Medical History Reviewed History: Yes Social History Home: [facility] Current Living Status: Alone Entry Into Home: Stairs Without Railing PT Steps Into Home: 4 Prior Prior Level of Function SCALE: Activities may be completed with or without assistive devices. 7-Seddpurstg-pblwyzr completes the activity by him/herself with no assistance from a helper. 5-Set-up or Clean-up Assistance-helper sets up or cleans up; patient completes activity. [place] assists only prior to or following the activity. 4-Supervision or Touching Assistance-helper provides verbal cues and/or touching/steadying and/or contact guard assistance as patient completes activity. Assistance may be provided throughout the activity or intermittently. 3-Partial/Moderate Assistance-helper does LESS THAN HALF the effort. [place] lifts, holds or supports trunk or limbs, but provides less than half the effort. 2-Substantial/Maximal Assistance-helper does MORE THAN HALF the effort. [place] lifts or holds trunk or limbs and provides more than half the effort. 2-Lqzhrlwqb-rzaxrr does ALL the effort. Patient does none of the effort to complete the activity. Or, the assistance of 2 or more helpers is required for the patient to complete the activity. If activity was not attempted, code reason: 7-Patient Refused. 9-Not Applicable-not attempted and the patient did not perform the activity before the current illness, exacerbation or injury. 10-Not Attempted due to Environmental Limitations-(lack of equipment, weather restraints, etc.). 88-Not Attempted due to Medical Conditions or Safety Concerns. Bed Mobility: 6 Transfers (B,C,W/C): 6 Gait: 6 Stairs: 6 Indoor Mobility (Ambulation): Independent Stairs: Independent Prior Devices Use: None PT Evaluation-Current Subjective Patient presents to this hospital via EMS wheelchair. Patient sitting in w/c upon PT arrival, agreeable to treatment. Patient rates pain in right hip at 4/10. Pain Section J - Health Conditions 1. Rarely or not at all 2. Occasionally 3. Frequently 4. Almost constantly 8. Unable to answer Pain Effect on Sleep: 2 Pain Interference with Therapy: 3 Pain Interference w/Day-to-Day: 3 Objective Patient Orientation: Person, Place, Time, Situation Attachments: Oxygen ROM/Strength ROM Lower Extremities Right Hip limited all planes due to pain. All other right knee and ankle ROMs WFLs. Left hip and knee WFLs Strength Lower Extremities Right LE 3-/5 all planes. Left LE 4/5 all planes. Sensory Vision: Wears Glasses Hearing: Functional Sensation Right Lower Extremit: Intact Sensation Left Lower Extremity: Intact Transfers Roll Left & Right (QC): 4 Sit to Lying (QC): 2 Lying to Sitting/Side of Bed(Q: 2 Sit to Stand (QC): 2 Chair/Fnd-ak-Bewol Xfer(QC): 2 Toilet Transfer (QC): 2 Car Transfer (QC): 88 Gait Does the Patient Walk?: No and Walking Goal NOT indicated Mode of Locomotion: Wheelchair Anticipated Mode of Locomotion: Wheelchair Walk 10 feet (QC): 88 Walk 50 ft with 2 Turns(QC): 88 Walk 150 ft (QC): 88 Walking 10ft/uneven surface-QC: 88 Wheelchair Training Does the Pt Use a Wheelchair?: Yes Wheel 50 ft with 2 turns (QC): 88 Wheel 150 ft (QC): 88 Stairs #of Steps: 0 1 Step (curb) (QC): 88 4 Steps (QC): 88 12 Steps (QC): 88 Balance Sitting Static: Good Sitting Dynamic: Good Standing Static: Poor Standing Dynamic: Poor Picking up an Object (QC): 88 Assessment/Needs Patient reports he is very sore from the drive over and is experiencing increased right hip pain due to the ride over in the w/c and van. Patient performs all bed mobility and transfers with max A. Patient presents with left prosthetic donned. Patient is able to perform sit to stand and SPT to the bed on the left LE with max A. Patient in bed post treatment with all needs met, nursing notified, and call light in hand. Slideboard in the room and due to limitations of right LE transfers with slideboard and standing with prosthetics will both benefit the patient. Rehab Potential: Guarded Equipment Needs FWW PT Memorial Designer Goals Memorial Designer Goals PT Memorial Designer Goals Time Frame: Mar 12, 2023 Roll Left to Right (QC): 6 Sit to Lying (QC): 6 Lying-Sitting on Side/Bed(QC): 6 Sit to Stand (QC): 6 Chair/Bun-zt-Krbrr Xfer(QC): 4 Toilet/Commode Transfer (QC): 4 Car Transfer (QC): 4 Does the Patient Walk: No and Walking Goal NOT indicated Walk 10 feet (QC): 88 Walk 10ft-Uneven Surface(QC): 88 Walk 50ft with 2 Turns (QC): 88 Walk 150 ft (QC): 88 Does the Pt use WC or Scooter?: Yes Wheel 50 feet with 2 turns (QC: 6 Type: Manual Wheel 150 feet: 6 Type: Manual 1 Step (curb) (QC): 3 4 Steps (QC): 3 12 Steps (QC): 88 Picking up an Object (QC): 88 Stairs goal established as patient has 4 steps to enter his and his daughters house (next door to his). If a ramp cannot be built by the time of his d/c he will have to train steps using his left LE or if weight bearing is allowed by ph ysician the using right LE based upon physicians restrictions. PT Plan Problem List Problem List: Activity Tolerance, Functional Strength, Safety, Balance, Gait, Transfer, Bed Mobility, ROM Treatment/Plan Treatment Plan: Continue Plan of Care Treatment Plan: Bed Mobility, Education, Functional Activity Guillermo, Functional Strength, Group Therapy, Gait, Safety, Therapeutic Exercise, Transfers Treatment Duration: Mar 15, 2023 Frequency: 11 times per week Estimated Hrs Per Day: .25 hour per day Patient and/or Family Agrees t: Yes Safety Risks/Education Patient Education: Gait Training, Transfer Techniques Teaching Recipient: Patient Teaching Methods: Demonstration, Discussion Response to Teaching: Verbalize Understanding, Return Demonstration Time Time In: 1223 Time Out: 1250 DATE: Feb 12, 2023 Total Billed Treatment Time: 27 Total Billed Treatment Visit, EVM (10'), BLAIRE (17') CHARLIE FLORENTINO PT Feb 12, 2023 13:00
[2023-02-12 15:26] VITALS: BP 131/66
[2023-02-12 15:40] VITALS: BP 109/59
[2023-02-12] MEDS ORDERED: RT-Ipratropium/Albuterol NEB 3 ML VIAL INH PRN (15:45)
[2023-02-12] MEDS: HYDROcodone/ACETAMINOPHEN 5 MG/325 MG TABLET PO PRN (17:52)
[2023-02-12 19:22] VITALS: BP 98/60
[2023-02-12] MEDS: POTASSIUM CHLORIDE 10 MEQ TABLET PO SCH (21:19)
[2023-02-12] MEDS: TAMSULOSIN 0.4 MG (FLOMAX) CAP PO SCH (21:19)
[2023-02-12] MEDS: DOCUSATE SODIUM 100 MG CAPSULE PO SCH (21:19)
[2023-02-12] MEDS: ASPIRIN 81 MG CHEWABLE TABLET PO SCH (21:19)
[2023-02-12] MEDS: PANTOPRAZOLE 40 MG TABLET PO SCH (21:19)
[2023-02-12] MEDS: FERROUS SULFATE 325 MG (IRON) TABLET PO SCH (21:19)
[2023-02-12] MEDS: SENNOSIDES 8.6 MG TABLET PO SCH (21:19)
[2023-02-12] MEDS ORDERED: METHOTREXATE 2.5 MG TAB PO SCH (23:00)
[2023-02-13] MEDS: HYDROcodone/ACETAMINOPHEN 5 MG/325 MG TABLET PO PRN ×3 (01:27→19:50)
[2023-02-13 05:35] LABS: BASOPHILS % (AUTO) 1 % (0-10); EOSINOPHILS # (AUTO) 0.1 10^3/uL (0.0-0.3); EOSINOPHILS % (AUTO) 2 % (0-10); HEMATOCRIT 27 % (40-54); HEMOGLOBIN 8.7 g/dL (13.3-17.7); LYMPHOCYTES # (AUTO) 0.8 10^3/uL (1.0-4.0); LYMPHOCYTES % (AUTO) 21 % (12-44); MEAN CORPUSCULAR HEMOGLOBIN 31 pg (25-34); MEAN CORPUSCULAR HGB CONC 33 g/dL (32-36); MEAN CORPUSCULAR VOLUME 94 fL (80-99); MEAN PLATELET VOLUME 10.1 fL (9.0-12.2); MONOCYTES # (AUTO) 0.6 10^3/uL (0.0-1.0); MONOCYTES % (AUTO) 16 % (0-12); NEUTROPHILS # (AUTO) 2.4 10^3/uL (1.8-7.8); NEUTROPHILS % (AUTO) 61 % (42-75); PLATELET COUNT 237 10^3/uL (130-400)
[2023-02-13 06:00] LABS: ALBUMIN 2.3 GM/DL (3.2-4.5); BILIRUBIN,TOTAL 1.4 MG/DL (0.1-1.0); CALCIUM 8.5 MG/DL (8.5-10.1); CREATININE SERUM 0.85 MG/DL (0.60-1.30); POTASSIUM 3.8 MMOL/L (3.6-5.0); TOTAL PROTEIN 5.6 GM/DL (6.4-8.2)
[2023-02-13] MEDS: THERAPEUTIC MULTIVITAMIN W/MINERALS TABLET PO SCH (06:01)
--- NOTE | 2023-02-13 07:01 | Progress Note ---
Subjective Date Seen by a Provider: Feb 13, 2023 Time Seen by a Provider: 12:00 Subjective/Events-last exam Patient doing really well Bowels are moving Pain is controlled Needs O2 humidified and saline nasal spray due to chronic epistaxis issues We will get out of bed in a chair today Review of Systems General: Fatigue, Malaise Musculoskeletal: leg pain Objective Exam Last Set of Vital Signs Vital Signs Date Time Temp Pulse Resp B/P (MAP) Pulse Ox O2 Delivery O2 Flow Rate FiO2 02/12/23 20:00 Nasal Cannula 1.50 02/12/23 19:22 36.6 87 19 98/60 (73) 92 Capillary Refill : I&O Intake and Output 02/13/23 00:00 Intake Total 1120 ml Output Total 1425 ml Balance -305 ml Intake Oral 1120 ml Output Urine Total 1425 ml Daily Weight Change Yes, 24-33 lbs General: Alert, Oriented X3, Cooperative, No Acute Distress Lungs: Clear to Auscultation, Normal Air Movement Heart: Regular Rate, Normal S1, Normal S2, No Murmurs Psych/Mental Status: Mental Status NL, Mood NL Results Lab Laboratory Tests 02/13/23 05:03: White Blood Count 4.0L, Red Blood Count 2.83L, Hemoglobin 8.7L, Hematocrit 27L, Mean Corpuscular Volume 94, Mean Corpuscular Hemoglobin 31, Mean Corpuscular Hemoglobin Concent 33, Red Cell Distribution Width 16.7H, Platelet Count 237, Mean Platelet Volume 10.1, Immature Granulocyte % (Auto) 1, Neutrophils (%) (Auto) 61, Lymphocytes (%) (Auto) 21, Monocytes (%) (Auto) 16H, Eosinophils (%) (Auto) 2, Basophils (%) (Auto) 1, Neutrophils # (Auto) 2.4, Lymphocytes # (Auto) 0.8L, Monocytes # (Auto) 0.6, Eosinophils # (Auto) 0.1, Basophils # (Auto) 0.0, Immature Granulocyte # (Auto) 0.0, Sodium Level 139, Potassium Level 3.8, Chlori de Level 111H, Carbon Dioxide Level 21, Anion Gap 7, Blood Urea Nitrogen 17, Creatinine 0.85, Estimat Glomerular Filtration Rate 88, BUN/Creatinine Ratio 20, Glucose Level 89, Calcium Level 8.5, Corrected Calcium 9.9, Total Bilirubin 1.4H , Aspartate Amino Transf (AST/SGOT) 36H, Alanine Aminotransferase (ALT/SGPT) 28, Alkaline Phosphatase 131, Total Protein 5.6L, Albumin 2.3L Assessment/Plan Assessment/Plan Assess & Plan/Chief Complaint Assessment: Debility following right chronic hip fracture status post repair on 01/31/2023 then periprosthetic fracture requiring repair on 02/02/2023 with complication of hemorrhagic shock and electrolyte abnormality requiring higher level of care to Keke Gordillo Prior history of left BKA at 68yo Atrial fibrillation Former smoker Chronic UTI Anemia previously received 3 units of blood postoperatively Plan: Home meds Pain control Oral anticoagulation MARISOL LEIGH DO Feb 13, 2023 07:01
[2023-02-13 07:35] VITALS: BP 113/61
[2023-02-13] MEDS: SENNA W/DOCUSATE TABLET PO SCH (08:06)
[2023-02-13] MEDS: predniSONE 5 MG TABLET PO SCH (08:06)
[2023-02-13] MEDS: DOCUSATE SODIUM 100 MG CAPSULE PO SCH ×2 (08:06→19:51)
[2023-02-13] MEDS: POTASSIUM CHLORIDE 10 MEQ TABLET PO SCH ×3 (08:06→19:51)
[2023-02-13] MEDS: FINASTERIDE 5 MG TABLET PO SCH (08:06)
[2023-02-13] MEDS: SENNOSIDES 8.6 MG TABLET PO SCH ×2 (08:06→19:51)
[2023-02-13] MEDS: PANTOPRAZOLE 40 MG TABLET PO SCH ×2 (08:07→19:51)
[2023-02-13] MEDS: ASPIRIN 81 MG CHEWABLE TABLET PO SCH ×2 (08:07→19:50)
[2023-02-13] MEDS: FERROUS SULFATE 325 MG (IRON) TABLET PO SCH ×2 (08:07→19:50)
[2023-02-13] MEDS: TAMSULOSIN 0.4 MG (FLOMAX) CAP PO SCH ×2 (08:07→19:50)
[2023-02-13] MEDS: CALCIUM CARBONATE 600 MG +VITAMIN D TABLET PO SCH (08:12)
[2023-02-13] MEDS: SALINE NASAL SPRAY 45 ML BTL SCH ×3 (12:00→19:50)
[2023-02-13 19:33] VITALS: BP 115/69
[2023-02-13] MEDS: APIXABAN 5 MG TABLET PO SCH (21:24)
[2023-02-14] MEDS: THERAPEUTIC MULTIVITAMIN W/MINERALS TABLET PO SCH (05:49)
[2023-02-14 07:49] VITALS: BP 124/63
[2023-02-14] MEDS: predniSONE 5 MG TABLET PO SCH (08:49)
[2023-02-14] MEDS: IRON SUCROSE 200 MG/10 ML VIAL IV SCH (08:50)
[2023-02-14] MEDS: ASPIRIN 81 MG CHEWABLE TABLET PO SCH ×2 (08:50→20:37)
[2023-02-14] MEDS: TAMSULOSIN 0.4 MG (FLOMAX) CAP PO SCH ×2 (08:50→20:37)
[2023-02-14] MEDS: SENNOSIDES 8.6 MG TABLET PO SCH ×2 (08:50→20:37)
[2023-02-14] MEDS: FERROUS SULFATE 325 MG (IRON) TABLET PO SCH ×2 (08:50→20:37)
[2023-02-14] MEDS: SALINE NASAL SPRAY 45 ML BTL SCH ×4 (08:50→20:38)
[2023-02-14] MEDS: APIXABAN 5 MG TABLET PO SCH ×2 (08:51→20:37)
[2023-02-14] MEDS: POTASSIUM CHLORIDE 10 MEQ TABLET PO SCH ×3 (08:51→20:37)
[2023-02-14] MEDS: FINASTERIDE 5 MG TABLET PO SCH (08:51)
[2023-02-14] MEDS: DOCUSATE SODIUM 100 MG CAPSULE PO SCH ×2 (08:51→20:37)
[2023-02-14] MEDS: SENNA W/DOCUSATE TABLET PO SCH (08:51)
[2023-02-14] MEDS: PANTOPRAZOLE 40 MG TABLET PO SCH ×2 (08:51→20:37)
[2023-02-14] MEDS: CALCIUM CARBONATE 600 MG +VITAMIN D TABLET PO SCH (09:05)
--- NOTE | 2023-02-14 10:03 | Progress Note ---
Subjective Date Seen by a Provider: Feb 14, 2023 Time Seen by a Provider: 10:00 Subjective/Events-last exam Patient doing really well Working with therapy No falls Pain is controlled Eating and drinking well Review of Systems General: Fatigue, Malaise Musculoskeletal: leg pain Objective Exam Last Set of Vital Signs Vital Signs Date Time Temp Pulse Resp B/P (MAP) Pulse Ox O2 Delivery O2 Flow Rate FiO2 02/14/23 07:50 92 High Flow N/C 2.00 02/14/23 07:49 36.9 95 16 124/63 (83) Capillary Refill : I&O Intake and Output 02/14/23 00:00 Intake Total 2620 ml Output Total 2550 ml Balance 70 ml Intake Oral 2620 ml Output Urine Total 2550 ml # Bowel Movements 2 General: Alert, Oriented X3, Cooperative, No Acute Distress Lungs: Clear to Auscultation, Normal Air Movement Heart: Regular Rate, Normal S1, Normal S2, No Murmurs Psych/Mental Status: Mental Status NL, Mood NL Results Lab Laboratory Tests 02/13/23 12:37: Iron Level 33L, Vitamin B12 Level 504 Assessment/Plan Assessment/Plan Assess & Plan/Chief Complaint Assessment: Debility following right chronic hip fracture status post repair on 01/31/2023 then periprosthetic fracture requiring repair on 02/02/2023 with complication of hemorrhagic shock and electrolyte abnormality requiring higher level of care to Keke Gordillo Prior history of left BKA at 68yo Atrial fibrillation Former smoker Chronic UTI Anemia previously received 3 units of blood postoperatively Plan: Home meds Pain control Oral anticoagulation MARISOL LEIGH DO Feb 14, 2023 10:03
--- NOTE | 2023-02-14 11:10 | Occupational Therapy Eval ---
OT Evaluation-General/PLF Medical Diagnosis Admission Date Feb 12, 2023 at 12:25 Medical Diagnosis: Right RAGINI/Right hip ORIF Onset Date: Jan 31, 2023 Therapy Diagnosis Therapy Diagnosis: weakness Height/Weight Height (Feet): 6 Height (Inches): 3.50 Weight (Pounds): 198 Weight (Ounces): 2.0 Precautions Precautions/Isolations: Fall Prevention, Standard Precautions Weight Bear Status Weight Bearing Restriction: Non Weight Bearing Location Restriction: R LE WBS (Ord/Comment): LLE BKA w/ prosthesis, PMH of pelvic pinning Referral Physician: Dr. Driver Referral Reason: Evaluation/Treatment Medical History Pertinent Medical History: Atrial Fib Reviewed History: Yes Social History Home: Multilevel Current Living Status: Alone Entry Into Home: Stairs Without Railing Steps Into Home: 4 Other Obstacles: entry ramp being built ADL-Prior Level of Function SCALE: Activities may be completed with or without assistive devices. 5-Qwmupqnjes-eirdtrr completes the activity by him/herself with no assistance from a helper. 5-Set-up or Clean-up Assistance-helper sets up or cleans up; patient completes activity. [place] assists only prior to or following the activity. 4-Supervision or Touching Assistance-helper provides verbal cues and/or touching/steadying and/or contact guard assistance as patient completes acti vity. Assistance may be provided throughout the activity or intermittently. 3-Partial/Moderate Assistance-helper does LESS THAN HALF the effort. [place] lifts, holds or supports trunk or limbs, but provides less than half the effort. 2-Substantial/Maximal Assistance-helper does MORE THAN HALF the effort. [place] lifts or holds trunk or limbs and provides more than half the effort. 7-Cbugybdvy-qafbct does ALL the effort. Patient does none of the effort to complete the activity. Or, the assistance of 2 or more helpers is required for the patient to complete the activity. If activity was not attempted, code reason: 7-Patient Refused. 9-Not Applicable-not attempted and the patient did not perform the activity before the current illness, exacerbation or injury. 10-Not Attempted due to Environmental Limitations-(lack of equipment, weather restraints, etc.). 88-Not Attempted due to Medical Conditions or Safety Concerns. ADL PLOF Comments Kaitlyn Gonzalez is aussie-Ermelinda mix, does own yardwork weed trimming hired out Self Care: Independent Functional Cognition: Independent DME/Equipment: Bath Chair, Grab Bars, Tub/Shower DME/Equipment Comments has a 3 and 4 point cane, has FWW at home Drive Self: Yes OT Current Status Subjective Agreeable to therapy and intervention for 02 titrates and WC mobility Pain Numeric Pain Scale: 4 Location: Right Location Body Site: Thigh Mental Status/Objective Patient Orientation: Person, Place, Time, Situation OT Chcf Goals Chcf Goals 1=Demonstrate adherence to instructed precautions during ADL tasks. 2=Patient will verbalize/demonstrate understanding of assistive devices/modifications for ADL. 3=Patient will improve strength/tolerance for activity to enable patient to perform ADL's. OT Education/Plan Treatment Plan/Plan of Care Patient would benefit from OT for education, treatment and training to promote independence in ADL's, mobility, safety and/or upper extremity function for ADL's. Rehab Potential: GuardNISHA Reyes OT Feb 14, 2023 11:10
--- NOTE | 2023-02-14 11:13 | Physical Therapy Daily Note ---
PT Daily Note-Current Subjective Patient agrees to PT/OT cotreat Pain Section J - Health Conditions 1. Rarely or not at all 2. Occasionally 3. Frequently 4. Almost constantly 8. Unable to answer Pain Effect on Sleep: 1 Pain Interference with Therapy: 1 Pain Interference w/Day-to-Day: 1 Mental Status Patient Orientation: Normal For Age Attachments: Oxygen Transfers SCALE: Activities may be completed with or without assistive devices. 6-Qcenqfzaxr-wbqotym completes the activity by him/herself with no assistance from a helper. 5-Set-up or Clean-up Assistance-helper sets up or cleans up; patient completes activity. [place] assists only prior to or following the activity. 4-Supervision or Touching Assistance-helper provides verbal cues and/or touching/steadying and/or contact guard assistance as patient completes activity. Assistance may be provided throughout the activity or intermittently. 3-Partial/Moderate Assistance-helper does LESS THAN HALF the effort. [place] lifts, holds or supports trunk or limbs, but provides less than half the effort. 2-Substantial/Maximal Assistance-helper does MORE THAN HALF the effort. [place] lifts or holds trunk or limbs and provides more than half the effort. 5-Rgbndzovf-bozrsq does ALL the effort. Patient does none of the effort to complete the activity. Or, the assistance of 2 or more helpers is required for the patient to complete the activity. If activity was not attempted, code reason: 7-Patient Refused. 9-Not Applicable-not attempted and the patient did not perform the activity before the current illness, exacerbation or injury. 10-Not Attempted due to Environmental Limitations-(lack of equipment, weather restraints, etc.). 88-Not Attempted due to Medical Conditions or Safety Concerns. Lying to Sitting/Side of Bed(Q: 6 Chair/Bav-th-Ehudf Xfer(QC): 4 slide board transfer bed to w/c with PT removing arm rest/OT CGA for assist to transfer/slide to w/c Weight Bearing Right Lower Extremity: Right Non Weight Bearing Left Lower Extremity: Left Weight Bearing/Tolerated Wheelchair Training Does the Pt Use a Wheelchair?: Yes Wheel 50 ft with 2 turns (QC): 6 Wheel 150 ft (QC): 6 Type of Wheelchair: Manual Assessment Patient highly motivated with w/c mobility. Good negotiation with w/c use. PT assist to place foot rests and arm rest. Patient complied with NWB right LE with slideboard transfer. PT Mcfp Goals Orthopedic Shoe Maker Goals PT Mcfp Goals Time Frame: Mar 12, 2023 Roll Left & Right (QC): 6 Sit to Lying (QC): 6 Lying-Sitting on Side/Bed(QC): 6 Sit to Stand (QC): 6 Chair/Igw-cm-Kzyle Xfer(QC): 4 Toilet Transfer (QC): 4 Car Transfer (QC): 4 Does the Patient Walk: No and Walking Goal NOT indicated Walk 10 feet (QC): 88 Walk 50ft with 2 Turns (QC): 88 Walk 150 ft (QC): 88 Walking 10ft on Uneven Surface: 88 1 Step (curb) (QC): 3 4 Steps (QC): 3 12 Steps (QC): 88 Picking up an Object (QC): 88 Does the Pt use WC or Scooter?: Yes Wheel 50 feet with 2 turns (QC: 6 Type: Manual Wheel 150 feet: 6 Type: Manual PT Plan Treatment/Plan Treatment Plan: Continue Plan of Care Treatment Plan: Bed Mobility, Education, Functional Activity Guillermo, Functional Strength, Group Therapy, Gait, Safety, Therapeutic Exercise, Transfers Treatment Duration: Mar 15, 2023 Frequency: 6 times per week Estimated Hrs Per Day: .25 hour per day Patient and/or Family Agrees t: Yes Time Time In: 944 Time Out: 1009 DATE: Feb 14, 2023 Total Billed Treatment Time: 25 Total Billed Treatment 1 visit FA 11 min (cotreat with OT) [facility] 14 min HIPOLITO SAGASTUME PT Feb 14, 2023 11:13
--- NOTE | 2023-02-14 11:18 | Occupational Therapy Eval ---
OT Evaluation-General/PLF Medical Diagnosis Admission Date Feb 12, 2023 at 12:25 Medical Diagnosis: Right RAGINI/Right hip ORIF Onset Date: Jan 31, 2023 Therapy Diagnosis Therapy Diagnosis: weakness, s/p RTKA anterior Height/Weight Height (Feet): 6 Height (Inches): 3.50 Weight (Pounds): 198 Weight (Ounces): 2.0 Precautions Precautions/Isolations: Fall Prevention, Standard Precautions Weight Bear Status Weight Bearing Restriction: Non Weight Bearing Location Restriction: R LE WBS (Ord/Comment): left prosthesis BKA LLE NWB 3 weeks post surgery Referral Physician: Dr. Driver Referral Reason: Activity Tolerance, Self Care, Evaluation/Treatment Medical History Pertinent Medical History: Atrial Fib Reviewed History: Yes Social History Home: [facility] Current Living Status: Alone Entry Into Home: Stairs Without Railing Steps Into Home: 4 ADL-Prior Level of Function SCALE: Activities may be completed with or without assistive devices. 7-Qfaycpdtxw-okrhvyu completes the activity by him/herself with no assistance from a helper. 5-Set-up or Clean-up Assistance-helper sets up or cleans up; patient completes activity. [place] assists only prior to or following the activity. 4-Supervision or Touching Assistance-helper provides verbal cues and/or touching/steadying and/or contact guard assistance as patient completes activity. Assistance may be provided throughout the activity or intermittently. 3-Partial/Moderate Assistance-helper does LESS THAN HALF the effort. [place] lifts, holds or supports trunk or limbs, but provides less than half the effort. 2-Substantial/Maximal Assistance-helper does MORE THAN HALF the effort. [place] lifts or holds trunk or limbs and provides more than half the effort. 5-Rvqafpakr-froojz does ALL the effort. Patient does none of the effort to complete the activity. Or, the assistance of 2 or more helpers is required for the patient to complete the activity. If activity was not attempted, code reason: 7-Patient Refused. 9-Not Applicable-not attempted and the patient did not perform the activity before the current illness, exacerbation or injury. 10-Not Attempted due to Environmental Limitations-(lack of equipment, weather restraints, etc.). 88-Not Attempted due to Medical Conditions or Safety Concerns. ADL PLOF Comments Does own yardwork, hires out weed/trimming, has Aussie-Ermelinda mix breed at home Self Care: Independent Functional Cognition: Independent DME/Equipment: Bath Chair, Grab Bars, Shower Hose Concrete Form Setter, Tub/Shower DME/Equipment Comments has walker an cane at home very small bathroom, U shape Drive Self: Yes Leisure Interests: see rec therapy OT Current Status Subjective Agreeable to therapy, WC mobility and 0 2 titrate intervention Pain Numeric Pain Scale: 4 Location: Left Location Body Site: Thigh Mental Status/Objective Patient Orientation: Person, Place, Time, Situation Attachments: Oxygen (RA 95), Other-See Comments (wound vac) Current Glasses/Contacts: Yes Hearing Aids: No Dentures/Partials: No Hand Dominance: Right Upper Extremity ROM BUE ROM WFLS Upper Extremity Coordination WNLs BUE Upper Extremity Sensation INTACT Upper Extremity Strength 4/5 ADL-Treatment Eating (QC): 6 Oral Hygiene (QC): 6 (wc LEVEL) Shower/Bathe Self (QC): 88 Upper Body Dressing (QC): 5 Lower Body Dressing (QC): 7 (DECLINED) On/Off Footwear (QC): 5 (HANDED TO PATIENT) Toileting Hygiene (QC): 6 Other Treatments INDEPENDENT WC MOBILITY IN HOSPITAL MIN ASSIST FOR SLIDE BOARD TRANSFER FROM BED OT WC Education OT Patient Education: Correct positioning, Disease process, Energy conservation, Exercise program, Modified ADL techniques, Progress toward Goal/Update tx plan, Purpose of tx/functional activities, Reviewed precautions, Rehab process, Safety issues, Transfer techniques, Use of adapted equipment, W/C management Teaching Recipient: Patient Teaching Methods: Demonstration Response to Teaching: Return Demonstration, Reinforcement Needed BIMS CAM BIMS Expression of Ideas and Wants: Without Difficulty Understanding Verbal Content: Understands Brief Interview/Mental Status: Yes IRF CARMELO BIMS: IRF CARMELO BIMS Response (Comments) Value Repitition of Three Words Three 3 Recalls Socks Yes, No Cue Required 2 Recalls Blue Yes, No Cue Required 2 Year Missed by 1 Year 2 Month Accurate Within 5 Days 2 Day Correct 1 Total 12 Patient Normally Able to Recal: Location of own room, Staff Names and faces, That he/she in a hsp Should Staff Asses. Mental St.: No CAM Mental Status Change/Baseline: 0 Inattention: 0 Disorganized thinkin Altered level of consciousness: 0 OT Short Term Goals Short Term Goals Time Frame: Feb 18, 2023 Eatin Oral hygiene: 6 Toileting hygiene: 6 Shower/bathe self: 4 OT Cattle Farmer Goals Jail Goals Time Frame: Feb 22, 2023 Eating (QC): 6 Oral Hygiene (QC): 6 Toileting Hygiene (QC): 6 Shower/Bathe Self (QC): 6 Upper Body Dressing (QC): 6 Lower Body Dressing (QC): 6 On/Off Footwear (QC): 6 1=Demonstrate adherence to instructed precautions during ADL tasks. 2=Patient will verbalize/demonstrate understanding of assistive devices/modifications for ADL. 3=Patient will improve strength/tolerance for activity to enable patient to pe rform ADL's. OT Education/Plan Problem List/Assessment Assessment: Decreased Activ Tolerance, Impaired Self-Care Skills Discharge Recommendations Plan/Recommendations: Continue POC Treatment Plan/Plan of Care Patient would benefit from OT for education, treatment and training to promote independence in ADL's, mobility, safety and/or upper extremity function for ADL's. Plan of Care: ADL Retraining, Functional Mobility, Group Exercise/Act as Ind, UE Funct Exercise/Act, W/C Management Training Treatment Duration: Feb 22, 2023 Frequency: At least 5 of 7 days/Wk (IRF) Estimated Hrs Per Day: .25 hour per day Agreement: Yes Rehab Potential: Guarded Time Start Time: 09:45 Stop Time: 10:11 DATE: Feb 14, 2023 Total Time Billed (hr/min): 21 Billed Treatment Time EVM ADL 11 min cotreat for wc transfers and mobility 21 min total NISHA MCCONNELL OT Feb 14, 2023 11:18
[2023-02-14] MEDS ORDERED: POTA10TA17 PO (15:28)
[2023-02-14] MEDS ORDERED: APIX5TAB PO (15:28)
[2023-02-14] MEDS ORDERED: OMEP-401 PO (15:28)
[2023-02-14] MEDS ORDERED: ACHD5005 PO (15:28)
[2023-02-14 19:16] VITALS: BP 105/57
[2023-02-14 23:31] VITALS: BP 109/59
[2023-02-15] MEDS: THERAPEUTIC MULTIVITAMIN W/MINERALS TABLET PO SCH (05:51)
[2023-02-15] MEDS: PANTOPRAZOLE 40 MG TABLET PO SCH ×2 (08:16→20:22)
[2023-02-15] MEDS: CALCIUM CARBONATE 600 MG +VITAMIN D TABLET PO SCH (08:16)
[2023-02-15] MEDS: ASPIRIN 81 MG CHEWABLE TABLET PO SCH ×2 (08:17→20:21)
[2023-02-15] MEDS: POTASSIUM CHLORIDE 10 MEQ TABLET PO SCH ×3 (08:17→20:21)
[2023-02-15] MEDS: TAMSULOSIN 0.4 MG (FLOMAX) CAP PO SCH ×2 (08:17→20:21)
[2023-02-15] MEDS: SENNOSIDES 8.6 MG TABLET PO SCH ×2 (08:17→20:21)
[2023-02-15] MEDS: FERROUS SULFATE 325 MG (IRON) TABLET PO SCH ×2 (08:17→20:21)
[2023-02-15] MEDS: FINASTERIDE 5 MG TABLET PO SCH (08:17)
[2023-02-15] MEDS: SENNA W/DOCUSATE TABLET PO SCH (08:17)
[2023-02-15] MEDS: APIXABAN 5 MG TABLET PO SCH ×2 (08:17→20:22)
[2023-02-15] MEDS: DOCUSATE SODIUM 100 MG CAPSULE PO SCH ×2 (08:17→20:21)
[2023-02-15] MEDS: SALINE NASAL SPRAY 45 ML BTL SCH ×4 (08:18→20:22)
[2023-02-15] MEDS: predniSONE 5 MG TABLET PO SCH (08:18)
--- NOTE | 2023-02-15 09:58 | Progress Note ---
Subjective Date Seen by a Provider: Feb 15, 2023 Time Seen by a Provider: 10:00 Subjective/Events-last exam Patient doing really well Patient in a good mood No pain No falls Review of Systems Musculoskeletal: leg pain Objective Exam Last Set of Vital Signs Vital Signs Date Time Temp Pulse Resp B/P (MAP) Pulse Ox O2 Delivery O2 Flow Rate FiO2 02/15/23 07:34 36.9 95 17 92 Room Air 02/14/23 07:50 2.00 Capillary Refill : I&O Intake and Output 02/15/23 00:00 Intake Total 1840 ml Output Total 2400 ml Balance -560 ml Intake Oral 1840 ml Output Urine Total 2400 ml General: Alert, Oriented X3, Cooperative, No Acute Distress Lungs: Clear to Auscultation, Normal Air Movement Heart: Regular Rate, Normal S1, Normal S2, No Murmurs Psych/Mental Status: Mental Status NL, Mood NL Assessment/Plan Assessment/Plan Assess & Plan/Chief Complaint Assessment: Debility following right chronic hip fracture status post repair on 01/31/2023 then periprosthetic fracture requiring repair on 02/02/2023 with complication of hemorrhagic shock and electrolyte abnormality requiring higher level of care to Keke Gordillo Prior history of left BKA at 68yo Atrial fibrillation Former smoker Chronic UTI Anemia previously received 3 units of blood postoperatively Plan: Home meds Pain control Oral anticoagulation MARISOL LEIGH DO Feb 15, 2023 09:58
--- NOTE | 2023-02-15 10:45 | Physical Therapy Daily Note ---
PT Daily Note-Current Subjective Patient agrees to PT. Dons left BKA prosthesis with set up only. Pain Section J - Health Conditions 1. Rarely or not at all 2. Occasionally 3. Frequently 4. Almost constantly 8. Unable to answer Pain Effect on Sleep: 1 Pain Interference with Therapy: 1 Pain Interference w/Day-to-Day: 1 Mental Status Patient Orientation: Normal For Age Transfers SCALE: Activities may be completed with or without assistive devices. 0-Oipdsteavk-oywnqhu completes the activity by him/herself with no assistance from a helper. 5-Set-up or Clean-up Assistance-helper sets up or cleans up; patient completes activity. [place] assists only prior to or following the activity. 4-Supervision or Touching Assistance-helper provides verbal cues and/or touching/steadying and/or contact guard assistance as patient completes activity. Assistance may be provided throughout the activity or intermittently. 3-Partial/Moderate Assistance-helper does LESS THAN HALF the effort. [place] lifts, holds or supports trunk or limbs, but provides less than half the effort. 2-Substantial/Maximal Assistance-helper does MORE THAN HALF the effort. [place] lifts or holds trunk or limbs and provides more than half the effort. 0-Dsehohvpm-bpuhig does ALL the effort. Patient does none of the effort to complete the activity. Or, the assistance of 2 or more helpers is required for the patient to complete the activity. If activity was not attempted, code reason: 7-Patient Refused. 9-Not Applicable-not attempted and the patient did not perform the activity before the current illness, exacerbation or injury. 10-Not Attempted due to Environmental Limitations-(lack of equipment, weather restraints, etc.). 88-Not Attempted due to Medical Conditions or Safety Concerns. Lying to Sitting/Side of Bed(Q: 6 Sit to Stand (QC): 4 Chair/Sov-tf-Pakwg Xfer(QC): 4 SBA with slide board with patient placing and removing slide board Weight Bearing Right Lower Extremity: Right Non Weight Bearing Left Lower Extremity: Left Weight Bearing/Tolerated Wheelchair Training Does the Pt Use a Wheelchair?: Yes Wheel 50 ft with 2 turns (QC): 6 Wheel 150 ft (QC): 6 Type of Wheelchair: Manual places footrests appropriately Exercises Seated Therapy Exercises: Ankle pumps, Long arc quads Seated Reps: 15 (x 2 sets) Assessment Patient tolerated treatment well and is highly motivated with progress. Patient up in w/c and instructed to increase activity with independent w/c mobility. patient voiced understanding. PT Chcf Goals Lens Coater Goals PT Chcf Goals Time Frame: Mar 12, 2023 Roll Left & Right (QC): 6 Sit to Lying (QC): 6 Lying-Sitting on Side/Bed(QC): 6 Sit to Stand (QC): 6 Chair/Gmf-rg-Enals Xfer(QC): 4 Toilet Transfer (QC): 4 Car Transfer (QC): 4 Does the Patient Walk: No and Walking Goal NOT indicated Walk 10 feet (QC): 88 Walk 50ft with 2 Turns (QC): 88 Walk 150 ft (QC): 88 Walking 10ft on Uneven Surface: 88 1 Step (curb) (QC): 3 4 Steps (QC): 3 12 Steps (QC): 88 Picking up an Object (QC): 88 Does the Pt use WC or Scooter?: Yes Wheel 50 feet with 2 turns (QC: 6 Type: Manual Wheel 150 feet: 6 Type: Manual PT Plan Treatment/Plan Treatment Plan: Continue Plan of Care Treatment Plan: Bed Mobility, Education, Functional Activity Guillermo, Functional Strength, Group Therapy, Gait, Safety, Therapeutic Exercise, Transfers Treatment Duration: Mar 15, 2023 Frequency: 6 times per week Estimated Hrs Per Day: .25 hour per day Patient and/or Family Agrees t: Yes Time Time In: 935 Time Out: 1000 DATE: Feb 15, 2023 Total Billed Treatment Time: 25 Total Billed Treatment 1 visit EX 9 min SIMEON 16 min HIPOLITO SAGASTUME PT Feb 15, 2023 10:45
--- NOTE | 2023-02-15 11:06 | Occ Therapy Progress Note ---
Therapy Progress Note Patient had PT earlier today and request OT return in afternoon NISHA MCCONNELL OT Feb 15, 2023 11:06
[2023-02-15] MEDS: HYDROcodone/ACETAMINOPHEN 5 MG/325 MG TABLET PO PRN (14:16)
--- NOTE | 2023-02-15 16:10 | Occupational Ther Daily Note ---
OT Current Status-Daily Note Subjective AGREEABLE FOR OT INSTRUCTION OF LB ADL Pain Numeric Pain Scale: 5-Moderate Pain Location: Right Location Body Site: Hip Mental Status/Objective Patient Orientation: Person, Place, Time, Situation Attachments: Other-See Comments (WOUND VAC) ENCOURAGEMENT FOR PATIENT TOP PERFORM ROM NEEDED FOR LB ADLS ADL-Treatment PATIENT IS FEARFUL OF PAIN, HEALING PROCESS AND BEING UNSUCCESSFUL Therapy Code Descriptions/Definitions Functional [place] Measure: 0=Not Assessed/NA 4=Minimal Assistance 1=Total Assistance 5=Supervision or Setup 2=Maximal Assistance 6=Modified [place] 3=Moderate Assistance 7=Complete IndependenceSCALE: Activities may be completed with or without assistive devices. 3-Cyrdkkrmdy-aqyjkxh completes the activity by him/herself with no assistance from a helper. 5-Set-up or Clean-up Assistance-helper sets up or cleans up; patient completes activity. [place] assists only prior to or following the activity. 4-Supervision or Touching Assistance-helper provides verbal cues and/or touching/steadying and/or contact guard assistance as patient completes activity. Assistance may be provided throughout the activity or intermittently. 3-Partial/Moderate Assistance-helper does LESS THAN HALF the effort. [place] lifts, holds or supports trunk or limbs, but provides less than half the effort. 2-Substantial/Maximal Assistance-helper does MORE THAN HALF the effort. [place] lifts or holds trunk or limbs and provides more than half the effort. 8-Qlqcpqdlg-ofigma does ALL the effort. Patient does none of the effort to complete the activity. Or, the assistance of 2 or more helpers is required for the patient to complete the activity. If activity was not attempted, code reason: 7-Patient Refused. 9-Not Applicable-not attempted and the patient did not perform the activity before the current illness, exacerbation or injury. 10-Not Attempted due to Environmental Limitations-(lack of equipment, weather restraints, etc.). 88-Not Attempted due to Medical Conditions or Safety Concerns. Eating (QC): 6 Oral Hygiene (QC): 6 (WC LEVEL) Upper Body Dressing (QC): 6 (RETRIEVED GARMENTS IN WC) Lower Body Dressing (QC): 4 (W/ DICE SPOTTER, DRESSING STICK. PERFORMED SUPINE W/ BRIDGE AND ROLLING TECHNIQUES) On/Off Footwear: 4 (W/ TOOLS SITTING EOB) Toileting Hygiene (QC): 4 Toilet Transfer (QC): 4 Education OT Patient Education: Correct positioning, Instructions to caregiver (Marco A BRYANT), Modified ADL techniques, Progress toward Goal/Update tx plan, Purpose of tx/functional activities, Reviewed precautions, Rehab process, Safety issues, Transfer techniques, Use of adapted equipment, W/C management Teaching Recipient: Patient, Family Teaching Methods: Demonstration, Discussion Response to Teaching: Verbalize Understanding, Return Demonstration, Reinforcement Needed OT Short Term Goals Short Term Goals Time Frame: Feb 18, 2023 Eatin Oral hygiene: 6 Toileting hygiene: 6 Shower/bathe self: 4 OT Wardrobe Stylist Goals Wardrobe Stylist Goals Time Frame: Feb 22, 2023 Acute change in mental status: 0 Inattention: 0 Disorganized thinkin Altered level of consciousness: 0 Eating (QC): 6 Oral Hygiene (QC): 6 Toileting Hygiene (QC): 6 Shower/Bathe Self (QC): 6 Upper Body Dressing (QC): 6 Lower Body Dressing (QC): 6 On/Off Footwear (QC): 6 1=Demonstrate adherence to instructed precautions during ADL tasks. 2=Patient will verbalize/demonstrate understanding of assistive devices/modifications for ADL. 3=Patient will improve strength/tolerance for activity to enable patient to perform ADL's. OT Education/Plan Problem List/Assessment Assessment: Impaired Self-Care Skills Discharge Recommendations Plan/Recommendations: Continue POC Barriers to Progress FEAR Treatment Plan/Plan of Care Treatment,Training & Education: Yes Patient would benefit from OT for education, treatment and training to promote independence in ADL's, mobility, safety and/or upper extremity function for ADL's. Plan of Care: ADL Retraining, Functional Mobility, Group Exercise/Act as Ind, UE Funct Exercise/Act, W/C Management Training Treatment Duration: Feb 22, 2023 Frequency: At least 5 of 7 days/Wk (IRF) Estimated Hrs Per Day: .25 hour per day Agreement: Yes Rehab Potential: Guarded Time Start Time: 14:00 Stop Time: 14:30 DATE: Feb 15, 2023 Total Time Billed (hr/min): 30 Billed Treatment Time ADL 30 MIN NISHA MCCONNELL OT Feb 15, 2023 16:10
[2023-02-15 19:49] VITALS: BP 121/64
[2023-02-15 23:26] VITALS: BP 131/66
[2023-02-16] MEDS: HYDROcodone/ACETAMINOPHEN 5 MG/325 MG TABLET PO PRN (02:30)
[2023-02-16] MEDS: THERAPEUTIC MULTIVITAMIN W/MINERALS TABLET PO SCH (06:16)
[2023-02-16 07:32] VITALS: BP 109/63
[2023-02-16] MEDS: IRON SUCROSE 200 MG/10 ML VIAL IV SCH (08:07)
[2023-02-16] MEDS: SALINE NASAL SPRAY 45 ML BTL SCH ×4 (08:07→20:13)
[2023-02-16] MEDS: CALCIUM CARBONATE 600 MG +VITAMIN D TABLET PO SCH (08:07)
[2023-02-16] MEDS: PANTOPRAZOLE 40 MG TABLET PO SCH ×2 (08:08→20:10)
[2023-02-16] MEDS: predniSONE 5 MG TABLET PO SCH (08:08)
[2023-02-16] MEDS: FERROUS SULFATE 325 MG (IRON) TABLET PO SCH ×2 (08:08→20:10)
[2023-02-16] MEDS: POTASSIUM CHLORIDE 10 MEQ TABLET PO SCH ×3 (08:08→20:10)
[2023-02-16] MEDS: ASPIRIN 81 MG CHEWABLE TABLET PO SCH ×2 (08:08→20:10)
[2023-02-16] MEDS: SENNA W/DOCUSATE TABLET PO SCH (08:09)
[2023-02-16] MEDS: FINASTERIDE 5 MG TABLET PO SCH (08:09)
[2023-02-16] MEDS: APIXABAN 5 MG TABLET PO SCH ×2 (08:09→20:10)
[2023-02-16] MEDS: DOCUSATE SODIUM 100 MG CAPSULE PO SCH ×2 (08:09→20:10)
[2023-02-16] MEDS: SENNOSIDES 8.6 MG TABLET PO SCH ×2 (08:09→20:10)
[2023-02-16] MEDS: TAMSULOSIN 0.4 MG (FLOMAX) CAP PO SCH ×2 (08:09→20:10)
[2023-02-16] MEDS ORDERED: PATIENT MAY USE OWN MEDS, ALL MC SCH (08:30)
[2023-02-16] MEDS ORDERED: [UNRECOGNIZED DRUG - OTHER] PO SCH (09:00)
[2023-02-16] MEDS: [UNRECOGNIZED DRUG - OTHER] PO SCH (09:06)
--- NOTE | 2023-02-16 11:43 | Occupational Ther Daily Note ---
OT Current Status-Daily Note Subjective Patient agreed to OT session w/ LB dressing intervention WC/toilet and shower bench transfer Pain Numeric Pain Scale: 4 Comment: fear of falling fear of hardware failure Mental Status/Objective Patient Orientation: Person, Place, Time, Situation Attachments: Other-See Comments (wound vac) ADL-Treatment Requires extensive time for patient to trust and perform skills Therapy Code Descriptions/Definitions Functional [place] Measure: 0=Not Assessed/NA 4=Minimal Assistance 1=Total Assistance 5=Supervision or Setup 2=Maximal Assistance 6=Modified [place] 3=Moderate Assistance 7=Complete IndependenceSCALE: Activities may be completed with or without assistive devices. 9-Gzxuewzuay-cggaped completes the activity by him/herself with no assistance from a helper. 5-Set-up or Clean-up Assistance-helper sets up or cleans up; patient completes activity. [place] assists only prior to or following the activity. 4-Supervision or Touching Assistance-helper provides verbal cues and/or touching/steadying and/or contact guard assistance as patient completes activity. Assistance may be provided throughout the activity or intermittently. 3-Partial/Moderate Assistance-helper does LESS THAN HALF the effort. [place] lifts, holds or supports trunk or limbs, but provides less than half the effort. 2-Substantial/Maximal Assistance-helper does MORE THAN HALF the effort. [place] lifts or holds trunk or limbs and provides more than half the effort. 2-Okjwbsdwr-rtwfrl does ALL the effort. Patient does none of the effort to complete the activity. Or, the assistance of 2 or more helpers is required for the patient to complete the activity. If activity was not attempted, code reason: 7-Patient Refused. 9-Not Applicable-not attempted and the patient did not perform the activity before the current illness, exacerbation or injury. 10-Not Attempted due to Environmental Limitations-(lack of equipment, weather restraints, etc.). 88-Not Attempted due to Medical Conditions or Safety Concerns. Eating (QC): 6 Oral Hygiene (QC): 6 Shower/Bathe Self (QC): 7 (OT attempted various scenarios for transfer and patient declined all efforts) Upper Body Dressing (QC): 6 Lower Body Dressing (QC): 4 On/Off Footwear: 5 Toileting Hygiene (QC): 3 Toilet Transfer (QC): 3 Education OT Patient Education: Correct positioning, Modified ADL techniques, Progress toward Goal/Update tx plan, Purpose of tx/functional activities, Reviewed precautions, Rehab process, Safety issues, Transfer techniques, Use of adapted equipment, W/C management Teaching Recipient: Patient Teaching Methods: Demonstration, Discussion Response to Teaching: Reinforcement Needed OT Short Term Goals Short Term Goals Time Frame: Feb 18, 2023 Eatin Oral hygiene: 6 Toileting hygiene: 6 Shower/bathe self: 4 OT Massage Coordinator Goals Massage Coordinator Goals Time Frame: Feb 22, 2023 Acute change in mental status: 0 Inattention: 0 Disorganized thinkin Altered level of consciousness: 0 Eating (QC): 6 Oral Hygiene (QC): 6 Toileting Hygiene (QC): 6 Shower/Bathe Self (QC): 6 Upper Body Dressing (QC): 6 Lower Body Dressing (QC): 6 On/Off Footwear (QC): 6 1=Demonstrate adherence to instructed precautions during ADL tasks. 2=Patient will verbalize/demonstrate understanding of assistive devices/modifications for ADL. 3=Patient will improve strength/tolerance for activity to enable patient to perform ADL's. OT Education/Plan Problem List/Assessment Assessment: Decreased Activ Tolerance, Decreased UE Strength, Impaired Funct Balance, Impaired Self-Care Skills Discharge Recommendations Plan/Recommendations: Continue POC Therapy Discharge Recommendati: Post Acute OT Equpiment Recommendations-D/C: Hip Kit Treatment Plan/Plan of Care Treatment,Training & Education: Yes Patient would benefit from OT for education, treatment and training to promote independence in ADL's, mobility, safety and/or upper extremity function for ADL's. Plan of Care: ADL Retraining, Functional Mobility, Group Exercise/Act as Ind, UE Funct Exercise/Act, W/C Management Training Treatment Duration: Feb 22, 2023 Frequency: At least 5 of 7 days/Wk (IRF) Estimated Hrs Per Day: .25 hour per day Agreement: Yes Rehab Potential: Guarded Time Start Time: 09:30 Stop Time: 09:59 DATE: Feb 16, 2023 Total Time Billed (hr/min): 29 Billed Treatment Time ADL 29 min NISHA MCCONNELL OT Feb 16, 2023 11:43
--- NOTE | 2023-02-16 11:49 | Physical Therapy Daily Note ---
PT Daily Note-Current Subjective Patient sitting in w/c upon PT arrival, agreeable to treatment. Pain Section J - Health Conditions 1. Rarely or not at all 2. Occasionally 3. Frequently 4. Almost constantly 8. Unable to answer Pain Effect on Sleep: 1 Pain Interference with Therapy: 1 Pain Interference w/Day-to-Day: 1 Transfers SCALE: Activities may be completed with or without assistive devices. 7-Grfehvbgzu-ictqwah completes the activity by him/herself with no assistance from a helper. 5-Set-up or Clean-up Assistance-helper sets up or cleans up; patient completes activity. [place] assists only prior to or following the activity. 4-Supervision or Touching Assistance-helper provides verbal cues and/or touching/steadying and/or contact guard assistance as patient completes activity. Assistance may be provided throughout the activity or intermittently. 3-Partial/Moderate Assistance-helper does LESS THAN HALF the effort. [place] lifts, holds or supports trunk or limbs, but provides less than half the effort. 2-Substantial/Maximal Assistance-helper does MORE THAN HALF the effort. [place] lifts or holds trunk or limbs and provides more than half the effort. 9-Ytytokksi-untvmc does ALL the effort. Patient does none of the effort to complete the activity. Or, the assistance of 2 or more helpers is required for the patient to complete the activity. If activity was not attempted, code reason: 7-Patient Refused. 9-Not Applicable-not attempted and the patient did not perform the activity before the current illness, exacerbation or injury. 10-Not Attempted due to Environmental Limitations-(lack of equipment, weather restraints, etc.). 88-Not Attempted due to Medical Conditions or Safety Concerns. Sit to Stand (QC): 3 Chair/Ycr-pw-Ascbq Xfer(QC): 3 Toilet Transfer (QC): 3 Weight Bearing Right Lower Extremity: Right Non Weight Bearing Left Lower Extremity: Left Weight Bearing/Tolerated Gait Training Does the Patient Walk?: No and Walking Goal IS indicated Assessment Current Status: Poor Progress Patient performed all transfers with mod A. Patient required mod A for sit to stand, stand to sit, for stand pivot transfer on the left LE. Patient in w/c post treatment with all needs met, nursing notified, call light in hand. PT Film Examiner Goals Chcf Goals PT Chcf Goals Time Frame: Mar 12, 2023 Roll Left & Right (QC): 6 Sit to Lying (QC): 6 Lying-Sitting on Side/Bed(QC): 6 Sit to Stand (QC): 6 Chair/Ehr-uo-Mopdp Xfer(QC): 4 Toilet Transfer (QC): 4 Car Transfer (QC): 4 Does the Patient Walk: No and Walking Goal NOT indicated Walk 10 feet (QC): 88 Walk 50ft with 2 Turns (QC): 88 Walk 150 ft (QC): 88 Walking 10ft on Uneven Surface: 88 1 Step (curb) (QC): 3 4 Steps (QC): 3 12 Steps (QC): 88 Picking up an Object (QC): 88 Does the Pt use WC or Scooter?: Yes Wheel 50 feet with 2 turns (QC: 6 Type: Manual Wheel 150 feet: 6 Type: Manual PT Plan Treatment/Plan Treatment Plan: Continue Plan of Care Treatment Plan: Bed Mobility, Education, Functional Activity Guillermo, Functional Strength, Group Therapy, Gait, Safety, Therapeutic Exercise, Transfers Treatment Duration: Mar 15, 2023 Frequency: 6 times per week Estimated Hrs Per Day: .25 hour per day Patient and/or Family Agrees t: Yes Safety Risks/Education Patient Education: Transfer Techniques Teaching Recipient: Patient Teaching Methods: Demonstration, Discussion Response to Teaching: Verbalize Understanding, Return Demonstration Time Time In: 1026 Time Out: 1043 DATE: Feb 16, 2023 Total Billed Treatment Time: 17 Total Billed Treatment Visit, CHARLIE OSEGUERA PT Feb 16, 2023 11:49
--- NOTE | 2023-02-16 11:57 | Progress Note ---
EDY COX 02/16/23 1157: Subjective Date Seen by a Provider: Feb 16, 2023 Subjective/Events-last exam Patient doing really well and is a really good mood. Patient says there is discomfort when moving too much. Patient is still non weight bearing. No falls. Objective Exam Last Set of Vital Signs Vital Signs Date Time Temp Pulse Resp B/P (MAP) Pulse Ox O2 Delivery O2 Flow Rate FiO2 02/16/23 09:00 Room Air 02/16/23 07:32 36.4 96 17 109/63 (78) 91 02/15/23 20:15 2.00 Capillary Refill : I&O Intake and Output 02/16/23 00:00 Intake Total 1460 ml Output Total 3180 ml Balance -1720 ml Intake Oral 1460 ml Output Urine Total 3180 ml General: Alert, Oriented X3 HEENT: Atraumatic Neck: No JVD Lungs: Clear to Auscultation Heart: Regular Rate Abdomen: Normal Bowel Sounds, Soft Extremities: No Clubbing, No Cyanosis Skin: No Rashes Neuro: Strength at 5/5 X4 Ext, Other (not weight bearing) Assessment/Plan Assessment/Plan Assess & Plan/Chief Complaint Assessment: Debility following right chronic hip fracture status post repair on 01/31/2023 then periprosthetic fracture requiring repair on 02/02/2023 Hemorrhagic shock Electrolyte abnormality Atrial Fibrillation Former Smoker Previous history of anemia- recieved 3 units of blood post op Plan: Continue home meds Pain control Oral anticoagulation Continue PT Encourage ambulation KARLEE LEIGH DO 02/16/232024: Subjective Time Seen by a Provider: 10:00 Subjective/Events-last exam Patient denies any new issues Pain is pretty well controlled Working with therapy Objective Exam General: Alert, Oriented X3, Cooperative, No Acute Distress Lungs: Clear to Auscultation, Normal Air Movement Heart: Regular Rate, Normal S1, Normal S2, No Murmurs Psych/Mental Status: Mental Status NL, Mood NL Assessment/Plan Assessment/Plan Assess & Plan/Chief Complaint Continue aggressive therapy Supervisory-Addendum Brief Verification & Attestation Participated in pt care: history, MDM, physical Personally performed: exam, history, MDM, supervision of care Care discussed with: Medical Student Procedures: n/a Results interpretation: Verified all documentation Verification and Attestation of Medical Student E/M Service A medical student performed and documented this service in my presence. I reviewed and verified all information documented by the medical student and made modifications to such information, when appropriate. I personally performed the physical exam and medical decision making. Karlee Leigh, Feb 16, 2023,20:24 EDY COX Feb 16, 2023 11:57 KARLEE LEIGH DO Feb 16, 2023 20:25
[2023-02-16 15:51] VITALS: BP 112/66
[2023-02-16 20:07] VITALS: BP 121/62
[2023-02-17 05:53] LABS: BASOPHILS % (AUTO) 1 % (0-10); EOSINOPHILS # (AUTO) 0.1 10^3/uL (0.0-0.3); EOSINOPHILS % (AUTO) 3 % (0-10); HEMATOCRIT 31 % (40-54); HEMOGLOBIN 9.6 g/dL (13.3-17.7); LYMPHOCYTES # (AUTO) 0.7 10^3/uL (1.0-4.0); LYMPHOCYTES % (AUTO) 26 % (12-44); MEAN CORPUSCULAR HEMOGLOBIN 30 pg (25-34); MEAN CORPUSCULAR HGB CONC 32 g/dL (32-36); MEAN CORPUSCULAR VOLUME 96 fL (80-99); MEAN PLATELET VOLUME 9.9 fL (9.0-12.2); MONOCYTES # (AUTO) 0.4 10^3/uL (0.0-1.0); MONOCYTES % (AUTO) 13 % (0-12); NEUTROPHILS # (AUTO) 1.6 10^3/uL (1.8-7.8); NEUTROPHILS % (AUTO) 57 % (42-75); PLATELET COUNT 316 10^3/uL (130-400); WHITE BLOOD COUNT 2.8 10^3/uL (4.3-11.0)
[2023-02-17 06:09] LABS: ALBUMIN 2.6 GM/DL (3.2-4.5)
[2023-02-17 06:10] LABS: POTASSIUM 4.7 MMOL/L (3.6-5.0)
[2023-02-17 06:12] LABS: TOTAL PROTEIN 6.3 GM/DL (6.4-8.2)
[2023-02-17 06:14] LABS: BILIRUBIN,TOTAL 1.1 MG/DL (0.1-1.0)
[2023-02-17 06:16] LABS: CREATININE SERUM 1.03 MG/DL (0.60-1.30)
--- NOTE | 2023-02-17 07:38 | Progress Note ---
KRISTA MCLEAN MD,RESIDENT 02/17/23 0738: Subjective HPI/CC On Admission CC: Recovery from right periprostatic fracture complicated with hemorrhagic jim ck HPI This is an 78-year-old male clinic patient of Dr. Evangelista and Dr. Garcia who I originally saw in consultation at [facility] following right chronic fracture of hip repair on 01/31/2023 of which the femur was fractured for an undetermined amount of time and he had been walking on it until the pain was so severe it required intervention. He had an uneventful repair but began having more more pain x-ray was obtained showing periprostatic fracture of the right femur req uiring repair on 02/02/2023 but began having signs of hemorrhagic shock and electrolyte abnormalities so the decision was made to move to [facility] on 02/02/2023 where he had remained until insurance approved swing bed to [facility] in [place]. His pain is controlled at this current time. 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 He is a previous smoker quit 4 years ago. 02/09: I assumed care of the patient from Dr. Rice. No acute events overnight. Patient afebrile and hemodynamically stable, T max past 24 h is 99.5. BC no growth at 24H. CXR shows no acute cardiopulmonary process. Patient seen and examined, he is on 4L oxygen. He denies use of oxygen at home. Will Wien off as tolerated. Treatment plan discussed with patient, he is in agreement. 02/10: No acute events overnight. Hb stable at 8.2. CXR obtained this morning reports no acute cardiopulmonary disease. Influenza A/B and RSV are negative. Covid-19 test pending. Patient seen and examined at bedside, his daughter present. He reports feeling tired totay and says "maybe I over did it yesterday". He reports poor appetite a nd that he cannot eat hospital food. I encouraged him to eat more and that he can eat food from outside. He is on 2L oxygen via nasal cannula SPO2 90-92%. He had no other acute complains. 02/11: No acute events overnight. Patient's oxygen requirement decreased to 1 L nasal cannula today. Hemoglobin stable. Patient seen and examined, laying in bed in no acute distress. Reports that he is feeling well and had no acute complaints. Patient is medically ready for discharge, [facility] Case management on board. Subjective/Events-last exam No acute events overnight. Pt feels well today. Tolerating PO. Objective Exam Vital Signs Vital Signs Date Time Temp Pulse Resp B/P (MAP) Pulse Ox O2 Delivery O2 Flow Rate FiO2 02/17/23 13:49 37.0 02/17/23 08:00 90 Room Air 2.00 02/17/23 07:42 100 17 112/67 (82) Capillary Refill : General Appearance: No Apparent Distress Neck: Non Tender Respiratory: Chest Non Tender, Normal Breath Sounds, No Accessory Muscle Use, No Respiratory Distress Cardiovascular: Regular Rate, Rhythm Gastrointestinal: Non Tender, Soft Extremity: No Pedal Edema, Other (L BKA) Neurologic/Psychiatric: Alert, Oriented x3, Normal Mood/Affect Skin: Warm/Dry Results/Procedures Lab Laboratory Tests 02/17/23 05:32 Patient resulted labs reviewed. Assessment/Plan Assessment and Plan Assess & Plan/Chief Complaint Assessment: Debility following right chronic hip fracture status post repair on 01/31/2023 then periprosthetic fracture requiring repair on 02/02/2023 with complication of hemorrhagic shock and electrolyte abnormality requiring higher level of care to [facility] Prior history of left BKA at 68yo Atrial fibrillation Former smoker Chronic UTI Anemia previously received 3 units of blood postoperatively Plan: Home meds Pain control Oral anticoagulation PT daily, Pt non-weight bearing on right side for total 3 wks post-op, plan to transfer to rehabilitation after. Diagnosis/Problems Diagnosis/Problems (1) HTN (hypertension) Status: Acute (2) Femur fracture (3) Anemia (4) Chronic UTI (5) Afib MARISOL LEIGH DO 02/17/232058: Subjective HPI/CC On Admission Date Seen by Provider: Feb 17, 2023 Time Seen by Provider: 10:00 Subjective/Events-last exam No major issues Awaiting insurance approval for extension of SB Objective Exam General Appearance: No Apparent Distress, WD/WN, Chronically ill Respiratory: Normal Breath Sounds Assessment/Plan Assessment and Plan Assess & Plan/Chief Complaint Continue therapy KRISTA MCLEAN MD,RESIDENT Feb 17, 2023 07:38 MARISOL LEIGH DO Feb 17, 2023 20:59
[2023-02-17 07:42] VITALS: BP 112/67
[2023-02-17] MEDS: ASPIRIN 81 MG CHEWABLE TABLET PO SCH ×2 (08:24→19:49)
[2023-02-17] MEDS: APIXABAN 5 MG TABLET PO SCH ×2 (08:24→19:49)
[2023-02-17] MEDS: FERROUS SULFATE 325 MG (IRON) TABLET PO SCH ×2 (08:24→19:49)
[2023-02-17] MEDS: PANTOPRAZOLE 40 MG TABLET PO SCH ×2 (08:24→19:49)
[2023-02-17] MEDS: SENNA W/DOCUSATE TABLET PO SCH (08:24)
[2023-02-17] MEDS: DOCUSATE SODIUM 100 MG CAPSULE PO SCH ×2 (08:24→19:50)
[2023-02-17] MEDS: SENNOSIDES 8.6 MG TABLET PO SCH ×2 (08:24→19:49)
[2023-02-17] MEDS: TAMSULOSIN 0.4 MG (FLOMAX) CAP PO SCH ×2 (08:24→19:49)
[2023-02-17] MEDS: predniSONE 5 MG TABLET PO SCH (08:25)
[2023-02-17] MEDS: CALCIUM CARBONATE 600 MG +VITAMIN D TABLET PO SCH (08:25)
[2023-02-17] MEDS: POTASSIUM CHLORIDE 10 MEQ TABLET PO SCH ×3 (08:25→19:49)
[2023-02-17] MEDS: FINASTERIDE 5 MG TABLET PO SCH (08:25)
[2023-02-17] MEDS: SALINE NASAL SPRAY 45 ML BTL SCH ×4 (08:29→19:50)
--- NOTE | 2023-02-17 11:49 | Physical Therapy Daily Note ---
PT Daily Note-Current Subjective Patient sitting in w/c upon PT arrival, agreeable to treatment. Patient rates pain at 4/10 in the right hip. Pain Section J - Health Conditions 1. Rarely or not at all 2. Occasionally 3. Frequently 4. Almost constantly 8. Unable to answer Pain Effect on Sleep: 1 Pain Interference with Therapy: 1 Pain Interference w/Day-to-Day: 1 Mental Status Patient Orientation: Person, Place, Time, Situation Transfers SCALE: Activities may be completed with or without assistive devices. 9-Vpporrzvvn-yynocvk completes the activity by him/herself with no assistance from a helper. 5-Set-up or Clean-up Assistance-helper sets up or cleans up; patient completes activity. [place] assists only prior to or following the activity. 4-Supervision or Touching Assistance-helper provides verbal cues and/or touching /steadying and/or contact guard assistance as patient completes activity. Assistance may be provided throughout the activity or intermittently. 3-Partial/Moderate Assistance-helper does LESS THAN HALF the effort. [place] lifts, holds or supports trunk or limbs, but provides less than half the effort. 2-Substantial/Maximal Assistance-helper does MORE THAN HALF the effort. [place] lifts or holds trunk or limbs and provides more than half the effort. 9-Alcpuwpxu-mgjuhy does ALL the effort. Patient does none of the effort to complete the activity. Or, the assistance of 2 or more helpers is required for the patient to complete the activity. If activity was not attempted, code reason: 7-Patient Refused. 9-Not Applicable-not attempted and the patient did not perform the activity before the current illness, exacerbation or injury. 10-Not Attempted due to Environmental Limitations-(lack of equipment, weather restraints, etc.). 88-Not Attempted due to Medical Conditions or Safety Concerns. Sit to Stand (QC): 2 Weight Bearing Right Lower Extremity: Right Non Weight Bearing Left Lower Extremity: Left Weight Bearing/Tolerated Gait Training Does the Patient Walk?: No and Walking Goal IS indicated Assessment Current Status: Fair Progress Patient performs sit to stand with max A, with FWW and verbal cues. He was able to maintain NWB right LE, but demonstrates difficulty standing fully erect. Patient refuses further transfer practice due to fatigue and reports of feeling short of breath. Patient in w/c post treatment with all needs met, nursing notified, call light in hand. PT Senior Living Goals Senior Living Goals PT Stamping Mill Tender Goals Time Frame: Mar 12, 2023 Roll Left & Right (QC): 6 Sit to Lying (QC): 6 Lying-Sitting on Side/Bed(QC): 6 Sit to Stand (QC): 6 Chair/Svq-bm-Racnx Xfer(QC): 4 Toilet Transfer (QC): 4 Car Transfer (QC): 4 Does the Patient Walk: No and Walking Goal NOT indicated Walk 10 feet (QC): 88 Walk 50ft with 2 Turns (QC): 88 Walk 150 ft (QC): 88 Walking 10ft on Uneven Surface: 88 1 Step (curb) (QC): 3 4 Steps (QC): 3 12 Steps (QC): 88 Picking up an Object (QC): 88 Does the Pt use WC or Scooter?: Yes Wheel 50 feet with 2 turns (QC: 6 Type: Manual Wheel 150 feet: 6 Type: Manual PT Plan Treatment/Plan Treatment Plan: Continue Plan of Care Treatment Plan: Bed Mobility, Education, Functional Activity Gu[place], Functional Strength, Group Therapy, Gait, Safety, Therapeutic Exercise, Transfers Treatment Duration: Mar 15, 2023 Frequency: 6 times per week Estimated Hrs Per Day: .25 hour per day Patient and/or Family Agrees t: Yes Safety Risks/Education Patient Education: Transfer Techniques Teaching Recipient: Patient Teaching Methods: Demonstration, Discussion Response to Teaching: Reinforcement Needed Time Time In: 1126 Time Out: 1140 DATE: Feb 17, 2023 Total Billed Treatment Time: 14 Total Billed Treatment Visit, CHARLIE OSEGUERA PT Feb 17, 2023 11:49
--- NOTE | 2023-02-17 11:56 | Occupational Ther Daily Note ---
OT Current Status-Daily Note Subjective Patient agreeable to shower. Arrangement made for patient to use 2 floor ARU shower d/t 4 floor remodel of shower and WC transfer w/ patents NWB RLE Mental Status/Objective Patient Orientation: Person, Place, Time, Situation ADL-Treatment SBA slide board transfer from bed to WC. Self propel into elevator, hallways and bathrooms. Daughter returned w/ clean garments and alternate prosthetic sleeve, OT was assisted by BUENROSTRO d/t patient fear of transfers, assisting w/ Shower chair WC exchange. OT prepared bathroom for safe transfer and gathered needed supplies, patient transported supplies on lap in basin Therapy Code Descriptions/Definitions Functional [place] Measure: 0=Not Assessed/NA 4=Minimal Assistance 1=Total Assistance 5=Supervision or Setup 2=Maximal Assistance 6=Modified [place] 3=Moderate Assistance 7=Complete IndependenceSCALE: Activities may be completed with or without assistive devices. 1-Digpljdzxb-xivdlcz completes the activity by him/herself with no assistance from a helper. 5-Set-up or Clean-up Assistance-helper sets up or cleans up; patient completes activity. [place] assists only prior to or following the activity. 4-Supervision or Touching Assistance-helper provides verbal cues and/or touching/steadying and/or contact guard assistance as patient completes activity. Assistance may be provided throughout the activity or intermittently. 3-Partial/Moderate Assistance-helper does LESS THAN HALF the effort. [place] lifts, holds or supports trunk or limbs, but provides less than half the effort. 2-Substantial/Maximal Assistance-helper does MORE THAN HALF the effort. [place] lifts or holds trunk or limbs and provides more than half the effort. 4-Xxayoplcx-kuszzl does ALL the effort. Patient does none of the effort to complete the activity. Or, the assistance of 2 or more helpers is required for the patient to complete the activity. If activity was not attempted, code reason: 7-Patient Refused. 9-Not Applicable-not attempted and the patient did not perform the activity before the current illness, exacerbation or injury. 10-Not Attempted due to Environmental Limitations-(lack of equipment, weather restraints, etc.). 88-Not Attempted due to Medical Conditions or Safety Concerns. Eating (QC): 6 Oral Hygiene (QC): 6 Bathing Location: L Arm, R Arm, L Upper Leg, R Upper Leg, R Lower Leg (including foot) (performed by OT), Chest, Abdomen, Buttocks (performed by OT), Perineal Area Shower/Bathe Self (QC): 3 (OT also performed back washing) Upper Body Dressing (QC): 6 Lower Body Dressing (QC): 4 On/Off Footwear: 5 Toileting Hygiene (QC): 3 Toilet Transfer (QC): 1 (requireed 2 person d/t fear and NWB RLE, moderate assistance of therapist) Education OT Patient Education: Correct positioning, Energy conservation, Exercise program, Instructions don/doff splint/brace, Instructions to caregiver, Modified ADL techniques, Progress toward Goal/Update tx plan, Purpose of tx/functional activities, Reviewed precautions, Rehab process, Safety issues, Transfer techniques, Use of adapted equipment, W/C management Teaching Recipient: Patient, Family Response to Teaching: Verbalize Understanding, Return Demonstration, Reinforcement Needed OT Short Term Goals Short Term Goals Time Frame: Feb 18, 2023 Eatin Oral hygiene: 6 Toileting hygiene: 6 Shower/bathe self: 4 OT Halfway Goals Halfway Goals Time Frame: Feb 22, 2023 Acute change in mental status: 0 Inattention: 0 Disorganized thinkin Altered level of consciousness: 0 Eating (QC): 6 Oral Hygiene (QC): 6 Toileting Hygiene (QC): 6 Shower/Bathe Self (QC): 6 Upper Body Dressing (QC): 6 Lower Body Dressing (QC): 6 On/Off Footwear (QC): 6 1=Demonstrate adherence to instructed precautions during ADL tasks. 2=Patient will verbalize/demonstrate understanding of assistive devices/m odifications for ADL. 3=Patient will improve strength/tolerance for activity to enable patient to perform ADL's. OT Education/Plan Problem List/Assessment Assessment: Decreased Activ Tolerance, Impaired Coordination, Impaired Funct Balance, Impaired Self-Care Skills Discharge Recommendations Plan/Recommendations: Continue POC Equpiment Recommendations-D/C: Bedside Commode, Hip Kit, Other, See Comments (slide transfer board, ramp) Treatment Plan/Plan of Care Treatment,Training & Education: Yes Patient would benefit from OT for education, treatment and training to promote independence in ADL's, mobility, safety and/or upper extremity function for ADL's. Plan of Care: ADL Retraining, Functional Mobility, Group Exercise/Act as Ind, UE Funct Exercise/Act, W/C Management Training Treatment Duration: Feb 22, 2023 Frequency: At least 5 of 7 days/Wk (IRF) Estimated Hrs Per Day: .25 hour per day Agreement: Yes Rehab Potential: Guarded Time Start Time: 09:00 Stop Time: 10:12 DATE: Feb 17, 2023 Total Time Billed (hr/min): 72 Billed Treatment Time ADL, FA, 72 minutes NISHA MCCONNELL OT Feb 17, 2023 11:56
[2023-02-17] MEDS: HYDROcodone/ACETAMINOPHEN 5 MG/325 MG TABLET PO PRN (13:49)
[2023-02-17 19:50] VITALS: BP 114/52
[2023-02-18 08:17] VITALS: BP 104/65
[2023-02-18] MEDS: DOCUSATE SODIUM 100 MG CAPSULE PO SCH ×2 (08:42→20:02)
[2023-02-18] MEDS: APIXABAN 5 MG TABLET PO SCH ×2 (08:42→20:02)
[2023-02-18] MEDS: POTASSIUM CHLORIDE 10 MEQ TABLET PO SCH ×3 (08:42→20:02)
[2023-02-18] MEDS: FERROUS SULFATE 325 MG (IRON) TABLET PO SCH ×2 (08:42→20:02)
[2023-02-18] MEDS: predniSONE 5 MG TABLET PO SCH (08:42)
[2023-02-18] MEDS: SALINE NASAL SPRAY 45 ML BTL SCH ×4 (08:42→20:03)
[2023-02-18] MEDS: PANTOPRAZOLE 40 MG TABLET PO SCH ×2 (08:42→20:02)
[2023-02-18] MEDS: CALCIUM CARBONATE 600 MG +VITAMIN D TABLET PO SCH (08:42)
[2023-02-18] MEDS: ASPIRIN 81 MG CHEWABLE TABLET PO SCH ×2 (08:42→20:02)
[2023-02-18] MEDS: IRON SUCROSE 200 MG/10 ML VIAL IV SCH (08:42)
[2023-02-18] MEDS: SENNA W/DOCUSATE TABLET PO SCH (08:42)
[2023-02-18] MEDS: SENNOSIDES 8.6 MG TABLET PO SCH ×2 (08:42→20:02)
[2023-02-18] MEDS: FINASTERIDE 5 MG TABLET PO SCH (08:42)
[2023-02-18] MEDS: TAMSULOSIN 0.4 MG (FLOMAX) CAP PO SCH ×2 (08:45→20:02)
[2023-02-18] MEDS: [UNRECOGNIZED DRUG - OTHER] PO SCH (08:45)
--- NOTE | 2023-02-18 10:30 | Occupational Ther Daily Note ---
OT Current Status-Daily Note Subjective Reclined in bed, agreeable to OT Mental Status/Objective Patient Orientation: Person, Place, Time, Situation Attachments: Other-See Comments (wound vac) ADL-Treatment WC sideboard transfer from bed SBA only, patient managed leg rests and arm rests Therapy Code Descriptions/Definitions Functional [place] Measure: 0=Not Assessed/NA 4=Minimal Assistance 1=Total Assistance 5=Supervision or Setup 2=Maximal Assistance 6=Modified [place] 3=Moderate Assistance 7=Complete IndependenceSCALE: Activities may be completed with or without assistive devices. 5-Hxrdlktzdg-prgcxek completes the activity by him/herself with no assistance from a helper. 5-Set-up or Clean-up Assistance-helper sets up or cleans up; patient completes activity. [place] assists only prior to or following the activity. 4-Supervision or Touching Assistance-helper provides verbal cues and/or touching/steadying and/or contact guard assistance as patient completes activity. Assistance may be provided throughout the activity or intermittently. 3-Partial/Moderate Assistance-helper does LESS THAN HALF the effort. [place] lifts, holds or supports trunk or limbs, but provides less than half the effort. 2-Substantial/Maximal Assistance-helper does MORE THAN HALF the effort. [place] lifts or holds trunk or limbs and provides more than half the effort. 1-Xhhcumfqd-sovwfn does ALL the effort. Patient does none of the effort to complete the activity. Or, the assistance of 2 or more helpers is required for the patient to complete the activity. If activity was not attempted, code reason: 7-Patient Refused. 9-Not Applicable-not attempted and the patient did not perform the activity before the current illness, exacerbation or injury. 10-Not Attempted due to Environmental Limitations-(lack of equipment, weather restraints, etc.). 88-Not Attempted due to Medical Conditions or Safety Concerns. Eating (QC): 6 Oral Hygiene (QC): 6 (WC level) Upper Body Dressing (QC): 6 (WC level) Lower Body Dressing (QC): 5 (set up) On/Off Footwear: 5 Toileting Hygiene (QC): 4 Toilet Transfer (QC): 4 (stand from WC using GBS NWB RLE) Education OT Patient Education: Correct positioning, Exercise program (repeat, sit stands, and WC pushups), Modified ADL techniques, Progress toward Goal/Update tx plan, Purpose of tx/functional activities, Reviewed precautions, Rehab process, Safety issues, Transfer techniques, Use of adapted equipment, W/C management Teaching Recipient: Patient Teaching Methods: Demonstration Response to Teaching: Return Demonstration OT Short Term Goals Short Term Goals Time Frame: Feb 18, 2023 Eatin Oral hygiene: 6 Toileting hygiene: 6 Shower/bathe self: 4 OT Revenue Cycle Manager Goals Revenue Cycle Manager Goals Time Frame: Feb 22, 2023 Acute change in mental status: 0 Inattention: 0 Disorganized thinkin Altered level of consciousness: 0 Eating (QC): 6 Oral Hygiene (QC): 6 Toileting Hygiene (QC): 6 Shower/Bathe Self (QC): 6 Upper Body Dressing (QC): 6 Lower Body Dressing (QC): 6 On/Off Footwear (QC): 6 1=Demonstrate adherence to instructed precautions during ADL tasks. 2=Patient will verbalize/demonstrate understanding of assistive devices/modifications for ADL. 3=Patient will improve strength/tolerance for activity to enable patient to perform ADL's. OT Education/Plan Problem List/Assessment Assessment: Decreased UE Strength, Impaired Funct Balance (standing), Impaired Self-Care Skills Discharge Recommendations Plan/Recommendations: Continue POC Treatment Plan/Plan of Care Treatment,Training & Education: Yes Patient would benefit from OT for education, treatment and training to promote independence in ADL's, mobility, safety and/or upper extremity function for ADL's. Plan of Care: ADL Retraining, Functional Mobility, Group Exercise/Act as Ind, UE Funct Exercise/Act, W/C Management Training Treatment Duration: Feb 22, 2023 Frequency: At least 5 of 7 days/Wk (IRF) Estimated Hrs Per Day: .25 hour per day Agreement: Yes Rehab Potential: Guarded Time Start Time: 09:40 Stop Time: 10:10 DATE: Feb 18, 2023 Total Time Billed (hr/min): 20 Billed Treatment Time ADL 20 min NISHA MCCONNELL OT Feb 18, 2023 10:30
--- NOTE | 2023-02-18 10:37 | Physical Therapy Daily Note ---
PT Daily Note-Current Subjective Patient agrees to PT. Pain Section J - Health Conditions 1. Rarely or not at all 2. Occasionally 3. Frequently 4. Almost constantly 8. Unable to answer Pain Effect on Sleep: 1 Pain Interference with Therapy: 1 Pain Interference w/Day-to-Day: 1 Mental Status Patient Orientation: Normal For Age Transfers SCALE: Activities may be completed with or without assistive devices. 7-Lhtcdqficc-gwhigdq completes the activity by him/herself with no assistance from a helper. 5-Set-up or Clean-up Assistance-helper sets up or cleans up; patient completes activity. [place] assists only prior to or following the activity. 4-Supervision or Touching Assistance-helper provides verbal cues and/or touching/steadying and/or contact guard assistance as patient completes activity. Assistance may be provided throughout the activity or intermittently. 3-Partial/Moderate Assistance-helper does LESS THAN HALF the effort. [place] lifts, holds or supports trunk or limbs, but provides less than half the effort. 2-Substantial/Maximal Assistance-helper does MORE THAN HALF the effort. [place] lifts or holds trunk or limbs and provides more than half the effort. 2-Oscbmyrim-msekee does ALL the effort. Patient does none of the effort to complete the activity. Or, the assistance of 2 or more helpers is required for the patient to complete the activity. If activity was not attempted, code reason: 7-Patient Refused. 9-Not Applicable-not attempted and the patient did not perform the activity before the current illness, exacerbation or injury. 10-Not Attempted due to Environmental Limitations-(lack of equipment, weather restraints, etc.). 88-Not Attempted due to Medical Conditions or Safety Concerns. Sit to Stand (QC): 4 (in parallel bars, NWB right LE/pulled self up with bars) Weight Bearing Right Lower Extremity: Right Non Weight Bearing Left Lower Extremity: Left Weight Bearing/Tolerated Wheelchair Training Wheel 50 ft with 2 turns (QC): 6 Wheel 150 ft (QC): 6 Type of Wheelchair: Manual Exercises Standing: Dynamic Reaching Ex, Sit to Stand (5 sets standing x 2 min each), Weight shifts Standing Reps: 3 Assessment Patient reports he felt more comfortable with performing sit to glass tinter parallel bars x 5 sets. Patient performed w/c mobility x 500' x 2 independently. PT Intermediate Goals Intermediate Goals PT Intermediate Goals Time Frame: Mar 12, 2023 Roll Left & Right (QC): 6 Sit to Lying (QC): 6 Lying-Sitting on Side/Bed(QC): 6 Sit to Stand (QC): 6 Chair/Srk-rp-Vprep Xfer(QC): 4 Toilet Transfer (QC): 4 Car Transfer (QC): 4 Does the Patient Walk: No and Walking Goal NOT indicated Walk 10 feet (QC): 88 Walk 50ft with 2 Turns (QC): 88 Walk 150 ft (QC): 88 Walking 10ft on Uneven Surface: 88 1 Step (curb) (QC): 3 4 Steps (QC): 3 12 Steps (QC): 88 Picking up an Object (QC): 88 Does the Pt use WC or Scooter?: Yes Wheel 50 feet with 2 turns (QC: 6 Type: Manual Wheel 150 feet: 6 Type: Manual PT Plan Treatment/Plan Treatment Plan: Continue Plan of Care Treatment Plan: Bed Mobility, Education, Functional Activity Guillermo, Functional Strength, Group Therapy, Gait, Safety, Therapeutic Exercise, Transfers Treatment Duration: Mar 15, 2023 Frequency: 6 times per week Estimated Hrs Per Day: .25 hour per day Patient and/or Family Agrees t: Yes Time Time In: 956 Time Out: 1020 DATE: Feb 18, 2023 Total Billed Treatment Time: 24 Total Billed Treatment 1 visit EX x 2 24 min HIPOLITO SAGASTUME PT Feb 18, 2023 10:37
[2023-02-18] MEDS: HYDROcodone/ACETAMINOPHEN 5 MG/325 MG TABLET PO PRN (11:09)
[2023-02-18 11:51] VITALS: BP 104/63
--- NOTE | 2023-02-18 13:24 | Progress Note ---
KRISTA MCLEAN MD,RESIDENT 02/18/23 1324: Subjective HPI/CC On Admission CC: Recovery from right periprostatic fracture complicated with hemorrhagic shock HPI This is an 78-year-old male clinic patient of Dr. Evangelista and Dr. Garcia who I originally saw in consultation at [facility] following right chronic fracture of hip repair on 01/31/2023 of which the femur was fractured for an undetermined amount of time and he had been walking on it until the pain was so severe it required intervention. He had an uneventful repair but began having more more pain x-ray was obtained showing periprostatic fracture of the right femur requiring repair on 02/02/2023 but began having signs of hemorrhagic shock and electrolyte abnormalities so the decision was made to move to [facility] on 02/02/2023 where he had remained until insurance approved swing bed to [facility] in [place]. His pain is controlled at this current time. 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 He is a previous smoker quit 4 years ago. 02/09: I assumed care of the patient from Dr. Rice. No acute events overnight. Patient afebrile and hemodynamically stable, T max past 24 h is 99.5. BC no growth at 24H. CXR shows no acute cardiopulmonary process. Patient seen and examined, he is on 4L oxygen. He denies use of oxygen at home. Will Wien off as tolerated. Treatment plan discussed with patient, he is in agreement. 02/10: No acute events overnight. Hb stable at 8.2. CXR obtained this morning reports no acute cardiopulmonary disease. Influenza A/B and RSV are negative. Covid-19 test pending. Patient seen and examined at bedside, his daughter present. He reports feeling tired totay and says "maybe I over did it yesterday". He reports poor appetite and that he cannot eat hospital food. I encouraged him to eat more and that he can eat food from outside. He is on 2L oxygen via nasal cannula SPO2 90-92%. He had no other acute complains. 02/11: No acute events overnight. Patient's oxygen requirement decreased to 1 L nasal cannula today. Hemoglobin stable. Patient seen and examined, laying in bed in no acute distress. Reports that he is feeling well and had no acute complaints. Patient is medically ready for discharge, [facility] is being [facility] morning. Case management on board. Subjective/Events-last exam No acute events overnight. Pt doing well this morning. Actively working with PT. Tolerating PO and on RA. Objective Exam Vital Signs Vital Signs Date Time Temp Pulse Resp B/P (MAP) Pulse Ox O2 Delivery O2 Flow Rate FiO2 02/18/23 12:38 92 02/18/23 11:51 35.7 20 104/63 (77) 98 Room Air 02/18/23 08:00 2.00 Capillary Refill : General Appearance: No Apparent Distress Neck: Non Tender, Supple Respiratory: Chest Non Tender, Lungs Clear, Normal Breath Sounds, No Accessory Muscle Use, No Respiratory Distress Cardiovascular: Regular Rate, Rhythm Gastrointestinal: Non Tender, Soft Extremity: No Pedal Edema Neurologic/Psychiatric: Alert, Oriented x3, Normal Mood/Affect Skin: Warm/Dry Results/Procedures Lab Patient resulted labs reviewed. Assessment/Plan Assessment and Plan Assess & Plan/Chief Complaint Assessment: Debility following right chronic hip fracture status post repair on 01/31/2023 then periprosthetic fracture requiring repair on 02/02/2023 with complication of hemorrhagic shock and electrolyte abnormality requiring higher level of care to [facility] Prior history of left BKA at 68yo Atrial fibrillation Former smoker Chronic UTI Anemia previously received 3 units of blood postoperatively Plan: Home meds Pain control Oral anticoagulation PT daily, Pt non-weight bearing on right side for total 3 wks post-op, plan to transfer to rehabilitation after. Diagnosis/Problems Diagnosis/Problems (1) HTN (hypertension) Status: Acute (2) Femur fracture (3) Anemia (4) Chronic UTI (5) MARISOL Guerrero DO 02/18/232130: Subjective HPI/CC On Admission Date Seen by Provider: Feb 18, 2023 Time Seen by Provider: 10:00 Subjective/Events-last exam NO major issues Awaiting insurance company approval to continue therapy Review of Systems General: Fatigue, Malaise Musculoskeletal: leg pain Objective Exam General Appearance: No Apparent Distress, WD/WN, Chronically ill Respiratory: Lungs Clear, Normal Breath Sounds Cardiovascular: Regular Rate, Rhythm Assessment/Plan Assessment and Plan Assess & Plan/Chief Complaint pain control I personally performed the guevara portions of the visit, discussed case with resident and concur with resident documentation of history, physical exam, assessment and treatment plan unless otherwise noted. KRISTA MCLEAN MD,RESIDENT Feb 18, 2023 13:24 MARISOL LEIGH DO Feb 18, 2023 21:31
[2023-02-18 19:59] VITALS: BP 121/66
[2023-02-19] MEDS: HYDROcodone/ACETAMINOPHEN 5 MG/325 MG TABLET PO PRN ×3 (03:33→22:53)
--- NOTE | 2023-02-19 07:01 | Progress Note ---
Subjective HPI/CC On Admission CC: Recovery from right periprostatic fracture complicated with hemorrhagic shock HPI This is an 78-year-old male clinic patient of Dr. Evangelista and Dr. Garcia who I originally saw in consultation at [facility] following right chronic fracture of hip repair on 01/31/2023 of which the femur was fractured for an undetermined amount of time and he had been walking on it until the pain was so severe it required intervention. He had an uneventful repair but began having more more pain x-ray was obtained showing periprostatic fracture of the right femur requiring repair on 02/02/2023 but began having signs of hemorrhagic shock and electrolyte abnormalities so the decision was made to move to [facility] on 02/02/2023 where he had remained until insurance approved swing bed to [facility] in [place]. His pain is controlled at this current time. 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 He is a previous smoker quit 4 years ago. 02/09: I assumed care of the patient from Dr. Rice. No acute events overnight. Patient afebrile and hemodynamically stable, T max past 24 h is 99.5. BC no growth at 24H. CXR shows no acute cardiopulmonary process. Patient seen and examined, he is on 4L oxygen. He denies use of oxygen at home. Will Wien off as tolerated. Treatment plan discussed with patient, he is in agreement. 02/10: No acute events overnight. Hb stable at 8.2. CXR obtained this morning reports no acute cardiopulmonary disease. Influenza A/B and RSV are negative. Covid-19 test pending. Patient seen and examined at bedside, his daughter present. He reports feeling tired totay and says "maybe I over did it yesterday". He reports poor appetite and that he cannot eat hospital food. I encouraged him to eat more and that he can eat food from outside. He is on 2L oxygen via nasal cannula SPO2 90-92%. He had no other acute complains. 02/11: No acute events overnight. Patient's oxygen requirement decreased to 1 L nasal cannula today. Hemoglobin stable. Patient seen and examined, laying in bed in no acute distress. Reports that he is feeling well and had no acute complaints. Patient is medically ready for discharge, he is being referred to [facility] will have a bed for him tomorrow morning. Case management on board. Objective Exam Vital Signs Vital Signs Date Time Temp Pulse Resp B/P (MAP) Pulse Ox O2 Delivery O2 Flow Rate FiO2 02/19/23 07:55 36.4 77 20 104/44 (64) 93 Room Air 02/18/23 20:15 21 02/18/23 18:52 Capillary Refill : Results/Procedures Lab Patient resulted labs reviewed. Assessment/Plan Assessment and Plan Assess & Plan/Chief Complaint Assessment: Debility following right chronic hip fracture status post repair on 01/31/2023 then periprosthetic fracture requiring repair on 02/02/2023 with complication of hemorrhagic shock and electrolyte abnormality requiring higher level of care to [facility] Prior history of left BKA at 68yo Atrial fibrillation Former smoker Chronic UTI Anemia previously received 3 units of blood postoperatively Plan: Home meds Pain control Oral anticoagulation PT daily, Pt non-weight bearing on right side for total 3 wks post-op, plan to transfer to rehabilitation after. Diagnosis/Problems Diagnosis/Problems (1) HTN (hypertension) Status: Acute (2) Femur fracture (3) Anemia (4) Chronic UTI (5) KRISTA Orozco MD,RESIDENT Feb 19, 2023 07:01
[2023-02-19 07:55] VITALS: BP 104/44
[2023-02-19] MEDS: DOCUSATE SODIUM 100 MG CAPSULE PO SCH ×2 (08:40→19:46)
[2023-02-19] MEDS: APIXABAN 5 MG TABLET PO SCH ×2 (08:40→19:46)
[2023-02-19] MEDS: PANTOPRAZOLE 40 MG TABLET PO SCH ×2 (08:40→19:46)
[2023-02-19] MEDS: SENNOSIDES 8.6 MG TABLET PO SCH ×2 (08:40→19:46)
[2023-02-19] MEDS: SENNA W/DOCUSATE TABLET PO SCH (08:40)
[2023-02-19] MEDS: predniSONE 5 MG TABLET PO SCH (08:40)
[2023-02-19] MEDS: FINASTERIDE 5 MG TABLET PO SCH (08:41)
[2023-02-19] MEDS: CALCIUM CARBONATE 600 MG +VITAMIN D TABLET PO SCH (08:41)
[2023-02-19] MEDS: TAMSULOSIN 0.4 MG (FLOMAX) CAP PO SCH ×2 (08:41→19:46)
[2023-02-19] MEDS: FERROUS SULFATE 325 MG (IRON) TABLET PO SCH ×2 (08:41→19:45)
[2023-02-19] MEDS: POTASSIUM CHLORIDE 10 MEQ TABLET PO SCH ×3 (08:41→19:46)
[2023-02-19] MEDS: ASPIRIN 81 MG CHEWABLE TABLET PO SCH ×2 (08:41→19:45)
[2023-02-19] MEDS: SALINE NASAL SPRAY 45 ML BTL SCH ×4 (08:42→19:45)
[2023-02-19] MEDS: METHOTREXATE 2.5 MG TAB PO SCH (08:50)
--- NOTE | 2023-02-19 09:09 | Progress Note ---
KRISTA MCLEAN MD,RESIDENT 02/19/23 0909: Progress Note Assessment/Plan Date Seen by Provider: Feb 19, 2023 Time Seen by Provider: 07:50 Events since last exam No acute events overnight. Pt doing well on RA, tolerating PO, participates daily with PT. Assessment/Plan Continue aggressive therapy Pt approved to stay until Feb 23 prior to entering rehabilitation Vitals Last set of Vitals Signs Vital Signs Date Time Temp Pulse Resp B/P (MAP) Pulse Ox O2 Delivery O2 Flow Rate FiO2 02/19/23 07:55 36.4 77 20 104/44 (64) 93 Room Air 02/18/23 20:15 21 02/18/23 18:52 I&O I&O Intake and Output 02/19/23 00:00 Intake Total 2030 ml Output Total 2200 ml Balance -170 ml Intake Oral 2030 ml Output Urine Total 2200 ml Focused Exam Respiratory: Chest Non Tender, Lungs Clear, Normal Breath Sounds Cardiovascular: Regular Rate, Rhythm Diagnosis/Problems Diagnosis/Problems (1) HTN (hypertension) Status: Acute (2) Femur fracture (3) Anemia (4) Chronic UTI (5) Afib MARISOL LEIGH DO 02/19/23 1853: Progress Note Assessment/Plan Date Seen by Provider: Feb 19, 2023 Time Seen by Provider: 09:00 Events since last exam Patient doing well Continuing therapy No major concerns I personally performed the guevara portions of the visit, discussed case with resident and concur with resident documentation of history, physical exam, assessment and treatment plan unless otherwise noted. KRISTA MCLEAN MD,RESIDENT Feb 19, 2023 09:09 MARISOL LEIGH DO Feb 19, 2023 18:53
--- NOTE | 2023-02-19 09:29 | Physical Therapy Daily Note ---
PT Daily Note-Current Subjective Pt is in bed receiving his daily medications. He is agreeable to treatment and denies pain on arrival. Pain Section J - Health Conditions 1. Rarely or not at all 2. Occasionally 3. Frequently 4. Almost constantly 8. Unable to answer Pain Effect on Sleep: 1 Pain Interference with Therapy: 1 Pain Interference w/Day-to-Day: 1 Mental Status Patient Orientation: Person, Place, Time, Situation Attachments: [place] Transfers SCALE: Activities may be completed with or without assistive devices. 1-Kmafydddia-baordhz completes the activity by him/herself with no assistance from a helper. 5-Set-up or Clean-up Assistance-helper sets up or cleans up; patient completes activity. [place] assists only prior to or following the activity. 4-Supervision or Touching Assistance-helper provides verbal cues and/or touching/steadying and/or contact guard assistance as patient completes activity. Assistance may be provided throughout the activity or intermittently. 3-Partial/Moderate Assistance-helper does LESS THAN HALF the effort. [place] lifts, holds or supports trunk or limbs, but provides less than half the effort. 2-Substantial/Maximal Assistance-helper does MORE THAN HALF the effort. [place] lifts or holds trunk or limbs and provides more than half the effort. 7-Eiyqueurn-rbkbiv does ALL the effort. Patient does none of the effort to complete the activity. Or, the assistance of 2 or more helpers is required for the patient to complete the activity. If activity was not attempted, code reason: 7-Patient Refused. 9-Not Applicable-not attempted and the patient did not perform the activity before the current illness, exacerbation or injury. 10-Not Attempted due to Environmental Limitations-(lack of equipment, weather restraints, etc.). 88-Not Attempted due to Medical Conditions or Safety Concerns. Roll Left & Right (QC): 6 Sit to Lying (QC): 6 Chair/Ipa-zl-Gjkny Xfer(QC): 5 Weight Bearing Right Lower Extremity: Right Non Weight Bearing Left Lower Extremity: Left Weight Bearing/Tolerated Gait Training Does the Patient Walk?: No and Walking Goal NOT indicated Wheelchair Training Does the Pt Use a Wheelchair?: Yes Wheel 50 ft with 2 turns (QC): 5 Wheel 150 ft (QC): 6 Type of Wheelchair: Manual Difficulty navigating within the room due to small aperture at the foot of the bed. Treatments Performed manual wheelchair mobility throughout the 4th floor. Covering over 500ft. No assistance or guidance needed. Assessment Current Status: Excellent Progress Pt only needed setup help with his prosthesis and the wheelchair. He dressed himself fully without assistance. He donned his prosthesis (I). He only needed setup assistance for the slide board transfer. PT Mcfp Goals Mcfp Goals PT Mcfp Goals Time Frame: Mar 12, 2023 Roll Left & Right (QC): 6 Sit to Lying (QC): 6 Lying-Sitting on Side/Bed(QC): 6 Sit to Stand (QC): 6 Chair/Lst-mi-Baxqz Xfer(QC): 4 Toilet Transfer (QC): 4 Car Transfer (QC): 4 Does the Patient Walk: No and Walking Goal NOT indicated Walk 10 feet (QC): 88 Walk 50ft with 2 Turns (QC): 88 Walk 150 ft (QC): 88 Walking 10ft on Uneven Surface: 88 1 Step (curb) (QC): 3 4 Steps (QC): 3 12 Steps (QC): 88 Picking up an Object (QC): 88 Does the Pt use WC or Scooter?: Yes Wheel 50 feet with 2 turns (QC: 6 Type: Manual Wheel 150 feet: 6 Type: Manual PT Plan Treatment/Plan Treatment Plan: Continue Plan of Care Treatment Plan: Bed Mobility, Education, Functional Activity Guillermo, Functional Strength, Group Therapy, Gait, Safety, Therapeutic Exercise, Transfers Treatment Duration: Mar 15, 2023 Frequency: 6 times per week Estimated Hrs Per Day: .25 hour per day Patient and/or Family Agrees t: Yes Time Time In: 0850 Time Out: 0910 DATE: Feb 19, 2023 Total Billed Treatment Time: 20 Total Billed Treatment Denny, DARVIN Araiza PT Feb 19, 2023 09:29
[2023-02-19 19:42] VITALS: BP 120/58
[2023-02-20 07:31] VITALS: BP 115/62
[2023-02-20] MEDS: SENNA W/DOCUSATE TABLET PO SCH (08:44)
[2023-02-20] MEDS: POTASSIUM CHLORIDE 10 MEQ TABLET PO SCH ×3 (08:44→20:15)
[2023-02-20] MEDS: predniSONE 5 MG TABLET PO SCH (08:44)
[2023-02-20] MEDS: CALCIUM CARBONATE 600 MG +VITAMIN D TABLET PO SCH (08:45)
[2023-02-20] MEDS: APIXABAN 5 MG TABLET PO SCH ×2 (08:45→20:15)
[2023-02-20] MEDS: PANTOPRAZOLE 40 MG TABLET PO SCH ×2 (08:45→20:15)
[2023-02-20] MEDS: TAMSULOSIN 0.4 MG (FLOMAX) CAP PO SCH ×2 (08:45→20:15)
[2023-02-20] MEDS: FERROUS SULFATE 325 MG (IRON) TABLET PO SCH ×2 (08:45→20:15)
[2023-02-20] MEDS: ASPIRIN 81 MG CHEWABLE TABLET PO SCH ×2 (08:45→20:15)
[2023-02-20] MEDS: FINASTERIDE 5 MG TABLET PO SCH (08:45)
[2023-02-20] MEDS: SALINE NASAL SPRAY 45 ML BTL SCH ×4 (08:46→20:15)
[2023-02-20] MEDS: [UNRECOGNIZED DRUG - OTHER] PO SCH (08:46)
[2023-02-20] MEDS: IRON SUCROSE 200 MG/10 ML VIAL IV SCH (08:46)
[2023-02-20] MEDS: HYDROcodone/ACETAMINOPHEN 5 MG/325 MG TABLET PO PRN ×2 (11:22→20:18)
--- NOTE | 2023-02-20 11:41 | Progress Note ---
Subjective Date Seen by a Provider: Feb 20, 2023 Time Seen by a Provider: 11:45 Subjective/Events-last exam No major issues No pain Labs due tomorrow Moving around well Review of Systems General: Fatigue, Malaise Objective Exam Last Set of Vital Signs Vital Signs Date Time Temp Pulse Resp B/P (MAP) Pulse Ox O2 Delivery O2 Flow Rate FiO2 02/20/23 08:00 Room Air 02/20/23 07:31 36.4 93 20 115/62 (79) 92 02/18/23 20:15 21 02/18/23 18:52 Capillary Refill : I&O Intake and Output 02/20/23 00:00 Intake Total 1160 ml Output Total 1250 ml Balance -90 ml Intake Oral 1160 ml Output Urine Total 1250 ml # Bowel Movements 1 General: Alert, Oriented X3, Cooperative, No Acute Distress Lungs: Clear to Auscultation, Normal Air Movement Heart: Regular Rate, Normal S1, Normal S2, No Murmurs Psych/Mental Status: Mental Status NL, Mood NL Assessment/Plan Assessment/Plan Assess & Plan/Chief Complaint Continue aggressive therapy MARISOL LEIGH DO Feb 20, 2023 11:41
[2023-02-20 19:30] VITALS: BP 117/58
[2023-02-21 05:47] LABS: BASOPHILS % (AUTO) 1 % (0-10); EOSINOPHILS # (AUTO) 0.1 10^3/uL (0.0-0.3); EOSINOPHILS % (AUTO) 1 % (0-10); HEMATOCRIT 35 % (40-54); HEMOGLOBIN 11.2 g/dL (13.3-17.7); LYMPHOCYTES # (AUTO) 0.9 10^3/uL (1.0-4.0); LYMPHOCYTES % (AUTO) 23 % (12-44); MEAN CORPUSCULAR HEMOGLOBIN 31 pg (25-34); MEAN CORPUSCULAR HGB CONC 32 g/dL (32-36); MEAN CORPUSCULAR VOLUME 96 fL (80-99); MEAN PLATELET VOLUME 10.2 fL (9.0-12.2); MONOCYTES # (AUTO) 0.4 10^3/uL (0.0-1.0); MONOCYTES % (AUTO) 10 % (0-12); NEUTROPHILS # (AUTO) 2.6 10^3/uL (1.8-7.8); NEUTROPHILS % (AUTO) 66 % (42-75); PLATELET COUNT 232 10^3/uL (130-400)
[2023-02-21 06:06] LABS: ALBUMIN 2.7 GM/DL (3.2-4.5)
[2023-02-21 06:07] LABS: POTASSIUM 4.3 MMOL/L (3.6-5.0)
[2023-02-21 06:08] LABS: CALCIUM 9.1 MG/DL (8.5-10.1)
[2023-02-21 06:09] LABS: TOTAL PROTEIN 6.5 GM/DL (6.4-8.2)
[2023-02-21 06:11] LABS: BILIRUBIN,TOTAL 0.9 MG/DL (0.1-1.0)
[2023-02-21 06:13] LABS: CREATININE SERUM 0.97 MG/DL (0.60-1.30)
[2023-02-21 07:38] VITALS: BP 111/56
[2023-02-21] MEDS: SALINE NASAL SPRAY 45 ML BTL SCH ×4 (08:06→20:54)
[2023-02-21] MEDS: PANTOPRAZOLE 40 MG TABLET PO SCH ×2 (08:06→20:53)
[2023-02-21] MEDS: SENNA W/DOCUSATE TABLET PO SCH (08:06)
[2023-02-21] MEDS: APIXABAN 5 MG TABLET PO SCH ×2 (08:06→20:53)
[2023-02-21] MEDS: ASPIRIN 81 MG CHEWABLE TABLET PO SCH ×2 (08:07→20:53)
[2023-02-21] MEDS: CALCIUM CARBONATE 600 MG +VITAMIN D TABLET PO SCH (08:07)
[2023-02-21] MEDS: POTASSIUM CHLORIDE 10 MEQ TABLET PO SCH ×3 (08:07→20:53)
[2023-02-21] MEDS: FINASTERIDE 5 MG TABLET PO SCH (08:07)
[2023-02-21] MEDS: predniSONE 5 MG TABLET PO SCH (08:07)
[2023-02-21] MEDS: TAMSULOSIN 0.4 MG (FLOMAX) CAP PO SCH ×2 (08:07→20:53)
[2023-02-21] MEDS: FERROUS SULFATE 325 MG (IRON) TABLET PO SCH ×2 (08:07→20:53)
--- NOTE | 2023-02-21 11:07 | Physical Therapy Daily Note ---
PT Daily Note-Current Subjective Patient agrees to therapy. Pain Section J - Health Conditions 1. Rarely or not at all 2. Occasionally 3. Frequently 4. Almost constantly 8. Unable to answer Pain Effect on Sleep: 1 Pain Interference with Therapy: 1 Pain Interference w/Day-to-Day: 1 Transfers SCALE: Activities may be completed with or without assistive devices. 7-Trxqrkaaby-uawimzd completes the activity by him/herself with no assistance from a helper. 5-Set-up or Clean-up Assistance-helper sets up or cleans up; patient completes activity. [place] assists only prior to or following the activity. 4-Supervision or Touching Assistance-helper provides verbal cues and/or touching/steadying and/or contact guard assistance as patient completes activity. Assistance may be provided throughout the activity or intermittently. 3-Partial/Moderate Assistance-helper does LESS THAN HALF the effort. [place] lifts, holds or supports trunk or limbs, but provides less than half the effort. 2-Substantial/Maximal Assistance-helper does MORE THAN HALF the effort. [place] lifts or holds trunk or limbs and provides more than half the effort. 2-Qmshovvne-ohedfd does ALL the effort. Patient does none of the effort to complete the activity. Or, the assistance of 2 or more helpers is required for the patient to complete the activity. If activity was not attempted, code reason: 7-Patient Refused. 9-Not Applicable-not attempted and the patient did not perform the activity before the current illness, exacerbation or injury. 10-Not Attempted due to Environmental Limitations-(lack of equipment, weather restraints, etc.). 88-Not Attempted due to Medical Conditions or Safety Concerns. Lying to Sitting/Side of Bed(Q: 6 Sit to Stand (QC): 6 (in parallel bars x 5 sets) Chair/Gln-mn-Snndh Xfer(QC): 6 (slide board (positioned it independently as well)) Weight Bearing Right Lower Extremity: Right Non Weight Bearing Left Lower Extremity: Left Weight Bearing/Tolerated Wheelchair Training Wheel 50 ft with 2 turns (QC): 6 Wheel 150 ft (QC): 6 Type of Wheelchair: Manual patient places arm rests and leg rests set up Exercises Seated Therapy Exercises: Long arc quads Seated Reps: 15 (x 2 sets) Standing: Marching (single LE (right LE)), Weight shifts (with OT placing clothes pins on clothing with patient weight shifting with use of left LE and UE's to balance/NWB right LE maintained) Assessment PT/OT cotreat to address standing balance and weight shifting while simulating donning clothing (refer to OT notes). Patient progressing with treatment plan. He does fatigue with activity but improving functional endurance noted. PT Usp Goals Usp Goals PT Trouble Locater Goals Time Frame: Mar 12, 2023 Roll Left & Right (QC): 6 Sit to Lying (QC): 6 Lying-Sitting on Side/Bed(QC): 6 Sit to Stand (QC): 6 Chair/Drw-ts-Wedpo Xfer(QC): 4 Toilet Transfer (QC): 4 Car Transfer (QC): 4 Does the Patient Walk: No and Walking Goal NOT indicated Walk 10 feet (QC): 88 Walk 50ft with 2 Turns (QC): 88 Walk 150 ft (QC): 88 Walking 10ft on Uneven Surface: 88 1 Step (curb) (QC): 3 4 Steps (QC): 3 12 Steps (QC): 88 Picking up an Object (QC): 88 Does the Pt use WC or Scooter?: Yes Wheel 50 feet with 2 turns (QC: 6 Type: Manual Wheel 150 feet: 6 Type: Manual PT Plan Treatment/Plan Treatment Plan: Continue Plan of Care Treatment Plan: Bed Mobility, Education, Functional Activity Guillermo, Functional Strength, Group Therapy, Gait, Safety, Therapeutic Exercise, Transfers Treatment Duration: Mar 15, 2023 Frequency: 6 times per week Estimated Hrs Per Day: .25 hour per day Patient and/or Family Agrees t: Yes Time Time In: 1030 Time Out: 1100 DATE: Feb 21, 2023 Total Billed Treatment Time: 30 Total Billed Treatment 1 visit EX x 2 30 min(cotreat with OT) HIPOLITO SAGASTUME PT Feb 21, 2023 11:07
--- NOTE | 2023-02-21 11:19 | Progress Note ---
EDY COX 02/21/23 1119: Subjective Date Seen by a Provider: Feb 21, 2023 Subjective/Events-last exam 78 year old male patient of Dr Evangelista and Dr Garcia who presents following hip repair on 01/31/2023 and revision on 02/02/2023. Patient says his pain is very well controlled right now. No trouble moving around. No discomfort. Patient reports having a good weekend. Denies any nausea, fever, chills, cough, or shortness of breath. Patient is waiting to be weight bearing on Tuesday02/23/2023. Focused Exam Sepsis Stage: Ruled Out Objective Exam Last Set of Vital Signs Vital Signs Date Time Temp Pulse Resp B/P (MAP) Pulse Ox O2 Delivery O2 Flow Rate FiO2 02/21/23 08:00 95 Room Air 02/21/23 07:38 37.0 73 16 111/56 (74) 02/18/23 20:15 21 02/18/23 08:00 2.00 Capillary Refill : I&O Intake and Output 02/21/23 00:00 Intake Total 2130 ml Output Total 2425 ml Balance -295 ml Intake Oral 2130 ml Output Urine Total 2425 ml General: Alert, Oriented X3, Cooperative HEENT: Atraumatic Neck: Supple, No JVD Lungs: Clear to Auscultation Heart: Regular Rate Abdomen: Normal Bowel Sounds Extremities: No Clubbing, No Cyanosis Skin: No Rashes, No Breakdown Neuro: Normal Speech Results Lab Laboratory Tests 02/21/23 05:18: White Blood Count 4.0L, Red Blood Count 3.63L, Hemoglobin 11.2L, Hematocrit 35L, Mean Corpuscular Volume 96, Mean Corpuscular Hemoglobin 31, Mean Corpuscular Hemoglobin Concent 32, Red Cell Distribution Width 17.4H, Platelet Count 232, Mean Platelet Volume 10.2, Immature Granulocyte % (Auto) 0, Neutrophils (%) (Auto) 66, Lymphocytes (%) (Auto) 23, Monocytes (%) (Auto) 10, Eosinophils (%) (Auto) 1, Basophils (%) (Auto) 1, Neutrophils # (Auto) 2.6, Lymphocytes # (Auto) 0.9L, Monocytes # (Auto) 0.4, Eosinophils # (Auto) 0.1, Basophils # (Auto) 0.0, Immature Granulocyte # (Auto) 0.0, Sodium Level 133L, Potassium Level 4.3, Chloride Level 106, Carbon Dioxide Level 20L, Anion Gap 7, Blood Urea Nitrogen 18, Creatinine 0.97, Estimat Glomerular Filtration Rate 79, BUN/Creatinine Ratio 19, Glucose Level 88, Calcium Level 9.1, Corrected Calcium 10.1, Total Bilirubin 0.9, Aspartate Amino Transf (AST/SGOT) 45H, Alanine Aminotransferase (ALT/SGPT) 32, Alkaline Phosphatase 162H, Total Protein 6.5, Albumin 2.7L Assessment/Plan Assessment/Plan Assess & Plan/Chief Complaint Assessment: Chronic disability following right hip fracture History of hip surgery Hemorrhagic shock Electrolyte abnormality History of Atrial Fibrillation Plan: Encourage patient ambulation Continue home meds Continue pain control Oral anticoagulation Continue PT KARLEE LEIGH DO 02/21/232034: Subjective Time Seen by a Provider: 09:00 Subjective/Events-last exam Doing well Weight bearing restriction will be lifted on Tue Objective Exam General: Alert, Oriented X3, Cooperative, No Acute Distress Lungs: Clear to Auscultation, Normal Air Movement Heart: Regular Rate, Normal S1, Normal S2, No Murmurs Psych/Mental Status: Mental Status NL, Mood NL Assessment/Plan Assessment/Plan Assess & Plan/Chief Complaint Pain control Supervisory-Addendum Brief Verification & Attestation Participated in pt care: history, MDM, physical Personally performed: exam, history, MDM, supervision of care Care discussed with: Medical Student Procedures: n/a Results interpretation: Verified all documentation Verification and Attestation of Medical Student E/M Service A medical student performed and documented this service in my presence. I reviewed and verified all information documented by the medical student and made modifications to such information, when appropriate. I personally performed the physical exam and medical decision making. Karlee Leigh, Feb 21, 2023,20:33 EDY COX Feb 21, 2023 11:19 KARLEE LEIGH DO Feb 21, 2023 20:35
--- NOTE | 2023-02-21 11:47 | Occupational Ther Daily Note ---
OT Current Status-Daily Note Subjective Agreeable to OT Mental Status/Objective Patient Orientation: Person, Place, Time, Situation ADL-Treatment simulated LB garment management for safety while in parallel bars, used clothes pins and theraband to simulate fasteners, Required additional person in front of patient for safety Therapy Code Descriptions/Definitions Functional [place] Measure: 0=Not Assessed/NA 4=Minimal Assistance 1=Total Assistance 5=Supervision or Setup 2=Maximal Assistance 6=Modified [place] 3=Moderate Assistance 7=Complete IndependenceSCALE: Activities may be completed with or without assistive devices. 9-Bigriirqjw-mdynylu completes the activity by him/herself with no assistance from a helper. 5-Set-up or Clean-up Assistance-helper sets up or cleans up; patient completes activity. [place] assists only prior to or following the activity. 4-Supervision or Touching Assistance-helper provides verbal cues and/or touching/steadying and/or contact guard assistance as patient completes activity. Assistance may be provided throughout the activity or intermittently. 3-Partial/Moderate Assistance-helper does LESS THAN HALF the effort. [place] lifts, holds or supports trunk or limbs, but provides less than half the effort. 2-Substantial/Maximal Assistance-helper does MORE THAN HALF the effort. [place] lifts or holds trunk or limbs and provides more than half the effort. 5-Favuzwrjl-lraqcj does ALL the effort. Patient does none of the effort to complete the activity. Or, the assistance of 2 or more helpers is required for the patient to complete the activity. If activity was not attempted, code reason: 7-Patient Refused. 9-Not Applicable-not attempted and the patient did not perform the activity before the current illness, exacerbation or injury. 10-Not Attempted due to Environmental Limitations-(lack of equipment, weather restraints, etc.). 88-Not Attempted due to Medical Conditions or Safety Concerns. Eating (QC): 6 Oral Hygiene (QC): 5 Upper Body Dressing (QC): 6 Lower Body Dressing (QC): 5 (WC level) On/Off Footwear: 5 Toileting Hygiene (QC): 4 Toilet Transfer (QC): 4 Education OT Patient Education: Correct positioning, Modified ADL techniques, Progress toward Goal/Update tx plan, Purpose of tx/functional activities, Reviewed precautions, Rehab process, Safety issues, Transfer techniques Teaching Recipient: Patient Teaching Methods: Demonstration, Discussion Response to Teaching: Verbalize Understanding, Reinforcement Needed OT Short Term Goals Short Term Goals Time Frame: Feb 18, 2023 Eatin Oral hygiene: 6 Toileting hygiene: 6 Shower/bathe self: 4 OT Retirement Goals Retirement Goals Time Frame: Feb 22, 2023 Acute change in mental status: 0 Inattention: 0 Disorganized thinkin Altered level of consciousness: 0 Eating (QC): 6 Oral Hygiene (QC): 6 Toileting Hygiene (QC): 6 Shower/Bathe Self (QC): 6 Upper Body Dressing (QC): 6 Lower Body Dressing (QC): 6 On/Off Footwear (QC): 6 1=Demonstrate adherence to instructed precautions during ADL tasks. 2=Patient will verbalize/demonstrate understanding of assistive dev ices/modifications for ADL. 3=Patient will improve strength/tolerance for activity to enable patient to perform ADL's. OT Education/Plan Problem List/Assessment Assessment: Decreased Activ Tolerance, Impaired Funct Balance, Impaired Self- Care Skills Discharge Recommendations Plan/Recommendations: Continue POC Treatment Plan/Plan of Care Treatment,Training & Education: Yes Patient would benefit from OT for education, treatment and training to promote independence in ADL's, mobility, safety and/or upper extremity function for ADL's. Plan of Care: ADL Retraining, Functional Mobility, Group Exercise/Act as Ind, UE Funct Exercise/Act, W/C Management Training Treatment Duration: Feb 22, 2023 Frequency: At least 5 of 7 days/Wk (IRF) Estimated Hrs Per Day: .25 hour per day Agreement: Yes Rehab Potential: Guarded Time Start Time: 10:30 Stop Time: 11:00 DATE: Feb 21, 2023 Total Time Billed (hr/min): 30 Billed Treatment Time CO TR for dynamic balance 30 min ADL, NISHA PATTEN OT Feb 21, 2023 11:47
[2023-02-21] MEDS: HYDROcodone/ACETAMINOPHEN 5 MG/325 MG TABLET PO PRN ×2 (14:56→22:46)
--- NOTE | 2023-02-21 15:35 | Wound Care Assessment ---
Wound Care Assessment Date Seen by Provider: Feb 21, 2023 Time Seen by Provider: 11:40 Chief Complaint wound vac assessment s/p femur fracture and correctional orthopedic surgery HPI Our patient is a pleasant 78 yo M with a pmh of right femur fracture, protein energy malnutrition, left BKA, atrial fibrillation, and anemia s/p transfusion of 4-6 units PRBC who recently underwent right hip corrective surgery and has a wound vac (Prevena) in place at the surgical site. He is fully alert and oriented. He denies any issues with the wound vac and is unsure of whether or not jodie or sutures were used to seal the incision site. His Prevena wound vac is due for removal on 02/22. Patient is able to transition to weight-bearing on 02/23. Past Medical History: Admits Heart Disease; Denies Diabetes Type I, Denies Diabetes Type II Smoking Status: Former Smoker Alcohol Use: Denies Use Review of Systems General: No Chills Cardiovascular: No: Edema Musculoskeletal: leg pain (Right-sided) Neurological: No: Change in speech, Confusion Exam Vital Signs Date Time Temp Pulse Resp B/P (MAP) Pulse Ox O2 Delivery O2 Flow Rate FiO2 02/21/23 08:00 95 Room Air 02/21/23 07:38 37.0 73 16 111/56 (74) 02/18/23 20:15 21 02/18/23 08:00 2.00 Capillary Refill : General Appearance: WD/WN, no apparent distress HEENT: PERRL/EOMI Extremities: no pedal edema, no calf tenderness, other (Left, below the knee amputation with no abnormalities noted at the stump. Wound-vac in place in the right upper thigh with minimal drainage. No erythema or inflammation noted.) Neurologic/Psychiatric: alert, normal mood/affect, oriented x 3 Skin: normal color, warm/dry Results Laboratory Tests 02/21/23 05:18: White Blood Count 4.0L, Red Blood Count 3.63L, Hemoglobin 11.2L, Hematocrit 35L, Mean Corpuscular Volume 96, Mean Corpuscular Hemoglobin 31, Mean Corpuscular Hemoglobin Concent 32, Red Cell Distribution Width 17.4H, Platelet Count 232, Mean Platelet Volume 10.2, Immature Granulocyte % (Auto) 0, Neutrophils (%) (Auto) 66, Lymphocytes (%) (Auto) 23, Monocytes (%) (Auto) 10, Eosinophils (%) (Auto) 1, Basophils (%) (Auto) 1, Neutrophils # (Auto) 2.6, Lymphocytes # (Auto) 0.9L, Monocytes # (Auto) 0.4, Eosinophils # (Auto) 0.1, Basophils # (Auto) 0.0, Immature Granulocyte # (Auto) 0.0, Sodium Level 133L, Potassium Level 4.3, Chloride Level 106, Carbon Dioxide Level 20L, Anion Gap 7, Blood Urea Nitrogen 18, Creatinine 0.97, Estimat Glomerular Filtration Rate 79, BUN/Creatinine Ratio 19, Glucose Level 88, Calcium Level 9.1, Corrected Calcium 10.1, Total Bilirubin 0.9, Aspartate Amino Transf (AST/SGOT) 45H, Alanine Aminotransferase (ALT/SGPT) 32, Alkaline Phosphatase 162H, Total Protein 6.5, Albumin 2.7L Assessment/Plan/Dx Prevena wound vac s/p orthopedic correction of right femoral fracture -Prevena due for removal on 02/22 -No erythema, drainage, or ulceration noted at drain site -Continue to monitor for signs of worsening pain, fever, chills, or other signs of infection -Minimal drainage noted from vac -Able to be weight bearing on 02/23 -Continue adequate pain control Supervisory-Addendum Brief Verification & Attestation Participated in pt care: history, MDM, physical Personally performed: exam, history, MDM, supervision of care Care discussed with: Medical Student Procedures: n/a Results interpretation: Verified all documentation WILMER Mccain Feb 21, 2023 15:34 PAYAL SÁNCHEZ MD Feb 21, 2023 17:14
[2023-02-21 19:52] VITALS: BP 120/56
[2023-02-22] MEDS: HYDROcodone/ACETAMINOPHEN 5 MG/325 MG TABLET PO PRN ×3 (06:40→20:54)
[2023-02-22 07:41] VITALS: BP 99/59
[2023-02-22] MEDS: APIXABAN 5 MG TABLET PO SCH ×2 (08:44→20:47)
[2023-02-22] MEDS: predniSONE 5 MG TABLET PO SCH (08:44)
[2023-02-22] MEDS: SENNA W/DOCUSATE TABLET PO SCH (08:44)
[2023-02-22] MEDS: ASPIRIN 81 MG CHEWABLE TABLET PO SCH ×2 (08:44→20:47)
[2023-02-22] MEDS: FERROUS SULFATE 325 MG (IRON) TABLET PO SCH ×2 (08:44→20:47)
[2023-02-22] MEDS: TAMSULOSIN 0.4 MG (FLOMAX) CAP PO SCH ×2 (08:44→20:47)
[2023-02-22] MEDS: FINASTERIDE 5 MG TABLET PO SCH (08:44)
[2023-02-22] MEDS: PANTOPRAZOLE 40 MG TABLET PO SCH ×2 (08:44→20:47)
[2023-02-22] MEDS: IRON SUCROSE 200 MG/10 ML VIAL IV SCH (08:44)
[2023-02-22] MEDS: POTASSIUM CHLORIDE 10 MEQ TABLET PO SCH ×3 (08:44→20:47)
[2023-02-22] MEDS: [UNRECOGNIZED DRUG - OTHER] PO SCH (08:45)
[2023-02-22] MEDS: SALINE NASAL SPRAY 45 ML BTL SCH ×4 (08:46→20:47)
[2023-02-22] MEDS: CALCIUM CARBONATE 600 MG +VITAMIN D TABLET PO SCH (09:12)
--- NOTE | 2023-02-22 10:27 | Physical Therapy Daily Note ---
PT Daily Note-Current Subjective Patient agrees to therapy. PT/OT cotreat for toilet transfers in restroom and use of grab bars. Pain Section J - Health Conditions 1. Rarely or not at all 2. Occasionally 3. Frequently 4. Almost constantly 8. Unable to answer Pain Effect on Sleep: 1 Pain Interference with Therapy: 1 Pain Interference w/Day-to-Day: 1 Mental Status Patient Orientation: Normal For Age Transfers SCALE: Activities may be completed with or without assistive devices. 9-Hxquaronrk-tafmndv completes the activity by him/herself with no assistance from a helper. 5-Set-up or Clean-up Assistance-helper sets up or cleans up; patient completes activity. [place] assists only prior to or following the activity. 4-Supervision or Touching Assistance-helper provides verbal cues and/or touching/steadying and/or contact guard assistance as patient completes activity. Assistance may be provided throughout the activity or intermittently. 3-Partial/Moderate Assistance-helper does LESS THAN HALF the effort. [place] lifts, holds or supports trunk or limbs, but provides less than half the effort. 2-Substantial/Maximal Assistance-helper does MORE THAN HALF the effort. [place] lifts or holds trunk or limbs and provides more than half the effort. 1-Zojvutghb-imqtvv does ALL the effort. Patient does none of the effort to complete the activity. Or, the assistance of 2 or more helpers is required for the patient to complete the activity. If activity was not attempted, code reason: 7-Patient Refused. 9-Not Applicable-not attempted and the patient did not perform the activity bef ore the current illness, exacerbation or injury. 10-Not Attempted due to Environmental Limitations-(lack of equipment, weather r estraints, etc.). 88-Not Attempted due to Medical Conditions or Safety Concerns. Lying to Sitting/Side of Bed(Q: 6 Sit to Stand (QC): 4 Chair/Vid-lo-Fpkws Xfer(QC): 6 Toilet Transfer (QC): 4 Weight Bearing Right Lower Extremity: Right Non Weight Bearing Left Lower Extremity: Left Weight Bearing/Tolerated Wheelchair Training Wheel 50 ft with 2 turns (QC): 6 Wheel 150 ft (QC): 6 Type of Wheelchair: Manual Assessment Patient improving with function strength and mobility. Patient is independent with bed mobility and slide board transfers, as well as w/c mobility. Per patient, he will find out tomorrow on weight bear status right LE. PT Intermediate Goals [place] Goals PT Intermediate Goals Time Frame: Mar 12, 2023 Roll Left & Right (QC): 6 Sit to Lying (QC): 6 Lying-Sitting on Side/Bed(QC): 6 Sit to Stand (QC): 6 Chair/Kvl-xg-Kdeop Xfer(QC): 4 Toilet Transfer (QC): 4 Car Transfer (QC): 4 Does the Patient Walk: No and Walking Goal NOT indicated Walk 10 feet (QC): 88 Walk 50ft with 2 Turns (QC): 88 Walk 150 ft (QC): 88 Walking 10ft on Uneven Surface: 88 1 Step (curb) (QC): 3 4 Steps (QC): 3 12 Steps (QC): 88 Picking up an Object (QC): 88 Does the Pt use WC or Scooter?: Yes Wheel 50 feet with 2 turns (QC: 6 Type: Manual Wheel 150 feet: 6 Type: Manual PT Plan Treatment/Plan Treatment Plan: Continue Plan of Care Treatment Plan: Bed Mobility, Education, Functional Activity Guillermo, Functional Strength, Group Therapy, Gait, Safety, Therapeutic Exercise, Transfers Treatment Duration: Mar 15, 2023 Frequency: 6 times per week Estimated Hrs Per Day: .25 hour per day Patient and/or Family Agrees t: Yes Time Time In: 952 Time Out: 1011 DATE: Feb 22, 2023 Total Billed Treatment Time: 19 Total Billed Treatment 1 visit FA 19 min HIPOLITO SAGASTUME PT Feb 22, 2023 10:27
--- NOTE | 2023-02-22 11:14 | Occupational Ther Daily Note ---
OT Current Status-Daily Note Subjective Supine in bed, discussed patient readiness for therapy daily by 9 am. As patient is able to perform WC/Bed transfer w/ and w/o slide board, manage components of WC with supervision of staff and nursing positional WC perpendicular to bed Mental Status/Objective Patient Orientation: Person, Place, Time, Situation ADL-Treatment LB clothing management, toilet transfer w/ WC/GBs, discussed simulated home environment and use of lavatory. LLE angled w/ sligh ER and diagonal sitting in WC to perform stand pivot on prosthesis. SBA Therapy Code Descriptions/Definitions Functional [place] Measure: 0=Not Assessed/NA 4=Minimal Assistance 1=Total Assistance 5=Supervision or Setup 2=Maximal Assistance 6=Modified [place] 3=Moderate Assistance 7=Complete IndependenceSCALE: Activities may be completed with or without assistive devices. 5-Mxnuafrate-qzturgg completes the activity by him/herself with no assistance from a helper. 5-Set-up or Clean-up Assistance-helper sets up or cleans up; patient completes activity. [place] assists only prior to or following the activity. 4-Supervision or Touching Assistance-helper provides verbal cues and/or touching/steadying and/or contact guard assistance as patient completes activity. Assistance may be provided throughout the activity or intermittently. 3-Partial/Moderate Assistance-helper does LESS THAN HALF the effort. [place] lifts, holds or supports trunk or limbs, but provides less than half the effort. 2-Substantial/Maximal Assistance-helper does MORE THAN HALF the effort. [place] lifts or holds trunk or limbs and provides more than half the effort. 0-Zhklfbjse-avlknr does ALL the effort. Patient does none of the effort to complete the activity. Or, the assistance of 2 or more helpers is required for the patient to complete the activity. If activity was not attempted, code reason: 7-Patient Refused. 9-Not Applicable-not attempted and the patient did not perform the activity before the current illness, exacerbation or injury. 10-Not Attempted due to Environmental Limitations-(lack of equipment, weather restraints, etc.). 88-Not Attempted due to Medical Conditions or Safety Concerns. Eating (QC): 6 Oral Hygiene (QC): 6 Upper Body Dressing (QC): 6 Lower Body Dressing (QC): 5 On/Off Footwear: 5 Toileting Hygiene (QC): 5 Toilet Transfer (QC): 5 Education OT Patient Education: Correct positioning, Modified ADL techniques, Progress toward Goal/Update tx plan, Purpose of tx/functional activities, Reviewed precautions, Rehab process, Safety issues, Transfer techniques, Use of adapted equipment, W/C management Teaching Recipient: Patient Teaching Methods: Demonstration Response to Teaching: Return Demonstration OT Short Term Goals Short Term Goals Time Frame: Feb 18, 2023 Eatin Oral hygiene: 6 Toileting hygiene: 6 Shower/bathe self: 4 OT Business Line Controller Goals Shelter Goals Time Frame: Feb 22, 2023 Acute change in mental status: 0 Inattention: 0 Disorganized thinkin Altered level of consciousness: 0 Eating (QC): 6 Oral Hygiene (QC): 6 Toileting Hygiene (QC): 6 Shower/Bathe Self (QC): 6 Upper Body Dressing (QC): 6 Lower Body Dressing (QC): 6 On/Off Footwear (QC): 6 1=Demonstrate adherence to instructed precautions during ADL tasks. 2=Patient will verbalize/demonstrate understanding of assistive devices/modifications for ADL. 3=Patient will improve strength/tolerance for activity to enable patient to perform ADL's. OT Education/Plan Problem List/Assessment Assessment: Impaired Self-Care Skills Discharge Recommendations Plan/Recommendations: Continue POC Treatment Plan/Plan of Care Treatment,Training & Education: Yes Patient would benefit from OT for education, treatment and training to promote independence in ADL's, mobility, safety and/or upper extremity function for ADL's. Plan of Care: ADL Retraining, Functional Mobility, Group Exercise/Act as Ind, UE Funct Exercise/Act, W/C Management Training Treatment Duration: Feb 22, 2023 Frequency: At least 5 of 7 days/Wk (IRF) Estimated Hrs Per Day: .25 hour per day Agreement: Yes Rehab Potential: Guarded Time Start Time: 09:51 Stop Time: 10:10 DATE: Feb 22, 2023 Total Time Billed (hr/min): 19 Billed Treatment Time CO TX w/ PT for balance, transfers and LB garment management stabilization NISHA MCCONNELL OT Feb 22, 2023 11:14
--- NOTE | 2023-02-22 12:55 | Progress Note ---
COXEDY 02/22/23 1254: Subjective Date Seen by a Provider: Feb 22, 2023 Subjective/Events-last exam 78 year old male patient who presents following hip repair on 01/31/2023 and revision on 02/02/2023. Patient says his pain is very well controlled right now. No trouble moving around. No discomfort. Patient reports having discomfort in his left arm from his IV- requesting removal. Waiting until Tuesday to perform weight bearing activities. Patient endorses PT- says it has been helpful. Moving in hallway in wheelchair by himself. Focused Exam Sepsis Stage: Ruled Out Objective Exam Last Set of Vital Signs Vital Signs Date Time Temp Pulse Resp B/P (MAP) Pulse Ox O2 Delivery O2 Flow Rate FiO2 02/22/23 08:00 Room Air 02/22/23 07:41 36.5 83 17 99/59 (72) 93 02/18/23 20:15 21 02/18/23 08:00 2.00 Capillary Refill : I&O Intake and Output 02/22/23 00:00 Intake Total 1560 ml Output Total 1375 ml Balance 185 ml Intake Oral 1560 ml Output Urine Total 1375 ml # Bowel Movements 1 General: Alert, Oriented X3, Cooperative HEENT: Atraumatic, PERRLA Neck: Supple, No JVD Lungs: Clear to Auscultation Heart: Regular Rate, No Murmurs Abdomen: Normal Bowel Sounds, Soft Extremities: No Clubbing, No Cyanosis Skin: No Rashes, No Breakdown Neuro: Normal Speech Assessment/Plan Assessment/Plan Assess & Plan/Chief Complaint Assessment: Chronic disability following right hip fracture History of hip surgery Hemorrhagic shock Electrolyte abnormality History of Atrial Fibrillation Plan: Encourage patient ambulation Continue home meds Continue pain control Oral anticoagulation Continue PT Remove wound vac KARLEE LEIGH DO 02/22/232030: Subjective Time Seen by a Provider: 11:00 Subjective/Events-last exam Patient doing well Weightbearing restrictions will be discontinued tomorrow Objective Exam General: Alert, Oriented X3, Cooperative, No Acute Distress Psych/Mental Status: Mental Status NL, Mood NL Assessment/Plan Assessment/Plan Assess & Plan/Chief Complaint Doing well Weightbearing restrictions DC Supervisory-Addendum Brief Verification & Attestation Participated in pt care: history, MDM, physical Personally performed: exam, history, MDM, supervision of care Care discussed with: Medical Student Procedures: n/a Results interpretation: Verified all documentation Verification and Attestation of Medical Student E/M Service A medical student performed and documented this service in my presence. I reviewed and verified all information documented by the medical student and made modifications to such information, when appropriate. I personally performed the physical exam and medical decision making. Karlee Leigh, Feb 22, 2023,20:30 EDY COX Feb 22, 2023 12:54 KARLEE LEIGH DO Feb 22, 2023 20:31
[2023-02-22] MEDS: MUPIROCIN 2% OINTMENT 22 GM TUBE TOP SCH (13:01)
[2023-02-22] MEDS: HYPOCHLOROUS ACID/NaCl WOUND SOLN 250 ML IR SCH (13:01)
[2023-02-22 19:51] VITALS: BP 106/57
[2023-02-23] MEDS: PANTOPRAZOLE 40 MG TABLET PO SCH ×2 (08:25→19:57)
[2023-02-23] MEDS: TAMSULOSIN 0.4 MG (FLOMAX) CAP PO SCH ×2 (08:25→19:57)
[2023-02-23] MEDS: POTASSIUM CHLORIDE 10 MEQ TABLET PO SCH ×3 (08:25→19:57)
[2023-02-23] MEDS: FINASTERIDE 5 MG TABLET PO SCH (08:25)
[2023-02-23] MEDS: ASPIRIN 81 MG CHEWABLE TABLET PO SCH ×2 (08:25→19:57)
[2023-02-23] MEDS: CALCIUM CARBONATE 600 MG +VITAMIN D TABLET PO SCH (08:25)
[2023-02-23] MEDS: SENNA W/DOCUSATE TABLET PO SCH (08:25)
[2023-02-23] MEDS: FERROUS SULFATE 325 MG (IRON) TABLET PO SCH ×2 (08:25→19:57)
[2023-02-23] MEDS: APIXABAN 5 MG TABLET PO SCH ×2 (08:25→19:57)
[2023-02-23] MEDS: predniSONE 5 MG TABLET PO SCH (08:25)
[2023-02-23] MEDS: MUPIROCIN 2% OINTMENT 22 GM TUBE TOP SCH (08:26)
[2023-02-23] MEDS: HYPOCHLOROUS ACID/NaCl WOUND SOLN 250 ML IR SCH (08:26)
[2023-02-23] MEDS: SALINE NASAL SPRAY 45 ML BTL SCH ×4 (08:26→19:57)
--- NOTE | 2023-02-23 09:54 | Progress Note ---
EDY COX 02/23/23 0954: Progress Note This is an 78 year old male clinic patient of Dr Evangelista and Dr Garcia who was seen following chronic fracture of hip repair on 01/31/2023. Patient began having more pain post-op- X-Ray showed periprostatic fracture of the right femur requiring repair on 02/02/2023. Patient had signs of hemorrhagic shock and yary ctrolyte abnormalities and he was transfered to [facility] via [facility] in [place]. Through his hospital stay, his stay was uneventful. Pain was well controlled. Patient was seen by both OT and PT throughout his stay. He has had increasing mobility and function throughout his stay. MINOO,03/02/23 0822: EDY COX Feb 23, 2023 09:54 Mar 02, 2023 08:22
--- NOTE | 2023-02-23 11:29 | Occupational Ther Daily Note ---
OT Current Status-Daily Note Subjective Up in WC and ready to work. Reports up for one hour Pain Location: No Pain Reported Mental Status/Objective Patient Orientation: Person, Place, Time, Situation ADL-Treatment ADLs performed prior to OT arrival Therapy Code Descriptions/Definitions Functional [place] Measure: 0=Not Assessed/NA 4=Minimal Assistance 1=Total Assistance 5=Supervision or Setup 2=Maximal Assistance 6=Modified [place] 3=Moderate Assistance 7=Complete IndependenceSCALE: Activities may be completed with or without assistive devices. 0-Ljvotgclah-rrfvdqx completes the activity by him/herself with no assistance from a helper. 5-Set-up or Clean-up Assistance-helper sets up or cleans up; patient completes activity. [place] assists only prior to or following the activity. 4-Supervision or Touching Assistance-helper provides verbal cues and/or touching/steadying and/or contact guard assistance as patient completes activity. Assistance may be provided throughout the activity or intermittently. 3-Partial/Moderate Assistance-helper does LESS THAN HALF the effort. [place] lifts, holds or supports trunk or limbs, but provides less than half the effort. 2-Substantial/Maximal Assistance-helper does MORE THAN HALF the effort. [place] lifts or holds trunk or limbs and provides more than half the effort. 3-Mmfkouzjl-sygacf does ALL the effort. Patient does none of the effort to complete the activity. Or, the assistance of 2 or more helpers is required for the patient to complete the activity. If activity was not attempted, code reason: 7-Patient Refused. 9-Not Applicable-not attempted and the patient did not perform the activity befo re the current illness, exacerbation or injury. 10-Not Attempted due to Environmental Limitations-(lack of equipment, weather re straints, etc.). 88-Not Attempted due to Medical Conditions or Safety Concerns. Other Treatment WC to ARU for hand weights and WC navigation in community. Patient tolerates 2# weight for 10x3 tricep presses overhead, 10x3 WC push ups and 10 x3 horz abduction. Rest periods of 20-30 seconds between each set. Propels back to room on 4 floor Education OT Patient Education: Correct positioning, Exercise program, Progress toward Goal/Update tx plan, Purpose of tx/functional activities, Reviewed precautions, Rehab process, Safety issues, Use of adapted equipment, W/C management Teaching Recipient: Patient Teaching Methods: Discussion Response to Teaching: Return Demonstration OT Short Term Goals Short Term Goals Time Frame: Feb 18, 2023 Eatin Oral hygiene: 6 Toileting hygiene: 6 Shower/bathe self: 4 OT Shelter Goals Superintendent Measurement Goals Time Frame: Feb 22, 2023 Acute change in mental status: 0 Inattention: 0 Disorganized thinkin Altered level of consciousness: 0 Eating (QC): 6 Oral Hygiene (QC): 6 Toileting Hygiene (QC): 6 Shower/Bathe Self (QC): 6 Upper Body Dressing (QC): 6 Lower Body Dressing (QC): 6 On/Off Footwear (QC): 6 1=Demonstrate adherence to instructed precautions during ADL tasks. 2=Patient will verbalize/demonstrate understanding of assistive devices/modifications for ADL. 3=Patient will improve strength/tolerance for activity to enable patient to perform ADL's. OT Education/Plan Problem List/Assessment Assessment: Decreased Activ Tolerance, Impaired Self-Care Skills Discharge Recommendations Plan/Recommendations: Continue POC Treatment Plan/Plan of Care Treatment,Training & Education: Yes Patient would benefit from OT for education, treatment and training to promote independence in ADL's, mobility, safety and/or upper extremity function for ADL's. Plan of Care: ADL Retraining, Functional Mobility, Group Exercise/Act as Ind, UE Funct Exercise/Act, W/C Management Training Treatment Duration: Feb 22, 2023 Frequency: At least 5 of 7 days/Wk (IRF) Estimated Hrs Per Day: .25 hour per day Agreement: Yes Rehab Potential: Guarded Time Start Time: 10:00 Stop Time: 10:24 DATE: Feb 23, 2023 Total Time Billed (hr/min): 24 Billed Treatment Time EX 24 min NISHA MCCONNELL OT Feb 23, 2023 11:29
--- NOTE | 2023-02-23 12:52 | Progress Note ---
COXEDY 02/23/23 1252: Subjective Date Seen by a Provider: Feb 23, 2023 Subjective/Events-last exam 78 year old male patient who presents following hip repair. Patient is ambulating well. Pain is well controlled right now. Patient reports PT has been helpful. Patient had already gotten himself to the wheelchair this morning without any assistance. Patient says he cannot go home- it does not have a ramp for wheelchair access. Patient wound vac removed yesterday and patient is pleased with how his scar looks. Patient affect has been much improved today. Review of Systems General: No Chills, No Night Sweats Pulmonary: No Cough Cardiovascular: No: Chest Pain Gastrointestinal: No: Nausea Objective Exam Last Set of Vital Signs Vital Signs Date Time Temp Pulse Resp B/P (MAP) Pulse Ox O2 Delivery O2 Flow Rate FiO2 02/23/23 08:03 36.6 101 17 Room Air 02/22/23 20:48 93 02/18/23 20:15 21 02/18/23 08:00 2.00 Capillary Refill : I&O Intake and Output 02/23/23 00:00 Intake Total 1650 ml Output Total 1275 ml Balance 375 ml Intake Oral 1650 ml Output Urine Total 1275 ml # Bowel Movements 1 General: Alert, Oriented X3 HEENT: Atraumatic, PERRLA Neck: Supple, No JVD Lungs: Clear to Auscultation Heart: Regular Rate Abdomen: Normal Bowel Sounds Extremities: No Clubbing, No Cyanosis Skin: No Rashes, No Breakdown Neuro: Normal Speech Assessment/Plan Assessment/Plan Assess & Plan/Chief Complaint Assessment: Chronic disability following right hip fracture History of hip surgery Hemorrhagic shock Electrolyte abnormality History of Atrial Fibrillation Plan: Encourage patient ambulation Continue home meds Continue pain control Oral anticoagulation Continue PT KARLEE LEIGH DO 02/23/232108: Subjective Time Seen by a Provider: 11:00 Subjective/Events-last exam Patient doing well Cannot go home so he will go to [place] or [place] Objective Exam General: Alert, Oriented X3, Cooperative, No Acute Distress Assessment/Plan Assessment/Plan Assess & Plan/Chief Complaint Await insurance Auth Supervisory-Addendum Brief Verification & Attestation Participated in pt care: history, MDM, physical Personally performed: exam, history, MDM, supervision of care Care discussed with: Medical Student Procedures: n/a Results interpretation: Verified all documentation Verification and Attestation of Medical Student E/M Service A medical student performed and documented this service in my presence. I reviewed and verified all information documented by the medical student and made modifications to such information, when appropriate. I personally performed the physical exam and medical decision making. Karlee Leigh, Feb 23, 2023,21:08 EDY COX Feb 23, 2023 12:52 KARLEE LEIGH DO Feb 23, 2023 21:09
--- NOTE | 2023-02-23 14:46 | Physical Therapy Daily Note ---
PT Daily Note-Current Subjective Patient lying supine in bed upon arrival, agreeable to treatment. Patient rates pain at 0/10 currently in the right hip. Pain Section J - Health Conditions 1. Rarely or not at all 2. Occasionally 3. Frequently 4. Almost constantly 8. Unable to answer Pain Effect on Sleep: 1 Pain Interference with Therapy: 1 Pain Interference w/Day-to-Day: 1 Transfers SCALE: Activities may be completed with or without assistive devices. 0-Srxjtknooc-bspfklu completes the activity by him/herself with no assistance from a helper. 5-Set-up or Clean-up Assistance-helper sets up or cleans up; patient completes activity. [place] assists only prior to or following the activity. 4-Supervision or Touching Assistance-helper provides verbal cues and/or touching/steadying and/or contact guard assistance as patient completes activity. Assistance may be provided throughout the activity or intermittently. 3-Partial/Moderate Assistance-helper does LESS THAN HALF the effort. [place] lifts, holds or supports trunk or limbs, but provides less than half the effort. 2-Substantial/Maximal Assistance-helper does MORE THAN HALF the effort. [place] lifts or holds trunk or limbs and provides more than half the effort. 8-Fzrxulprs-dfijyg does ALL the effort. Patient does none of the effort to complete the activity. Or, the assistance of 2 or more helpers is required for the patient to complete the activity. If activity was not attempted, code reason: 7-Patient Refused. 9-Not Applicable-not attempted and the patient did not perform the activity before the current illness, exacerbation or injury. 10-Not Attempted due to Environmental Limitations-(lack of equipment, weather restraints, etc.). 88-Not Attempted due to Medical Conditions or Safety Concerns. Roll Left & Right (QC): 6 Sit to Lying (QC): 6 Lying to Sitting/Side of Bed(Q: 6 Chair/Umf-na-Exwuh Xfer(QC): 6 Weight Bearing Right Lower Extremity: Right Non Weight Bearing Left Lower Extremity: Left Weight Bearing/Tolerated Gait Training Does the Patient Walk?: No and Walking Goal IS indicated Wheelchair Training Does the Pt Use a Wheelchair?: Yes Wheel 50 ft with 2 turns (QC): 6 Wheel 150 ft (QC): 6 Type of Wheelchair: Manual Assessment Current Status: Fair Progress Patient tolerated treatment well. Demonstrates complete independence with bed mobility and transfers from bed to chair with slideboard. At this time will begin PWB RLE as soon as order is received. Patient is unable to return home at this time due to having stairs and patient reports he will be unable to use the w/c in his house. Patient will continue to benefit from skilled Physical Therapy to promote increased mobility, gait and balance with weight bearing in the right LE as soon as allowed by physician. Patient in w/c post treatment with all needs met, nursing notified, call light in reach. PT Correction Goals Buttonhole Marker Goals PT Correction Goals Time Frame: Mar 12, 2023 Roll Left & Right (QC): 6 Sit to Lying (QC): 6 Lying-Sitting on Side/Bed(QC): 6 Sit to Stand (QC): 6 Chair/Rjo-zk-Bbfpr Xfer(QC): 4 Toilet Transfer (QC): 4 Car Transfer (QC): 4 Does the Patient Walk: No and Walking Goal NOT indicated Walk 10 feet (QC): 88 Walk 50ft with 2 Turns (QC): 88 Walk 150 ft (QC): 88 Walking 10ft on Uneven Surface: 88 1 Step (curb) (QC): 3 4 Steps (QC): 3 12 Steps (QC): 88 Picking up an Object (QC): 88 Does the Pt use WC or Scooter?: Yes Wheel 50 feet with 2 turns (QC: 6 Type: Manual Wheel 150 feet: 6 Type: Manual PT Plan Treatment/Plan Treatment Plan: Continue Plan of Care Treatment Plan: Bed Mobility, Education, Functional Activity Gu[place], Functional Strength, Group Therapy, Gait, Safety, Therapeutic Exercise, Transfers Treatment Duration: Mar 15, 2023 Frequency: 6 times per week Estimated Hrs Per Day: .25 hour per day Patient and/or Family Agrees t: Yes Safety Risks/Education Patient Education: Transfer Techniques, W/C Management Teaching Recipient: Patient Teaching Methods: Demonstration, Discussion Response to Teaching: Verbalize Understanding, Return Demonstration Time Time In: 1402 Time Out: 1420 DATE: Feb 23, 2023 Total Billed Treatment Time: 18 Total Billed Treatment Visit, CHARLIE OSEGUERA PT Feb 23, 2023 14:46
[2023-02-23 16:07] VITALS: BP 106/57
[2023-02-23] MEDS: HYDROcodone/ACETAMINOPHEN 5 MG/325 MG TABLET PO PRN (20:00)
[2023-02-23 20:05] VITALS: BP 110/57
[2023-02-24 07:57] VITALS: BP 106/66
[2023-02-24] MEDS: SENNA W/DOCUSATE TABLET PO SCH (08:37)
[2023-02-24] MEDS: PANTOPRAZOLE 40 MG TABLET PO SCH ×2 (08:37→20:03)
[2023-02-24] MEDS: APIXABAN 5 MG TABLET PO SCH ×2 (08:37→20:03)
[2023-02-24] MEDS: FINASTERIDE 5 MG TABLET PO SCH (08:37)
[2023-02-24] MEDS: FERROUS SULFATE 325 MG (IRON) TABLET PO SCH ×2 (08:37→20:03)
[2023-02-24] MEDS: TAMSULOSIN 0.4 MG (FLOMAX) CAP PO SCH ×2 (08:37→20:03)
[2023-02-24] MEDS: ASPIRIN 81 MG CHEWABLE TABLET PO SCH ×2 (08:37→20:03)
[2023-02-24] MEDS: POTASSIUM CHLORIDE 10 MEQ TABLET PO SCH ×3 (08:37→20:03)
[2023-02-24] MEDS: CALCIUM CARBONATE 600 MG +VITAMIN D TABLET PO SCH (08:37)
[2023-02-24] MEDS: predniSONE 5 MG TABLET PO SCH (08:38)
[2023-02-24] MEDS: [UNRECOGNIZED DRUG - OTHER] PO SCH (08:39)
[2023-02-24] MEDS: SALINE NASAL SPRAY 45 ML BTL SCH ×4 (08:44→20:05)
[2023-02-24] MEDS: MUPIROCIN 2% OINTMENT 22 GM TUBE TOP SCH (08:44)
[2023-02-24] MEDS: HYPOCHLOROUS ACID/NaCl WOUND SOLN 250 ML IR SCH (08:44)
--- NOTE | 2023-02-24 10:40 | Physical Therapy Daily Note ---
PT Daily Note-Current Subjective Patient agrees to PT. Pain Section J - Health Conditions 1. Rarely or not at all 2. Occasionally 3. Frequently 4. Almost constantly 8. Unable to answer Pain Effect on Sleep: 1 Pain Interference with Therapy: 1 Pain Interference w/Day-to-Day: 1 Mental Status Patient Orientation: Normal For Age Transfers SCALE: Activities may be completed with or without assistive devices. 2-Jmwnfporur-mjoykri completes the activity by him/herself with no assistance from a helper. 5-Set-up or Clean-up Assistance-helper sets up or cleans up; patient completes activity. [place] assists only prior to or following the activity. 4-Supervision or Touching Assistance-helper provides verbal cues and/or touching/steadying and/or contact guard assistance as patient completes activity. Assistance may be provided throughout the activity or intermittently. 3-Partial/Moderate Assistance-helper does LESS THAN HALF the effort. [place] lifts, holds or supports trunk or limbs, but provides less than half the effort. 2-Substantial/Maximal Assistance-helper does MORE THAN HALF the effort. [place] lifts or holds trunk or limbs and provides more than half the effort. 1-Fsyejxbiy-nfsxxm does ALL the effort. Patient does none of the effort to complete the activity. Or, the assistance of 2 or more helpers is required for the patient to complete the activity. If activity was not attempted, code reason: 7-Patient Refused. 9-Not Applicable-not attempted and the patient did not perform the activity before the current illness, exacerbation or injury. 10-Not Attempted due to Environmental Limitations-(lack of equipment, weather restraints, etc.). 88-Not Attempted due to Medical Conditions or Safety Concerns. Sit to Stand (QC): 4 Weight Bearing Right Lower Extremity: Right Partial Weight Bearing Left Lower Extremity: Left Weight Bearing/Tolerated Gait Training Does the Patient Walk?: Yes Distance: 50' x 4 Walk 10 feet (QC): 4 Walk 50 ft with 2 Turns(QC): 4 Gait Assistive Device: FWW Patient able to maintain PWB right LE without difficulty Assessment PT/OT cotreat to address functional mobility with w/c and gait training FWW. Patient does have an initial episode of increase anxiety with gait training, however, does calm. Patient highly motivated with progress. Continue to increase activity as tolerated by patient. PT Halfway Goals Halfway Goals PT Shim Plug Cutter Goals Time Frame: Mar 12, 2023 Roll Left & Right (QC): 6 Sit to Lying (QC): 6 Lying-Sitting on Side/Bed(QC): 6 Sit to Stand (QC): 6 Chair/Jcf-cg-Sktwv Xfer(QC): 4 Toilet Transfer (QC): 4 Car Transfer (QC): 4 Does the Patient Walk: No and Walking Goal NOT indicated Walk 10 feet (QC): 4 Walk 50ft with 2 Turns (QC): 4 Walk 150 ft (QC): 4 Walking 10ft on Uneven Surface: 4 1 Step (curb) (QC): 3 4 Steps (QC): 3 12 Steps (QC): 88 Picking up an Object (QC): 88 Does the Pt use WC or Scooter?: Yes Wheel 50 feet with 2 turns (QC: 6 Type: Manual Wheel 150 feet: 6 Type: Manual PT Plan Treatment/Plan Treatment Plan: Continue Plan of Care Treatment Plan: Bed Mobility, Education, Functional Activity [place], Functional Strength, Group Therapy, Gait, Safety, Therapeutic Exercise, Transfers Treatment Duration: Mar 15, 2023 Frequency: 6 times per week Estimated Hrs Per Day: .25 hour per day Patient and/or Family Agrees t: Yes Time Time In: 948 Time Out: 1008 DATE: Feb 24, 2023 Total Billed Treatment Time: 20 Total Billed Treatment 1 visit GT 20 min HIPOLITO SAGASTUME PT Feb 24, 2023 10:40
--- NOTE | 2023-02-24 11:10 | Occupational Ther Daily Note ---
OT Current Status-Daily Note Subjective Agreeable to ambulate, OT will follow with . Mental Status/Objective Patient Orientation: Person, Place, Time, Situation ADL-Treatment Patient is dressed and prepared for day, waiting in Therapy Code Descriptions/Definitions Functional [place] Measure: 0=Not Assessed/NA 4=Minimal Assistance 1=Total Assistance 5=Supervision or Setup 2=Maximal Assistance 6=Modified [place] 3=Moderate Assistance 7=Complete IndependenceSCALE: Activities may be completed with or without assistive devices. 9-Gtfpyxurpe-zfossox completes the activity by him/herself with no assistance from a helper. 5-Set-up or Clean-up Assistance-helper sets up or cleans up; patient completes activity. [place] assists only prior to or following the activity. 4-Supervision or Touching Assistance-helper provides verbal cues and/or touching/steadying and/or contact guard assistance as patient completes activity. Assistance may be provided throughout the activity or intermittently. 3-Partial/Moderate Assistance-helper does LESS THAN HALF the effort. [place] lifts, holds or supports trunk or limbs, but provides less than half the effort. 2-Substantial/Maximal Assistance-helper does MORE THAN HALF the effort. [place] lifts or holds trunk or limbs and provides more than half the effort. 1-Ujhdlsomg-voezys does ALL the effort. Patient does none of the effort to complete the activity. Or, the assistance of 2 or more helpers is required for the patient to complete the activity. If activity was not attempted, code reason: 7-Patient Refused. 9-Not Applicable-not attempted and the patient did not perform the activity before the current illness, exacerbation or injury. 10-Not Attempted due to Environmental Limitations-(lack of equipment, weather restraints, etc.). 88-Not Attempted due to Medical Conditions or Safety Concerns. Eating (QC): 6 Oral Hygiene (QC): 6 Shower/Bathe Self (QC): 7 (PLan for patient to shower tomorow for anticipation of DC) Upper Body Dressing (QC): 6 Lower Body Dressing (QC): 6 On/Off Footwear: 6 Toileting Hygiene (QC): 5 Toilet Transfer (QC): 5 Education OT Patient Education: Correct positioning, Exercise program, Modified ADL techniques, Progress toward Goal/Update tx plan, Purpose of tx/functional activities, Reviewed precautions, Rehab process Teaching Recipient: Patient Teaching Methods: Demonstration, Discussion Response to Teaching: Verbalize Understanding, Return Demonstration, Reinforcement Needed OT Short Term Goals Short Term Goals Time Frame: Feb 18, 2023 Eatin Oral hygiene: 6 Toileting hygiene: 6 Shower/bathe self: 4 OT Extended Day Teacher Goals Extended Day Teacher Goals Time Frame: Feb 22, 2023 Acute change in mental status: 0 Inattention: 0 Disorganized thinkin Altered level of consciousness: 0 Eating (QC): 6 Oral Hygiene (QC): 6 Toileting Hygiene (QC): 6 Shower/Bathe Self (QC): 6 Upper Body Dressing (QC): 6 Lower Body Dressing (QC): 6 On/Off Footwear (QC): 6 1=Demonstrate adherence to instructed precautions during ADL tasks. 2=Patient will verbalize/demonstrate understanding of assistive devices/modifications for ADL. 3=Patient will improve strength/tolerance for activity to enable patient to perform ADL's. OT Education/Plan Problem List/Assessment Assessment: Decreased Activ Tolerance, Impaired Coordination, Impaired Funct Balance, Impaired Self-Care Skills Discharge Recommendations Plan/Recommendations: Continue POC Treatment Plan/Plan of Care Patient would benefit from OT for education, treatment and training to promote independence in ADL's, mobility, safety and/or upper extremity function for ADL's. Plan of Care: ADL Retraining, Functional Mobility, Group Exercise/Act as Ind, UE Funct Exercise/Act, W/C Management Training Treatment Duration: Feb 22, 2023 Frequency: At least 5 of 7 days/Wk (IRF) Estimated Hrs Per Day: .25 hour per day Agreement: Yes Rehab Potential: Guarded Time Start Time: 09:50 Stop Time: 10:10 DATE: Feb 24, 2023 Total Time Billed (hr/min): 20 Billed Treatment Time CO TX w/ PT for WC following during ambulating 50 WB to RLE FA 20 min NISHA MCCONNELL OT Feb 24, 2023 11:10
[2023-02-24] MEDS: HYDROcodone/ACETAMINOPHEN 5 MG/325 MG TABLET PO PRN ×2 (11:32→20:04)
--- NOTE | 2023-02-24 12:34 | Progress Note ---
EDY COX 02/24/23 1234: Subjective Date Seen by a Provider: Feb 24, 2023 Subjective/Events-last exam 78 year old male patient who presents following hip repair. Patient is ambulating well. Patient reports having zero pain. Patient reports walking up the hallway with PT- is requesting pain medication soon because his hip may be sore per PT. Patient denies nausea, vomitting, chest pain, shortness of breath. He is in good spirits and tells me how helpful the hospital staff have been. Objective Exam Last Set of Vital Signs Vital Signs Date Time Temp Pulse Resp B/P (MAP) Pulse Ox O2 Delivery O2 Flow Rate FiO2 02/24/23 08:00 Room Air 02/24/23 07:57 36.3 96 17 106/66 (79) 95 02/18/23 20:15 21 02/18/23 08:00 2.00 Capillary Refill : I&O Intake and Output 02/24/23 00:00 Intake Total 980 ml Output Total 1000 ml Balance -20 ml Intake Oral 980 ml Output Urine Total 1000 ml General: Alert, Oriented X3, Cooperative HEENT: Atraumatic, PERRLA Neck: Supple, No JVD Lungs: Clear to Auscultation Heart: Regular Rate, No Murmurs Abdomen: Normal Bowel Sounds, Soft Extremities: No Clubbing, No Cyanosis Skin: No Rashes, No Breakdown Neuro: Normal Speech Assessment/Plan Assessment/Plan Assess & Plan/Chief Complaint Assessment: Chronic disability following right hip fracture History of hip surgery Hemorrhagic shock Electrolyte abnormality History of Atrial Fibrillation Plan: Encourage patient ambulation Continue home meds Continue pain control Oral anticoagulation Continue PT Social work KARLEE LEIGH DO 02/25/23 0447: Subjective Time Seen by a Provider: 11:00 Subjective/Events-last exam Doing a lot better Pain is controlled Objective Exam General: Alert, Oriented X3, Cooperative, No Acute Distress Assessment/Plan Assessment/Plan Assess & Plan/Chief Complaint Pain control Aggressive rehab Supervisory-Addendum Brief Verification & Attestation Participated in pt care: history, MDM, physical Personally performed: exam, history, MDM, supervision of care Care discussed with: Medical Student Procedures: n/a Results interpretation: Verified all documentation Verification and Attestation of Medical Student E/M Service A medical student performed and documented this service in my presence. I reviewed and verified all information documented by the medical student and made modifications to such information, when appropriate. I personally performed the physical exam and medical decision making. Karlee Leigh, Feb 25, 2023,04:46 EDY COX Feb 24, 2023 12:34 KARLEE LEIGH DO Feb 25, 2023 04:47
[2023-02-24 20:24] VITALS: BP 106/57
[2023-02-25 07:55] VITALS: BP 103/59
[2023-02-25] MEDS: CALCIUM CARBONATE 600 MG +VITAMIN D TABLET PO SCH (09:38)
[2023-02-25] MEDS: PANTOPRAZOLE 40 MG TABLET PO SCH ×2 (09:38→20:40)
[2023-02-25] MEDS: SENNA W/DOCUSATE TABLET PO SCH (09:38)
[2023-02-25] MEDS: TAMSULOSIN 0.4 MG (FLOMAX) CAP PO SCH ×2 (09:38→20:40)
[2023-02-25] MEDS: ASPIRIN 81 MG CHEWABLE TABLET PO SCH ×2 (09:38→20:40)
[2023-02-25] MEDS: POTASSIUM CHLORIDE 10 MEQ TABLET PO SCH ×3 (09:38→20:40)
[2023-02-25] MEDS: FERROUS SULFATE 325 MG (IRON) TABLET PO SCH ×2 (09:38→20:40)
[2023-02-25] MEDS: APIXABAN 5 MG TABLET PO SCH ×2 (09:38→20:40)
[2023-02-25] MEDS: FINASTERIDE 5 MG TABLET PO SCH (09:38)
[2023-02-25] MEDS: predniSONE 5 MG TABLET PO SCH (09:39)
[2023-02-25] MEDS: MUPIROCIN 2% OINTMENT 22 GM TUBE TOP SCH (09:40)
[2023-02-25] MEDS: HYPOCHLOROUS ACID/NaCl WOUND SOLN 250 ML IR SCH (09:42)
[2023-02-25] MEDS: SALINE NASAL SPRAY 45 ML BTL SCH ×4 (09:43→20:40)
--- NOTE | 2023-02-25 11:15 | Physical Therapy Daily Note ---
PT Daily Note-Current Subjective Patient agrees to PT. Pain Section J - Health Conditions 1. Rarely or not at all 2. Occasionally 3. Frequently 4. Almost constantly 8. Unable to answer Pain Effect on Sleep: 1 Pain Interference with Therapy: 1 Pain Interference w/Day-to-Day: 1 Mental Status Patient Orientation: Normal For Age Transfers SCALE: Activities may be completed with or without assistive devices. 6-Rrqwzfjndg-xojwudz completes the activity by him/herself with no assistance from a helper. 5-Set-up or Clean-up Assistance-helper sets up or cleans up; patient completes activity. [place] assists only prior to or following the activity. 4-Supervision or Touching Assistance-helper provides verbal cues and/or touching/steadying and/or contact guard assistance as patient completes activity. Assistance may be provided throughout the activity or intermittently. 3-Partial/Moderate Assistance-helper does LESS THAN HALF the effort. [place] lifts, holds or supports trunk or limbs, but provides less than half the effort. 2-Substantial/Maximal Assistance-helper does MORE THAN HALF the effort. [place] lifts or holds trunk or limbs and provides more than half the effort. 8-Tqkyinsal-jbgxyz does ALL the effort. Patient does none of the effort to complete the activity. Or, the assistance of 2 or more helpers is required for the patient to complete the activity. If activity was not attempted, code reason: 7-Patient Refused. 9-Not Applicable-not attempted and the patient did not perform the activity before the current illness, exacerbation or injury. 10-Not Attempted due to Environmental Limitations-(lack of equipment, weather restraints, etc.). 88-Not Attempted due to Medical Conditions or Safety Concerns. Sit to Stand (QC): 4 Weight Bearing Right Lower Extremity: Right Partial Weight Bearing Left Lower Extremity: Left Weight Bearing/Tolerated Gait Training Distance: 50' x 3/75' x 1 Walk 10 feet (QC): 4 Walk 50 ft with 2 Turns(QC): 4 Gait Assistive Device: FWW steady, step to gait sequence Assessment Patient requires 3 seated recovery periods due to increase in fatigue from participating with OT taking a shower. Patient much improved on this date with gait. PT Crop Insurance Claims Adjuster Goals Crop Insurance Claims Adjuster Goals PT Halfway Goals Time Frame: Mar 12, 2023 Roll Left & Right (QC): 6 Sit to Lying (QC): 6 Lying-Sitting on Side/Bed(QC): 6 Sit to Stand (QC): 6 Chair/Jbj-ym-Drddq Xfer(QC): 4 Toilet Transfer (QC): 4 Car Transfer (QC): 4 Does the Patient Walk: No and Walking Goal NOT indicated Walk 10 feet (QC): 4 Walk 50ft with 2 Turns (QC): 4 Walk 150 ft (QC): 4 Walking 10ft on Uneven Surface: 4 1 Step (curb) (QC): 3 4 Steps (QC): 3 12 Steps (QC): 88 Picking up an Object (QC): 88 Does the Pt use WC or Scooter?: Yes Wheel 50 feet with 2 turns (QC: 6 Type: Manual Wheel 150 feet: 6 Type: Manual PT Plan Treatment/Plan Treatment Plan: Continue Plan of Care Treatment Plan: Bed Mobility, Education, Functional Activity Guill[place], Functional Strength, Group Therapy, Gait, Safety, Therapeutic Exercise, Transfers Treatment Duration: Mar 15, 2023 Frequency: 6 times per week Estimated Hrs Per Day: .25 hour per day Patient and/or Family Agrees t: Yes Time Time In: 1045 Time Out: 1100 DATE: Feb 25, 2023 Total Billed Treatment Time: 15 Total Billed Treatment 1 visit GT 15 min HIPOLITO SAGASTUME PT Feb 25, 2023 11:15
--- NOTE | 2023-02-25 11:26 | Occupational Ther Daily Note ---
OT Current Status-Daily Note Subjective Agreeable to shower, reports most feared mobility is transfers Pain Numeric Pain Scale: 0-No Pain Mental Status/Objective Patient Orientation: Person, Place, Time, Situation ADL-Treatment SET UP of shower bench, hygiene supplies, water temperature and DME for LB dressing, CGA for transfer from WC and ambulation to bathroom CGA for stand to sit and place of FWW. OT stood outside shower curtain and peered in through curtain space for patient to disrobe and shower self. Min assist to dress LB d/t moist skin. Therapy Code Descriptions/Definitions Functional [place] Measure: 0=Not Assessed/NA 4=Minimal Assistance 1=Total Assistance 5=Supervision or Setup 2=Maximal Assistance 6=Modified [place] 3=Moderate Assistance 7=Complete IndependenceSCALE: Activities may be completed with or without assistive devices. 9-Huqtpwcred-bjdfeza completes the activity by him/herself with no assistance from a helper. 5-Set-up or Clean-up Assistance-helper sets up or cleans up; patient completes activity. [place] assists only prior to or following the activity. 4-Supervision or Touching Assistance-helper provides verbal cues and/or touching/steadying and/or contact guard assistance as patient completes activity. Assistance may be provided throughout the activity or intermittently. 3-Partial/Moderate Assistance-helper does LESS THAN HALF the effort. [place] lifts, holds or supports trunk or limbs, but provides less than half the effort. 2-Substantial/Maximal Assistance-helper does MORE THAN HALF the effort. [place] lifts or holds trunk or limbs and provides more than half the effort. 2-Loonomdex-imtpnt does ALL the effort. Patient does none of the effort to complete the activity. Or, the assistance of 2 or more helpers is required for the patient to complete the activity. If activity was not attempted, code reason: 7-Patient Refused. 9-Not Applicable-not attempted and the patient did not perform the activity before the current illness, exacerbation or injury. 10-Not Attempted due to Environmental Limitations-(lack of equipment, weather restraints, etc.). 88-Not Attempted due to Medical Conditions or Safety Concerns. Eating (QC): 6 Oral Hygiene (QC): 6 Bathing Location: L Arm, R Arm, L Upper Leg, R Upper Leg, R Lower Leg (including foot), Chest, Abdomen, Buttocks, Perineal Area Shower/Bathe Self (QC): 5 Upper Body Dressing (QC): 5 Lower Body Dressing (QC): 4 On/Off Footwear: 4 Toileting Hygiene (QC): 5 Toilet Transfer (QC): 5 Education OT Patient Education: Correct positioning, Energy conservation, Modified ADL techniques, Progress toward Goal/Update tx plan, Purpose of tx/functional activities, Reviewed precautions, Rehab process, Safety issues, Transfer techniques, Use of adapted equipment, W/C management Teaching Recipient: Patient Teaching Methods: Demonstration, Discussion Response to Teaching: Verbalize Understanding, Return Demonstration OT Short Term Goals Short Term Goals Time Frame: Feb 18, 2023 Eatin Oral hygiene: 6 Toileting hygiene: 6 Shower/bathe self: 4 OT Material Preparation Worker Goals Material Preparation Worker Goals Time Frame: Feb 22, 2023 Acute change in mental status: 0 Inattention: 0 Disorganized thinkin Altered level of consciousness: 0 Eating (QC): 6 Oral Hygiene (QC): 6 Toileting Hygiene (QC): 6 Shower/Bathe Self (QC): 6 Upper Body Dressing (QC): 6 Lower Body Dressing (QC): 6 On/Off Footwear (QC): 6 1=Demonstrate adherence to instructed precautions during ADL tasks. 2=Patient will verbalize/demonstrate understanding of assistive devices/modifications for ADL. 3=Patient will improve strength/tolerance for activity to enable patient to perform ADL's. OT Education/Plan Problem List/Assessment Assessment: Decreased Activ Tolerance, Decreased Safety Aware, Impaired Coordination, Impaired Self-Care Skills Discharge Recommendations Plan/Recommendations: Continue POC Equpiment Recommendations-D/C: Hip Kit Treatment Plan/Plan of Care Treatment,Training & Education: Yes Patient would benefit from OT for education, treatment and training to promote independence in ADL's, mobility, safety and/or upper extremity function for ADL's. Plan of Care: ADL Retraining, Functional Mobility, Group Exercise/Act as Ind, UE Funct Exercise/Act, W/C Management Training Treatment Duration: Feb 22, 2023 Frequency: At least 5 of 7 days/Wk (IRF) Estimated Hrs Per Day: .25 hour per day Agreement: Yes Rehab Potential: Guarded Time Start Time: 10:01 Stop Time: :27 DATE: Feb 25, 2023 Total Time Billed (hr/min): 26 Billed Treatment Time ADL 26 min NISHA MCCONNELL OT Feb 25, 2023 11:26
[2023-02-25] MEDS: HYDROcodone/ACETAMINOPHEN 5 MG/325 MG TABLET PO PRN (11:30)
[2023-02-25] MEDS ORDERED: ACHD5005 PO (11:34)
[2023-02-25] MEDS ORDERED: ASPI81TA64 PO (11:34)
[2023-02-25] MEDS ORDERED: FERR325T24 PO (11:34)
--- NOTE | 2023-02-25 11:36 | D/C HH Face to Face Order ---
D/C HH Face to Face Orders Reconcile Patient Problems Problems Reviewed?: Yes Instructions for Patient HH Patient Instructions/FollowUp: PCP in 1 week Physician to follow Patient: Tonja Discharge Diet for Home: No Restrictions Patient Problems: Hip fracture Patient Data-Allergies,Ht & Wt Patient Allergies: Coded Allergies: sulfamethoxazole (Unverified Allergy, Unknown, 12/09/21) trimethoprim (Unverified Allergy, Unknown, 12/09/21) ibuprofen (Unverified Adverse Reaction, Mild, BECOMES UNPLEASANT, 06/29/21) Height (Feet): 6 Height (Inches): 3.50 Weight (Pounds): 198 Weight (Ounces): 2.0 Home Health Need/Face to Face Date of Face to Face: Feb 25, 2023 Clinical Findings: Generalized weakness and fatigue, Instability, Muscle weakness, Pain with ambulation I have seen Pt plun-zr-[id number]: Yes Discharged To: Home Diagnosis/Conditions: Debility Patient is Homebound due to: Nain fall risk due to instabilty, Muscle weakness Homebound Status Due to the above stated illness, injury or surgical procedure (medical condition or diagnosis) and associated clinical findings, the patient is homebound because of his/her inability to leave home except with aid of a supportive device and/or person AND leaving the home requires a considerable and taxing effort or is medically contraindicated. Pt req the following assistanc: Walker, Wheelchair Home Health Nursing Orders Home Health Services Order: Nursing Services, Regional Project Manager-Evaluate & Treat, Physical Therapy-Evaluate & Treat Home Health Infusion Therapy Line Start Date: Feb 12, 2023 Certify Stmt I certify that this patient is under my care and that I, a nurse practitioner or a physician; a assistant analyst working with me, had a face to face encounter that - meets the physician face to face encounter requirements with this patient as dated. MARISOL LEIGH DO Feb 25, 2023 11:36
--- NOTE | 2023-02-25 11:36 | Progress Note ---
Subjective Date Seen by a Provider: Feb 25, 2023 Time Seen by a Provider: 11:00 Subjective/Events-last exam Patient doing well We will discharge on Tuesday No falls Ramp is done at home Objective Exam Last Set of Vital Signs Vital Signs Date Time Temp Pulse Resp B/P (MAP) Pulse Ox O2 Delivery O2 Flow Rate FiO2 02/25/23 08:00 Room Air 02/25/23 07:55 36.3 92 18 103/59 (74) 98 Capillary Refill : I&O Intake and Output 02/25/23 00:00 Intake Total 1290 ml Output Total 1570 ml Balance -280 ml Intake Oral 1290 ml Output Urine Total 1570 ml General: Alert, Oriented X3, Cooperative, No Acute Distress Assessment/Plan Assessment/Plan Assess & Plan/Chief Complaint Assessment: Debility Right femur fracture after prosthesis Plan: ИРИНА Tuesday MARISOL LEIGH DO Feb 25, 2023 11:36
[2023-02-25 19:07] VITALS: BP 114/62
[2023-02-26 07:14] VITALS: BP 115/60
[2023-02-26] MEDS: SENNA W/DOCUSATE TABLET PO SCH (08:25)
[2023-02-26] MEDS: POTASSIUM CHLORIDE 10 MEQ TABLET PO SCH ×3 (08:25→20:11)
[2023-02-26] MEDS: ASPIRIN 81 MG CHEWABLE TABLET PO SCH ×2 (08:25→20:11)
[2023-02-26] MEDS: FINASTERIDE 5 MG TABLET PO SCH (08:25)
[2023-02-26] MEDS: HYPOCHLOROUS ACID/NaCl WOUND SOLN 250 ML IR SCH (08:25)
[2023-02-26] MEDS: MUPIROCIN 2% OINTMENT 22 GM TUBE TOP SCH (08:25)
[2023-02-26] MEDS: predniSONE 5 MG TABLET PO SCH (08:26)
[2023-02-26] MEDS: TAMSULOSIN 0.4 MG (FLOMAX) CAP PO SCH ×2 (08:26→20:11)
[2023-02-26] MEDS: PANTOPRAZOLE 40 MG TABLET PO SCH ×2 (08:26→20:11)
[2023-02-26] MEDS: [UNRECOGNIZED DRUG - OTHER] PO SCH (08:26)
[2023-02-26] MEDS: APIXABAN 5 MG TABLET PO SCH ×2 (08:26→20:11)
[2023-02-26] MEDS: FERROUS SULFATE 325 MG (IRON) TABLET PO SCH ×2 (08:26→20:11)
[2023-02-26] MEDS: CALCIUM CARBONATE 600 MG +VITAMIN D TABLET PO SCH (08:26)
[2023-02-26] MEDS: SALINE NASAL SPRAY 45 ML BTL SCH ×5 (08:29→20:11)
[2023-02-26] MEDS: METHOTREXATE 2.5 MG TAB PO SCH (08:42)
--- NOTE | 2023-02-26 09:48 | Physical Therapy Daily Note ---
PT Daily Note-Current Subjective Patient agrees to PT. Pain Section J - Health Conditions 1. Rarely or not at all 2. Occasionally 3. Frequently 4. Almost constantly 8. Unable to answer Pain Effect on Sleep: 1 Pain Interference with Therapy: 1 Pain Interference w/Day-to-Day: 1 Mental Status Patient Orientation: Normal For Age Transfers SCALE: Activities may be completed with or without assistive devices. 6-Peipnpdcwt-buyzhsf completes the activity by him/herself with no assistance from a helper. 5-Set-up or Clean-up Assistance-helper sets up or cleans up; patient completes activity. [place] assists only prior to or following the activity. 4-Supervision or Touching Assistance-helper provides verbal cues and/or touching/steadying and/or contact guard assistance as patient completes activity. Assistance may be provided throughout the activity or intermittently. 3-Partial/Moderate Assistance-helper does LESS THAN HALF the effort. [place] lifts, holds or supports trunk or limbs, but provides less than half the effort. 2-Substantial/Maximal Assistance-helper does MORE THAN HALF the effort. [place] lifts or holds trunk or limbs and provides more than half the effort. 3-Twvqddyvh-egxojn does ALL the effort. Patient does none of the effort to complete the activity. Or, the assistance of 2 or more helpers is required for the patient to complete the activity. If activity was not attempted, code reason: 7-Patient Refused. 9-Not Applicable-not attempted and the patient did not perform the activity before the current illness, exacerbation or injury. 10-Not Attempted due to Environmental Limitations-(lack of equipment, weather restraints, etc.). 88-Not Attempted due to Medical Conditions or Safety Concerns. Roll Left & Right (QC): 6 Sit to Lying (QC): 6 Lying to Sitting/Side of Bed(Q: 6 Sit to Stand (QC): 5 Chair/Hfy-qj-Aegac Xfer(QC): 5 Toilet Transfer (QC): 5 Car Transfer (QC): 5 (simulated) Weight Bearing Right Lower Extremity: Right Partial Weight Bearing Left Lower Extremity: Left Weight Bearing/Tolerated Gait Training Distance: 60' x 4 Walk 10 feet (QC): 5 Walk 50 ft with 2 Turns(QC): 5 Walk 150 ft (QC): 88 Walking 10ft/uneven surface-QC: 88 Gait Assistive Device: FWW Wheelchair Training Does the Pt Use a Wheelchair?: Yes Wheel 50 ft with 2 turns (QC): 6 Wheel 150 ft (QC): 6 Type of Wheelchair: Manual Stair Training #of Steps: 8 1 Step (curb) (QC): 88 4 Steps (QC): 88 12 Steps (QC): 88 due to weight bearing status right LE Balance Picking up an Object (QC): 88 Exercises Seated Therapy Exercises: Glut set Assessment Patient improving with treatment plan and has increase in ambulation distance and duration. Plan to dismiss patient to home with family and home health next week. PT Senior Ios Developer Goals Shelter Goals PT Senior Ios Developer Goals Time Frame: Mar 12, 2023 Roll Left & Right (QC): 6 Sit to Lying (QC): 6 Lying-Sitting on Side/Bed(QC): 6 Sit to Stand (QC): 6 Chair/Lrh-is-Jmmcq Xfer(QC): 4 Toilet Transfer (QC): 4 Car Transfer (QC): 4 Does the Patient Walk: No and Walking Goal NOT indicated Walk 10 feet (QC): 4 Walk 50ft with 2 Turns (QC): 4 Walk 150 ft (QC): 4 Walking 10ft on Uneven Surface: 4 1 Step (curb) (QC): 3 4 Steps (QC): 3 12 Steps (QC): 88 Picking up an Object (QC): 88 Does the Pt use WC or Scooter?: Yes Wheel 50 feet with 2 turns (QC: 6 Type: Manual Wheel 150 feet: 6 Type: Manual PT Plan Treatment/Plan Treatment Plan: Continue Plan of Care Treatment Plan: Bed Mobility, Education, Functional Activity Guill[place], Functional Strength, Group Therapy, Gait, Safety, Therapeutic Exercise, Transfers Treatment Duration: Mar 15, 2023 Frequency: 6 times per week Estimated Hrs Per Day: .25 hour per day Patient and/or Family Agrees t: Yes Time Time In: 905 Time Out: 928 DATE: Feb 26, 2023 Total Billed Treatment Time: 23 Total Billed Treatment 1 visit GT x 2 23 min HIPOLITO SAGASTUME PT Feb 26, 2023 09:48
[2023-02-26] MEDS: HYDROcodone/ACETAMINOPHEN 5 MG/325 MG TABLET PO PRN ×2 (10:23→16:46)
[2023-02-26 19:53] VITALS: BP 98/56
[2023-02-27 08:16] VITALS: BP 97/43
[2023-02-27] MEDS: CALCIUM CARBONATE 600 MG +VITAMIN D TABLET PO SCH (09:50)
[2023-02-27] MEDS: ASPIRIN 81 MG CHEWABLE TABLET PO SCH ×2 (09:50→19:59)
[2023-02-27] MEDS: SENNA W/DOCUSATE TABLET PO SCH (09:50)
[2023-02-27] MEDS: TAMSULOSIN 0.4 MG (FLOMAX) CAP PO SCH ×2 (09:50→19:59)
[2023-02-27] MEDS: FERROUS SULFATE 325 MG (IRON) TABLET PO SCH ×2 (09:50→19:59)
[2023-02-27] MEDS: POTASSIUM CHLORIDE 10 MEQ TABLET PO SCH ×3 (09:50→19:59)
[2023-02-27] MEDS: predniSONE 5 MG TABLET PO SCH (09:50)
[2023-02-27] MEDS: HYPOCHLOROUS ACID/NaCl WOUND SOLN 250 ML IR SCH (09:50)
[2023-02-27] MEDS: APIXABAN 5 MG TABLET PO SCH ×2 (09:50→19:59)
[2023-02-27] MEDS: PANTOPRAZOLE 40 MG TABLET PO SCH ×2 (09:50→19:59)
[2023-02-27] MEDS: FINASTERIDE 5 MG TABLET PO SCH (09:50)
[2023-02-27] MEDS: SALINE NASAL SPRAY 45 ML BTL SCH ×4 (09:51→20:01)
[2023-02-27] MEDS: MUPIROCIN 2% OINTMENT 22 GM TUBE TOP SCH (09:51)
--- NOTE | 2023-02-27 18:02 | Progress Note - Hospitalist ---
Subjective HPI/CC On Admission Date Seen by Provider: Feb 27, 2023 Time Seen by Provider: 12:00 Subjective/Events-last exam He is doing well. He has no complaints. He has been up moving. Objective Exam Vital Signs Vital Signs Date Time Temp Pulse Resp B/P (MAP) Pulse Ox O2 Delivery O2 Flow Rate FiO2 02/27/23 20:14 36.8 84 18 105/56 (72) 93 Room Air Capillary Refill : General Appearance: No Apparent Distress, WD/WN Respiratory: No Respiratory Distress Extremity: Normal Inspection Neurologic/Psychiatric: Alert, Normal Mood/Affect Skin: Normal Color Results/Procedures Lab Patient resulted labs reviewed. Assessment/Plan Assessment and Plan Assess & Plan/Chief Complaint Hip fracture PT/OT Likely discharge home tomorrow Diagnosis/Problems Diagnosis/Problems (1) Femur fracture Status: Acute MISSY JOHNSON MD Feb 27, 2023 18:02
[2023-02-27 20:14] VITALS: BP 105/56
--- NOTE | 2023-02-28 05:06 | Discharge Summary ---
Diagnosis/Chief Complaint Date of Admission Feb 12, 2023 at 12:25 Date of Discharge Discharge Date: Feb 28, 2023 Discharge Diagnosis Assessment: Debility following right chronic hip fracture status post repair on 01/31/2023 then periprosthetic fracture requiring repair on 02/02/2023 with complication of hemorrhagic shock and electrolyte abnormality requiring higher level of care to [facility] Gordillo Prior history of left BKA Atrial fibrillation Former smoker Chronic UTI Discharge Summary Discharge Physical Examination Allergies: Coded Allergies: sulfamethoxazole (Unverified Allergy, Unknown, 12/09/21) trimethoprim (Unverified Allergy, Unknown, 12/09/21) ibuprofen (Unverified Adverse Reaction, Mild, BECOMES UNPLEASANT, 06/29/21) Vitals & I&Os Vital Signs Date Time Temp Pulse Resp B/P (MAP) Pulse Ox O2 Delivery O2 Flow Rate FiO2 02/28/23 14:45 02/28/23 08:15 Room Air 02/28/23 07:46 36.4 98 16 93 General Appearance: Alert, Oriented X3, Cooperative Respiratory: Clear to Auscultation Cardiovascular: Regular Rate Psych/Mental Status: Mental Status NL Hospital Course Was the Problem List Reviewed?: Yes Uneventful course after he was admitted to swing bed from [facility] after revision of right femur after fractured following replacement by Dr Galindo. Hgb stable so he was restarted on OAC. Labs remained stable. Bowels returned to normal. Participation was good with therapy and ultimately he regained function and was able to DC home. Labs (last 24 hrs) Laboratory Tests 02/13/23 05:03: White Blood Count 4.0L, Red Blood Count 2.83L, Hemoglobin 8.7L, Hematocrit 27L, Mean Corpuscular Volume 94, Mean Corpuscular Hemoglobin 31, Mean Corpuscular Hemoglobin Concent 33, Red Cell Distribution Width 16.7H, Platelet Count 237, Mean Platelet Volume 10.1, Immature Granulocyte % (Auto) 1, Neutrophils (%) (Auto) 61, Lymphocytes (%) (Auto) 21, Monocytes (%) (Auto) 16H, Eosinophils (%) (Auto) 2, Basophils (%) (Auto) 1, Neutrophils # (Auto) 2.4, Lymphocytes # (Auto) 0.8L, Monocytes # (Auto) 0.6, Eosinophils # (Auto) 0.1, Basophils # (Auto) 0.0, Immature Granulocyte # (Auto) 0.0, Sodium Level 139, Potassium Level 3.8, Chloride Level 111H, Carbon Dioxide Level 21, Anion Gap 7, Blood Urea Nitrogen 17, Creatinine 0.85, Estimat Glomerular Filtration Rate 88, BUN/Creatinine Ratio 20, Glucose Level 89, Calcium Level 8.5, Corrected Calcium 9.9, Total Bilirubin 1.4H, Aspartate Amino Transf (AST/SGOT) 36H, Alanine Aminotransferase (ALT/SGPT) 28, Alkaline Phosphatase 131, Total Protein 5.6L, Albumin 2.3L 02/13/23 12:37: Iron Level 33L, Vitamin B12 Level 504 02/17/23 05:32: White Blood Count 2.8L, Red Blood Count 3.19L, Hemoglobin 9.6L, Hematocrit 31L, Mean Corpuscular Volume 96, Mean Corpuscular Hemoglobin 30, Mean Corpuscular Hemoglobin Concent 32, Red Cell Distribution Width 16.4H, Platelet Count 316, Mean Platelet Volume 9.9, Immature Granulocyte % (Auto) 1, Neutrophils (%) (Auto) 57, Lymphocytes (%) (Auto) 26, Monocytes (%) (Auto) 13H, Eosinophils (%) (Auto) 3, Basophils (%) (Auto) 1, Neutrophils # (Auto) 1.6L, Lymphocytes # (Auto) 0.7L, Monocytes # (Auto) 0.4, Eosinophils # (Auto) 0.1, Basophils # (Auto) 0.0, Immature Granulocyte # (Auto) 0.0, Sodium Level 135, Potassium Level 4.7, Chloride Level 108H, Carbon Dioxide Level 21, Anion Gap 6, Blood Urea Nitrogen 16, Creatinine 1.03, Estimat Glomerular Filtration Rate 73, BUN/Creatinine Ratio 16, Glucose Level 87, Calcium Level 9.0, Corrected Calcium 10.1, Total Bilirubin 1.1H, Aspartate Amino Transf (AST/SGOT) 31, Alanine Aminotransferase (ALT/SGPT) 24, Alkaline Phosphatase 161H, Total Protein 6.3L, Albumin 2.6L 02/21/23 05:18: White Blood Count 4.0L, Red Blood Count 3.63L, Hemoglobin 11.2L, Hematocrit 35L, Mean Corpuscular Volume 96, Mean Corpuscular Hemoglobin 31, Mean Corpuscular Hemoglobin Concent 32, Red Cell Distribution Width 17.4H, Platelet Count 232, Mean Platelet Volume 10.2, Immature Granulocyte % (Auto) 0, Neutrophils (%) (Auto) 66, Lymphocytes (%) (Auto) 23, Monocytes (%) (Auto) 10, Eosinophils (%) (Auto) 1, Basophils (%) (Auto) 1, Neutrophils # (Auto) 2.6, Lymphocytes # (Auto) 0.9L, Monocytes # (Auto) 0.4, Eosinophils # (Auto) 0.1, Basophils # (Auto) 0.0, Immature Granulocyte # (Auto) 0.0, Sodium Level 133L, Potassium Level 4.3, Chloride Level 106, Carbon Dioxide Level 20L, Anion Gap 7, Blood Urea Nitrogen 18, Creatinine 0.97, Estimat Glomerular Filtration Rate 79, BUN/Creatinine Ratio 19, Glucose Level 88, Calcium Level 9.1, Corrected Calcium 10.1, Total Bilirubin 0.9, Aspartate Amino Transf (AST/SGOT) 45H, Alanine Aminotransferase (ALT/SGPT) 32, Alkaline Phosphatase 162H, Total Protein 6.5, Albumin 2.7L Pending Labs Laboratory Tests 02/13/23 05:03: White Blood Count 4.0, Red Blood Count 2.83, Hemoglobin 8.7, Hematocrit 27, Mean Corpuscular Volume 94, Mean Corpuscular Hemoglobin 31, Mean Corpuscular Hemoglobin Concent 33, Red Cell Distribution Width 16.7, Platelet Count 237, Mean Platelet Volume 10.1, Immature Granulocyte % (Auto) 1, Neutrophils (%) (Auto) 61, Lymphocytes (%) (Auto) 21, Monocytes (%) (Auto) 16, Eosinophils (%) (Auto) 2, Basophils (%) (Auto) 1, Neutrophils # (Auto) 2.4, Lymphocytes # (Auto) 0.8, Monocytes # (Auto) 0.6, Eosinophils # (Auto) 0.1, Basophils # (Auto) 0.0, Immature Granulocyte # (Auto) 0.0, Sodium Level 139, Potassium Level 3.8, Ch loride Level 111, Carbon Dioxide Level 21, Anion Gap 7, Blood Urea Nitrogen 17, Creatinine 0.85, Estimat Glomerular Filtration Rate 88, BUN/Creatinine Ratio 20, Glucose Level 89, Calcium Level 8.5, Corrected Calcium 9.9, Total Bilirubin 1.4, Aspartate Amino Transf (AST/SGOT) 36, Alanine Aminotransferase (ALT/SGPT) 28, Alkaline Phosphatase 131, Total Protein 5.6, Albumin 2.3 02/13/23 12:37: Iron Level 33, Vitamin B12 Level 504 02/17/23 05:32: White Blood Count 2.8, Red Blood Count 3.19, Hemoglobin 9.6, Hematocrit 31, Mean Corpuscular Volume 96, Mean Corpuscular Hemoglobin 30, Mean Corpuscular Hemoglobin Concent 32, Red Cell Distribution Width 16.4, Platelet Count 316, Mean Platelet Volume 9.9, Immature Granulocyte % (Auto) 1, Neutrophils (%) (Auto) 57, Lymphocytes (%) (Auto) 26, Monocytes (%) (Auto) 13, Eosinophils (%) (Auto) 3, Basophils (%) (Auto) 1, Neutrophils # (Auto) 1.6, Lymphocytes # (Auto) 0.7, Monocytes # (Auto) 0.4, Eosinophils # (Auto) 0.1, Basophils # (Auto) 0.0, Immature Granulocyte # (Auto) 0.0, Sodium Level 135, Potassium Level 4.7, Chloride Level 108, Carbon Dioxide Level 21, Anion Gap 6, Blood Urea Nitrogen 16, Creatinine 1.03, Estimat Glomerular Filtration Rate 73, BUN/Creatinine Ratio 16, Glucose Level 87, Calcium Level 9.0, Corrected Calcium 10.1, Total Bilirubin 1.1, Aspartate Amino Transf (AST/SGOT) 31, Alanine Aminotransferase (ALT/SGPT) 24, Alkaline Phosphatase 161, Total Protein 6.3, Albumin 2.6 02/21/23 05:18: White Blood Count 4.0, Red Blood Count 3.63, Hemoglobin 11.2, Hematocrit 35, Mean Corpuscular Volume 96, Mean Corpuscular Hemoglobin 31, Mean Corpuscular Hemoglobin Concent 32, Red Cell Distribution Width 17.4, Platelet Count 232, Mean Platelet Volume 10.2, Immature Granulocyte % (Auto) 0, Neutrophils (%) (Auto) 66, Lymphocytes (%) (Auto) 23, Monocytes (%) (Auto) 10, Eosinophils (%) (Auto) 1, Basophils (%) (Auto) 1, Neutrophils # (Auto) 2.6, Lymphocytes # (Auto) 0.9, Monocytes # (Auto) 0.4, Eosinophils # (Auto) 0.1, Basophils # (Auto) 0.0, Immature Granulocyte # (Auto) 0.0, Sodium Level 133, Potassium Level 4.3, Chloride Level 106, Carbon Dioxide Level 20, Anion Gap 7, Blood Urea Nitrogen 18, Creatinine 0.97, Estimat Glomerular Filtration Rate 79, BUN/Creatinine Ratio 19, Glucose Level 88, Calcium Level 9.1, Corrected Calcium 10.1, Total Bilirubin 0.9, Aspartate Amino Transf (AST/SGOT) 45, Alanine Aminotransferase (ALT/SGPT) 32, Alkaline Phosphatase 162, Total Protein 6.5, Albumin 2.7 Discharge Home Medications: Active Scripts Active Children's Aspirin (Aspirin) 81 Mg Tab.chew 81 Mg PO BID Ferosul (Ferrous Sulfate) 325 Mg (65 Mg Iron) Tablet 325 Mg PO BID Hydrocodone-Acetamin 5-325 mg (Hydrocodone/Acetaminophen) 5 Mg-325 Mg Tablet 1-2 Ea PO Q8H PRN Reported Potassium Citrate ER (Potassium Citrate) 10 Meq (1080 Mg) Tablet.er 10 Meq PO BID Omeprazole 20 Mg Tab.rap.dr 20 Mg PO DAILY Eliquis (Apixaban) 5 Mg Tablet 5 Mg PO BID Preservision Areds Softgel (Vit A/C/E/Zinc/Co) 4,296-226 Capsule 1 Each PO Q48H Flomax (Tamsulosin HCl) 0.4 Mg Cap 0.4 Mg PO BID Finasteride 5 Mg Tablet 5 Mg PO DAILY Prednisone 5 Mg Tablet 2.5 Mg PO DAILY TAKES OF A 5MG TAB Methotrexate (Methotrexate Sodium) 2.5 Mg Tablet 20 Mg PO SAT TAKES 8 (2.5MG) TABS Instructions to patient/family Please see electronic discharge instructions given to patient. MARISOL LEIGH DO Feb 28, 2023 05:06
--- NOTE | 2023-02-28 07:26 | Therapy Team Discharge Summary ---
Therapy Discharge Summary Discharge Recommendations Date of Discharge Physical Therapy Patient much improved with gross motor skills and functional endurance. Patient is able to ambulate, PWB right LE, 50-60 feet modified independent. He demonstrates independence with w/c mobility in all aspects. Patient has prog ressed with treatment plan and will dismiss to home with family and home health. Roll Left to Right (QC): 6 Sit to Lying (QC): 6 Lying to Sitting/Side of Bed(Q: 6 Sit to Stand (QC): 5 Chair/Bec-ea-Enblm Xfer(QC): 5 Toilet Transfer (QC): 5 Car Transfer (QC): 5 (simulated) Does the Patient Walk: Yes Mode of Locomotion: Wheelchair Anticipated Mode of Locomotion: Wheelchair Walk 10 feet (QC): 5 Walk 50 ft with 2 Turns(QC): 5 Walk 150 ft (QC): 88 Walking 10ft on uneven surface: 88 Distance: 60' x 4 Gait Assistive Device: FWW Does the Pt Use a Wheelchair: Yes Wheel 50 ft with 2 turns (QC): 6 Wheel 150 ft (QC): 6 Type of Wheelchair: Manual #of Steps: 8 1 Step (curb) (QC): 88 4 Steps (QC): 88 12 Steps (QC): 88 Balance Sitting Static: Good Balance Sitting Dynamic: Good Balance-Standing Static: Poor Picking up an Object (QC): 88 Occupational Therapy Decreased Activ Tolerance, Decreased Safety Aware, Impaired Coordination, Impaired Self-Care Skills Eating (QC): 6 Oral Hygiene (QC): 6 Shower/Bathe Self (QC): 5 Upper Body Dressing (QC): 5 Lower Body Dressing (QC): 4 On/Off Footwear (QC): 4 Toileting Hygiene (QC): 5 PT Accounting Intern Goals Jail Goals PT Jail Goals Time Frame: Mar 12, 2023 Roll Left to Right (QC): 6 Sit to Lying (QC): 6 Lying-Sitting on Side/Bed(QC): 6 Sit to Stand (QC): 6 Chair/Ard-ty-Qumku Xfer(QC): 4 Toilet/Commode Transfer (QC): 4 Car Transfer (QC): 4 Does the Patient Walk: No and Walking Goal NOT indicated Walk 10 feet (QC): 4 Walk 10ft-Uneven Surface(QC): 4 Walk 50ft with 2 Turns (QC): 4 Walk 150 ft (QC): 4 Does the Pt use WC or Scooter?: Yes Wheel 50 feet with 2 turns (QC: 6 Type: Manual Wheel 150 feet: 6 Type: Manual 1 Step (curb) (QC): 3 4 Steps (QC): 3 12 Steps (QC): 88 Picking up an Object (QC): 88 OT Accounting Intern Goals Accounting Intern Goals Time Frame: Feb 22, 2023 Acute change in mental status: 0 Inattention: 0 Disorganized thinkin Altered level of consciousness: 0 Eating (QC): 6 Oral Hygiene (QC): 6 Toileting Hygiene (QC): 6 Shower/Bathe Self (QC): 6 Upper Body Dressing (QC): 6 Lower Body Dressing (QC): 6 On/Off Footwear (QC): 6 1=Demonstrate adherence to instructed precautions during ADL tasks. 2=Patient will verbalize/demonstrate understanding of assistive devices/modifications for ADL. 3=Patient will improve strength/tolerance for activity to enable patient to perform ADL's. HIPOLITO SAGASTUME PT Feb 28, 2023 07:26
[2023-02-28 07:46] VITALS: BP 105/65
[2023-02-28] MEDS: ASPIRIN 81 MG CHEWABLE TABLET PO SCH (08:10)
[2023-02-28] MEDS: SENNA W/DOCUSATE TABLET PO SCH (08:10)
[2023-02-28] MEDS: POTASSIUM CHLORIDE 10 MEQ TABLET PO SCH ×2 (08:10→13:05)
[2023-02-28] MEDS: PANTOPRAZOLE 40 MG TABLET PO SCH (08:10)
[2023-02-28] MEDS: CALCIUM CARBONATE 600 MG +VITAMIN D TABLET PO SCH (08:11)
[2023-02-28] MEDS: FERROUS SULFATE 325 MG (IRON) TABLET PO SCH (08:11)
[2023-02-28] MEDS: predniSONE 5 MG TABLET PO SCH (08:11)
[2023-02-28] MEDS: TAMSULOSIN 0.4 MG (FLOMAX) CAP PO SCH (08:11)
[2023-02-28] MEDS: APIXABAN 5 MG TABLET PO SCH (08:11)
[2023-02-28] MEDS: FINASTERIDE 5 MG TABLET PO SCH (08:11)
[2023-02-28] MEDS: [UNRECOGNIZED DRUG - OTHER] PO SCH (08:14)
[2023-02-28] MEDS: SALINE NASAL SPRAY 45 ML BTL SCH ×2 (08:15→13:05)
[2023-02-28] MEDS: HYPOCHLOROUS ACID/NaCl WOUND SOLN 250 ML IR SCH (09:38)
[2023-02-28] MEDS: MUPIROCIN 2% OINTMENT 22 GM TUBE TOP SCH (09:38)
== END 2023-02-28 14:46 | disposition home health service (06) | DRG 947 ==
LOC: 4TH 12:25
PROVIDERS: ADMIT Internal Medicine; ATTEND Internal Medicine
DX: R53.81 Other malaise (principal); R57.8 Other shock; S72.001A Fracture of unspecified part of neck of right femur, initial encounter for closed fracture; N39.0 Urinary tract infection, site not specified; M97.01XA Periprosthetic fracture around internal prosthetic right hip joint, initial encounter; Z89.512 Acquired absence of left leg below knee; I48.91 Unspecified atrial fibrillation; Z87.891 Personal history of nicotine dependence; I10 Essential (primary) hypertension; N40.0 Benign prostatic hyperplasia without lower urinary tract symptoms; M06.9 Rheumatoid arthritis, unspecified; D64.9 Anemia, unspecified; W18.30XA Fall on same level, unspecified, initial encounter
CPT/HCPCS: 36415; 80053; 82607; 83540; 85025; 94760